=== PATIENT | female | born 1940 | race Caucasian/White ===

== ENCOUNTER 2016-07-30 10:49 | Outpatient (CLI) | payer MEDICARE, OTHER | END 2016-07-30 10:50 | disposition home or self-care (01) | DX: N28.89 Other specified disorders of kidney and ureter (principal); R93.2 Abnormal findings on diagnostic imaging of liver and biliary tract ==

== ENCOUNTER 2016-08-13 14:54 | Outpatient (CLI) | payer MEDICARE, OTHER | END 2016-08-13 14:55 | disposition home or self-care (01) | DX: E10.9 Type 1 diabetes mellitus without complications (principal); Z79.899 Other long term (current) drug therapy ==

== ENCOUNTER 2016-09-21 16:16 | Outpatient (CLI) | payer MEDICARE, OTHER | END 2016-09-21 16:17 | disposition home or self-care (01) | DX: N05.9 Unspecified nephritic syndrome with unspecified morphologic changes (principal); D70.9 Neutropenia, unspecified; D50.0 Iron deficiency anemia secondary to blood loss (chronic); R80.9 Proteinuria, unspecified ==

== ENCOUNTER 2016-10-01 18:58 | Outpatient (CLI) | payer MEDICARE, OTHER | END 2016-10-01 18:59 | disposition EMS.NT | DX: E16.2 Hypoglycemia, unspecified (principal) ==

== ENCOUNTER 2016-10-21 08:40 | Outpatient (CLI) | payer MEDICARE, OTHER ==
[2016-10-21 19:07] LABS: CALCIUM 8.8 mg/dL (8.5-10.3); CREATININE 2.1 mg/dL (0.4-1.0); POTASSIUM 4.5 mmol/L (3.5-5.0)
== END 2016-10-21 08:41 | disposition home or self-care (01) ==
LOC: LAB.R 08:40
PROVIDERS: ATTEND Internal Medicine
DX: N05.9 Unspecified nephritic syndrome with unspecified morphologic changes (principal)
CPT/HCPCS: 80048

== ENCOUNTER 2016-12-02 08:45 | Outpatient (CLI) | payer MEDICARE, OTHER ==
[2016-12-02 11:50] LABS: CALCIUM 9.1 mg/dL (8.5-10.3); CREATININE 2.4 mg/dL (0.4-1.0); POTASSIUM 4.9 mmol/L (3.5-5.0)
== END 2016-12-02 08:46 | disposition home or self-care (01) ==
LOC: LAB.R 08:45
PROVIDERS: ATTEND Internal Medicine Nephrology
DX: N05.9 Unspecified nephritic syndrome with unspecified morphologic changes (principal); R80.9 Proteinuria, unspecified
CPT/HCPCS: 80048; 82570; 83970; 84100; 84156

== ENCOUNTER 2016-12-26 07:40 | Emergency (ER) | payer MEDICARE, OTHER ==
--- NOTE | 2016-12-26 08:15 | ED Physician Documentation ---
History of Present Illness - Stated complaint Stated Complaint: VOMITING,RUIZ - Chief complaint Chief Complaint: General - History obtained from History obtained from: Patient - Additonal information Additional information: This patient is a 76-year-old female with a history of hydrocephalus status post shunt placement in 2009. She also has a left renal mass which is currently being followed by her physician. She has long-term hypertension and diabetes and has stage IV chronic kidney disease. She is here with a 2 day history of a global headache. The headache is worse lying down and alleviated by sitting or standing. She is also had mild nausea with a few episodes of vomiting and some diarrhea over the same period of time. Her headache symptoms similar to that that preceded the shunt placement 10 years ago. He has no complaints of abdominal pain. She denies having any fever, chest pain, shortness of breath, or lower urinary symptoms. She denies any visual changes or focal neurologic symptoms. Review of systems: For pertinent positive and negatives in the review of systems please see the history of present illness, otherwise all other systems have been reviewed and are negative. Dragon disclaimer: Parts of this medical record were created using voice recognition technology. Because of the inherent limitations of this system, occasional same sounding word substitutions do occur and persist despite proofreading. Please read the document for context. Review of Systems Ten Systems: 10 systems reviewed and negative Constitutional: denies: Fever, Chills Eyes: denies: Loss of vision, Decreased vision Ears: denies: Tinnitus/ringing Nose: reports: Reviewed and negative Throat: reports: Reviewed and negative Cardiac: denies: Chest pain / pressure, Palpitations Respiratory: denies: Dyspnea, Cough GI: reports: Nausea, Vomiting, Diarrhea. denies: Abdominal Pain, Constipation, Hematemesis : denies: Dysuria, Frequency, Hesitancy Skin: denies: Rash, Lesions, Abrasion (s), Laceration (s), Bite / sting, Reviewed and negative Musculoskeletal: denies: Neck pain, Back pain, Extremity pain, Joint pain, Extremity swelling, Joint swelling, Pain with weight bearing, Reviewed and negative Neurologic: denies: Generalized weakness, Focal weakness, Numbness, Difficulty speaking, Near syncope, Syncope, Seizure, Confused, Altered mental status, Unresponsive PD PAST MEDICAL HISTORY - Past Medical History Past Medical History: Yes Cardiovascular: Hypertension, Coronary artery disease Neuro: Head injury, Other Endocrine/Autoimmune: Type 2 diabetes : Renal insuffiency, Other Other Past Medical History: Has ventricular shunt, kidney failure - Past Surgical History General: Appendectomy - Present Medications Home Medications: Ambulatory Orders Medication Instructions Recorded Confirmed Insulin Glargine [Lantus] 8 unit SUBQ ONCE 05/13/16 12/26/16 Insulin Lispro [Humalog] 0.5 - 2 unit SUBQ ACHS 05/13/16 12/26/16 Levothyroxine [Synthroid] 25 mcg PO QDAC 05/13/16 12/26/16 Amlodipine Besylate [Norvasc] 1 tab PO DAILY 12/26/16 12/26/16 Ondansetron Odt [Zofran] 4 mg TL Q6H PRN #10 tablet 12/26/16 - Allergies Allergies/Adverse Reactions: Allergies Allergy/AdvReac Type Severity Reaction Status Date / Time codeine Allergy Dizziness Uncoded 12/26/16 07:57 - Social History Does the pt smoke?: No Smoking Status: Never smoker Does the pt drink ETOH?: No Does the pt have substance abuse?: No - Immunizations Immunizations are current?: Yes - POLST Patient has POLST: No Results - Vitals Vitals: Vital Signs - 24 hr 12/26/16 12/26/16 12/26/16 08:09 11:03 11:28 Temperature 36.6 C Heart Rate 78 89 69 Respiratory 16 15 Rate Blood Pressure 209/92 H 184/53 H 193/63 H O2 Saturation 99 96 12/26/16 12/26/16 13:31 14:54 Temperature Heart Rate 68 74 Respiratory 16 12 Rate Blood Pressure 171/64 H 171/73 H O2 Saturation 96 100 Oxygen O2 Source Room air - Labs Labs: Laboratory Tests 12/26/16 12/26/16 12/26/16 08:11 08:30 08:30 WBC 9.5 RBC 3.15 L Hgb 9.9 L Hct 30.0 L MCV 95.3 MCH 31.5 H MCHC 33.1 RDW 13.7 Plt Count 220 MPV 8.3 Neut # 8.1 H Lymph # 0.8 L [place] # 0.5 Eos # 0.1 Baso # 0.1 Absolute Nucleated RBC 0.00 Nucleated RBCs 0.0 PT 11.6 INR 1.0 Sodium Potassium Chloride Carbon Dioxide Anion Gap BUN Creatinine Estimated GFR (MDRD) Glucose POC Whole Bld Glucose 297 H Calcium Total Bilirubin AST ALT Alkaline Phosphatase Troponin I Total Protein Albumin Globulin Albumin/Globulin Ratio Lipase Urine Color Urine Clarity Urine pH Ur Specific [place] Urine Protein Urine Glucose (UA) Urine Ketones Urine Occult Blood Urine Nitrite Urine Bilirubin Urine Urobilinogen Ur Leukocyte Esterase Urine RBC Urine WBC Urine WBC Clumps Ur Squamous Epith Cells Urine Bacteria Ur Microscopic Review Urine Culture Comments 12/26/16 12/26/16 12/26/16 08:30 08:30 10:25 WBC RBC Hgb Hct MCV MCH MCHC RDW Plt Count MPV Neut # Lymph # [place] # Eos # Baso # Absolute Nucleated RBC Nucleated RBCs PT INR Sodium 129 L Potassium 4.9 Chloride 95 L Carbon Dioxide 24 Anion Gap 10.0 BUN 41 H Creatinine 2.2 H Estimated GFR (MDRD) 22 L Glucose 321 H POC Whole Bld Glucose Calcium 8.9 Total Bilirubin 0.8 AST 22 ALT 18 Alkaline Phosphatase 62 Troponin I < 0.04 Total Protein 7.9 Albumin 4.4 Globulin 3.5 Albumin/Globulin Ratio 1.3 Lipase 29 Urine Color YELLOW Urine Clarity CLEAR Urine pH 6.5 Ur Specific [place] 1.015 Urine Protein 100 H Urine Glucose (UA) >=1000 H Urine Ketones NEGATIVE Urine Occult Blood SMALL H Urine Nitrite NEGATIVE Urine Bilirubin NEGATIVE Urine Urobilinogen 0.2 (NORMAL) Ur Leukocyte Esterase TRACE H Urine RBC 0-5 Urine WBC >25 H Urine WBC Clumps PRESENT Ur Squamous Epith Cells MOD Squamous H Urine Bacteria Many H Ur Microscopic Review INDICATED Urine Culture Comments NOT INDICATED 12/26/16 12/26/16 10:32 14:16 WBC RBC Hgb Hct MCV MCH MCHC RDW Plt Count MPV Neut # Lymph # [place] # Eos # Baso # Absolute Nucleated RBC Nucleated RBCs PT INR Sodium Potassium Chloride Carbon Dioxide Anion Gap BUN Creatinine Estimated GFR (MDRD) Glucose POC Whole Bld Glucose 242 H 220 H Calcium Total Bilirubin AST ALT Alkaline Phosphatase Troponin I Total Protein Albumin Globulin Albumin/Globulin Ratio Lipase Urine Color Urine Clarity Urine pH Ur Specific [place] Urine Protein Urine Glucose (UA) Urine Ketones Urine Occult Blood Urine Nitrite Urine Bilirubin Urine Urobilinogen Ur Leukocyte Esterase Urine RBC Urine WBC Urine WBC Clumps Ur Squamous Epith Cells Urine Bacteria Ur Microscopic Review Urine Culture Comments PD MEDICAL DECISION MAKING - ED course Complexity details: reviewed old records, reviewed results, re-evaluated patient , considered differential, d/w patient, d/w compliance consultant ED course: 76-year-old lady status post BAIL AGENT shunt for normal pressure hydrocephalus in 2006. She presents with a headache that is similar to the headache she had before her shunt. She also has had mild nausea and vomiting but suggesting a non-neurologic causes the complaint of diarrhea. A CT scan of the head was done today which shows moderate ventriculomegaly however it is not significantly changed from studies done in 2008 in 2009. The last time she had a CT scan of the head done in [address] Lewis me to just meant to this shunt. Made an adjustment to the shunt. Clinically the shunt appears to be functioning normal on my physical exam. Shunt series was done and are unremarkable. Routine blood work was done and is unremarkable other than mild elevation of her blood sugar. She was given a couple doses of subcutaneous NovoLog here and now her blood pressure has sugar has improved and she is able to tolerate a diet. The case was discussed with her neurosurgeons coverage who felt that the patient's symptoms and CT scan are probably not in store marketing representative of recurrent shunt malfunction. I agree with his assessment and after hydration and nausea medication administration as well as blood sugar reduction the patient looks and feels better. Nonetheless we will have her follow-up with Dr. Lewis early next week as recommended by the neurosurgeon manager interventional. If her symptoms continue or should worsen I recommend that she return here to the emergency department for reevaluation. Disposition: To home Clinical impression: 1. Nausea vomiting and diarrhea 2. Headache with history of hydrocephalus status post BAIL AGENT shunt.-No conclusive evidence of shunt malfunction today, discussed with neurosurgery manager interventional 3. Diabetes type 1 0.5 [id number] Departure - Departure Disposition: 01 Home, Self Care Clinical Impression: Diabetes 1.5, managed as type 1, Nausea & vomiting, Headache Instructions: ED Diet Vomiting Wwo Diarrhea Ch Follow-Up: Blas Lewis MD [Physician No Access] - Oleksandr Alcaraz MD [Primary Care Provider] - Prescriptions: Ondansetron Odt [Zofran] 4 mg TL Q6H PRN #10 tablet PRN Reason: Nausea / Vomiting Comments: We do not think your headache is secondary to hydrocephalus today. However please follow-up with your neurosurgeon Dr. Lewis as soon as possible.
[2016-12-26] MEDS ORDERED: ONDANSETRON 4 MG/2 ML VIAL IVP STA ×2 (08:26→11:12)
[2016-12-26] MEDS ORDERED: SODIUM CHLORIDE 0.9% 1,000 ML IV ONE ×2 (08:26→12:20)
[2016-12-26 08:39] LABS: BASOPHILS # (AUTO) 0.1 10^3/uL (0.0-0.1); BASOPHILS % (AUTO) 0.9 %; EOSINOPHILS # (AUTO) 0.1 10^3/uL (0.0-0.7); HGB - HEMOGLOBIN 9.9 g/dL (12.0-16.0); LYMPHOCYTES # (AUTO) 0.8 10^3/uL (1.5-3.5); LYMPHOCYTES % (AUTO) 7.9 %; MEAN CORPUSCULAR HEMOGLOBIN 31.5 pg (27.0-31.0); MEAN CORPUSCULAR HGB CONC 33.1 g/dL (32.0-36.0); MEAN CORPUSCULAR VOLUME 95.3 fL (81.0-99.0); MEAN PLATELET VOLUME 8.3 fL (7.9-10.8); MONOCYTES # (AUTO) 0.5 10^3/uL (0.0-1.0); MONOCYTES % (AUTO) 4.8 %; NEUTROPHILS # (AUTO) 8.1 10^3/uL (1.5-6.6); NEUTROPHILS % (AUTO) 85.4 %; RED BLOOD COUNT 3.15 10^6/uL (4.20-5.40); RED CELL DISTRIBUTION WIDTH 13.7 % (12.0-15.0); UNCORRECTED WHITE BLOOD COUNT 9.5 x10^3/uL; WHITE BLOOD COUNT 9.5 x10^3/uL (4.8-10.8)
[2016-12-26] MEDS ORDERED: ONDANSETRON 4 MG/2 ML VIAL ONE ×2 (08:40→11:11)
[2016-12-26 08:43] LABS: PT - PROTHROMBIN TIME 11.6 secs (9.9-12.6)
[2016-12-26] MEDS ORDERED: INSULIN LISPRO 100 UNIT/1 ML 10 ML MDV SUBQ STA (08:48)
[2016-12-26 08:49] LABS: ALBUMIN/GLOBULIN RATIO 1.3 (1.0-2.2); BILIRUBIN,TOTAL 0.8 mg/dL (0.2-1.0); CALCIUM 8.9 mg/dL (8.5-10.3); CREATININE 2.2 mg/dL (0.4-1.0); POTASSIUM 4.9 mmol/L (3.5-5.0); TOTAL PROTEIN 7.9 g/dL (6.7-8.2)
[2016-12-26] MEDS ORDERED: INSULIN NPH HUMAN 100 UNIT/1 ML 10 ML MDV SUBQ ONE (09:10)
--- NOTE | 2016-12-26 09:47 | CT Preliminary Report ---
Exam: CT Head W/O IMPRESSION: Moderate ventriculomegaly, minimally increased since 05/15/2010 but similar to 06/11/2009 and 04/04/2009 studies. Right frontal approach ventriculostomy catheter in stable position. [facility] SITE ID: [id number]
--- NOTE | 2016-12-26 09:50 | CT Report ---
EXAM: CT HEAD EXAM DATE: 12/26/2016 08:59 AM. CLINICAL HISTORY: Headache-hx of hydrocephalus and shunt. COMPARISON: Head CT of 05/15/2010,, 06/11/2009 04/04/2009. TECHNIQUE: Multiaxial CT images were obtained from the foramen magnum to the vertex. IV contrast: Non e. Reformats: Coronal. In accordance with CT protocol optimization, one or more of the following dose reduction techniques w ere utilized for this exam: automated exposure control, adjustment of mA and/or KV based on patient s ize, or use of iterative reconstructive technique. FINDINGS: Parenchyma: No intraparenchymal hemorrhage. No evidence of mass, midline shift, or CT findings of inf arction. Brunson-white differentiation is distinct. Extraaxial Spaces: Normal for age. No subdural or epidural collections identified. Ventricles: Moderate enlargement of the ventricular system is minimally increased since 05/15/2010 bu t similar to 06/11/2009 and 04/04/2009. A right frontal approach ventriculostomy catheter tip abuts t he lateral wall of the left lateral ventricle, unchanged. Sinuses: Imaged paranasal sinuses, orbits, and mastoids show trace partial opacification of the masto id air cells.. Bones: No evidence of acute fracture or calvarial defect of visualized bones. Other: None. IMPRESSION: Moderate ventriculomegaly, minimally increased since 05/15/2010 but similar to 06/11/2009 and 04/04/2009 studies. Right frontal approach ventriculostomy catheter in stable position. [facility] Referring Provider Line: [phone] SITE ID: [id number]
[2016-12-26 10:49] LABS: BILIRUBIN,URINE NEGATIVE (NEGATIVE); PH,URINE 6.5 PH (5.0-7.5)
[2016-12-26 10:50] LABS: UA w/ MICROSCOPIC CHARGE YES
[2016-12-26 11:20] LABS: WBC,URINE >25 /HPF (0-5)
[2016-12-26 11:21] LABS: UR CULTURE IF IND NOT INDICATED
--- NOTE | 2016-12-26 11:23 | XRAY Preliminary Report ---
Exam: XR Chest 1 View IMPRESSION: 1. The MEDICAL INSTRUCTOR shunt catheter is only partially visualized throughout its course in the mid and lower ches t but appears contiguous in the visualized portion of the neck and upper chest. 2. No focal consolidation. [facility] SITE ID: [id number]
--- NOTE | 2016-12-26 11:26 | XRAY Report ---
EXAM: CHEST RADIOGRAPHY EXAM DATE: 12/26/2016 10:52 AM. CLINICAL HISTORY: Shunt survey. COMPARISON: None. TECHNIQUE: 1 view. FINDINGS: Lungs/Pleura: No focal opacities evident. No pleural effusion. No pneumothorax. Mediastinum: Within exam limitations, cardiomediastinal contour is normal. Other: There is a SUSTAINABLE SYSTEMS ANALYST shunt catheter which tracks down the right neck and projects over the right midl ine of the chest. The catheter is not well visualized in the mid and lower portion of the chest and u pper abdomen due to overlying shadows from the spine. The catheter is again noted to track inferior l aterally from the right midline of the upper abdomen off the [id number]. The tip is not visualized . IMPRESSION: 1. The SUSTAINABLE SYSTEMS ANALYST shunt catheter is only partially visualized throughout its course in the mid and lower ches t but appears contiguous in the visualized portion of the neck and upper chest. 2. No focal consolidation. [facility] Referring Provider Line: [phone] SITE ID: [id number]
--- NOTE | 2016-12-26 11:30 | XRAY Preliminary Report ---
Exam: XR Abdomen 1 View IMPRESSION: 1. Ventriculoperitoneal shunt catheter tubing extends from the head, neck, and chest, to the right mi d abdomen. There is an additional loop of discontinuous catheter tubing in the pelvis. [facility] SITE ID: [id number]
--- NOTE | 2016-12-26 11:33 | XRAY Report ---
EXAM: ABDOMEN RADIOGRAPHY EXAM DATE: 12/26/2016 10:52 AM. CLINICAL HISTORY: Shunt survey. COMPARISON: Correlation made with chest radiograph of today and head CT yesterday. TECHNIQUE: 1 view. FINDINGS: Bowel Gas Pattern: Within normal limits. No dilated loops. Other: Ventriculoperitoneal shunt catheter tubing tip in the right mid abdomen is discontinuous with a loop of catheter tubing in the pelvis. Mild rotary dextroscoliosis of the lumbar spine. IMPRESSION: 1. Ventriculoperitoneal shunt catheter tubing extends from the head, neck, and chest, to the right mi d abdomen. There is an additional loop of discontinuous catheter tubing in the pelvis. [facility] Referring Provider Line: [phone] SITE ID: [id number]
[2016-12-26] MEDS ORDERED: KETOROLAC 30 MG/ML VIAL IVP STA (12:20)
[2016-12-26] MEDS ORDERED: METOCLOPRAMIDE 10 MG/2 ML VIAL IVP STA (12:20)
[2016-12-26] MEDS ORDERED: METOCLOPRAMIDE 10 MG/2 ML VIAL ONE (12:30)
[2016-12-26] MEDS ORDERED: KETOROLAC 30 MG/ML VIAL ONE (12:30)
[2016-12-26] MEDS ORDERED: INSULIN ASPART 100 UNIT/1 ML 10 ML MDV SUBQ ONE (13:29)
[2016-12-26] MEDS ORDERED: INSULIN ASPART 300 UNIT/3 ML PEN SUBQ STA (13:32)
[2016-12-26 14:55] VITALS: BP 171/73
== END 2016-12-26 15:00 | disposition home or self-care (01) ==
LOC: ED 07:40
DX: E10.22 Type 1 diabetes mellitus with diabetic chronic kidney disease (principal); I12.9 Hypertensive chronic kidney disease with stage 1 through stage 4 chronic kidney disease, or unspecified chronic kidney disease; N18.4 Chronic kidney disease, stage 4 (severe); Z79.4 Long term (current) use of insulin; R51 Headache; R11.2 Nausea with vomiting, unspecified; G91.9 Hydrocephalus, unspecified; Z98.2 Presence of cerebrospinal fluid drainage device; N28.89 Other specified disorders of kidney and ureter; I25.10 Atherosclerotic heart disease of native coronary artery without angina pectoris
CPT/HCPCS: 36415; 70450; 71010; 74000; 80053; 81001; 83690; 84484; 85025; 85610; 93005; 99284; A9270; J1815; 81003; 87086

== ENCOUNTER 2016-12-28 09:31 | Inpatient (IN) | payer MEDICARE, OTHER ==
[2016-12-28] MEDS ORDERED: SODIUM CHLORIDE FLUSH 0.9% 10 ML SYRINGE IVP ONE (09:39)
[2016-12-28] MEDS ORDERED: ONDANSETRON 4 MG/2 ML VIAL IVP STA (09:54)
[2016-12-28] MEDS ORDERED: ONDANSETRON 4 MG/2 ML VIAL ONE (10:06)
[2016-12-28 10:31] LABS: BASOPHILS % (AUTO) 0.1 %; HGB - HEMOGLOBIN 9.7 g/dL (12.0-16.0); LYMPHOCYTES # (AUTO) 0.7 10^3/uL (1.5-3.5); LYMPHOCYTES % (AUTO) 5.3 %; MEAN CORPUSCULAR HEMOGLOBIN 31.5 pg (27.0-31.0); MEAN CORPUSCULAR HGB CONC 33.3 g/dL (32.0-36.0); MEAN CORPUSCULAR VOLUME 94.6 fL (81.0-99.0); MEAN PLATELET VOLUME 8.5 fL (7.9-10.8); MONOCYTES # (AUTO) 0.7 10^3/uL (0.0-1.0); MONOCYTES % (AUTO) 5.4 %; NEUTROPHILS # (AUTO) 12.2 10^3/uL (1.5-6.6); NEUTROPHILS % (AUTO) 89.2 %; RED BLOOD COUNT 3.07 10^6/uL (4.20-5.40); RED CELL DISTRIBUTION WIDTH 13.6 % (12.0-15.0); UNCORRECTED WHITE BLOOD COUNT 13.7 x10^3/uL; WHITE BLOOD COUNT 13.7 x10^3/uL (4.8-10.8)
--- NOTE | 2016-12-28 10:35 | CT Preliminary Report ---
Exam: CT Head W/O IMPRESSION: 1. Unchanged dilatation of the cerebral ventricles and unchanged position of the ventricular catheter . [facility] SITE ID: [id number]
--- NOTE | 2016-12-28 10:35 | XRAY Preliminary Report ---
Exam: XR Chest 1 View IMPRESSION: No focal consolidation. [facility] SITE ID: [id number]
--- NOTE | 2016-12-28 10:37 | XRAY Report ---
EXAM: CHEST RADIOGRAPHY EXAM DATE: 12/28/2016 10:24 AM. CLINICAL HISTORY: Nausea and vomitting. COMPARISON: None. TECHNIQUE: 1 view. FINDINGS: Lungs/Pleura: No focal opacities evident. No pleural effusion. No pneumothorax. Mediastinum: Within exam limitations, cardiomediastinal contour is normal. Other: None. IMPRESSION: No focal consolidation. [facility] Referring Provider Line: [phone] SITE ID: [id number]
--- NOTE | 2016-12-28 10:37 | CT Report ---
EXAM: CT HEAD EXAM DATE: 12/28/2016 10:21 AM. CLINICAL HISTORY: Recurrent RUIZ/N/V-check for hydro/vp corporate partnerships shunt. COMPARISON: Head CT 12/26/2016. TECHNIQUE: Multiaxial CT images were obtained from the foramen magnum to the vertex. IV contrast: Non e. Reformats: Coronal. In accordance with CT protocol optimization, one or more of the following dose reduction techniques w ere utilized for this exam: automated exposure control, adjustment of mA and/or KV based on patient s ize, or use of iterative reconstructive technique. FINDINGS: Parenchyma: No intraparenchymal hemorrhage. No evidence of mass, midline shift, or CT findings of inf arction. Brunson-white differentiation is distinct. Extraaxial Spaces: Normal for age. No subdural or epidural collections identified. Ventricles: Enlargement of the cerebral ventricles is similar to prior. No significant interval gregg e in size. Blunting of the right greater than left temporal horn unchanged. Positioning of the ventri culostomy catheter unchanged. Sinuses: The visualized portions of the paranasal sinuses and mastoid air cells appear normally aerat ed. Bones: Right frontal craniotomy at the ventriculostomy site. Other: None. IMPRESSION: 1. Unchanged dilatation of the cerebral ventricles and unchanged position of the ventricular catheter . [facility] Referring Provider Line: [phone] SITE ID: [id number]
[2016-12-28 10:41] LABS: INR 1.1 (0.8-1.2); PT - PROTHROMBIN TIME 12.1 secs (9.9-12.6)
[2016-12-28] MEDS ORDERED: HYDROmorphone 1 MG/ML SYRINGE IM STA (10:42)
[2016-12-28] MEDS ORDERED: PROCHLORPERAZINE INJ 10 MG in SODIUM CHLORIDE 0.9% 50 ML IV ONE (10:42)
[2016-12-28 10:48] LABS: ALBUMIN/GLOBULIN RATIO 1.1 (1.0-2.2); CALCIUM 9.2 mg/dL (8.5-10.3); CREATININE 1.9 mg/dL (0.4-1.0); POTASSIUM 3.6 mmol/L (3.5-5.0); TOTAL PROTEIN 8.1 g/dL (6.7-8.2)
[2016-12-28] MEDS ORDERED: PROCHLORPERAZINE 10 MG/2 ML VIAL ONE (10:53)
[2016-12-28] MEDS ORDERED: HYDROmorphone 1 MG/ML SYRINGE ONE (10:54)
[2016-12-28] MEDS ORDERED: HYDROmorphone 1 MG/ML SYRINGE IVP STA (11:02)
--- NOTE | 2016-12-28 11:07 | ED Physician Documentation ---
History of Present Illness - Stated complaint Stated Complaint: NAUSEA/VOMITING - Chief complaint Chief Complaint: Abd Pain - History obtained from History obtained from: Patient, Family - Additonal information Additional information: This patient is a 76-year-old female with history of hypertension, diabetes, and hydrocephalus status post COMMUNICATION SPEC shunt in 2006. Patient was seen by me on Wednesday for headache nausea and vomiting. At that time there is no significant change in her CT scan and the case was discussed with the neurosurgeon on duty for Dr. Lewis, her normal neurosurgeon. We felt at that time that her headache nausea and vomiting were not secondary to new or worsening hydrocephalus. Shunt survey was also done at that time that was normal. We found no other conclusive cause for the patient's recurrent nausea vomiting and diarrhea but she did improve and ultimately went home. Blood work and other laboratory workup at that time was normal. Patient has had recurrent nausea and vomiting and a mild headache since onset of symptoms on . She says she has not had anything to eat or drink for the last 4-5 days. Every time she eats or drinks she has episodes of nausea and vomits. She does not have any pain. There is no fever. Her diarrhea has completely resolved. She does not have any eye pain or visual complaints. There is no vertiginous symptoms or spinning. She was seen by Dr. Alcaraz this morning and sent in for recurrent nausea and vomiting. Review of systems: For pertinent positive and negatives in the review of systems please see the history of present illness, otherwise all other systems have been reviewed and are negative. Dragon disclaimer: Parts of this medical record were created using voice recognition technology. Because of the inherent limitations of this system, occasional same sounding word substitutions do occur and persist despite proofreading. Please read the document for context. Review of Systems Ten Systems: 10 systems reviewed and negative Constitutional: denies: Fever, Chills, Myalgias Eyes: denies: Loss of vision, Decreased vision, Photophobia Ears: denies: Loss of hearing, Ear pain, Drainage/discharge, Tinnitus/ringing, Foreign body Nose: denies: Rhinorrhea / runny nose, Foreign Body Throat: denies: Dental pain / toothache, Oral lesions / sores Cardiac: denies: Chest pain / pressure, Palpitations Respiratory: denies: Dyspnea, Cough GI: reports: Nausea, Vomiting. denies: Abdominal Pain, Abdominal Swelling, Constipation, Diarrhea, Hematemesis : denies: Dysuria, Frequency Skin: denies: Rash, Lesions, Abrasion (s) Musculoskeletal: denies: Neck pain, Back pain, Extremity pain, Joint pain, Extremity swelling Neurologic: denies: Generalized weakness, Focal weakness, Numbness, Difficulty speaking, Syncope, Confused, Altered mental status, Unresponsive Psychiatric: denies: Depressed PD PAST MEDICAL HISTORY - Past Medical History Cardiovascular: Hypertension, Coronary artery disease Neuro: Head injury, Other Endocrine/Autoimmune: Type 2 diabetes : Renal insuffiency, Other - Past Surgical History General: Appendectomy - Present Medications Home Medications: Ambulatory Orders Medication Instructions Recorded Confirmed Insulin Glargine [Lantus] 8 unit SUBQ ONCE 05/13/16 12/28/16 Insulin Lispro [Humalog] 0.5 - 2 unit SUBQ ACHS 05/13/16 12/28/16 Levothyroxine [Synthroid] 25 mcg PO QDAC 05/13/16 12/28/16 Amlodipine Besylate [Norvasc] 1 tab PO DAILY 12/26/16 12/28/16 Ondansetron Odt [Zofran] 4 mg TL Q6H PRN #10 tablet 12/26/16 12/28/16 - Allergies Allergies/Adverse Reactions: Allergies Allergy/AdvReac Type Severity Reaction Status Date / Time codeine Allergy Dizziness Uncoded 12/28/16 09:42 - Social History Does the pt smoke?: No Smoking Status: Never smoker Does the pt drink ETOH?: No Does the pt have substance abuse?: No - Immunizations Immunizations are current?: Yes - POLST Patient has POLST: No Results - Vitals Vitals: Vital Signs - 24 hr 12/28/16 12/28/16 12/28/16 09:38 10:44 11:11 Temperature 36.4 C L Heart Rate 76 64 72 Respiratory 14 20 12 Rate Blood Pressure 220/89 H 224/90 H 200/84 H O2 Saturation 100 95 95 12/28/16 12/28/16 12/28/16 12:55 13:20 13:40 Temperature Heart Rate 106 H 112 H 118 H Respiratory 16 16 16 Rate Blood Pressure 190/91 H 107/90 H 201/91 H O2 Saturation 95 95 93 Oxygen O2 Source Room air - Labs Labs: Laboratory Tests 12/28/16 12/28/16 12/28/16 09:55 09:55 09:55 WBC 13.7 H RBC 3.07 L Hgb 9.7 L Hct 29.0 L MCV 94.6 MCH 31.5 H MCHC 33.3 RDW 13.6 Plt Count 232 MPV 8.5 Neut # 12.2 H Lymph # 0.7 L [place] # 0.7 Eos # 0.0 Baso # 0.0 Absolute Nucleated RBC 0.00 Nucleated RBCs 0.0 PT INR Sodium 134 L Potassium 3.6 Chloride 98 L Carbon Dioxide 26 Anion Gap 10.0 BUN 40 H Creatinine 1.9 H Estimated GFR (MDRD) 26 L Glucose 169 H POC Whole Bld Glucose Calcium 9.2 Total Bilirubin 1.0 AST 33 ALT 29 Alkaline Phosphatase 56 Troponin I < 0.04 Total Protein 8.1 Albumin 4.3 Globulin 3.8 Albumin/Globulin Ratio 1.1 Lipase 27 CSF Color CSF Clarity Xanthrochromic CSF WBC CSF RBC CSF Cell Count Tube # CSF Glucose CSF Total Protein 12/28/16 12/28/16 12/28/16 09:55 11:35 13:15 WBC RBC Hgb Hct MCV MCH MCHC RDW Plt Count MPV Neut # Lymph # [place] # Eos # Baso # Absolute Nucleated RBC Nucleated RBCs PT 12.1 INR 1.1 Sodium Potassium Chloride Carbon Dioxide Anion Gap BUN Creatinine Estimated GFR (MDRD) Glucose POC Whole Bld Glucose 140 H Calcium Total Bilirubin AST ALT Alkaline Phosphatase Troponin I Total Protein Albumin Globulin Albumin/Globulin Ratio Lipase CSF Color COLORLESS CSF Clarity CLEAR Xanthrochromic ABSENT CSF WBC 0 CSF RBC 0 CSF Cell Count Tube # CSF TUBE# 3 CSF Glucose 113 H CSF Total Protein 39 PD MEDICAL DECISION MAKING - ED course Complexity details: reviewed old records, reviewed results, re-evaluated patient , considered differential, d/w patient, d/w family, d/w interventional sale consultant ED course: Pleasant 76-year-old female with hypertension, diabetes and a history of a left- sided kidney mass. She is here with a complaint of nausea vomiting primarily. She had the onset of symptoms earlier in the week. She also has a COMMUNICATION SPEC shunt placed her normal pressure hydrocephalus. She was seen by me on Wednesday and worked up for shunt dysfunction. We felt at that time her symptoms were not related to hydrocephalus. She went home and had ongoing nausea and vomiting now mostly without diarrhea and again a dull headache although it is much less than it was on Wednesday. Again we looked into the possibility of shunt malfunction a CT scan shows no significant change in her ventriculomegaly. The case was discussed with Dr. Mario Lewis her neurosurgeon and he feels that this is very unlikely to be related to recurrence of hydrocephalus or shunt problems. He did recommend that sending fluid studies would not be an appropriate and also recommended that we try taking off 30 cc of cerebrospinal fluid to see if this assists the patient in feeling better. The patient was placed in left lateral decubitus position after consent was obtained. The lumbar puncture was done using normal technique and at L4 interdisc space. Fluid was obtained the initial opening pressure was 23. 30 cc was removed with interval without any difficulty. The patient says she feels a little bit better at the fluid analysis is pending. Blood work today shows chronic kidney disease and mild elevation of her white blood cell count however she has no abdominal pain or abdominal tenderness I a do not think this is the abdominal cause of nausea and vomiting. I have asked the hospitalist to see the patient since this is day 5 with recurrent nausea vomiting that has been intractable to use of antiemetics at home. Disposition: Admission Clinical impression: 1. Intractable nausea and vomiting-etiology unclear 2. History of diabetes, stable 3. COMMUNICATION SPEC shunt for NPH in 2006 appears to be stable-discussed with neurosurgery 4. Left renal mass-known currently being watched Departure - Departure Disposition: ED Place in Observation Clinical Impression: Vomiting
[2016-12-28] MEDS ORDERED: MIDAZOLAM 2 MG/2 ML VIAL ONE (12:41)
[2016-12-28 13:47] LABS: CLARITY,CSF CLEAR (CLEAR); COLOR,CSF COLORLESS (COLORLESS); CSF XANTHOCHROMIA ABSENT (ABSENT); WHITE BLOOD CELL,CSF 0 /mm^3 (0-5)
[2016-12-28 13:54] LABS: CSF - GLUCOSE 113 mg/dL (45-70)
[2016-12-28] MEDS ORDERED: hydrALAZINE INJ 20 MG/ML VIAL IVP PRN (15:02)
[2016-12-28] MEDS ORDERED: ZOLPIDEM 5 MG TABLET PO PRN (15:04)
[2016-12-28] MEDS ORDERED: SODIUM CHLORIDE FLUSH 0.9% 10 ML SYRINGE IVP PRN (15:04)
[2016-12-28] MEDS ORDERED: PROCHLORPERAZINE 10 MG/2 ML VIAL IVP PRN (15:04)
[2016-12-28 15:06] LABS: BILIRUBIN,URINE NEGATIVE (NEGATIVE)
[2016-12-28 15:14] LABS: UA w/ MICROSCOPIC CHARGE YES
[2016-12-28] MEDS ORDERED: INSULIN GLARGINE SUBQ SCH (15:15)
[2016-12-28 15:23] LABS: UR CULTURE IF IND INDICATED; WBC,URINE >25 /HPF (0-5)
[2016-12-28] MEDS ORDERED: LACTATED RINGERS 1,000 ML IV STA (15:41)
[2016-12-28] MEDS ORDERED: LEVOTHYROXINE 25 MCG TABLET PO SCH (16:00)
[2016-12-28 16:07] LABS: HEMOGLOBIN A1C 0.53 g/dL
[2016-12-28] MEDS: SODIUM CHLORIDE FLUSH 0.9% 10 ML SYRINGE IVP SCH (17:38)
[2016-12-28] MEDS: INSULIN ASPART 300 UNIT/3 ML PEN SUBQ SCH ×2 (17:56→22:34)
[2016-12-28] MEDS: LOSARTAN 50 MG TABLET PO SCH ×2 (18:05→22:32)
[2016-12-28] MEDS: SODIUM CHLORIDE 0.9% 1,000 ML IV SCH (18:09)
[2016-12-28] MEDS: ONDANSETRON 4 MG/2 ML VIAL IVP PRN (18:16)
[2016-12-28 19:47] LABS: POTASSIUM 3.7 mmol/L (3.5-5.0)
[2016-12-28] MEDS: cloNIDine 0.1 MG TABLET PO PRN (19:48)
[2016-12-28] MEDS ORDERED: INSULIN GLARGINE 300 UNIT/3 ML PEN SUBQ SCH (21:00)
--- NOTE | 2016-12-28 21:56 | CT Preliminary Report ---
Exam: CT Chest W/O IMPRESSION: Incidental findings as described. MICROBIOLOGY INSTRUCTOR shunt intact. [facility] SITE ID: [id number]
--- NOTE | 2016-12-28 21:58 | CT Report ---
EXAM: CT CHEST EXAM DATE: 12/28/2016 09:18 PM. CLINICAL HISTORY: Eval BOX NAILER shunt. COMPARISONS: None. TECHNIQUE: Routine helical CT imaging was performed through the chest. IV contrast: None. Reconstruct ions: Coronal and sagittal. In accordance with CT protocol optimization, one or more of the following dose reduction techniques w ere utilized for this exam: automated exposure control, adjustment of mA and/or KV based on patient s ize, or use of iterative reconstructive technique. FINDINGS: Lungs/Pleura: Bibasilar atelectasis with scarring in the right base. Mild peribronchial thickening. N o acute infiltrate, consolidation, effusion, or pneumothorax. Mediastinum: Normal heart size. Trace pericardial effusion. At least two-vessel coronary artery calci fication. Bones: Unremarkable. Visualized Abdomen: See separate report. Other: BOX NAILER shunt descends from the neck slightly to the right of midline anteriorly. Tubing appears in tact. IMPRESSION: Incidental findings as described. BOX NAILER shunt intact. [facility] Referring Provider Line: [phone] SITE ID: [id number]
--- NOTE | 2016-12-28 22:05 | CT Preliminary Report ---
Exam: CT Abdomen W/O IMPRESSION: 1. SHEATHER shunt tubing is intact, but terminates superficial to the muscle layer of the right upper quadr ant. 2. Perinephric fat stranding and other incidental findings. [facility] SITE ID: [id number]
--- NOTE | 2016-12-28 22:07 | CT Report ---
EXAM: CT ABDOMEN EXAM DATE: 12/28/2016 09:18 PM. CLINICAL HISTORY: Eval shunt. COMPARISON: None. TECHNIQUE: Routine helical CT imaging was performed through the abdomen. IV contrast: None. Enteric contrast: No. Reconstruction: Coronal and sagittal. In accordance with CT protocol optimization, one or more of the following dose reduction techniques w ere utilized for this exam: automated exposure control, adjustment of mA and/or KV based on patient s ize, or use of iterative reconstructive technique. FINDINGS: Lung Bases: See separate report. Liver: Normal. No masses. Gallbladder/Bile Ducts: Unremarkable. Spleen: Normal. Pancreas: Normal. Adrenal Glands: Normal. Kidneys: Perinephric fat stranding. No hydronephrosis. No visualized stone. Peritoneal Cavity/Bowel: No free fluid, free air, or lymphadenopathy. No bowel dilation. Appendix not visualized. Vasculature: No aneurysms or other significant abnormality. Bones: Degenerative changes. Other: DEPUTY SHERIFF CHIEF shunt visualized in subcutaneous tissue of upper anterior abdomen extending to the right up per quadrant, but terminating outside of the muscle layer, with small amount of infiltration of fat a t that level. See axial image 31 and 32. IMPRESSION: 1. DEPUTY SHERIFF CHIEF shunt tubing is intact, but terminates superficial to the muscle layer of the right upper quadr ant. 2. Perinephric fat stranding and other incidental findings. [facility] Referring Provider Line: [phone] SITE ID: [id number]
[2016-12-28] MEDS: HEPARIN 5,000 UNIT/ML VIAL SUBQ SCH (22:29)
[2016-12-29] MEDS: ACETAMINOPHEN 325 MG TABLET PO PRN ×2 (01:44→11:21)
[2016-12-29] MEDS: ONDANSETRON 4 MG/2 ML VIAL IVP PRN (01:54)
[2016-12-29] MEDS ORDERED: METOPROLOL 5 MG/5 ML VIAL IVP SCH (02:00)
[2016-12-29] MEDS ORDERED: METOPROLOL 5 MG/5 ML VIAL IVP PRN (04:38)
[2016-12-29] MEDS: SODIUM CHLORIDE 0.9% 1,000 ML IV SCH ×2 (05:21→05:44)
[2016-12-29] MEDS: SODIUM CHLORIDE FLUSH 0.9% 10 ML SYRINGE IVP SCH (05:44)
[2016-12-29] MEDS ORDERED: LEVOTHYROXINE 112 MCG TABLET PO SCH (07:00)
[2016-12-29] MEDS: LOSARTAN 50 MG TABLET PO SCH (07:01)
[2016-12-29] MEDS ORDERED: hydrALAZINE INJ 20 MG/ML VIAL IVP PRN (08:33)
[2016-12-29] MEDS ORDERED: AMLODIPINE BESYLATE PO SCH (09:00)
[2016-12-29] MEDS ORDERED: amLODIPine 5 MG TABLET PO SCH (09:00)
[2016-12-29] MEDS ORDERED: ASPIRIN 325 MG TABLET PO SCH (09:00)
[2016-12-29] MEDS ORDERED: POLYETHYLENE GLYCOL 3350 17 GM PACKET PO SCH (09:00)
[2016-12-29] MEDS ORDERED: FAMOTIDINE 20 MG TABLET PO SCH (09:00)
[2016-12-29] MEDS: INSULIN ASPART 300 UNIT/3 ML PEN SUBQ SCH (10:25)
[2016-12-29] MEDS: HEPARIN 5,000 UNIT/ML VIAL SUBQ SCH (10:43)
[2016-12-29] MEDS ORDERED: CLOPIDOGREL 75 MG TABLET PO SCH (11:00)
[2016-12-29] MEDS ORDERED: NITROGLYCERIN 50 MG/250 ML 250 ML IV SCH (11:00)
[2016-12-29] MEDS: cloNIDine 0.1 MG TABLET PO PRN (11:01)
--- NOTE | 2016-12-29 11:21 | HISTORY & PHYSICAL EXAMINATION ---
Chief Complaint - Chief Complaint Chief Complaint: headache, nausea and vomiting History of Present Illness - Admitted From Admitted From:: emergence department - History Obtained From History obtained from: patient - History of Present Illness HPI Comment/Other: This is a 76-year-old female with a significantly past medical history of hypertension, diabetes, chronic renal insufficiency and hydrocephalus status post PASSENGER INTERLINE CLERK shunt in 2006, who present emergence depart for evaluation of headache, nausea and vomiting. Patient report she visited emergence department on last Wednesday for headache, nausea and vomiting. She was discharged to home after emergence department evaluation. Patient has had recurrent nausea and vomiting, bad headache on . Patient had CT scan of head in ER. The ER provider discussed the case with her neurosurgeon. Patient had taking off 30 CC of cerebrospinal fluid to see if this help to reduce pt's some symptoms. Patient report she feels a little bit better after the procedure. Pt also report she did not eat anything for the last 5 days because " I can not let anything go down." Patient denies any pain at the time I assess her. No chest pain, headache , abdominal pain. There is no fever, chill. She denies any vision changing. Denies hamtemesis, hemoptysis. Her troponin is less than 0.04. other significant abnormal study includes BUN 40 , creatinine 1.9, WBC 13.7, HGB 9.7, HCT 29. CT of head reveals no acute finding. CXR reveals no acute finding either. Patient is admitted for evaluation of intractable nausea, vomiting and headache. Review of Systems - Constitutional Constitutional: reports: Fatigue, Poor appetite. denies: Fever, Chills, Malaise , Weakness, Diaphoresis, Night sweats, Weight gain, Weight loss - Eyes Eyes: denies: Pain, Irritation, Amaurosis, Blurred vision, Spots in vision, Field loss, Vision loss, Dipolpia - Ears, Nose & Throat Ears, Nose & Throat: denies: Ear pain, Hearing loss, Hearing aids, Tinnitus, Vertigo, Nasal pain, Nasal discharge, Nosebleeds, Nasal congestion, Postnasal drainage, Dentures, Sore throat, Hoarseness, Mouth lesions - Cardiovascular Cariovascular: denies: Irregular heart rate, Palpitations, Chest pain, Edema, Lightheadedness, Syncope, Exertional dyspnea, Decr. exercise tolerance, Orthopnea - Respiratory Respiratory: denies: Cough, Sputum production, Wheezing, Snoring, Hemoptysis, Orthopnea, SOB at rest, SOB with exertion, Apnea, Stridor, Pleuritic pain - Gastrointestinal Gastrointestinal: reports: Nausea, Vomiting, Poor appetite. denies: Abdominal pain, Abdominal distention, Constipation, Diarrhea, Change in bowel habits, Rectal bleeding, Black stools, Bloody stools, Bile emesis, [place] blood emesis, Coffee grounds emesis, Reflux/heartburn - Genitourinary Genitourinary: denies: Dysuria, Frequency, Urgency, Hematuria, Incontinence, Flank pain, Nocturia - Musculoskeletal Musculoskeletal: denies: Muscle pain, Back pain, Muscle aches, Stiffness, Limited range of motion, Muscle weakness, Gout - Integumentary Integumentary: denies: Rash, Pruritis, Lesions, Dryness, Lumps, Acne, Pigment changes - Neurological Neurological: reports: General weakness, Headache. denies: Focal weakness, Dizziness, Numbness, Memory problems, Pre-existing deficit, Abnormal gait, Seizures, Incoordination, Slurred speech - Psychiatric Psychiatric: denies: Depression, Anxiety, Suicidal, Delusions, Hallucinations, Homicidal - Endocrine Endocrine: denies: Polyuria, Polydypsia, Polyphagia, Intolerance to cold, Intolerance to heat - Hematologic/Lymphatic Hematologic/Lymphatic: denies: Anemia, Bruising, Petechiae, Blood clots, Lymphadenopathy, Bleeding tendencies, Recurrent infections History - Past Medical History Cardiovascular: reports: Hypertension, Coronary artery disease Neuro: reports: Head injury, Other Endocrine/Autoimmune: reports: Type 2 diabetes : reports: Renal insuffiency, Other MRSA Hx?: No - Past Surgical History General: reports: Appendectomy - POLST Patient has POLST: No Meds/Allgy - Home Medications Home Medications: Ambulatory Orders Medication Instructions Recorded Confirmed Amlodipine Besylate [Norvasc] 10 mg PO DAILY 12/28/16 12/28/16 Insulin Glargine [Lantus Solostar] 8 - 10 units SUBQ QPM 12/28/16 12/28/16 Insulin Lispro [Humalog] 4 - 8 units SUBQ TIDWM 12/28/16 12/28/16 Levothyroxine Sodium [Levoxyl] 112 mcg PO QDAC 12/28/16 12/28/16 Losartan Potassium 12.5 - 25 mg PO TID 12/28/16 12/28/16 - Allergies Allergies/Adverse Reactions: Allergies Allergy/AdvReac Type Severity Reaction Status Date / Time codeine Allergy Dizziness Uncoded 12/28/16 09:42 Exam - Vital Signs Vital Signs: Vital Signs x48h Temp Pulse Resp BP BP Pulse Ox 12/29/16 10:56 64 192/62 H 99 12/29/16 10:52 64 189/62 H 100 12/29/16 08:45 36.8 C 99 16 177/65 H 99 12/29/16 06:45 67 162/65 H 12/29/16 06:30 66 166/65 H 12/29/16 06:25 62 166/62 H 12/29/16 06:20 62 163/63 H 12/29/16 06:05 61 162/58 H 12/29/16 06:00 115 H 166/91 H 12/29/16 05:55 115 H 176/98 H 12/29/16 05:51 118 H 12 161/94 H 12/29/16 05:44 180/100 H 12/29/16 05:42 124 H 12 186/71 H 12/29/16 05:02 118 H 176/94 H 12/29/16 04:35 120 H 12/29/16 04:34 69 180/73 H 12/29/16 04:00 120 H 174/97 H 12/29/16 03:45 120 H 179/96 H 12/29/16 03:30 118 H 170/93 H - Physical Exam General Appearance: positive: No acute distress, Alert. negative: Lethargic Eyes Bilateral: positive: Normal inspection, PERRL, EOMI. negative: No lid inflammation, Conjunctivae nml, No scleral icterus ENT: positive: ENT inspection nml, Pharynx nml. negative: Purulent nasal drainage, Pharyngeal erythema Neck: positive: Nml inspection, Thyroid nml, No JVD, Trachea midline. negative : Lymphadenopathy (R), Lymphadenopathy (L), Stiff neck, Swelling/bruising Respiratory: positive: Chest non-tender, No respiratory distress, Breath sounds nml. negative: Wheezes, Rales, Rhonchi Cardiovascular: positive: Regular rate & rhythm, No murmur, No gallop. negative : Tachycardia, Bradycardia, Systolic murmur, Diastolic murmur, Friction rub Peripheral Pulses: positive: 2+ Abdomen: positive: Non-tender, No organomegaly, Nml bowel sounds, No distention. negative: Tenderness, Guarding, Rebound Back: positive: Nml inspection. negative: CVA tenderness (R), CVA tenderness (L ) Skin: positive: Color nml, No rash, Warm, Dry. negative: Diaphoresis, Skin rash , Laceration (cm), Embolic lesions Extremities: positive: Non-tender, Full ROM, Nml appearance, No pedal edema. negative: Pedal edema, Calf tenderness, Joint swelling, Jose Manuel's sign/cords Neurologic/Psychiatric: positive: Oriented x3, Motor nml, Sensation nml, Mood/ affect nml, Weakness. negative: Disoriented to person, Disoriented to place, Disoriented to time, Sensory loss, Facial droop, Slurred/abnml speech, Depressed mood/affect Conclusion/Plan - Problem List (1) Nausea & vomiting Conclusion/Plan: CT of head without acute finding from history of PASSENGER INTERLINE CLERK shut, CT of abdominal another site of PASSENGER INTERLINE CLERK shut to check if any blockage PRN speedy murray mild to moderate IVF check CMP daily Qualifiers: Vomiting type: unspecified Vomiting Intractability: non-intractable Qualified Code(s): R11.2 - Nausea with vomiting, unspecified (2) History of hydrocephalus Conclusion/Plan: CT of head without acute finding, pt also had 30 ml CFS from PASSENGER INTERLINE CLERK shut without obvious symptom improved. neurological check closely, (3) Hypertension Conclusion/Plan: pt state she did not take her BP medication at the morning reconciliation of her BP home meds add hydralazine and Clonidine as PRN ask nurse immediate action to give pt BP medication to slow down pt's elevated BP on tele (4) History of coronary artery disease Conclusion/Plan: pt denies any chest pain. control of pt's blood pressure tele monitor closely (5) Diabetes 1.5, managed as type 1 Conclusion/Plan: reconciliation of home DM medication, slide scale, hypoglycemia protocol, A1C check. (6) Renal insufficiency Conclusion/Plan: chronic condition, mild to moderate IVF, check CMP daily - Lab Results Fish Bones: 12/28/16 09:55 12/28/16 19:30 Issues/Core Measures - Anticipated LOS Anticipated Stay Length: 2 or more midnights - Issues Hospital Issues and Management Plan: heparin for DVT prophylaxes - DVT/VTE - Prophylaxis VTE/DVT Device ordered at admit?: Yes
[2016-12-29 18:10] VITALS: BP 160/56
[2016-12-30] MEDS ORDERED: CLOPIDOGREL 75 MG TABLET PO SCH (09:00)
--- NOTE | 2017-01-06 17:57 | PROVIDER PROGRESS NOTE ---
Subjective - Prog Note Date Prog Note Date: 12/29/16 - Subjective Pt reports feeling: Improved Subjective: pt state she feel very tired, denies chest pain, shortness of breathing Objective - Lab Results Fish Bones: 12/28/16 09:55 12/28/16 19:30 Assessment/Plan - Problem List (1) Nausea & vomiting Qualifiers: Vomiting type: unspecified Vomiting Intractability: non-intractable Qualified Code(s): R11.2 - Nausea with vomiting, unspecified
--- NOTE | 2017-01-08 17:10 | PROVIDER PROGRESS NOTE ---
Subjective - Subjective Pt reports feeling: Worse Subjective: This is the progress report for pt on 12/29/16 pt report she feels very tired. Pt report she feel much better for nausea and vomiting. But pt denies chest pain, shortness of breathing, abdominal pain. Current Medications - Current Medications Current Medications: Amlodipine Besylate [Norvasc] 10 mg PO DAILY 12/28/16 Insulin Glargine [Lantus Solostar] 8 - 10 units SUBQ QPM 12/28/16 Insulin Lispro [Humalog] 4 - 8 units SUBQ TIDWM 12/28/16 Levothyroxine Sodium [Levoxyl] 112 mcg PO QDAC 12/28/16 Losartan Potassium 12.5 - 25 mg PO TID 12/28/16 Objective - Vital Signs/Intake & Output Reviewed Vital Signs: Yes - Objective General Appearance: positive: Alert, Mild distress. negative: Lethargic Eyes Bilateral: positive: Normal inspection, PERRL, EOMI ENT: positive: ENT inspection nml, Pharynx nml, No signs of dehydration. negative: Purulent nasal drainage, Pharyngeal erythema Neck: positive: Nml inspection, Thyroid nml, No JVD, Trachea midline. negative : Thyromegaly, Lymphadenopathy (R), Lymphadenopathy (L) Respiratory: positive: Chest non-tender, No respiratory distress, Breath sounds nml. negative: Wheezes, Rales, Rhonchi Cardiovascular: positive: Regular rate & rhythm, No murmur, Tachycardia. negative: Bradycardia, JVD present Peripheral Pulses: 2+ Radial (R), 2+ Radial (L), 2+ Dorsalis pedis (R), 2+ Dorsalis pedis (L) Abdomen: positive: Non-tender, Nml bowel sounds, No distention. negative: Tenderness, Guarding, Rebound Back: positive: Nml inspection. negative: CVA tenderness (R), CVA tenderness (L ) Skin: positive: Color nml, No rash, Warm, Dry. negative: Diaphoresis, Skin rash Extremities: positive: Non-tender, Full ROM, Nml appearance. negative: Pedal edema, Jose Manuel's sign/cords Neurologic/Psychiatric: positive: Oriented x3, Motor nml, Sensation nml, Mood/ affect nml. negative: Sensory loss, Facial droop, Slurred/abnml speech, Depressed mood/affect - Lab Results Fish Bones: 12/28/16 09:55 12/28/16 19:30 Assessment/Plan - Problem List (1) V tach Impression: EKG reveals pt has on and off V tach EKG wave, each has about 10 b, with elevated troponin to 0.94, and pt feels very tired. pt need immediate medical attention. I immediately called [facility] sql programmer, he accept the patient. I also called hospitalist, Dr. Silverman, at [facility], he accepted the patient. Pt will be transfered to [facility] I also order Plavix and Nitro drop for pt, per hospitalist's recommendation. (2) Elevated troponin Impression: pt has V-tach in EKG, and feel very tired but pt denies chest pain. immediate medical attention are done, pt will transfer to [facility]. add plavix and nitro drop (3) Nausea & vomiting Impression: pt feel much better, PRN for zofran Qualifiers: Vomiting type: unspecified Vomiting Intractability: non-intractable Qualified Code(s): R11.2 - Nausea with vomiting, unspecified (4) History of hydrocephalus Impression: Although CT of brain did not reveal acute finding, pt has intractable N/V, and with BOX SHOOK PATCHER shunt. Order CT of abdomen to check abdominal end of BOX SHOOK PATCHER shunt. (5) Hypertension Impression: elevated BP, reconciliation of home BP medications, add PRN of hydralazine and Clonidine. (6) History of coronary artery disease Impression: pt will be transfered to [facility] for further cardiac intervention.
== END 2016-12-29 11:40 | disposition short-term general hospital (02) | DRG 309 ==
LOC: ED 09:31 → MS2 15:04
PROVIDERS: ADMIT Nurse Practitioner Gerontology; ATTEND Nurse Practitioner Gerontology
DX: R00.0 Tachycardia, unspecified (principal); G91.2 (Idiopathic) normal pressure hydrocephalus; R79.89 Other specified abnormal findings of blood chemistry; R11.2 Nausea with vomiting, unspecified; R51 Headache; Z98.2 Presence of cerebrospinal fluid drainage device; E11.22 Type 2 diabetes mellitus with diabetic chronic kidney disease; I12.9 Hypertensive chronic kidney disease with stage 1 through stage 4 chronic kidney disease, or unspecified chronic kidney disease; N18.9 Chronic kidney disease, unspecified; I25.10 Atherosclerotic heart disease of native coronary artery without angina pectoris; Z79.4 Long term (current) use of insulin; Z79.899 Other long term (current) drug therapy
CPT/HCPCS: 36415; 62270; 70450; 71010; 71250; 74150; 80053; 81001; 81003; 82945; 83036; 83690; 83735; 84132; 84157; 84443; 84484; 85025; 85610; 87070; 87077; 87086; 87205; 87529; 89051; 93005; 96361; 96372; 96374; 96375; 99285

== ENCOUNTER 2016-12-29 11:42 | Outpatient (CLI) | payer MEDICARE, OTHER | END 2016-12-29 11:43 | disposition short-term general hospital (02) | LOC: EMS 11:42 | PROVIDERS: ATTEND Surgery | DX: I49.9 Cardiac arrhythmia, unspecified (principal) | CPT/HCPCS: A0425; A0426 ==

== ENCOUNTER 2017-01-09 13:58 | Outpatient (CLI) | payer MEDICARE, OTHER | END 2017-01-09 13:59 | disposition critical access hospital (66) | LOC: EMS 13:58 | PROVIDERS: ATTEND Surgery | DX: R55 Syncope and collapse (principal) | CPT/HCPCS: A0425; A0427 ==

== ENCOUNTER 2017-01-09 14:08 | Emergency (ER) | payer MEDICARE, OTHER ==
--- NOTE | 2017-01-09 14:24 | ED Physician Documentation ---
PD HPI SYNCOPE - Stated complaint Stated Complaint: SYNCOPE - Chief complaint Chief Complaint: Neuro - History obtained from History obtained from: Patient, EMS - History of Present Illness Witnessed: Witnessed Timing - onset: Today Duration: Seconds (90) Preceding symptoms: Light headed, Generalized weakness Associated symptoms: No: Seizure, Incontinant of urine, Incontinant of stool, Headache, Vision changes, Chest pain, Palpitations, Diaphoresis, Dyspnea, Nausea / vomiting, Abdominal pain Contributing factors: None. No: Recent med change, Decreased PO intake, Noxious stimulae, Emotional upset, Just stood up, Exertion Injury occurred: No: Fell, Head injury, Neck injury, Bit tongue Pain level max: 0 Pain level now: 0 Similar symptoms before: Diagnosis (Vtach) Recently seen: Admitted - Additional information Additional information: Patient is a 76-year-old female who presents to the emergency department after 90 second episode of witnessed syncope today. She was recently admitted for hypertensive emergency, intractable nausea vomiting. She was found to have an acute DE and was transferred to [facility] in [place]. Was also found to have ventricular tachycardia, 10-12 beats at a time. She states that she was told she had a mild heart attack at [facility] in [place], but no interventions were undertaken. Does not know if her medications were changed. States she feels normal currently. States she was discharged home 4 days ago. Does not have an ICD. No pacemaker. Currently denies chest pain, dyspnea, wheezing, nausea, vomiting, headache. Review of Systems Ten Systems: 10 systems reviewed and negative Constitutional: denies: Fever, Chills Ears: denies: Ear pain Nose: denies: Rhinorrhea / runny nose, Congestion Throat: denies: Sore throat Cardiac: denies: Chest pain / pressure, Palpitations, Calf pain Respiratory: denies: Dyspnea, Cough, Wheezing GI: denies: Abdominal Pain, Nausea, Vomiting, Diarrhea Skin: denies: Rash Musculoskeletal: denies: Neck pain, Back pain Neurologic: denies: Headache PD PAST MEDICAL HISTORY - Past Medical History Past Medical History: Yes Cardiovascular: Hypertension, Coronary artery disease, DE Neuro: Head injury, Other Endocrine/Autoimmune: Type 2 diabetes : Renal insuffiency, Other - Past Surgical History Past Surgical History: Yes General: Appendectomy - Present Medications Home Medications: Ambulatory Orders Medication Instructions Recorded Confirmed Insulin Glargine [Lantus Solostar] 8 - 10 units SUBQ QPM 12/28/16 01/09/17 Insulin Lispro [Humalog] 4 - 8 units SUBQ TIDWM 12/28/16 01/09/17 Levothyroxine Sodium [Levoxyl] 112 mcg PO QDAC 12/28/16 01/09/17 Lisinopril 20 mg PO 01/09/17 - Allergies Allergies/Adverse Reactions: Allergies Allergy/AdvReac Type Severity Reaction Status Date / Time codeine Allergy Dizziness Uncoded 12/28/16 09:42 - Social History Does the pt smoke?: No Smoking Status: Former smoker Does the pt drink ETOH?: No Does the pt have substance abuse?: No - Immunizations Immunizations are current?: Yes - POLST Patient has POLST: No PD ED PE NORMAL - Vitals Vital signs reviewed: Yes - General General: Alert and oriented X 3, No acute distress, Well developed/nourished - HEENT HEENT: PERRL, Moist mucous membranes - Neck Neck: Supple, no meningeal sign, No bruit - Cardiac Cardiac: RRR, No murmur, Strong equal pulses - Respiratory Respiratory: No respiratory distress, Clear bilaterally - Abdomen Abdomen: Soft, Non tender, Non distended - Derm Derm: Warm and dry - Extremities Extremities: No edema, No calf tenderness / cord - Neuro Neuro: Alert and oriented X 3, snow blower 2-12 intact, No motor deficit, No sensory deficit, Normal speech - Psych Psych: Normal mood, Normal affect Results - Vitals Vitals: Vital Signs - 24 hr 01/09/17 01/09/17 01/09/17 14:10 14:25 15:11 Temperature 36.6 C Heart Rate 64 59 L 60 Respiratory 17 15 16 Rate Blood Pressure 126/89 H 142/73 H 170/77 H O2 Saturation 100 99 100 Oxygen O2 Source Room air - EKG (time done) 1413 Rate: Rate (enter#) (65) Rhythm: NSR, Other (PAC) [place]: Normal Intervals: Normal NE QRS: Normal Ischemia: Normal ST segments Computer interpretation: Agree with computer - Labs Labs: Laboratory Tests 01/09/17 01/09/17 01/09/17 14:29 14:29 14:29 WBC 7.6 RBC 3.28 L Hgb 10.5 L Hct 31.0 L MCV 94.6 MCH 32.2 H MCHC 34.0 RDW 13.8 Plt Count 258 MPV 8.0 Neut # 5.4 Lymph # 1.2 L [place] # 0.8 Eos # 0.2 Baso # 0.1 Absolute Nucleated RBC 0.00 Nucleated RBCs 0.0 Sodium 133 L Potassium 4.6 Chloride 94 L Carbon Dioxide 29 Anion Gap 10.0 BUN 58 H Creatinine 3.1 H Estimated GFR (MDRD) 15 L Glucose 120 H Calcium 9.0 Phosphorus 4.3 Magnesium 2.2 Total Bilirubin 0.6 AST 18 ALT 22 Alkaline Phosphatase 53 Troponin I < 0.04 Total Protein 7.4 Albumin 4.1 Globulin 3.3 Albumin/Globulin Ratio 1.2 Lipase 32 PD MEDICAL DECISION MAKING - ED course Complexity details: reviewed old records, reviewed results, re-evaluated patient , considered differential, d/w patient, d/w business process consultant ED course: 1500 - Dr. Irby, cardiology at [facility], states normal cardiac stress test and normal echocardiogram last week. Patient is a 76-year-old female who presents to the emergency department after syncope today. She was recently placed on Lasix and may have become dehydrated from the Lasix. I discussed the case with Dr. Irby, cardiology who reviewed her records from [place] and does not feel that ventricular tachycardia would be likely to cause her syncope today. He states that there are no valvular abnormalities, normal structural examination of the echocardiogram. He does recommend placing her on telemetry overnight and following up with her doctor for a Holter monitor. If she has a syncopal event while having an arrhythmia, would consider treating. Patient states that she is unable to stay in the hospital today. She will be signed AGAINST MEDICAL ADVICE. She is alert and oriented 3. Appears to have the capacity to make this decision. Is not intoxicated. She will return if she worsens or changes her mind. Patient states clear understanding of risks of signing AMA and is willing to accept these risks. This document was made in part using voice recognition software. While efforts are made to proofread this document, sound alike and grammatical errors may occur. Departure - Departure Disposition: 07 Against Medical Advice Clinical Impression: Syncope Qualifiers: Syncope type: unspecified Qualified Code(s): R55 - Syncope and collapse Acute renal failure Qualifiers: Acute renal failure type: unspecified Qualified Code(s): N17.9 - Acute kidney failure, unspecified Condition: Stable Instructions: ED Fainting Unkn Cause Follow-Up: Oleksandr Alcaraz MD [Primary Care Provider] - 01/11/17 Comments: You need to follow-up with Dr. Alcaraz on Wednesday to have your laboratory test results rechecked including your creatinine is you have worsening renal failure. You also have had an episode today of syncope or passing out, which might be related to the recent cardiac arrhythmias you have had on telemetry monitoring. You do need to have further monitoring performed and likely a Holter monitor. I did discuss your case with cardiology and they did recommend that you be admitted to the hospital today, you are choosing to leave AGAINST MEDICAL ADVICE and you are welcome to return at any time should you change your mind or worsen in any way Discharge Date/Time: 01/09/17 15:55
[2017-01-09 14:35] LABS: BASOPHILS # (AUTO) 0.1 10^3/uL (0.0-0.1); BASOPHILS % (AUTO) 0.9 %; EOSINOPHILS # (AUTO) 0.2 10^3/uL (0.0-0.7); EOSINOPHILS % (AUTO) 2.7 %; HGB - HEMOGLOBIN 10.5 g/dL (12.0-16.0); LYMPHOCYTES # (AUTO) 1.2 10^3/uL (1.5-3.5); LYMPHOCYTES % (AUTO) 15.3 %; MEAN CORPUSCULAR HEMOGLOBIN 32.2 pg (27.0-31.0); MEAN CORPUSCULAR VOLUME 94.6 fL (81.0-99.0); MONOCYTES # (AUTO) 0.8 10^3/uL (0.0-1.0); MONOCYTES % (AUTO) 10.1 %; NEUTROPHILS # (AUTO) 5.4 10^3/uL (1.5-6.6); RED BLOOD COUNT 3.28 10^6/uL (4.20-5.40); RED CELL DISTRIBUTION WIDTH 13.8 % (12.0-15.0); UNCORRECTED WHITE BLOOD COUNT 7.6 x10^3/uL; WHITE BLOOD COUNT 7.6 x10^3/uL (4.8-10.8)
--- NOTE | 2017-01-09 14:50 | XRAY Preliminary Report ---
Exam: XR Chest 1 View IMPRESSION: No acute cardiopulmonary abnormality. [facility] SITE ID: [id number]
--- NOTE | 2017-01-09 14:53 | XRAY Report ---
EXAM: CHEST RADIOGRAPHY EXAM DATE: 01/09/2017 02:39 PM. CLINICAL HISTORY: Syncope. COMPARISON: 12/28/2016. TECHNIQUE: 1 view. FINDINGS: Lungs/Pleura: Lung volumes are normal. No consolidative process or edema. Negative for pneumothorax. Mediastinum: Catheter tubing overlies right chest. Heart size is normal. Other: None. IMPRESSION: No acute cardiopulmonary abnormality. [facility] Referring Provider Line: [phone] SITE ID: [id number]
[2017-01-09 14:59] LABS: ALBUMIN/GLOBULIN RATIO 1.2 (1.0-2.2); BILIRUBIN,TOTAL 0.6 mg/dL (0.2-1.0); CREATININE 3.1 mg/dL (0.4-1.0); MAGNESIUM 2.2 mg/dL (1.7-2.8); PHOSPHORUS 4.3 mg/dL (2.5-4.6); POTASSIUM 4.6 mmol/L (3.5-5.0); TOTAL PROTEIN 7.4 g/dL (6.7-8.2)
[2017-01-09 15:12] VITALS: BP 170/77
[2017-01-09] MEDS ORDERED: SODIUM CHLORIDE 0.9% 1,000 ML IV ONE (15:13)
== END 2017-01-09 15:55 | disposition left against medical advice (07) ==
LOC: EDUNIT# → ED 14:08
DX: R55 Syncope and collapse (principal); N17.9 Acute kidney failure, unspecified; E11.9 Type 2 diabetes mellitus without complications; Z79.4 Long term (current) use of insulin; I10 Essential (primary) hypertension; I25.2 Old myocardial infarction; I25.10 Atherosclerotic heart disease of native coronary artery without angina pectoris; Z87.891 Personal history of nicotine dependence
CPT/HCPCS: 36415; 71010; 80053; 83690; 83735; 84100; 84484; 85025; 93005; 99284; 99285

== ENCOUNTER 2017-01-14 09:21 | Outpatient (CLI) | payer MEDICARE, OTHER ==
[2017-01-14 09:45] LABS: BASOPHILS # (AUTO) 0.1 10^3/uL (0.0-0.1); BASOPHILS % (AUTO) 1.4 %; EOSINOPHILS # (AUTO) 0.3 10^3/uL (0.0-0.7); EOSINOPHILS % (AUTO) 4.3 %; HCT - HEMATOCRIT 31.9 % (37.0-47.0); HGB - HEMOGLOBIN 10.6 g/dL (12.0-16.0); LYMPHOCYTES % (AUTO) 14.9 %; MEAN CORPUSCULAR HEMOGLOBIN 31.7 pg (27.0-31.0); MEAN CORPUSCULAR HGB CONC 33.1 g/dL (32.0-36.0); MEAN CORPUSCULAR VOLUME 95.7 fL (81.0-99.0); MEAN PLATELET VOLUME 8.5 fL (7.9-10.8); MONOCYTES # (AUTO) 0.6 10^3/uL (0.0-1.0); MONOCYTES % (AUTO) 9.3 %; NEUTROPHILS # (AUTO) 4.5 10^3/uL (1.5-6.6); NEUTROPHILS % (AUTO) 70.1 %; RED BLOOD COUNT 3.33 10^6/uL (4.20-5.40); RED CELL DISTRIBUTION WIDTH 13.8 % (12.0-15.0); UNCORRECTED WHITE BLOOD COUNT 6.4 x10^3/uL; WHITE BLOOD COUNT 6.4 x10^3/uL (4.8-10.8)
[2017-01-14 10:00] LABS: ALBUMIN/GLOBULIN RATIO 1.3 (1.0-2.2); BILIRUBIN,TOTAL 0.5 mg/dL (0.2-1.0); CALCIUM 9.2 mg/dL (8.5-10.3); CREATININE 2.6 mg/dL (0.4-1.0); POTASSIUM 4.2 mmol/L (3.5-5.0); TOTAL PROTEIN 7.1 g/dL (6.7-8.2)
== END 2017-01-14 09:22 | disposition home or self-care (01) ==
LOC: LAB.R 09:21
PROVIDERS: ATTEND Physician Assistant Medical
DX: I25.10 Atherosclerotic heart disease of native coronary artery without angina pectoris (principal); N30.00 Acute cystitis without hematuria; I10 Essential (primary) hypertension; Z79.899 Other long term (current) drug therapy
CPT/HCPCS: 80053; 85025; 87077; 87086

== ENCOUNTER 2017-04-16 12:17 | Outpatient (CLI) | payer MEDICARE, OTHER | END 2017-04-16 12:18 | disposition EMS.NT | LOC: EMS 12:17 | PROVIDERS: ATTEND Surgery | DX: R40.20 Unspecified coma (principal) ==

== ENCOUNTER 2017-07-07 16:31 | Outpatient (CLI) | payer MEDICARE, OTHER ==
--- NOTE | 2017-07-07 17:19 | CT Report ---
EXAM: CT HEAD EXAM DATE: 07/07/2017 04:53 PM. CLINICAL HISTORY: LOSS BALANCE. COMPARISON: Head CT 12/28/2016. TECHNIQUE: Multiaxial CT images were obtained from the foramen magnum to the vertex. Reformats: Coron al. IV contrast: None. In accordance with CT protocol optimization, one or more of the following dose reduction techniques w ere utilized for this exam: automated exposure control, adjustment of mA and/or KV based on patient s ize, or use of iterative reconstructive technique. FINDINGS: Parenchyma: No intraparenchymal hemorrhage. No evidence of mass, midline shift, or CT findings of acu te infarction. Brunson-white differentiation is distinct. Extraaxial Spaces: No subdural or epidural collections identified. Ventricles: Diffusely enlarged ventricles appear unchanged compared to the prior exam. Right frontal ventriculostomy tube crosses into the left lateral ventricle, unchanged. Sinuses: Minimal right frontal sinus mucosal thickening. Bones: No acute bone findings. IMPRESSION: Ventriculomegaly and ventriculostomy tube appear unchanged compared to prior. Stable exam . No acute intracranial abnormality seen. [facility] The call report notification system was initiated by Dr. Sirena Jain at 17:11 hrs on 07/07/17. The above findings were discussed with SHEKHAR Perrin by Dr. Sirena Jain at 17:15 hrs on . Referring Provider Line: [phone] SITE ID: [id number]
== END 2017-07-07 16:32 | disposition home or self-care (01) ==
LOC: DI 16:31
PROVIDERS: ATTEND Nurse Practitioner Primary Care
DX: R26.89 Other abnormalities of gait and mobility (principal); G93.89 Other specified disorders of brain; Z98.2 Presence of cerebrospinal fluid drainage device
CPT/HCPCS: 70450

== ENCOUNTER 2017-07-12 13:59 | Outpatient (CLI) | payer MEDICARE, OTHER ==
[2017-07-12 17:33] LABS: BASOPHILS % (AUTO) 0.9 %; EOSINOPHILS # (AUTO) 0.3 10^3/uL (0.0-0.7); EOSINOPHILS % (AUTO) 5.3 %; HGB - HEMOGLOBIN 10.3 g/dL (12.0-16.0); LYMPHOCYTES # (AUTO) 1.5 10^3/uL (1.5-3.5); MEAN CORPUSCULAR HGB CONC 32.4 g/dL (32.0-36.0); MEAN CORPUSCULAR VOLUME 95.8 fL (81.0-99.0); MEAN PLATELET VOLUME 9.9 fL (7.9-10.8); MONOCYTES # (AUTO) 0.5 10^3/uL (0.0-1.0); NEUTROPHILS # (AUTO) 3.1 10^3/uL (1.5-6.6); NEUTROPHILS % (AUTO) 56.8 %; PLT - PLATELET COUNT 188 10^3/uL (130-450); RED BLOOD COUNT 3.33 10^6/uL (4.20-5.40); RED CELL DISTRIBUTION WIDTH 13.6 % (12.0-15.0); WHITE BLOOD COUNT 5.4 x10^3/uL (4.8-10.8)
[2017-07-12 17:59] LABS: THYROID STIMULATING HORMONE 3.52 uIU/mL (0.34-5.60)
[2017-07-12 18:02] LABS: ALBUMIN/GLOBULIN RATIO 1.6 (1.0-2.2); BILIRUBIN,TOTAL 0.6 mg/dL (0.2-1.0); CALCIUM 8.8 mg/dL (8.5-10.3); CREATININE 2.3 mg/dL (0.4-1.0); TOTAL PROTEIN 6.5 g/dL (6.7-8.2)
[2017-07-14 15:49] LABS: ALBUMIN/GLOBULIN RATIO 1.5 (1.0-2.2); BILIRUBIN,TOTAL 0.5 mg/dL (0.2-1.0); CALCIUM 8.9 mg/dL (8.5-10.3); CREATININE 2.4 mg/dL (0.4-1.0); TOTAL PROTEIN 6.6 g/dL (6.7-8.2)
[2017-07-14 16:07] LABS: HB2 TOTAL 11.4 g/dL; HEMOGLOBIN A1C 0.79 g/dL; HEMOGLOBIN A1C % 8.5 % (4.6-6.2)
== END 2017-07-12 14:00 | disposition home or self-care (01) ==
LOC: LAB.R 13:59
PROVIDERS: ATTEND Nurse Practitioner Primary Care
DX: G60.9 Hereditary and idiopathic neuropathy, unspecified (principal); R26.89 Other abnormalities of gait and mobility; D64.9 Anemia, unspecified; I10 Essential (primary) hypertension; E03.9 Hypothyroidism, unspecified; E10.9 Type 1 diabetes mellitus without complications; Z79.899 Other long term (current) drug therapy; I25.2 Old myocardial infarction
CPT/HCPCS: 80053; 82607; 82746; 83036; 84443; 85025

== ENCOUNTER 2017-07-17 15:22 | Emergency (ER) | payer MEDICARE, OTHER ==
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
[2017-07-17] MEDS: TETANUS/DIPHTHERIA/PERTUSSIS 0.5 ML SYRINGE IM ONE (16:04)
[2017-07-17] MEDS: ONDANSETRON 4 MG/2 ML VIAL IVP STA (16:52)
[2017-07-17] MEDS: MORPHINE 10 MG/ML VIAL IVP STA (16:58)
[2017-07-17] MEDS: LACTATED RINGERS 1,000 ML IV STA (16:58)
[2017-07-17 17:01] VITALS: BP 155/57
[2017-07-17] MEDS: oxyCOD/ACETAMIN 5 MG/325 MG TABLET PO STA (17:17)
== END 2017-07-17 17:59 | disposition short-term general hospital (02) ==
LOC: ED 15:22
DX: T22.262A Burn of second degree of left scapular region, initial encounter (principal); T31.0 Burns involving less than 10% of body surface; X19.XXXA Contact with other heat and hot substances, initial encounter; I10 Essential (primary) hypertension; E11.9 Type 2 diabetes mellitus without complications; I25.10 Atherosclerotic heart disease of native coronary artery without angina pectoris; I25.2 Old myocardial infarction; Z23 Encounter for immunization; Z79.4 Long term (current) use of insulin; Z87.891 Personal history of nicotine dependence
CPT/HCPCS: 16025; 90471; 96361; 96374; 96375; 99283; 99284

== ENCOUNTER 2017-07-17 17:58 | Outpatient (CLI) | payer MEDICARE, OTHER | END 2017-07-17 23:59 | disposition short-term general hospital (02) | LOC: EMS 17:58 | PROVIDERS: ATTEND Surgery | DX: T21.33XA Burn of third degree of upper back, initial encounter (principal); X16.XXXA Contact with hot heating appliances, radiators and pipes, initial encounter; Y92.009 Unspecified place in unspecified non-institutional (private) residence as the place of occurrence of the external cause | CPT/HCPCS: A0170; A0425; A0426 ==

== ENCOUNTER 2017-08-03 07:00 | Outpatient (CLI) | payer OTHER, MEDICARE ==
[2017-08-03 19:49] LABS: CALCIUM 8.7 mg/dL (8.5-10.3); CREATININE 2.1 mg/dL (0.4-1.0)
== END 2017-08-03 07:01 | disposition home or self-care (01) ==
LOC: LAB.R 07:00
DX: R79.89 Other specified abnormal findings of blood chemistry (principal)
CPT/HCPCS: 80048

== ENCOUNTER 2017-09-03 17:55 | Outpatient (CLI) | payer MEDICARE, OTHER | END 2017-09-03 17:56 | disposition EMS.NT | LOC: EMS 17:55 | PROVIDERS: ATTEND Surgery | DX: R41.82 Altered mental status, unspecified (principal); R73.09 Other abnormal glucose ==

== ENCOUNTER 2017-09-11 04:22 | Outpatient (CLI) | payer MEDICARE, OTHER | END 2017-09-11 04:23 | disposition critical access hospital (66) | LOC: EMS 04:22 | PROVIDERS: ATTEND Surgery | DX: K92.0 Hematemesis (principal); R53.1 Weakness; R73.09 Other abnormal glucose | CPT/HCPCS: A0425; A0427 ==

== ENCOUNTER 2017-09-11 04:37 | Inpatient (IN) | payer MEDICARE, OTHER ==
[2017-09-11] MEDS ORDERED: ONDANSETRON 4 MG/2 ML VIAL IVP STA (04:54)
[2017-09-11] MEDS ORDERED: SODIUM CHLORIDE 0.9% 1,000 ML IV ONE ×5 (04:54→10:04)
[2017-09-11] MEDS ORDERED: FAMOTIDINE 20 MG/50 ML 50 ML IV ONE (04:56)
[2017-09-11] MEDS ORDERED: INSULIN REGULAR HUMAN 100 UNIT/1 ML 10 ML MDV IV STA (04:57)
--- NOTE | 2017-09-11 04:59 | ED Physician Documentation ---
PD HPI NVD - Stated complaint Stated Complaint: GI BLEED - History obtained from History obtained from: Patient, EMS - History of Present Illness Timing - onset: How many days ago (few days of nausea and vomiting with some diarrhea. Noted some coffee ground material with vomiting. No black stools. No fevers, no obvious acute illness. Has diabetes and noted her sugars to be elevated in 500-600 range and then read "high" the past couple days. Has not had problems with high sugars in the past. No history of DKA. Does not have obvious source of infection, change in meds, change in diet, change in activity level.) Timing - details: Gradual onset, Still present Associated symptoms: Loss of appetite. No: Fever, Abdominal pain, Chest pain Contributing factors: Diabetes. No: Sick contact, Bad food, Travel, Recent antibiotics, Alcohol use Improved by: No: Vomiting Worsened by: Eating Similar symptoms before: Has not had sx before Recently seen: Not recently seen Review of Systems Constitutional: reports: Myalgias. denies: Fever, Chills Nose: denies: Rhinorrhea / runny nose, Congestion Throat: denies: Sore throat Cardiac: denies: Chest pain / pressure, Palpitations, Pedal edema, Calf pain Respiratory: denies: Dyspnea, Cough GI: reports: Nausea, Vomiting, Diarrhea. denies: Abdominal Pain : denies: Dysuria, Frequency Skin: denies: Rash Musculoskeletal: reports: Back pain. denies: Neck pain Neurologic: reports: Generalized weakness, Near syncope. denies: Focal weakness , Numbness, Altered mental status, Headache Psychiatric: denies: Insomnia Endocrine: denies: Weight loss Immunocompromised: denies: Immunocompromised PD PAST MEDICAL HISTORY - Past Medical History Cardiovascular: Hypertension, Coronary artery disease, [place] Neuro: Head injury, Other Endocrine/Autoimmune: Type 2 diabetes : Renal insuffiency, Other - Past Surgical History Past Surgical History: Yes General: Appendectomy - Present Medications Home Medications: Ambulatory Orders Medication Instructions Recorded Confirmed Insulin Glargine [Lantus Solostar] 8 - 10 units SUBQ QPM 12/28/16 01/09/17 Insulin Lispro [Humalog] 4 - 8 units SUBQ TIDWM 12/28/16 01/09/17 Levothyroxine Sodium [Levoxyl] 112 mcg PO QDAC 12/28/16 01/09/17 Lisinopril 20 mg PO 01/09/17 - Allergies Allergies/Adverse Reactions: Allergies Allergy/AdvReac Type Severity Reaction Status Date / Time lindsay Allergy Unknown Verified 09/11/17 04:43 oxycodone Allergy Unknown Verified 09/11/17 04:43 codeine AdvReac Intermediate Dizziness Verified 09/11/17 07:43 - Living Situation Living Situation: reports: With spouse/s.o. (her with significant dementia and patient is his main caregiver. She is concerned about caring for him if she is in hospital. ) Living Arrangement: reports: At home - Social History Does the pt smoke?: No Smoking Status: Former smoker Does the pt drink ETOH?: No Does the pt have substance abuse?: No - Family History Family history: reports: Non contributory - Immunizations Immunizations are current?: Yes - POLST Patient has POLST: No PD ED PE NORMAL - Vitals Vital signs reviewed: Yes - General General: Alert and oriented X 3, Well developed/nourished, Other (appears uncomfortable with dry heaving at times and holding emesis bag. ) - HEENT HEENT: Ears normal, Pharynx benign. No: Moist mucous membranes - Neck Neck: Supple, no meningeal sign, No adenopathy - Cardiac Cardiac: RRR, No murmur - Respiratory Respiratory: Clear bilaterally - Abdomen Abdomen: Normal bowel sounds, Soft, Non distended, No organomegaly, Other ( tender LLQ area with slight guarding (she had not felt abd pain prior to this). ) - Female Female : Deferred - Rectal Rectal: Deferred - Back Back: No CVA TTP - Derm Derm: Warm and dry. No: Normal color (pale) - Extremities Extremities: No tenderness to palpate, Normal ROM s pain, No edema, No calf tenderness / cord - Neuro Neuro: Alert and oriented X 3, No motor deficit, Normal speech Results - Vitals Vitals: Vital Signs - 24 hr 09/11/17 09/11/17 09/11/17 04:37 05:15 05:35 Temperature 36.6 C Heart Rate 70 65 66 Respiratory 22 21 20 Rate Blood Pressure 161/73 H 142/49 H 124/44 L O2 Saturation 100 99 99 09/11/17 09/11/17 09/11/17 05:49 06:31 06:34 Temperature 36.3 C L Heart Rate 68 72 73 Respiratory 19 18 9 L Rate Blood Pressure 134/51 H 152/65 H O2 Saturation 99 99 Oxygen O2 Source Room air - EKG (time done) 04:57 Rhythm: NSR [place]: Normal Intervals: Normal OR. No: Wide QRS QRS: Normal Ischemia: Normal ST segments, Hyperacute T waves. No: ST elevation c/w ischemia , ST depression - Labs Labs: Laboratory Tests 09/11/17 09/11/17 09/11/17 05:20 05:20 05:20 WBC 9.8 RBC 2.74 L Hgb 8.7 L Hct 30.1 L MCV 110.1 H MCH 31.8 H MCHC 28.9 L RDW 14.8 Plt Count 215 MPV 9.9 Neut # 9.5 H Lymph # 0.3 L [place] # 0.1 Eos # 0.0 Baso # 0.0 Absolute Nucleated RBC 0.00 Nucleated RBC % 0.0 Manual Slide Review Indicated Platelet Estimate NORMAL (130-450,000) Platelet Morphology NORMAL APPEARANCE RBC Morph Micro Appear 2+ MACROCYTOSIS VBG pH VBG pCO2 VBG pO2 VBG HCO3 VBG Total CO2 VBG O2 Saturation VBG Base Excess Sodium 120 L* Potassium 6.6 H* Chloride 85 L Carbon Dioxide 11 L* Anion Gap 24.0 H BUN 85 H* Creatinine 2.9 H Estimated GFR (MDRD) 16 L Glucose 1100 H* Calcium 8.6 Magnesium 2.4 Total Bilirubin 1.3 H AST 107 H ALT 82 H Alkaline Phosphatase 112 Troponin I Total Protein 6.7 Albumin 4.0 Globulin 2.7 Albumin/Globulin Ratio 1.5 Lipase 34 Urine Color Urine Clarity Urine pH Ur Specific [place] Urine Protein Urine Glucose (UA) Urine Ketones Urine Occult Blood Urine Nitrite Urine Bilirubin Urine Urobilinogen Ur Leukocyte Esterase Urine RBC Urine WBC Ur Squamous Epith Cells Amorphous Sediment Urine Bacteria Urine Casts Ur Microscopic Review Urine Culture Comments Ethyl Alcohol < 5.0 Serum Ketones NEGATIVE Blood Type B POSITIVE Antibody Screen NEGATIVE 09/11/17 09/11/17 09/11/17 05:20 05:20 06:45 WBC RBC Hgb Hct MCV MCH MCHC RDW Plt Count MPV Neut # Lymph # [place] # Eos # Baso # Absolute Nucleated RBC Nucleated RBC % Manual Slide Review Platelet Estimate Platelet Morphology RBC Morph Micro Appear VBG pH 7.119 L VBG pCO2 32.6 L VBG pO2 68.9 H VBG HCO3 10.3 L VBG Total CO2 11.3 L VBG O2 Saturation 89.5 H VBG Base Excess -17.7 L Sodium 127 L Potassium 4.7 Chloride 94 L Carbon Dioxide 12 L* Anion Gap 21.0 H BUN 83 H* Creatinine 2.8 H Estimated GFR (MDRD) 16 L Glucose 932 H* Calcium 8.0 L Magnesium Total Bilirubin AST ALT Alkaline Phosphatase Troponin I 0.05 Total Protein Albumin Globulin Albumin/Globulin Ratio Lipase Urine Color Urine Clarity Urine pH Ur Specific [place] Urine Protein Urine Glucose (UA) Urine Ketones Urine Occult Blood Urine Nitrite Urine Bilirubin Urine Urobilinogen Ur Leukocyte Esterase Urine RBC Urine WBC Ur Squamous Epith Cells Amorphous Sediment Urine Bacteria Urine Casts Ur Microscopic Review Urine Culture Comments Ethyl Alcohol Serum Ketones Blood Type Antibody Screen 09/11/17 07:00 WBC RBC Hgb Hct MCV MCH MCHC RDW Plt Count MPV Neut # Lymph # [place] # Eos # Baso # Absolute Nucleated RBC Nucleated RBC % Manual Slide Review Platelet Estimate Platelet Morphology RBC Morph Micro Appear VBG pH VBG pCO2 VBG pO2 VBG HCO3 VBG Total CO2 VBG O2 Saturation VBG Base Excess Sodium Potassium Chloride Carbon Dioxide Anion Gap BUN Creatinine Estimated GFR (MDRD) Glucose Calcium Magnesium Total Bilirubin AST ALT Alkaline Phosphatase Troponin I Total Protein Albumin Globulin Albumin/Globulin Ratio Lipase Urine Color YELLOW Urine Clarity CLEAR Urine pH 5.0 Ur Specific [place] 1.010 Urine Protein 30 H Urine Glucose (UA) >=1000 H Urine Ketones 15 H Urine Occult Blood TRACE-LYSE Urine Nitrite NEGATIVE Urine Bilirubin NEGATIVE Urine Urobilinogen 0.2 (NORMAL) Ur Leukocyte Esterase NEGATIVE Urine RBC 0-5 Urine WBC 0-3 Ur Squamous Epith Cells RARE Squamous Amorphous Sediment Rare Urine Bacteria None Seen Urine Casts 0-2 Hyaline Casts Ur Microscopic Review INDICATED Urine Culture Comments NOT INDICATED Ethyl Alcohol Serum Ketones Blood Type Antibody Screen - Rads (name of study) abd CT Radiology: Prelim report reviewed, EMP read contemporaneously (no obvious acute process) PD MEDICAL DECISION MAKING - ED course Complexity details: reviewed results, re-evaluated patient (looking better, good color, no emesis/nausea now. Monitor still showing NSR. Repeat lytes show improved potassium. ), considered differential (sounds likely DKA but will check labs. Will eval for source of elevated sugars, such as infection. ), d/w patient - Critical Care Time Includes: Direct patient care, Reassess patient, Coordinate care, Medical consult, See progress note Data interpretation: Labs, CXR Procedures excluded from critical care time: EKG Departure - Departure Disposition: 66 [facility] DC/Xfer Clinical Impression: Nonketotic hyperglycinemia, Hyperkalemia, Coffee ground emesis Nausea and vomiting Qualifiers: Vomiting type: unspecified Vomiting Intractability: intractable Qualified Code( s): R11.2 - Nausea with vomiting, unspecified Chronic renal insufficiency Qualifiers: Chronic kidney disease stage: unspecified stage Qualified Code(s): N18.9 - Chronic kidney disease, unspecified Anemia Qualifiers: Anemia type: unspecified type Qualified Code(s): D64.9 - Anemia, unspecified Condition: Serious Record reviewed to determine appropriate education?: Yes
[2017-09-11] MEDS ORDERED: ACETAMINOPHEN 1,000 MG/100 ML 100 ML IV STA (05:14)
[2017-09-11 05:46] LABS: VBG BASE EXCESS -17.7 mmol/L (-2 - +2); VBG PCO2 32.6 mmHg (41-51); VBG PH 7.119 (7.31-7.41); VBG PO2 68.9 mmHg (25-47); VBG TOTAL CO2 11.3 mmol/L (24-29)
[2017-09-11] MEDS ORDERED: INSULIN REGULAR HUMAN 100 UNIT in SODIUM CHLORIDE 0.9% 100ML 99 ML IV STA (05:47)
[2017-09-11 05:53] LABS: BASOPHILS % (AUTO) 0.4 %; HGB - HEMOGLOBIN 8.7 g/dL (12.0-16.0); LYMPHOCYTES # (AUTO) 0.3 10^3/uL (1.5-3.5); LYMPHOCYTES % (AUTO) 2.7 %; MEAN CORPUSCULAR HEMOGLOBIN 31.8 pg (27.0-31.0); MEAN CORPUSCULAR HGB CONC 28.9 g/dL (32.0-36.0); MEAN CORPUSCULAR VOLUME 110.1 fL (81.0-99.0); MEAN PLATELET VOLUME 9.9 fL (7.9-10.8); MONOCYTES # (AUTO) 0.1 10^3/uL (0.0-1.0); MONOCYTES % (AUTO) 0.7 %; NEUTROPHILS # (AUTO) 9.5 10^3/uL (1.5-6.6); NEUTROPHILS % (AUTO) 96.2 %; PLT - PLATELET COUNT 215 10^3/uL (130-450); RED BLOOD COUNT 2.74 10^6/uL (4.20-5.40); RED CELL DISTRIBUTION WIDTH 14.8 % (12.0-15.0); WHITE BLOOD COUNT 9.8 x10^3/uL (4.8-10.8)
[2017-09-11 06:01] LABS: ALBUMIN/GLOBULIN RATIO 1.5 (1.0-2.2); ALKALINE PHOSPHATASE 112 IU/L (42-121); ALT ALANINE AMINOTRANSFERASE 82 IU/L (10-60); AST ASPARTATE AMINOTRANSFERASE 107 IU/L (10-42); BILIRUBIN,TOTAL 1.3 mg/dL (0.2-1.0); CALCIUM 8.6 mg/dL (8.5-10.3); CHLORIDE 85 mmol/L (101-111); CREATININE 2.9 mg/dL (0.4-1.0); GFR - MDRD 16 (>89); LIPASE 34 U/L (22-51); MAGNESIUM 2.4 mg/dL (1.7-2.8); TOTAL PROTEIN 6.7 g/dL (6.7-8.2)
[2017-09-11 06:03] LABS: BUN - BLOOD UREA NITROGEN 85 mg/dL (6-20); CARBON DIOXIDE - CO2 11 mmol/L (21-32); GLUCOSE 1100 mg/dL (70-100); SODIUM 120 mmol/L (135-145)
[2017-09-11] MEDS ORDERED: INSULIN REGULAR HUMAN 100 UNIT/1 ML 10 ML MDV IVP STA (06:03)
[2017-09-11] MEDS ORDERED: ALBUTEROL NEB 2.5 MG/3 ML INH STA (06:04)
[2017-09-11 06:11] LABS: PLATELET ESTIMATE, MANUAL NORMAL (130-450,000) (NORMAL); PLATELET MORPHOLOGY NORMAL APPEARANCE (NORMAL)
[2017-09-11 06:20] LABS: KETONES, SERUM (ACETEST) NEGATIVE (NEGATIVE)
[2017-09-11 07:01] LABS: CREATININE 2.8 mg/dL (0.4-1.0)
[2017-09-11] MEDS ORDERED: ONDANSETRON ODT 4 MG TABLET TL PRN (07:14)
[2017-09-11] MEDS ORDERED: ONDANSETRON 4 MG/2 ML VIAL IVP PRN (07:14)
[2017-09-11] MEDS ORDERED: INSULIN REGULAR HUMAN 100 UNIT in SODIUM CHLORIDE 0.9% 100ML 99 ML IV SCH (07:21)
[2017-09-11 07:23] LABS: BILIRUBIN,URINE NEGATIVE (NEGATIVE); GLUCOSE, URINE (UA) >=1000 mg/dL (NEGATIVE); KETONES,URINE (UA) 15 mg/dL (NEGATIVE); LEUKOCYTE ESTERASE, URINE NEGATIVE (NEGATIVE); NITRITE,URINE NEGATIVE (NEGATIVE); OCCULT BLOOD,URINE TRACE-LYSE (NEGATIVE); PROTEIN,URINE 30 mg/dL (NEGATIVE); UROBILINOGEN,URINE 0.2 (NORMAL) E.U./dL (NORMAL)
[2017-09-11 07:26] LABS: CLARITY,URINE CLEAR (CLEAR)
--- NOTE | 2017-09-11 07:26 | CT Report ---
EXAM: CT ABDOMEN AND PELVIS EXAM DATE: 09/11/2017 06:32 AM. CLINICAL HISTORY: LLQ tender and vomiting. COMPARISONS: 12/28/2016. TECHNIQUE: Routine helical CT imaging was performed through the abdomen and pelvis. IV contrast: Amt/ type. Enteric contrast: No. Reconstructions: Coronal and sagittal. In accordance with CT protocol optimization, one or more of the following dose reduction techniques w ere utilized for this exam: automated exposure control, adjustment of mA and/or KV based on patient s ize, or use of iterative reconstructive technique. FINDINGS: Lung Bases: Bibasilar atelectasis. Liver: Normal. No masses. Gallbladder/Bile Ducts: Unremarkable. Spleen: Normal. Pancreas: Normal. Adrenal Glands: Normal. Kidneys: Bilateral right greater than left perinephric stranding without evidence of hydronephrosis o r calculi, similar in appearance to 2017 CT. Peritoneal Cavity/Bowel: Peritoneal shunt terminates in the right abdominal musculature (axial series 3, image 33), with the remainder of the tubing identified within the pelvis. No focal fluid collecti ons to suggest abscess. No evidence for small bowel obstruction. Sigmoid diverticulosis without evide nce for acute diverticulitis. Suggestion of circumferential mild wall thickening in the ascending col on. Pelvic Organs: Course calcifications within the uterus consistent with fibroids. Vasculature: Mild atherosclerotic calcification of the abdominal aorta. Bones: Degenerative changes of the lumbosacral spine. Other: None. IMPRESSION: 1. Fractured peritoneal shunt, with proximal end terminating in the right abdominal musculature and t he remainder within the pelvis, with no focal fluid collections. 2. Suggestion of mild wall thickening ascending colon, which may be due to underdistention, consider colonoscopy. [facility] Referring Provider Line: [phone] SITE ID: [id number]
[2017-09-11 07:37] LABS: AMORPHOUS SEDIMENT,UR Rare /LPF; BACTERIA,URINE None Seen /HPF (None Seen); CASTS, URINE 0-2 Hyaline Casts /LPF; RBC,URINE 0-5 /HPF (0-5); SQUAMOUS EPITHELIAL CELL,UR RARE Squamous (<= Few)
--- NOTE | 2017-09-11 07:38 | XRAY Report ---
EXAM: CHEST RADIOGRAPHY EXAM DATE: 09/11/2017 07:11 AM. CLINICAL HISTORY: Cough/elevated sugars. COMPARISON: 01/09/2017. TECHNIQUE: 1 view. FINDINGS: Lungs/Pleura: No focal consolidation. No pneumothorax or pleural effusion. Mediastinum: Within exam limitations, the cardiomediastinal contour is normal. Other: Right neck catheter tip projects over the expected location of the superior cavoatrial junctio n. IMPRESSION: No radiographically apparent acute abnormality in the chest. [facility] Referring Provider Line: [phone] SITE ID: [id number]
[2017-09-11 08:22] LABS: HB2 TOTAL 8.8 g/dL; HEMOGLOBIN A1C 0.69 g/dL; HEMOGLOBIN A1C % 9.3 % (4.6-6.2)
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
[2017-09-11 08:50] LABS: PHOSPHORUS 5.1 mg/dL (2.5-4.6)
[2017-09-11 09:16] LABS: CALCIUM 7.8 mg/dL (8.5-10.3); CREATININE 2.7 mg/dL (0.4-1.0)
[2017-09-11] MEDS: SODIUM CHLORIDE FLUSH 0.9% 10 ML SYRINGE IVP SCH ×2 (09:29→17:56)
[2017-09-11 09:30] LABS: FERRITIN 454.8 ng/mL (11.0-306.8)
[2017-09-11] MEDS ORDERED: CALCIUM GLUCONATE 1,000 MG in SODIUM CHLORIDE 0.9% 50 ML IV ONE (09:30)
[2017-09-11] MEDS ORDERED: SODIUM CHLORIDE 0.9% 1,000 ML IV SCH (09:30)
[2017-09-11 09:32] LABS: % IRON SATURATION 17 % (20-50); IRON 41 ug/dL (28-170); TOTAL IRON BINDING CAPACITY 242 ug/dL (250-450); TRANSFERRIN 173 mg/dL (192-382)
[2017-09-11 09:44] LABS: KETONES, SERUM (ACETEST) SMALL (NEGATIVE)
[2017-09-11 09:50] LABS: BUN - BLOOD UREA NITROGEN 76 mg/dL (6-20); CALCIUM 7.7 mg/dL (8.5-10.3); CARBON DIOXIDE - CO2 15 mmol/L (21-32); CHLORIDE 97 mmol/L (101-111); CREATININE 2.7 mg/dL (0.4-1.0); GFR - MDRD 17 (>89); MAGNESIUM 2.3 mg/dL (1.7-2.8); SODIUM 128 mmol/L (135-145)
[2017-09-11 09:51] LABS: GLUCOSE 686 mg/dL (70-100)
[2017-09-11 10:16] LABS: FOLATE > 49.60 ng/mL (5.90 - >24.8)
[2017-09-11 10:31] LABS: MUDS CUTOFF CONCENTRATIONS CUTOFF CONC BELOW:
[2017-09-11 10:43] LABS: AMPHETAMINE SCREEN,URINE NEGATIVE (NEGATIVE); BENZODIAZEPINES SCREEN, URINE NEGATIVE (NEGATIVE); COCAINE SCREEN URINE NEGATIVE (NEGATIVE); METHADONE SCREEN, URINE NEGATIVE (NEGATIVE); METHAMPHETAMINES SCREEN, URINE NEGATIVE (NEGATIVE); OPIATE SCREEN, URINE NEGATIVE (NEGATIVE); OXYCODONE SCREEN, URINE NEGATIVE (NEGATIVE); PROPOXYPHENE SCREEN, URINE NEGATIVE (NEGATIVE); TRICYCLIC ANTIDEPRESSANT,URINE NEGATIVE (NEGATIVE)
--- NOTE | 2017-09-11 11:16 | ANESTHESIA PROCEDURE NOTE ---
Anesth Central Line Template - Central Line Central Line Preparation: Consent Obtained, Time out completed, Sterile prep and drape Central line location: Left IJ Central line type: Double lumen Central line aftercare: Secured, Placement confirmed, No complications, Bundle checklist complete, Pt tolerated well (Patient ID, consent, sterile prep, drape , gown/gloves, mask. Placed in trendelenberg position. Left IJ used due to shunt placment on right side. Left IJ accessed using modified seldinger and wired advanced with ease. Double lumen central line advanced and positive blood return from both ports, flushed. Sutured in place and covered with opsite. Patient tolerated well. Chest xray obtained.), Other
--- NOTE | 2017-09-11 11:38 | XRAY Report ---
EXAM: CHEST RADIOGRAPHY EXAM DATE: 09/11/2017 11:14 AM. CLINICAL HISTORY: Central line placement. COMPARISON: Same day, 0701 hrs.. TECHNIQUE: 1 view. FINDINGS: Lungs/Pleura: Minimal basilar atelectasis. No pneumothorax or large pleural effusion. Mediastinum: Within exam limitations, the cardiomediastinal contour is normal. Other: Left IJ central venous catheter with distal tip at the confluence of the brachiocephalic veins . Right shunt catheter noted. Left chest wall rolly. IMPRESSION: 1. Left IJ central venous catheter with distal tip at the confluence of the brachiocephalic veins. 2. Otherwise stable. [facility] Referring Provider Line: [phone] SITE ID: [id number]
[2017-09-11] MEDS: SODIUM CHLORIDE FLUSH 0.9% 10 ML SYRINGE IVP PRN ×6 (11:49→18:25)
[2017-09-11 12:09] LABS: VBG PCO2 39.8 mmHg (41-51); VBG PH 7.22 (7.31-7.41)
[2017-09-11 12:10] LABS: VBG PO2 76.2 mmHg (25-47); VBG TOTAL CO2 17.1 mmol/L (24-29)
[2017-09-11 12:11] LABS: BASOPHILS % (AUTO) 0.2 %; HGB - HEMOGLOBIN 7.8 g/dL (12.0-16.0); LYMPHOCYTES % (AUTO) 7.6 %; MEAN CORPUSCULAR HEMOGLOBIN 31.6 pg (27.0-31.0); MEAN CORPUSCULAR HGB CONC 32.3 g/dL (32.0-36.0); MEAN PLATELET VOLUME 9.6 fL (7.9-10.8); MONOCYTES # (AUTO) 1.1 10^3/uL (0.0-1.0); MONOCYTES % (AUTO) 7.9 %; NEUTROPHILS # (AUTO) 11.3 10^3/uL (1.5-6.6); NEUTROPHILS % (AUTO) 84.3 %; PLT - PLATELET COUNT 185 10^3/uL (130-450); RED BLOOD COUNT 2.48 10^6/uL (4.20-5.40); WHITE BLOOD COUNT 13.4 x10^3/uL (4.8-10.8)
[2017-09-11] MEDS ORDERED: MIN OIL/DIMETHICON/COCONUT OIL 92 GM TUBE TOP PRN (12:56)
[2017-09-11 13:50] LABS: ALBUMIN 3.6 g/dL (3.2-5.5); ALBUMIN/GLOBULIN RATIO 1.4 (1.0-2.2); ALKALINE PHOSPHATASE 81 IU/L (42-121); ALT ALANINE AMINOTRANSFERASE 79 IU/L (10-60); AST ASPARTATE AMINOTRANSFERASE 103 IU/L (10-42); BILIRUBIN,TOTAL 0.5 mg/dL (0.2-1.0); BUN - BLOOD UREA NITROGEN 68 mg/dL (6-20); CALCIUM 7.8 mg/dL (8.5-10.3); CARBON DIOXIDE - CO2 18 mmol/L (21-32); CHLORIDE 102 mmol/L (101-111); CREATININE 2.3 mg/dL (0.4-1.0); GFR - MDRD 21 (>89); GLUCOSE 383 mg/dL (70-100); PHOSPHORUS 3.2 mg/dL (2.5-4.6); SODIUM 131 mmol/L (135-145); TOTAL PROTEIN 6.1 g/dL (6.7-8.2)
[2017-09-11 13:52] LABS: SALICYLATE < 6.0 mg/dL; VBG PH 7.24 (7.31-7.41)
[2017-09-11 13:58] LABS: ACETAMINOPHEN < 10 ug/mL (10-30)
[2017-09-11] MEDS ORDERED: INSULIN GLARGINE 300 UNIT/3 ML PEN SUBQ SCH (14:00)
[2017-09-11] MEDS: SODIUM CHLORIDE 0.9% 1,000 ML IV SCH ×2 (15:04→17:22)
[2017-09-11] MEDS: amLODIPine 5 MG TABLET PO SCH (15:04)
[2017-09-11] MEDS ORDERED: INSULIN ASPART 300 UNIT/3 ML PEN SUBQ SCH (17:00)
[2017-09-11] MEDS: MINERAL OIL/HYDROPHIL PETROLAT 454 GM JAR TOP SCH (17:20)
[2017-09-11] MEDS: BACITRACIN OINT TOP PRN (17:21)
[2017-09-11] MEDS: INSULIN ASPART 300 UNIT/3 ML PEN SUBQ SCH ×2 (17:52→20:58)
[2017-09-11 17:58] LABS: BASOPHILS % (AUTO) 0.2 %; HGB - HEMOGLOBIN 7.8 g/dL (12.0-16.0); LYMPHOCYTES % (AUTO) 7.3 %; MEAN CORPUSCULAR HEMOGLOBIN 30.7 pg (27.0-31.0); MEAN CORPUSCULAR HGB CONC 31.7 g/dL (32.0-36.0); MEAN CORPUSCULAR VOLUME 96.8 fL (81.0-99.0); MEAN PLATELET VOLUME 8.9 fL (7.9-10.8); MONOCYTES # (AUTO) 0.9 10^3/uL (0.0-1.0); MONOCYTES % (AUTO) 7.1 %; NEUTROPHILS # (AUTO) 11.2 10^3/uL (1.5-6.6); NEUTROPHILS % (AUTO) 85.4 %; PLT - PLATELET COUNT 214 10^3/uL (130-450); RED BLOOD COUNT 2.53 10^6/uL (4.20-5.40); RED CELL DISTRIBUTION WIDTH 14.1 % (12.0-15.0); WHITE BLOOD COUNT 13.1 x10^3/uL (4.8-10.8)
[2017-09-11] MEDS ORDERED: cloNIDine 0.1 MG TABLET PO STA (18:05)
--- NOTE | 2017-09-11 20:12 | PROVIDER PROGRESS NOTE ---
Dictating Machine Transcriber Note - Dictating Machine Transcriber Note Dictating Machine Transcriber Note: 09/11/17 19:50 She is a 77-year-old female who was admitted for hyperosmolar nonketotic acidosis today. However she continues to have lactic acidosis in the face of acute renal failure with hyperkalemia and an elevated BUN and creatinine. Her initial troponin this morning was 0.05. She is climbed to 0.7, 0.24, and at 17: 50 she is now 0.5. I was asked by the daytime hospitalist to contact [facility] . This is the hospital the patient has identified as to where she would like to go if she has cardiac problems. She denies chest pain, shortness of breath. She is incredibly tired fatigued and mildly nauseated from everything has been going on today with her treatment of her hyperglycemia in the ICU. Her glucose was initially 1100, and she is now 383. Lactic acid started at 4.6 this morning and at 2:00 in the afternoon she's 3.5. Potassium was 6.6 this morning and is now 4.0. Sodium was 120 this morning and she is now 131. Anion gap was 24 at 5:20 in the morning and she is now 11 at 1:25 in the afternoon. Her EKG this morning showed normal sinus rhythm, a flipped T wave in V1, and tall peaked T waves. Repeat EKG this afternoon, interpreted by me, shows normal sinus rhythm, continued flipped T wave in V1, flattening of the T waves generally, but no acute ST segment or ST wave changes. On examination temperature 37.2, pulse is 73 and sinus, blood pressure 136/63, 98% on room air, respirations are 14 and unlabored. She is a fatigued, elderly, white female, in no acute distress. Again her main complaint is just severe fatigue. While oral mucosa is pink, still a little dry. Lips are little dry. Neck is supple, no JVD Lungs are clear to auscultation and percussion, no labored respiration Regular rate and rhythm, PMI normally placed, systolic ejection murmur at the left lower sternal border Abdomen is soft, nontender, hypoactive bowel sounds, no distention, comfortable Feet are slightly cool to touch but no clubbing cyanosis or edema Assessment/plan: NSTEMI I have open to Dr. Irby, telecommunications specialist for cardiology at [facility]. I discussed the above information with him. She does not have a past medical history of cardiac disease but is elderly, hypertensive, diabetic. She would be at risk for coronary artery disease. Because of her severe hyperglycemia and electrolyte derangements, he feels that she has some cardiac stress due to that. At this time he does not feel that she needs to be transferred. I did ask him what the troponin cut off would be for him to recommend transfer. He states that if she goes above 1, developed chest pain, developed EKG changes, he would recommend transfer. He has given me his phone number to call him back @ [phone]. He does recommend starting aspirin, Lovenox, beta john. He also wants her to have a stress test before she leaves the hospital. Lovenox will be for 48 hours. I will recheck troponins at 21:00 tonight to combine with lactic acid recheck and again at 02:00 in the morning. I discussed the plan with the patient and answered her questions, she is agreeable to this and doesn't request immediate transfer. She understands our limitations with regards to lack of [facility]. Greater than 30 minutes was spent in direct patient care.
[2017-09-11] MEDS: ENOXAPARIN 60 MG/0.6 ML SYRINGE SUBQ SCH (20:45)
[2017-09-11] MEDS: ASPIRIN 325 MG TABLET PO SCH (20:45)
[2017-09-12] MEDS: SODIUM CHLORIDE FLUSH 0.9% 10 ML SYRINGE IVP SCH ×3 (02:00→17:55)
[2017-09-12 02:25] LABS: BASOPHILS % (AUTO) 0.2 %; EOSINOPHILS % (AUTO) 0.2 %; HGB - HEMOGLOBIN 7.3 g/dL (12.0-16.0); LYMPHOCYTES # (AUTO) 1.5 10^3/uL (1.5-3.5); LYMPHOCYTES % (AUTO) 10.6 %; MEAN CORPUSCULAR HEMOGLOBIN 31.6 pg (27.0-31.0); MEAN CORPUSCULAR HGB CONC 33.2 g/dL (32.0-36.0); MEAN CORPUSCULAR VOLUME 95.3 fL (81.0-99.0); MEAN PLATELET VOLUME 9.3 fL (7.9-10.8); MONOCYTES # (AUTO) 1.2 10^3/uL (0.0-1.0); MONOCYTES % (AUTO) 8.8 %; NEUTROPHILS # (AUTO) 11.4 10^3/uL (1.5-6.6); NEUTROPHILS % (AUTO) 80.2 %; PLT - PLATELET COUNT 170 10^3/uL (130-450); RED CELL DISTRIBUTION WIDTH 14.4 % (12.0-15.0); WHITE BLOOD COUNT 14.1 x10^3/uL (4.8-10.8)
[2017-09-12 02:35] LABS: VBG PH 7.339 (7.31-7.41); VBG PO2 52.2 mmHg (25-47); VBG TOTAL CO2 23.9 mmol/L (24-29)
[2017-09-12 02:37] LABS: ALBUMIN 2.9 g/dL (3.2-5.5); ALBUMIN/GLOBULIN RATIO 1.2 (1.0-2.2); ALKALINE PHOSPHATASE 49 IU/L (42-121); ALT ALANINE AMINOTRANSFERASE 57 IU/L (10-60); AST ASPARTATE AMINOTRANSFERASE 56 IU/L (10-42); BILIRUBIN,TOTAL 0.3 mg/dL (0.2-1.0); BUN - BLOOD UREA NITROGEN 61 mg/dL (6-20); CALCIUM 7.5 mg/dL (8.5-10.3); CARBON DIOXIDE - CO2 23 mmol/L (21-32); CHLORIDE 109 mmol/L (101-111); CREATININE 2.1 mg/dL (0.4-1.0); GFR - MDRD 23 (>89); GLUCOSE 75 mg/dL (70-100); MAGNESIUM 1.9 mg/dL (1.7-2.8); PHOSPHORUS 3.4 mg/dL (2.5-4.6); SODIUM 135 mmol/L (135-145); TOTAL PROTEIN 5.4 g/dL (6.7-8.2)
[2017-09-12 02:39] LABS: VBG PH 7.339 (7.31-7.41)
[2017-09-12] MEDS: LEVOTHYROXINE 112 MCG TABLET PO SCH (06:25)
[2017-09-12] MEDS ORDERED: DEXTROSE 50% ABBOJECT 25 GM/50 ML SYRINGE ONE (06:51)
[2017-09-12] MEDS ORDERED: DEXTROSE 5% 1,000 ML IV SCH (07:00)
[2017-09-12] MEDS: ASPIRIN 325 MG TABLET PO SCH (08:14)
[2017-09-12] MEDS: INSULIN ASPART 300 UNIT/3 ML PEN SUBQ SCH ×4 (08:55→20:54)
[2017-09-12] MEDS: amLODIPine 5 MG TABLET PO SCH (09:20)
[2017-09-12] MEDS ORDERED: LISINOPRIL 20 MG TABLET PO SCH (12:00)
[2017-09-12] MEDS ORDERED: METOPROLOL TARTRATE 25 MG TABLET PO SCH ×2 (12:00→19:44)
[2017-09-12] MEDS: MINERAL OIL/HYDROPHIL PETROLAT 454 GM JAR TOP SCH (12:07)
[2017-09-12] MEDS: BACITRACIN OINT TOP PRN (12:12)
[2017-09-12] MEDS: CALCIUM CARBONATE CHEW 500 MG TABLET PO SCH ×2 (12:49→20:26)
[2017-09-12] MEDS: INSULIN GLARGINE 300 UNIT/3 ML PEN SUBQ SCH (12:50)
[2017-09-12] MEDS ORDERED: cloNIDine 0.1 MG TABLET PO STA (16:57)
--- NOTE | 2017-09-12 18:37 | PROVIDER PROGRESS NOTE ---
Assessment/Plan - Problem List (1) Diabetic hyperosmolar non-ketotic state Assessment/Plan: Resolved with IV insulin This am patient was hypoglycemic down to BG of 11 Given D50 and placed on D5 drip BG improved Patient is very sensitive to insulin as patient was given 5 units of aspart at night and BG dropped to 11 She was also placed on 20 units of lantus up from 15 units at home Today we will decrease her lantus to [address] only on SS insulin Monitor BG (2) NSTEMI Conclusion/Plan: LIkely type 2 NSTEMI secondary to renal failure, hyperkalemia and diabetic hyperosmolar non ketotic state which lead to stress on her cardiac muscle and troponin leak Dr Bailey spoke with Dr. Irby, forensic economist for cardiology at [facility] last night They discussed that She does not have a past medical history of cardiac disease but is elderly, hypertensive, diabetic. She would be at risk for coronary artery disease. Because of her severe hyperglycemia and electrolyte derangements , he feels that she has some cardiac stress due to that. At this time he does not feel that she needs to be transferred. I did ask him what the troponin cut off would be for him to recommend transfer. He states that if she goes above 1, developed chest pain, developed EKG changes, he would recommend transfer. He has given me his phone number to call him back @ [phone]. He does recommend starting aspirin, Lovenox, beta john. He also wants her to have a stress test before she leaves the hospital. Lovenox will be for 48 hours. 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 Hb continues to drop as it is down to 7.3 now she does not have any overt bleeding but did have question of coffee ground emesis on presentation She has normal Iron, b12 and folate likely has anemia of chronic disease secondary to CKD Qualifiers: Anemia type: due to chronic kidney disease Qualified Code(s): D64.9 - Anemia, unspecified (8) Hypertension Conclusion/Plan: Started on metoprolol last night also started amlodopine as she continues to be very hypertensive Will give clonidine and continue to monitor Qualifiers: Hypertension type: essential hypertension Qualified Code(s): I10 - Essential (primary) hypertension Patient is very weak and will be evaluated by PT - Current Meds Current Meds: Current Medications Generic Name Dose Route Start Last Admin Trade Name Freq PRN Reason Stop Dose Admin Amlodipine Besylate 5 mg 09/11/17 14:02 09/12/17 09:20 Norvasc PO 5 mg DAILY MOOKIE Administration Aspirin 325 mg 09/11/17 20:00 09/12/17 08:14 Michael PO 325 mg DAILYWM MOOKIE Administration Bacitracin 1 packet 09/11/17 12:56 09/12/17 12:12 Bacitracin TOP 1 packet PRN PRN Administration Skin Care Calcium Carbonate/Glycine 500 mg 09/12/17 13:00 09/12/17 12:49 Tums PO 500 mg BID MOOKIE Administration Emollient Ointment 1 applic 09/11/17 16:00 09/12/17 12:07 Hydrophor TOP 2 applic DAILY MOOKIE Administration Enoxaparin Sodium 60 mg 09/11/17 21:00 09/11/17 20:45 Lovenox SUBQ 60 mg Q24H MOOKIE Administration Heparin Sodium (Beef Lung) 30 - 50 unit 09/12/17 09:14 09/12/17 17:55 IVP 10/12/17 09:14 50 unit ONCE PRN Administration Central Line Protocol (<24 hr) Insulin Aspart 1 - 9 unit 09/11/17 17:00 09/12/17 17:12 Novolog SUBQ Not Given 0800,1200,1700,2100 MOOKIE Protocol Insulin Glargine 10 unit 09/12/17 13:00 09/12/17 12:50 Lantus Solostar SUBQ 10 unit DAILY MOOKIE Administration Levothyroxine Sodium 112 mcg 09/12/17 07:00 09/12/17 06:25 Synthroid PO 112 mcg QDAC MOOKIE Administration Metoprolol Tartrate 25 mg 09/12/17 12:00 09/12/17 12:18 Lopressor PO 25 mg BID MOOKIE Administration Ondansetron HCl 4 mg 09/11/17 07:14 09/11/17 14:18 Zofran Inj IVP 4 mg Q6HR PRN Administration Nausea / Vomiting Sodium Chloride 10 ml 09/11/17 09:00 09/12/17 17:55 Normal Saline Flush 0.9% IVP 10 ml 0100,0900,1700 MOOKIE Administration Sodium Chloride 10 ml 09/11/17 07:14 09/11/17 18:25 Normal Saline Flush 0.9% IVP 10 ml PRN PRN Administration NEEDED PER PROVIDER ORDERS - Lab Result Lab results reviewed: Yes Fish Bone Diagrams: 09/12/17 02:08 09/12/17 07:05 - EKG Results EKG Interpreted Independently: Yes - Diagnostic Imaging Results Diagnostic Imaging Results: Final report reviewed - Additional Planning Condition/Complexity: Guarded My Orders: My Active Orders 09/12/17 Myocardial Perfusion STR/RST [NM] Routine Evaluate and Treat PT [PT] Routine 09/12/17 09:14 Heparin Flush 30 - 50 unit IVP ONCE PRN Sodium Chloride Flush 0.9% [Normal Saline Flush 0.9%] 20 ml IVP PRN PRN 09/12/17 12:00 Metoprolol Tartrate [Lopressor] 25 mg PO BID 09/12/17 13:00 Calcium Carbonate [Tums] 500 mg PO BID Insulin Glargine [Lantus Solostar] 10 unit SUBQ DAILY 09/12/17 Breakfast Carb-controlled Diet [DIET] 09/13/17 05:00 CMP, RFLX TO IONIZED CA IF [CHEM] DAILYLAB MAGNESIUM [CHEM] DAILYLAB PHOSPHORUS [CHEM] DAILYLAB Consult/Specialty: PT Plan Discussed with:: Patient Time Spent: 31-60 minutes Subjective - Subjective Patient Reports: Feeling Better, Fatigue, Other (Patient is very weak and barely able to get up or walk with nursing) Nursing Reports: No Complaints Objective Vital Signs: Vital Signs - 24 hr 09/11/17 09/11/17 09/11/17 19:00 20:00 21:00 Temperature 37.2 C Heart Rate [ 73 71 79 Monitoring electrodes] Heart Rate [ Supine] Respiratory 13 14 15 Rate Respiratory Rate [Without Activity] Blood Pressure Blood Pressure [Left Brachial artery] Blood Pressure 157/67 H 136/63 H 157/71 H [Right Brachial artery] Blood Pressure [Sitting] Blood Pressure [Supine] O2 Saturation 100 98 99 O2 Saturation [ Without Activity] 09/11/17 09/11/17 09/12/17 22:00 23:00 00:00 Temperature 36.7 C Heart Rate [ 75 62 62 Monitoring electrodes] Heart Rate [ Supine] Respiratory 16 10 L 13 Rate Respiratory Rate [Without Activity] Blood Pressure Blood Pressure [Left Brachial artery] Blood Pressure 122/60 105/53 L 118/58 L [Right Brachial artery] Blood Pressure [Sitting] Blood Pressure [Supine] O2 Saturation 100 100 100 O2 Saturation [ Without Activity] 09/12/17 09/12/17 09/12/17 01:00 02:00 03:00 Temperature Heart Rate [ 73 71 73 Monitoring electrodes] Heart Rate [ Supine] Respiratory 12 13 15 Rate Respiratory Rate [Without Activity] Blood Pressure Blood Pressure [Left Brachial artery] Blood Pressure 140/63 H 126/55 L 131/61 H [Right Brachial artery] Blood Pressure [Sitting] Blood Pressure [Supine] O2 Saturation 97 97 97 O2 Saturation [ Without Activity] 09/12/17 09/12/17 09/12/17 04:00 05:00 06:00 Temperature 35.9 C L Heart Rate [ 73 76 76 Monitoring electrodes] Heart Rate [ Supine] Respiratory 14 15 18 Rate Respiratory Rate [Without Activity] Blood Pressure Blood Pressure [Left Brachial artery] Blood Pressure 138/64 H 148/60 H 135/55 H [Right Brachial artery] Blood Pressure [Sitting] Blood Pressure [Supine] O2 Saturation 98 98 96 O2 Saturation [ Without Activity] 09/12/17 09/12/17 09/12/17 07:00 07:27 08:00 Temperature 36.8 C 36.7 C Heart Rate [ 67 65 78 Monitoring electrodes] Heart Rate [ Supine] Respiratory 18 21 Rate Respiratory Rate [Without Activity] Blood Pressure Blood Pressure [Left Brachial artery] Blood Pressure 178/83 H 178/83 H 188/90 H [Right Brachial artery] Blood Pressure [Sitting] Blood Pressure [Supine] O2 Saturation 99 100 O2 Saturation [ Without Activity] 09/12/17 09/12/17 09/12/17 09:00 10:41 11:00 Temperature Heart Rate [ 79 77 77 Monitoring electrodes] Heart Rate [ Supine] Respiratory 23 15 14 Rate Respiratory Rate [Without Activity] Blood Pressure Blood Pressure [Left Brachial artery] Blood Pressure 161/72 H 197/88 H 185/79 H [Right Brachial artery] Blood Pressure [Sitting] Blood Pressure [Supine] O2 Saturation 100 O2 Saturation [ Without Activity] 09/12/17 09/12/17 09/12/17 11:22 12:00 12:15 Temperature Heart Rate [ 79 79 Monitoring electrodes] Heart Rate [ 79 Supine] Respiratory 18 18 Rate Respiratory 18 Rate [Without Activity] Blood Pressure Blood Pressure [Left Brachial artery] Blood Pressure 187/74 H 197/83 H [Right Brachial artery] Blood Pressure 173/79 H [Sitting] Blood Pressure 197/83 H [Supine] O2 Saturation 99 O2 Saturation [ 98 Without Activity] 09/12/17 09/12/17 09/12/17 12:18 12:44 13:00 Temperature Heart Rate [ 61 Monitoring electrodes] Heart Rate [ Supine] Respiratory Rate Respiratory Rate [Without Activity] Blood Pressure 197/83 H Blood Pressure [Left Brachial artery] Blood Pressure 173/79 H 169/76 H [Right Brachial artery] Blood Pressure [Sitting] Blood Pressure [Supine] O2 Saturation O2 Saturation [ Without Activity] 09/12/17 09/12/17 09/12/17 13:27 14:00 15:00 Temperature Heart Rate [ 61 64 66 Monitoring electrodes] Heart Rate [ Supine] Respiratory 15 13 Rate Respiratory Rate [Without Activity] Blood Pressure Blood Pressure [Left Brachial artery] Blood Pressure 156/69 H 182/75 H 190/69 H [Right Brachial artery] Blood Pressure [Sitting] Blood Pressure [Supine] O2 Saturation O2 Saturation [ Without Activity] 09/12/17 09/12/17 09/12/17 16:00 16:36 17:00 Temperature 37.0 C Heart Rate [ 67 65 69 Monitoring electrodes] Heart Rate [ Supine] Respiratory 15 14 Rate Respiratory Rate [Without Activity] Blood Pressure Blood Pressure [Left Brachial artery] Blood Pressure 185/67 H 199/73 H 202/77 H [Right Brachial artery] Blood Pressure [Sitting] Blood Pressure [Supine] O2 Saturation 100 O2 Saturation [ Without Activity] 09/12/17 09/12/17 09/12/17 17:29 17:46 18:00 Temperature Heart Rate [ 71 66 Monitoring electrodes] Heart Rate [ Supine] Respiratory 15 Rate Respiratory Rate [Without Activity] Blood Pressure Blood Pressure 185/70 H 152/62 H 164/71 H [Left Brachial artery] Blood Pressure [Right Brachial artery] Blood Pressure [Sitting] Blood Pressure [Supine] O2 Saturation O2 Saturation [ Without Activity] Oxygen O2 Source [Without Activity] Room air O2 Source Room air I&O (Last 24 Hrs): Intake and Output Totals x24h 09/10/17 09/11/17 09/12/17 23:59 23:59 23:59 Intake Total 5818.000 1830 Output Total 1202 940 Balance 4616.000 890 General: Alert, Oriented x3, Cooperative, No acute distress HEENT: Atraumatic, PERRLA, EOMI, Other (Dry mucus membranes) Neck: Supple, No JVD, No thyromegaly, +2 carotid pulse wo bruit, No LAD Lymphatic: no adenopathy Neuro: Alert, Non Focal, CN 2-12 Grossly Intact, Oriented Times 3 Cardiovascular: Regular rate, Normal S1, Normal S2 Respiratory: Chest non-tender, No respiratory distress, Breath sounds nml Abdomen: Normal bowel sounds, Soft, No tenderness, No hepatospenomegaly Extremities: No clubbing, No cyanosis, No edema, Normal pulses Skin: No rashes, No breakdown - Results Results: Laboratory Results WBC 14.1 x10^3/uL (4.8-10.8) H 09/12/17 02:08 RBC 2.30 10^6/uL (4.20-5.40) L 09/12/17 02:08 Hgb 7.3 g/dL (12.0-16.0) L 09/12/17 02:08 Hct 21.9 % (37.0-47.0) L 09/12/17 02:08 MCV 95.3 fL (81.0-99.0) 09/12/17 02:08 MCH 31.6 pg (27.0-31.0) H 09/12/17 02:08 MCHC 33.2 g/dL (32.0-36.0) 09/12/17 02:08 RDW 14.4 % (12.0-15.0) 09/12/17 02:08 Plt Count 170 10^3/uL (130-450) 09/12/17 02:08 MPV 9.3 fL (7.9-10.8) 09/12/17 02:08 Neut # 11.4 10^3/uL (1.5-6.6) H 09/12/17 02:08 Lymph # 1.5 10^3/uL (1.5-3.5) 09/12/17 02:08 Boundary # 1.2 10^3/uL (0.0-1.0) H 09/12/17 02:08 Eos # 0.0 10^3/uL (0.0-0.7) 09/12/17 02:08 Baso # 0.0 10^3/uL (0.0-0.1) 09/12/17 02:08 Absolute Nucleated RBC 0.00 x10^3/uL 09/12/17 02:08 Nucleated RBC % 0.0 /100WBC 09/12/17 02:08 Manual Slide Review Indicated 09/11/17 05:20 Platelet Estimate NORMAL (130-450,000) (NORMAL) 09/11/17 05:20 Platelet Morphology NORMAL APPEARANCE (NORMAL) 09/11/17 05:20 RBC Morph Micro Appear 1+ ANISOCYTOSIS (NORMAL) 2+ MACROCYTOSIS (NORMAL) 05:20 RBC Morph Micro Appear 1+ ANISOCYTOSIS (NORMAL) 2+ MACROCYTOSIS (NORMAL) 05:20 VBG pH 7.339 (7.31-7.41) 09/12/17 02:08 VBG pCO2 43.0 mmHg (41-51) 09/12/17 02:08 VBG pO2 52.2 mmHg (25-47) H 09/12/17 02:08 VBG HCO3 22.6 mmol/L (23-28) L 09/12/17 02:08 VBG Total CO2 23.9 mmol/L (24-29) L 09/12/17 02:08 VBG O2 Saturation 88.9 % (60-80) H 09/12/17 02:08 VBG Base Excess -3.0 mmol/L (-2 - +2) L 09/12/17 02:08 Ionized Calcium 1.07 mmol/L (1.15-1.33) L 09/12/17 02:08 Sodium 135 mmol/L (135-145) 09/12/17 02:08 Potassium 3.9 mmol/L (3.5-5.0) 09/12/17 02:08 Chloride 109 mmol/L (101-111) 09/12/17 02:08 Carbon Dioxide 23 mmol/L (21-32) 09/12/17 02:08 Anion Gap 3.0 (6-13) L 09/12/17 02:08 BUN 61 mg/dL (6-20) H 09/12/17 02:08 Creatinine 2.1 mg/dL (0.4-1.0) H 09/12/17 02:08 Estimated GFR (MDRD) 23 (>89) L 09/12/17 02:08 Glucose 169 mg/dL (70-100) H 09/12/17 07:05 Glycated Hemoglobin 9.3 % (4.6-6.2) H 09/11/17 06:45 Estim Average Glucose 220 (70-100) H 09/11/17 06:45 Lactic Acid 1.4 mmol/L (0.5-2.2) 09/11/17 20:50 Calcium 7.5 mg/dL (8.5-10.3) L 09/12/17 02:08 Ionized Calcium YES 09/12/17 02:08 Phosphorus 3.4 mg/dL (2.5-4.6) 09/12/17 02:08 Magnesium 1.9 mg/dL (1.7-2.8) 09/12/17 02:08 Iron 41 ug/dL (28-170) 09/11/17 08:17 TIBC 242 ug/dL (250-450) L 09/11/17 08:17 % Saturation 17 % (20-50) L 09/11/17 08:17 Transferrin 173 mg/dL (192-382) L 09/11/17 08:17 Ferritin 454.8 ng/mL (11.0-306.8) H 09/11/17 08:17 Total Bilirubin 0.3 mg/dL (0.2-1.0) 09/12/17 02:08 AST 56 IU/L (10-42) H 09/12/17 02:08 ALT 57 IU/L (10-60) 09/12/17 02:08 Alkaline Phosphatase 49 IU/L (42-121) 09/12/17 02:08 Troponin I 0.46 ng/mL (<0.49) 09/12/17 07:05 Total Protein 5.4 g/dL (6.7-8.2) L 09/12/17 02:08 Albumin 2.9 g/dL (3.2-5.5) L 09/12/17 02:08 Globulin 2.5 g/dL (2.1-4.2) 09/12/17 02:08 Albumin/Globulin Ratio 1.2 (1.0-2.2) 09/12/17 02:08 Triglycerides 98 mg/dL (-149) 09/11/17 08:17 Amylase 75 U/L (28-100) 09/11/17 08:17 Lipase 34 U/L (22-51) 09/11/17 05:20 Vitamin B12 1147 pg/mL (180-914) H 09/11/17 08:17 Folate > 49.60 ng/mL (5.90 - >24.8) 09/11/17 08:17 Urine Color YELLOW 09/11/17 07:00 Urine Clarity CLEAR (CLEAR) 09/11/17 07:00 Urine pH 5.0 PH (5.0-7.5) 09/11/17 07:00 Ur Specific [place] 1.010 (1.002-1.030) 09/11/17 07:00 Urine Protein 30 mg/dL (NEGATIVE) H 09/11/17 07:00 Urine Glucose (UA) >=1000 mg/dL (NEGATIVE) H 09/11/17 07:00 Urine Ketones 15 mg/dL (NEGATIVE) H 09/11/17 07:00 Urine Occult Blood TRACE-LYSE (NEGATIVE) 09/11/17 07:00 Urine Nitrite NEGATIVE (NEGATIVE) 09/11/17 07:00 Urine Bilirubin NEGATIVE (NEGATIVE) 09/11/17 07:00 Urine Urobilinogen 0.2 (NORMAL) E.U./dL (NORMAL) 09/11/17 07:00 Ur Leukocyte Esterase NEGATIVE (NEGATIVE) 09/11/17 07:00 Urine RBC 0-5 /HPF (0-5) 09/11/17 07:00 Urine WBC 0-3 /HPF (0-5) 09/11/17 07:00 Ur Squamous Epith Cells RARE Squamous (<= Few) 09/11/17 07:00 Amorphous Sediment Rare /LPF 09/11/17 07:00 Urine Bacteria None Seen /HPF (None Seen) 09/11/17 07:00 Urine Casts 0-2 Hyaline Casts /LPF 09/11/17 07:00 Ur Microscopic Review INDICATED 09/11/17 07:00 Urine Culture Comments NOT INDICATED 09/11/17 07:00 Salicylates < 6.0 mg/dL 09/11/17 13:25 Urine Opiates Screen NEGATIVE (NEGATIVE) 09/11/17 07:00 Ur Oxycodone Screen NEGATIVE (NEGATIVE) 09/11/17 07:00 Urine Methadone Screen NEGATIVE (NEGATIVE) 09/11/17 07:00 Ur Propoxyphene Screen NEGATIVE (NEGATIVE) 09/11/17 07:00 Acetaminophen < 10 ug/mL (10-30) L 09/11/17 13:25 Ur Barbiturates Screen NEGATIVE (NEGATIVE) 09/11/17 07:00 Ur Tricyclics Screen NEGATIVE (NEGATIVE) 09/11/17 07:00 Ur Phencyclidine Scrn NEGATIVE (NEGATIVE) 09/11/17 07:00 Ur Amphetamine Screen NEGATIVE (NEGATIVE) 09/11/17 07:00 U Methamphetamines Scrn NEGATIVE (NEGATIVE) 09/11/17 07:00 U Benzodiazepines Scrn NEGATIVE (NEGATIVE) 09/11/17 07:00 Urine Cocaine Screen NEGATIVE (NEGATIVE) 09/11/17 07:00 U Cannabinoids Screen NEGATIVE (NEGATIVE) 09/11/17 07:00 Ethyl Alcohol < 5.0 mg/dL 09/11/17 05:20 Serum Ketones SMALL (NEGATIVE) H 09/11/17 17:50 Blood Type B POSITIVE 09/11/17 05:20 Antibody Screen NEGATIVE 09/11/17 05:20
[2017-09-12] MEDS: ENOXAPARIN 60 MG/0.6 ML SYRINGE SUBQ SCH (20:26)
[2017-09-13] MEDS: SODIUM CHLORIDE FLUSH 0.9% 10 ML SYRINGE IVP SCH ×3 (02:45→17:03)
[2017-09-13 04:58] LABS: ALBUMIN 3.1 g/dL (3.2-5.5); ALBUMIN/GLOBULIN RATIO 1.3 (1.0-2.2); ALKALINE PHOSPHATASE 47 IU/L (42-121); ALT ALANINE AMINOTRANSFERASE 59 IU/L (10-60); AST ASPARTATE AMINOTRANSFERASE 59 IU/L (10-42); BILIRUBIN,TOTAL 0.4 mg/dL (0.2-1.0); BUN - BLOOD UREA NITROGEN 39 mg/dL (6-20); CARBON DIOXIDE - CO2 23 mmol/L (21-32); CHLORIDE 101 mmol/L (101-111); CREATININE 1.9 mg/dL (0.4-1.0); GFR - MDRD 26 (>89); GLUCOSE 123 mg/dL (70-100); MAGNESIUM 1.8 mg/dL (1.7-2.8); PHOSPHORUS 2.5 mg/dL (2.5-4.6); SODIUM 132 mmol/L (135-145); TOTAL PROTEIN 5.4 g/dL (6.7-8.2)
[2017-09-13 05:09] LABS: VBG PH 7.377 (7.31-7.41)
[2017-09-13] MEDS: LEVOTHYROXINE 112 MCG TABLET PO SCH (06:24)
[2017-09-13] MEDS: cloNIDine 0.1 MG TABLET PO PRN ×2 (06:25→14:30)
[2017-09-13] MEDS: ASPIRIN 325 MG TABLET PO SCH (08:42)
[2017-09-13] MEDS: METOPROLOL TARTRATE 25 MG TABLET PO SCH ×2 (08:42→21:03)
[2017-09-13] MEDS: CALCIUM CARBONATE CHEW 500 MG TABLET PO SCH ×2 (08:42→21:03)
[2017-09-13] MEDS: LISINOPRIL 20 MG TABLET PO SCH (08:43)
[2017-09-13] MEDS: INSULIN GLARGINE 300 UNIT/3 ML PEN SUBQ SCH (08:46)
[2017-09-13] MEDS: INSULIN ASPART 300 UNIT/3 ML PEN SUBQ SCH ×2 (08:47→11:55)
[2017-09-13] MEDS ORDERED: METOPROLOL TARTRATE 25 MG TABLET PO SCH (09:00)
[2017-09-13 09:40] LABS: BASOPHILS % (AUTO) 0.3 %; EOSINOPHILS # (AUTO) 0.1 10^3/uL (0.0-0.7); EOSINOPHILS % (AUTO) 1.3 %; HGB - HEMOGLOBIN 8.3 g/dL (12.0-16.0); LYMPHOCYTES # (AUTO) 0.8 10^3/uL (1.5-3.5); LYMPHOCYTES % (AUTO) 11.9 %; MEAN CORPUSCULAR HGB CONC 33.5 g/dL (32.0-36.0); MEAN CORPUSCULAR VOLUME 95.5 fL (81.0-99.0); MEAN PLATELET VOLUME 9.1 fL (7.9-10.8); MONOCYTES # (AUTO) 0.5 10^3/uL (0.0-1.0); MONOCYTES % (AUTO) 6.8 %; NEUTROPHILS # (AUTO) 5.6 10^3/uL (1.5-6.6); NEUTROPHILS % (AUTO) 79.7 %; PLT - PLATELET COUNT 168 10^3/uL (130-450); RED BLOOD COUNT 2.58 10^6/uL (4.20-5.40); RED CELL DISTRIBUTION WIDTH 14.3 % (12.0-15.0)
[2017-09-13 09:57] LABS: TROPONIN I 0.25 ng/mL (<0.49)
[2017-09-13 09:59] LABS: CREATINE KINASE MB 3.5 ng/mL (0.6-6.3)
[2017-09-13] MEDS: amLODIPine 5 MG TABLET PO SCH (10:01)
[2017-09-13] MEDS: SODIUM CHLORIDE FLUSH 0.9% 10 ML SYRINGE IVP PRN (10:17)
[2017-09-13] MEDS: MINERAL OIL/HYDROPHIL PETROLAT 454 GM JAR TOP SCH (14:57)
[2017-09-13] MEDS: BACITRACIN OINT TOP PRN (14:57)
[2017-09-13] MEDS: METOCLOPRAMIDE 10 MG TABLET PO SCH ×2 (15:02→21:06)
[2017-09-13] MEDS: SUCRALFATE 1 GM/10 ML UDC PO SCH ×2 (15:34→22:50)
--- NOTE | 2017-09-13 17:19 | PROVIDER PROGRESS NOTE ---
Assessment/Plan - Problem List (1) NSTEMI (non-ST elevated myocardial infarction) Assessment/Plan: LIkely type 2 NSTEMI secondary to renal failure, hyperkalemia and diabetic hyperosmolar non ketotic state which lead to stress on her cardiac muscle and troponin leak Dr Bailey spoke with Dr. Irby, operational intelligence analyst for cardiology at [facility] last night They discussed that She does not have a past medical history of cardiac disease but is elderly, hypertensive, diabetic. She would be at risk for coronary artery disease. Because of her severe hyperglycemia and electrolyte derangements , he feels that she has some cardiac stress due to that. At this time he does not feel that she needs to be transferred. I did ask him what the troponin cut off would be for him to recommend transfer. He states that if she goes above 1, developed chest pain, developed EKG changes, he would recommend transfer. He has given me his phone number to call him back @ [phone]. He does recommend starting aspirin, Lovenox, beta john. He also wants her to have a stress test before she leaves the hospital. Lovenox will be for 48 hours. Patient on ASA, lovenox and beta john Stress test will be Wednesday after 48 hours of lovenox is complete Patient has no chest pain but continues to have nausea and complaining of epigastric pain when she eats therefore EKG and trop repeated today and negative also ordered abd ultrasound Echo was negative for wall motion abnormalities or decreased EF (2) Diabetic hyperosmolar nonketotic state Conclusion/Plan: Resolved with IV insulin Yesterday patient was hypoglycemic down to BG of 11 Given D50 and placed on D5 drip BG improved Patient is very sensitive to insulin as patient was given 5 units of aspart at night and BG dropped to 11 She was also placed on 20 units of lantus up from 15 units at home Patient now on lantus to [address] only on SS insulin BG is in 100-200 range Stable (3) High anion gap metabolic acidosis Conclusion/Plan: Resolved with treatment of #1 (3) Acute renal failure superimposed on stage 3 chronic kidney disease Conclusion/Plan: Blueprint Duplicator improved to 1.9 from 2.9 with IVFs this is close to patients baseline motor rebuilder Blueprint Duplicator now near patients baseline (4) Hyperkalemia Conclusion/Plan: Resolved with treatment of renal failure Initially had peaked T waves on EKG and was given IV calcium gluconate, NaBicarb and R insulin (5) Hyponatremia Conclusion/Plan: Na was 120 on presentation IMproved to 132 Resolving (6) Transaminitis Conclusion/Plan: Resolved (7) Anemia Conclusion/Plan: The patient has 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 Hb improved today to 8.3 she does not have any overt bleeding but did have question of coffee ground emesis on presentation She has normal Iron, b12 and folate likely has anemia of chronic disease secondary to CKD Qualifiers: Anemia type: due to chronic kidney disease Qualified Code(s): D64.9 - Anemia, unspecified (8) Hypertension Conclusion/Plan: Started on metoprolol last night also started amlodopine as she continues to be very hypertensive Will give clonidine and continue to monitor Qualifiers: Hypertension type: essential hypertension Qualified Code(s): I10 - Essential (primary) hypertension Patient is very weak and was evaluated by PT who recommend SNF for the patient. 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 Social work is on board. - Current Meds Current Meds: Current Medications Generic Name Dose Route Start Last Admin Trade Name Freq PRN Reason Stop Dose Admin Amlodipine Besylate 10 mg 09/13/17 08:18 09/13/17 10:01 Norvasc PO 10 mg DAILY MOOKIE Administration Aspirin 325 mg 09/11/17 20:00 09/13/17 08:42 Michael PO 325 mg DAILYWM MOOKIE Administration Bacitracin 1 packet 09/11/17 12:56 09/13/17 14:57 Bacitracin TOP 1 packet PRN PRN Administration Skin Care Calcium Carbonate/Glycine 500 mg 09/12/17 13:00 09/13/17 08:42 Tums PO 500 mg BID MOOKIE Administration Clonidine HCl 0.1 mg 09/13/17 06:06 09/13/17 14:30 Catapres PO 0.1 mg BID PRN Administration Blood Pressure Emollient Ointment 1 applic 09/11/17 16:00 09/13/17 14:57 Hydrophor TOP 2 applic DAILY MOOKIE Administration Enoxaparin Sodium 60 mg 09/11/17 21:00 09/12/17 20:26 Lovenox SUBQ 09/14/17 09:00 60 mg Q24H MOOKIE Administration Insulin Glargine 10 unit 09/12/17 13:00 09/13/17 08:46 Lanadryan Cheryar SUBQ 10 unit DAILY MOOKIE Administration Lisinopril 20 mg 09/13/17 09:00 09/13/17 08:43 Zestril PO 20 mg DAILY MOOKIE Administration Metoclopramide HCl 10 mg 09/13/17 15:00 09/13/17 15:02 Reglan PO 10 mg ACHS MOOKIE Administration Metoprolol Tartrate 50 mg 09/13/17 09:00 09/13/17 08:42 Lopressor PO 50 mg BID MOOKIE Administration Ondansetron HCl 4 mg 09/11/17 07:14 09/11/17 14:18 Zofran Inj IVP 4 mg Q6HR PRN Administration Nausea / Vomiting Sodium Chloride 10 ml 09/11/17 09:00 09/13/17 17:03 Normal Saline Flush 0.9% IVP Not Given 0100,0900,1700 MOOKIE Sodium Chloride 10 ml 09/11/17 07:14 09/11/17 18:25 Normal Saline Flush 0.9% IVP 10 ml PRN PRN Administration NEEDED PER PROVIDER ORDERS Sodium Chloride 20 ml 09/12/17 09:14 09/13/17 10:17 Normal Saline Flush 0.9% IVP 40 ml PRN PRN Administration After Blood Draw Sucralfate 1 gm 09/13/17 15:00 09/13/17 15:34 Carafate PO Not Given 0700,1100,1600,2200 MOOKIE - Lab Result Lab results reviewed: Yes Fish Bone Diagrams: 09/13/17 09:32 09/13/17 04:20 - EKG Results EKG Interpreted Independently: Yes - Diagnostic Imaging Results Diagnostic Imaging Results: Final report reviewed - Additional Planning Condition/Complexity: Guarded My Orders: My Active Orders 09/13/17 Abdomen Complete [US] Routine 09/13/17 08:18 amLODIPine [Norvasc] 10 mg PO DAILY 09/13/17 09:00 Lisinopril [Zestril] 20 mg PO DAILY Metoprolol Tartrate [Lopressor] 50 mg PO BID 09/13/17 12:08 Heparin Flush 30 - 50 unit IVP PRN PRN 09/13/17 15:00 Metoclopramide [Reglan] 10 mg PO ACHS Sucralfate [Carafate] 1 gm PO 0700,1100,1600,2200 09/13/17 15:11 Blood Glucose POC [RC] 0800,1200,1700,2100 09/13/17 15:13 Initiate Hypoglycemia Protocol [RC] .protocol 09/13/17 15:14 DIET [NPO] [DIET] 09/13/17 18:00 Insulin Regular Human [NovoLIN R] 1 - 5 unit SUBQ Q6HR 09/14/17 08:00 Myocardial Perfusion STR/RST [NM] Routine Consult/Specialty: PT Plan Discussed with:: Patient Time Spent: 31-60 minutes Subjective - Subjective Patient Reports: Fatigue, Other (Patient is very weak requiring 2 people to assist her to get up. No fevers, no chills. No chest pain but does have reflux after eating. She also has epigastric pain.) Nursing Reports: No Complaints Objective Vital Signs: Vital Signs - 24 hr 09/12/17 09/12/17 09/12/17 17:29 17:46 18:00 Temperature Heart Rate [ 71 66 Monitoring electrodes] Respiratory 15 Rate Blood Pressure Blood Pressure 185/70 H 152/62 H 164/71 H [Left Brachial artery] Blood Pressure [Right Brachial artery] O2 Saturation 09/12/17 09/12/17 09/12/17 18:22 18:46 19:00 Temperature Heart Rate [ 62 63 Monitoring electrodes] Respiratory 15 Rate Blood Pressure Blood Pressure 156/65 H 154/70 H 166/73 H [Left Brachial artery] Blood Pressure [Right Brachial artery] O2 Saturation 09/12/17 09/12/17 09/13/17 20:00 20:26 00:00 Temperature 36.5 C 36.5 C Heart Rate [ 58 L 69 Monitoring electrodes] Respiratory 19 14 Rate Blood Pressure 157/69 H Blood Pressure 157/69 H 195/79 H [Left Brachial artery] Blood Pressure [Right Brachial artery] O2 Saturation 99 99 09/13/17 09/13/17 09/13/17 01:16 04:54 08:25 Temperature 36.5 C 37.0 C Heart Rate [ 70 63 60 Monitoring electrodes] Respiratory 14 13 13 Rate Blood Pressure Blood Pressure [Left Brachial artery] Blood Pressure 108/87 H 198/70 H 148/68 H [Right Brachial artery] O2 Saturation 99 100 09/13/17 09/13/17 09/13/17 08:42 09:59 12:12 Temperature Heart Rate [ 61 60 Monitoring electrodes] Respiratory 15 Rate Blood Pressure 148/68 H Blood Pressure [Left Brachial artery] Blood Pressure 151/62 H 209/81 H [Right Brachial artery] O2 Saturation 09/13/17 09/13/17 09/13/17 12:38 13:07 14:00 Temperature 36.8 C Heart Rate [ 59 L 60 71 Monitoring electrodes] Respiratory 12 13 13 Rate Blood Pressure Blood Pressure 191/70 H 191/68 H 188/69 H [Left Brachial artery] Blood Pressure [Right Brachial artery] O2 Saturation 09/13/17 09/13/17 14:31 14:53 Temperature Heart Rate [ 71 72 Monitoring electrodes] Respiratory 20 Rate Blood Pressure Blood Pressure 194/79 H 168/83 H [Left Brachial artery] Blood Pressure [Right Brachial artery] O2 Saturation Oxygen O2 Source [Without Activity] Room air O2 Source Room air I&O (Last 24 Hrs): Intake and Output Totals x24h 09/11/17 09/12/17 09/13/17 23:59 23:59 23:59 Intake Total 5818.000 2030 1425 Output Total 1202 1140 1100 Balance 4616.000 890 325 General: Alert, Oriented x3, Cooperative, No acute distress, Other (Weak) HEENT: Atraumatic, PERRLA, EOMI, Mucous membr. moist/pink Neck: Supple, No JVD, No thyromegaly, +2 carotid pulse wo bruit, No LAD Lymphatic: no adenopathy Neuro: Alert, Non Focal, CN 2-12 Grossly Intact, Oriented Times 3 Cardiovascular: Regular rate, Normal S1, Normal S2, No murmurs Respiratory: Chest non-tender, No respiratory distress, Breath sounds nml Abdomen: Normal bowel sounds, Soft, No tenderness, No hepatospenomegaly Extremities: No clubbing, No cyanosis, No edema, Normal pulses Skin: No rashes, No breakdown - Results Results: Laboratory Results WBC 7.0 x10^3/uL (4.8-10.8) 09/13/17 09:32 RBC 2.58 10^6/uL (4.20-5.40) L 09/13/17 09:32 Hgb 8.3 g/dL (12.0-16.0) L 09/13/17 09:32 Hct 24.6 % (37.0-47.0) L 09/13/17 09:32 MCV 95.5 fL (81.0-99.0) 09/13/17 09:32 MCH 32.0 pg (27.0-31.0) H 09/13/17 09:32 MCHC 33.5 g/dL (32.0-36.0) 09/13/17 09:32 RDW 14.3 % (12.0-15.0) 09/13/17 09:32 Plt Count 168 10^3/uL (130-450) 09/13/17 09:32 MPV 9.1 fL (7.9-10.8) 09/13/17 09:32 Neut # 5.6 10^3/uL (1.5-6.6) 09/13/17 09:32 Lymph # 0.8 10^3/uL (1.5-3.5) L 09/13/17 09:32 Meagher # 0.5 10^3/uL (0.0-1.0) 09/13/17 09:32 Eos # 0.1 10^3/uL (0.0-0.7) 09/13/17 09:32 Baso # 0.0 10^3/uL (0.0-0.1) 09/13/17 09:32 Absolute Nucleated RBC 0.00 x10^3/uL 09/13/17 09:32 Nucleated RBC % 0.0 /100WBC 09/13/17 09:32 Manual Slide Review Indicated 09/11/17 05:20 Platelet Estimate NORMAL (130-450,000) (NORMAL) 09/11/17 05:20 Platelet Morphology NORMAL APPEARANCE (NORMAL) 09/11/17 05:20 RBC Morph Micro Appear 1+ ANISOCYTOSIS (NORMAL) 2+ MACROCYTOSIS (NORMAL) 05:20 RBC Morph Micro Appear 1+ ANISOCYTOSIS (NORMAL) 2+ MACROCYTOSIS (NORMAL) 05:20 VBG pH 7.377 (7.31-7.41) 09/13/17 04:20 VBG pCO2 43.0 mmHg (41-51) 09/12/17 02:08 VBG pO2 52.2 mmHg (25-47) H 09/12/17 02:08 VBG HCO3 22.6 mmol/L (23-28) L 09/12/17 02:08 VBG Total CO2 23.9 mmol/L (24-29) L 09/12/17 02:08 VBG O2 Saturation 88.9 % (60-80) H 09/12/17 02:08 VBG Base Excess -3.0 mmol/L (-2 - +2) L 09/12/17 02:08 Ionized Calcium 1.11 mmol/L (1.15-1.33) L 09/13/17 04:20 Sodium 132 mmol/L (135-145) L 09/13/17 04:20 Potassium 3.4 mmol/L (3.5-5.0) L 09/13/17 04:20 Chloride 101 mmol/L (101-111) 09/13/17 04:20 Carbon Dioxide 23 mmol/L (21-32) 09/13/17 04:20 Anion Gap 8.0 (6-13) 09/13/17 04:20 BUN 39 mg/dL (6-20) H 09/13/17 04:20 Creatinine 1.9 mg/dL (0.4-1.0) H 09/13/17 04:20 Estimated GFR (MDRD) 26 (>89) L 09/13/17 04:20 Glucose 123 mg/dL (70-100) H 09/13/17 04:20 POC Whole Bld Glucose 203 mg/dL (70 - 100) H 09/13/17 11:29 Glycated Hemoglobin 9.3 % (4.6-6.2) H 09/11/17 06:45 Estim Average Glucose 220 (70-100) H 09/11/17 06:45 Lactic Acid 1.4 mmol/L (0.5-2.2) 09/11/17 20:50 Calcium 8.0 mg/dL (8.5-10.3) L 09/13/17 04:20 Ionized Calcium YES 09/13/17 04:20 Phosphorus 2.5 mg/dL (2.5-4.6) 09/13/17 04:20 Magnesium 1.8 mg/dL (1.7-2.8) 09/13/17 04:20 Iron 41 ug/dL (28-170) 09/11/17 08:17 TIBC 242 ug/dL (250-450) L 09/11/17 08:17 % Saturation 17 % (20-50) L 09/11/17 08:17 Transferrin 173 mg/dL (192-382) L 09/11/17 08:17 Ferritin 454.8 ng/mL (11.0-306.8) H 09/11/17 08:17 Total Bilirubin 0.4 mg/dL (0.2-1.0) 09/13/17 04:20 AST 59 IU/L (10-42) H 09/13/17 04:20 ALT 59 IU/L (10-60) 09/13/17 04:20 Alkaline Phosphatase 47 IU/L (42-121) 09/13/17 04:20 CK-MB (CK-2) 3.5 ng/mL (0.6-6.3) 09/13/17 09:32 Troponin I 0.25 ng/mL (<0.49) 09/13/17 09:32 Total Protein 5.4 g/dL (6.7-8.2) L 09/13/17 04:20 Albumin 3.1 g/dL (3.2-5.5) L 09/13/17 04:20 Globulin 2.3 g/dL (2.1-4.2) 09/13/17 04:20 Albumin/Globulin Ratio 1.3 (1.0-2.2) 09/13/17 04:20 Triglycerides 98 mg/dL (-149) 09/11/17 08:17 Amylase 75 U/L (28-100) 09/11/17 08:17 Lipase 34 U/L (22-51) 09/11/17 05:20 Vitamin B12 1147 pg/mL (180-914) H 09/11/17 08:17 Folate > 49.60 ng/mL (5.90 - >24.8) 09/11/17 08:17 Urine Color YELLOW 09/11/17 07:00 Urine Clarity CLEAR (CLEAR) 09/11/17 07:00 Urine pH 5.0 PH (5.0-7.5) 09/11/17 07:00 Ur Specific Guffey 1.010 (1.002-1.030) 09/11/17 07:00 Urine Protein 30 mg/dL (NEGATIVE) H 09/11/17 07:00 Urine Glucose (UA) >=1000 mg/dL (NEGATIVE) H 09/11/17 07:00 Urine Ketones 15 mg/dL (NEGATIVE) H 09/11/17 07:00 Urine Occult Blood TRACE-LYSE (NEGATIVE) 09/11/17 07:00 Urine Nitrite NEGATIVE (NEGATIVE) 09/11/17 07:00 Urine Bilirubin NEGATIVE (NEGATIVE) 09/11/17 07:00 Urine Urobilinogen 0.2 (NORMAL) E.U./dL (NORMAL) 09/11/17 07:00 Ur Leukocyte Esterase NEGATIVE (NEGATIVE) 09/11/17 07:00 Urine RBC 0-5 /HPF (0-5) 09/11/17 07:00 Urine WBC 0-3 /HPF (0-5) 09/11/17 07:00 Ur Squamous Epith Cells RARE Squamous (<= Few) 09/11/17 07:00 Amorphous Sediment Rare /LPF 09/11/17 07:00 Urine Bacteria None Seen /HPF (None Seen) 09/11/17 07:00 Urine Casts 0-2 Hyaline Casts /LPF 09/11/17 07:00 Ur Microscopic Review INDICATED 09/11/17 07:00 Urine Culture Comments NOT INDICATED 09/11/17 07:00 Salicylates < 6.0 mg/dL 09/11/17 13:25 Urine Opiates Screen NEGATIVE (NEGATIVE) 09/11/17 07:00 Ur Oxycodone Screen NEGATIVE (NEGATIVE) 09/11/17 07:00 Urine Methadone Screen NEGATIVE (NEGATIVE) 09/11/17 07:00 Ur Propoxyphene Screen NEGATIVE (NEGATIVE) 09/11/17 07:00 Acetaminophen < 10 ug/mL (10-30) L 09/11/17 13:25 Ur Barbiturates Screen NEGATIVE (NEGATIVE) 09/11/17 07:00 Ur Tricyclics Screen NEGATIVE (NEGATIVE) 09/11/17 07:00 Ur Phencyclidine Scrn NEGATIVE (NEGATIVE) 09/11/17 07:00 Ur Amphetamine Screen NEGATIVE (NEGATIVE) 09/11/17 07:00 U Methamphetamines Scrn NEGATIVE (NEGATIVE) 09/11/17 07:00 U Benzodiazepines Scrn NEGATIVE (NEGATIVE) 09/11/17 07:00 Urine Cocaine Screen NEGATIVE (NEGATIVE) 09/11/17 07:00 U Cannabinoids Screen NEGATIVE (NEGATIVE) 09/11/17 07:00 Ethyl Alcohol < 5.0 mg/dL 09/11/17 05:20 Serum Ketones SMALL (NEGATIVE) H 09/11/17 17:50 Blood Type B POSITIVE 09/11/17 05:20 Blood Type Recheck B POSITIVE 09/11/17 06:45 Antibody Screen NEGATIVE 09/11/17 05:20
[2017-09-13] MEDS: INSULIN REGULAR HUMAN 100 UNIT/1 ML 10 ML MDV SUBQ SCH (17:30)
[2017-09-13] MEDS ORDERED: DEXTROSE 50% ABBOJECT 25 GM/50 ML SYRINGE ONE (17:33)
[2017-09-13] MEDS ORDERED: DEXTROSE 5% 1,000 ML IV ONE (17:34)
[2017-09-13] MEDS ORDERED: DEXTROSE 50% ABBOJECT 25 GM/50 ML SYRINGE IVP ONE (18:04)
[2017-09-13] MEDS: DEXTROSE 5% 1,000 ML IV SCH (18:28)
[2017-09-13] MEDS: ENOXAPARIN 60 MG/0.6 ML SYRINGE SUBQ SCH (21:06)
--- NOTE | 2017-09-13 23:59 | Ultrasound Preliminary Report ---
Exam: US ABDOMEN COMPLETE IMPRESSION: 1. Trace ascites. 2. Limited for pancreas which is obscured by bowel gas. 3. Otherwise unremarkable abdominal ultrasound. [facility] SITE ID: [id number]
--- NOTE | 2017-09-13 23:59 | Ultrasound Report ---
EXAM: ABDOMEN ULTRASOUND EXAM DATE: 09/13/2017 10:20 PM. CLINICAL HISTORY: Abdominal discomfort with eating r/o cholecystitis. COMPARISON: 09/11/2017 CT, 04/01/2016 ultrasound. TECHNIQUE: Real-time scanning was performed with static images obtained. FINDINGS: Liver: Normal in size and echotexture. 13.3 cm. Main portal vein flow: Hepatopetal. Gallbladder: Partially contracted. No obvious gallstones, gallbladder wall thickening or pericholecys tic fluid collections. Biliary System: Common bile duct measures 7 mm. No intrahepatic bile duct dilatation. Pancreas: Obscured by bowel gas. Kidneys: Right: 9.8 cm longitudinally. Normal. No contour-deforming mass, stones, or hydronephrosis. Left: 8.2 cm longitudinally. Normal. No contour-deforming mass, stones, or hydronephrosis. Spleen: 7.5 x 2.4 x 4.5 cm. Normal in size and echotexture. Aorta and Inferior Vena Cava: Unremarkable. Other: Trace ascites. IMPRESSION: 1. Trace ascites. 2. Limited for pancreas which is obscured by bowel gas. 3. Otherwise unremarkable abdominal ultrasound. [facility] Referring Provider Line: [phone] SITE ID: [id number]
[2017-09-14] MEDS: INSULIN REGULAR HUMAN 100 UNIT/1 ML 10 ML MDV SUBQ SCH ×2 (00:36→06:21)
[2017-09-14] MEDS: SODIUM CHLORIDE FLUSH 0.9% 10 ML SYRINGE IVP SCH ×3 (04:14→16:00)
[2017-09-14] MEDS: LEVOTHYROXINE 112 MCG TABLET PO SCH (06:24)
[2017-09-14] MEDS: DEXTROSE 5% 1,000 ML IV SCH (06:33)
[2017-09-14] MEDS: SODIUM CHLORIDE FLUSH 0.9% 10 ML SYRINGE IVP PRN ×2 (06:43→15:53)
[2017-09-14] MEDS: METOCLOPRAMIDE 10 MG TABLET PO SCH ×4 (08:18→21:04)
[2017-09-14] MEDS: SUCRALFATE 1 GM/10 ML UDC PO SCH ×4 (08:18→21:13)
[2017-09-14] MEDS: BACITRACIN OINT TOP PRN (09:24)
[2017-09-14] MEDS: MINERAL OIL/HYDROPHIL PETROLAT 454 GM JAR TOP SCH (09:25)
[2017-09-14] MEDS: amLODIPine 5 MG TABLET PO SCH (09:59)
[2017-09-14] MEDS: ASPIRIN 325 MG TABLET PO SCH (10:00)
[2017-09-14] MEDS: INSULIN GLARGINE 300 UNIT/3 ML PEN SUBQ SCH (10:00)
[2017-09-14] MEDS: LISINOPRIL 20 MG TABLET PO SCH (10:01)
[2017-09-14] MEDS: METOPROLOL TARTRATE 25 MG TABLET PO SCH ×2 (10:01→21:05)
[2017-09-14] MEDS: CALCIUM CARBONATE CHEW 500 MG TABLET PO SCH ×2 (10:11→21:04)
[2017-09-14] MEDS: cloNIDine 0.1 MG TABLET PO PRN (10:16)
[2017-09-14] MEDS ORDERED: REGADENOSON 0.4 MG/5 ML SYRINGE IVP ONE ×2 (10:53→14:22)
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
[2017-09-14] MEDS: INSULIN ASPART 300 UNIT/3 ML PEN SUBQ SCH ×3 (13:14→20:57)
--- NOTE | 2017-09-14 15:40 | Nuclear Medicine Prelim Report ---
Exam: NM MYOCARDIAL PERFUSION STR/RST IMPRESSION: 1. No convincing reversible perfusion deficits to indicate stress-induced ischemia. 2. No definite fixed perfusion deficits. Probable anterior/anteroseptal wall breast attenuation artif act. 3. Left ventricular ejection fraction of 61% (normal > 50%). 4. No focal wall motion abnormalities. [facility] SITE ID: [id number]
--- NOTE | 2017-09-14 15:41 | Nuclear Medicine Report ---
EXAM: SINGLE-ISOTOPE PHARMACOLOGICAL STRESS TEST WITH REGADENOSON. SINGLE-ISOTOPE AND ONE-DAY REST/STRESS M YOCARDIAL PERFUSION SCANS WITH TOMOGRAPHIC IMAGING, QUANTITATIVE ANALYSIS, WALL MOTION ANALYSIS AND C ALCULATION OF EJECTION FRACTION. EXAM DATE: 09/14/2017 02:22 PM. CLINICAL HISTORY: NSTEMI. COMPARISON: None. TECHNIQUE: After the intravenous administration of 11.1 mCi of Tc-99m sestamibi, a rest myocardial perfusion sca n was done with tomography. Motion correction was applied when appropriate. After an appropriate delay, pharmacological stress was performed with the infusion of 0.4 mg regadeno son per protocol. According to protocol, 43.2 mCi of Tc-99m sestamibi was injected for stress myocard ial perfusion scan. Motion correction was applied when appropriate. Gated tomographic images were obtained for wall motion analysis and computation of left ventricular e jection fraction. FINDINGS: Perfusion images: Left ventricular chamber size is normal at rest and unchanged at stress. No definite fixed perfusion deficits. Probable breast attenuation artifact at the apical half of the anterior/anteroseptal wall. No convincing reversible perfusion deficits. Gated images: No focal wall motion abnormality. The left ventricular ejection fraction is estimated at 61% (normal > 50%). IMPRESSION: 1. No convincing reversible perfusion deficits to indicate stress-induced ischemia. 2. No definite fixed perfusion deficits. Probable anterior/anteroseptal wall breast attenuation artif act. 3. Left ventricular ejection fraction of 61% (normal > 50%). 4. No focal wall motion abnormalities. [facility] Referring Provider Line: [phone] SITE ID: [id number]
[2017-09-14] MEDS: POLYETHYLENE GLYCOL 3350 17 GM PACKET PO SCH (17:12)
[2017-09-14] MEDS ORDERED: INSULIN GLARGINE 300 UNIT/3 ML PEN SUBQ SCH (21:00)
[2017-09-15 04:55] LABS: BUN - BLOOD UREA NITROGEN 32 mg/dL (6-20); CALCIUM 8.2 mg/dL (8.5-10.3); CARBON DIOXIDE - CO2 26 mmol/L (21-32); CHLORIDE 95 mmol/L (101-111); CHOL/HDL RATIO 3.2 (<4.4); CHOLESTEROL 170 mg/dL; GFR - MDRD 24 (>89); GLUCOSE 275 mg/dL (70-100); HDL CHOLESTEROL 53 mg/dL; LDL CHOLESTEROL,CALCULATED 88 mg/dL; LDL/HDL RATIO 1.7 (<4.4); SODIUM 129 mmol/L (135-145); VLDL CHOLESTEROL 29 mg/dL
[2017-09-15] MEDS: LEVOTHYROXINE 112 MCG TABLET PO SCH (06:27)
[2017-09-15] MEDS: METOCLOPRAMIDE 10 MG TABLET PO SCH ×3 (06:32→15:48)
[2017-09-15] MEDS: SUCRALFATE 1 GM/10 ML UDC PO SCH ×3 (06:32→15:48)
[2017-09-15] MEDS: SODIUM CHLORIDE FLUSH 0.9% 10 ML SYRINGE IVP SCH ×2 (06:33→13:36)
[2017-09-15] MEDS: INSULIN GLARGINE 300 UNIT/3 ML PEN SUBQ SCH (08:32)
[2017-09-15] MEDS: INSULIN ASPART 300 UNIT/3 ML PEN SUBQ SCH ×4 (08:33→12:31)
[2017-09-15] MEDS: METOPROLOL TARTRATE 25 MG TABLET PO SCH (08:58)
[2017-09-15] MEDS: CALCIUM CARBONATE CHEW 500 MG TABLET PO SCH (08:58)
[2017-09-15] MEDS: LISINOPRIL 20 MG TABLET PO SCH (08:59)
[2017-09-15] MEDS: amLODIPine 5 MG TABLET PO SCH (08:59)
[2017-09-15] MEDS: ASPIRIN 325 MG TABLET PO SCH (08:59)
[2017-09-15] MEDS ORDERED: SENNA 8.6 MG TABLET PO SCH (09:00)
[2017-09-15] MEDS ORDERED: DOCUSATE SODIUM 250 MG CAPSULE PO SCH (09:00)
[2017-09-15] MEDS: POLYETHYLENE GLYCOL 3350 17 GM PACKET PO SCH (09:00)
[2017-09-15] MEDS: MINERAL OIL/HYDROPHIL PETROLAT 454 GM JAR TOP SCH (11:00)
--- NOTE | 2017-09-15 15:38 | Discharge Plan ---
Discharge Plan Disposition: Home Health Service Condition: Stable Diet: Diabetic Activity Restrictions: Activity as Tolerated Shower Restrictions: No Driving Restrictions: Yes (No driving til cleared by PCP) Assistance Devices: Walker Additional Instructions or Follow Up instructions: Resume all your pre-hospital medications and Diabetic diet. A Home Health Skilled Nurse and Bath Aide and Physical Therapist and Occupational Therapist have been ordered for your home. Follow-Up Care: Home Health - RN, Home Health - PT, Home Health - OT No Smoking: If you smoke, Please STOP! Call for help. Follow-up with: Oleksandr Alcaraz MD [Provider Admit Priv/Credential] -
[2017-09-15 16:09] VITALS: BP 180/80
--- NOTE | 2017-09-16 11:23 | CARDIAC PROCEDURE NOTE ---
DATE OF SERVICE: 09/14/2017 Physician: Ashley Koenig MD After signing informed consent, the patient underwent a Lexiscan stress test with nuclear imaging. Preop EKG: Normal sinus rhythm and within normal limits. Lexiscan was infused per protocol. The patient had no symptoms. Resting blood pressure 160/68, peak blood pressure 130/60. Recovery blood pressure 160/60. Resting heart rate 65, peak heart rate 71 in sinus rhythm. Peak EKG: No ischemic changes. IMPRESSION: No ischemic changes on pharmaceutical stress test by EKG. Nuclear images reported separately. TD: 09/14/2017 12:36
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
== END 2017-09-15 16:15 | disposition home health service (06) | DRG 637 ==
LOC: EDUNIT# → ED 04:37 → ICU 07:14
PROVIDERS: ADMIT Internal Medicine; ATTEND Internal Medicine
PROC: 05H433Z Insertion of Infusion Device into Left Innominate Vein, Percutaneous Approach (ICD-10-PCS; principal; 2017-09-11)
DX: E11.00 Type 2 diabetes mellitus with hyperosmolarity without nonketotic hyperglycemic-hyperosmolar coma (NKHHC) (principal); I21.A1 Myocardial infarction type 2; R11.2 Nausea with vomiting, unspecified; I12.9 Hypertensive chronic kidney disease with stage 1 through stage 4 chronic kidney disease, or unspecified chronic kidney disease; G91.9 Hydrocephalus, unspecified; N18.9 Chronic kidney disease, unspecified; D64.9 Anemia, unspecified; R10.814 Left lower quadrant abdominal tenderness; I25.10 Atherosclerotic heart disease of native coronary artery without angina pectoris; I25.2 Old myocardial infarction; E87.1 Hypo-osmolality and hyponatremia; Z87.891 Personal history of nicotine dependence; E87.2 Acidosis; N17.9 Acute kidney failure, unspecified; N18.4 Chronic kidney disease, stage 4 (severe); B34.9 Viral infection, unspecified; E87.5 Hyperkalemia; E86.1 Hypovolemia; E11.65 Type 2 diabetes mellitus with hyperglycemia; E11.22 Type 2 diabetes mellitus with diabetic chronic kidney disease; I15.1 Hypertension secondary to other renal disorders; D63.1 Anemia in chronic kidney disease; F03.90 Unspecified dementia, unspecified severity, without behavioral disturbance, psychotic disturbance, mood disturbance, and anxiety; T21.33XD Burn of third degree of upper back, subsequent encounter; T21.34XD Burn of third degree of lower back, subsequent encounter; G89.21 Chronic pain due to trauma; E11.649 Type 2 diabetes mellitus with hypoglycemia without coma; T38.3X5A Adverse effect of insulin and oral hypoglycemic [antidiabetic] drugs, initial encounter; Y92.230 Patient room in hospital as the place of occurrence of the external cause; K21.9 Gastro-esophageal reflux disease without esophagitis; Z98.2 Presence of cerebrospinal fluid drainage device; Z79.4 Long term (current) use of insulin; Z63.6 Dependent relative needing care at home; Z79.899 Other long term (current) drug therapy
CPT/HCPCS: 36415; 36556; 51701; 71045; 74176; 76700; 78452; 80048; 80053; 80061; 80306; 80307; 80320; 80329; 81001; 81003; 82009; 82150; 82270; 82330; 82553; 82607; 82728; 82746; 82803; 82947; 83036; 83540; 83605; 83690; 83721; 83735; 83930; 84100; 84132; 84466; 84478; 84484; 85025; 86850; 86900; 86901; 87086; 87150; 93005; 93017; 93306; 94640; 96361; 96365; 96368; 96375; 99284; 99291

== ENCOUNTER 2017-10-17 11:57 | Outpatient (CLI) | payer MEDICARE, OTHER | END 2017-10-17 11:58 | disposition EMS.NT | LOC: EMS 11:57 | PROVIDERS: ATTEND Surgery | DX: R46.4 Slowness and poor responsiveness (principal); R73.09 Other abnormal glucose ==

== ENCOUNTER 2017-11-01 08:00 | Outpatient (CLI) | payer MEDICARE, OTHER ==
[2017-11-01 17:59] LABS: HB2 TOTAL 10.3 g/dL; HEMOGLOBIN A1C 0.76 g/dL; HEMOGLOBIN A1C % 8.9 % (4.6-6.2)
== END 2017-11-01 08:01 | disposition home or self-care (01) ==
LOC: LAB.R 08:00
PROVIDERS: ATTEND Nurse Practitioner Primary Care
DX: E10.9 Type 1 diabetes mellitus without complications (principal)
CPT/HCPCS: 83036

== ENCOUNTER 2017-11-03 03:05 | Outpatient (CLI) | payer MEDICARE, OTHER | END 2017-11-03 03:06 | disposition EMS.NT | LOC: EMS 03:05 | PROVIDERS: ATTEND Surgery | DX: R53.1 Weakness (principal); R73.09 Other abnormal glucose ==

== ENCOUNTER 2017-12-01 13:37 | Outpatient (CLI) | payer MEDICARE, OTHER | END 2017-12-01 13:38 | disposition EMS.NT | LOC: EMS 13:37 | PROVIDERS: ATTEND Surgery | DX: R73.09 Other abnormal glucose (principal) ==

== ENCOUNTER 2017-12-03 13:08 | Outpatient (CLI) | payer MEDICARE, OTHER | END 2017-12-03 13:09 | disposition EMS.NT | LOC: EMS 13:08 | PROVIDERS: ATTEND Surgery | DX: R73.09 Other abnormal glucose (principal) ==

== ENCOUNTER 2018-01-04 00:54 | Outpatient (CLI) | payer MEDICARE, OTHER | END 2018-01-04 00:55 | disposition critical access hospital (66) | LOC: EMS 00:54 | PROVIDERS: ATTEND Surgery | DX: S51.811A Laceration without foreign body of right forearm, initial encounter (principal); W01.198A Fall on same level from slipping, tripping and stumbling with subsequent striking against other object, initial encounter; Y92.002 Bathroom of unspecified non-institutional (private) residence as the place of occurrence of the external cause | CPT/HCPCS: A0425; A0429 ==

== ENCOUNTER 2018-01-04 01:06 | Inpatient (IN) | payer MEDICARE, OTHER ==
[2018-01-04] MEDS ORDERED: BUFFERED LIDOCAINE 10 ML SYRINGE ONE (01:28)
--- NOTE | 2018-01-04 02:12 | ED Physician Documentation ---
History of Present Illness - Stated complaint Stated Complaint: GLF, ARM LAC - Chief complaint Chief Complaint: Laceration - History obtained from History obtained from: Patient - Additonal information Additional information: 77-year-old female presents the emergency department for evaluation of a laceration to her right forearm which occurred just prior to arrival. The patient slipped in the shower and cut herself on a piece of metal. The patient denies injury to her head, neck, torso or lower extremities. The patient reports that her tetanus is up-to-date. The patient denies numbness and tingling into her hand. The patient denies motor function loss in her hand or weakness or clumsiness in the hand. Symptoms are described as moderate. Bleeding currently is under control. No other associated injuries or symptoms Review of Systems Constitutional: denies: Fever Ears: denies: Ear pain Cardiac: denies: Chest pain / pressure Respiratory: denies: Dyspnea GI: denies: Abdominal Pain Skin: reports: Laceration (s) Musculoskeletal: reports: Extremity pain. 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 Derm: Skin grafts - Present Medications Home Medications: Ambulatory Orders Medication Instructions Recorded Confirmed Insulin Glargine [Lantus Solostar] 8 - 10 units SUBQ QPM 12/28/16 09/12/17 Insulin Lispro [Humalog] 1 - 4 units SUBQ TIDWM 12/28/16 09/12/17 Levothyroxine Sodium [Levoxyl] 112 mcg PO QDAC 12/28/16 09/12/17 Metoprolol Tartrate [Metoprolol 25 mg PO BID 09/12/17 09/12/17 Tartrate] Calcium Carbonate/Vitamin D3 1 each PO BID 09/13/17 09/13/17 [Calcium 600 + Vit D 400 Tablet] Cholecalciferol (Vitamin D3) 2,000 unit PO DAILY 09/13/17 09/13/17 [Vitamin D] Multivitamin [Theragran] 1 each PO DAILY 09/13/17 09/13/17 - Allergies Allergies/Adverse Reactions: Allergies Allergy/AdvReac Type Severity Reaction Status Date / Time lindsay Allergy Unknown Verified 01/04/18 01:31 oxycodone Allergy Unknown Verified 01/04/18 01:31 codeine AdvReac Intermediate Dizziness Verified 01/04/18 01:31 - Social History Does the pt smoke?: No Smoking Status: Never smoker Does the pt drink ETOH?: Yes ETOH Use: Wine, Beer, Liquor Does the pt have substance abuse?: No - Immunizations Immunizations are current?: Yes - POLST Patient has POLST: No POLST Status: Full Code PD ED PE NORMAL - General General: Alert and oriented X 3, No acute distress - HEENT HEENT: Atraumatic, PERRL, EOMI, Ears normal - Neck Neck: Supple, no meningeal sign, No bony TTP - Respiratory Respiratory: No respiratory distress - Derm Derm: Other - Extremities Extremities: Normal ROM s pain, Other (The patient has no bony tenderness of the major joints, no obvious deformity. The patient does have a complex laceration on her right forearm) - Neuro Neuro: Alert and oriented X 3, Normal speech Eye Opening: Spontaneous Motor: Obeys Commands Verbal: Oriented GCS Score: 15 - Psych Psych: Normal affect PD ED PE EXPANDED - Derm SKin visual: 1 - laceration (There is a 19 cm area of skin tear with laceration. The proximal portion is mostly extensive skin tear at the lower portion is a deep laceration down to the fascia. On exploration of the wound there is no evidence of muscle or tendon injury or foreign body. The patient has full active range of motion of the forearm, wrist and hand with normal sensation and normal radial pulse and normal cap refill) Results - Vitals Vitals: Vital Signs - 24 hr 01/04/18 01:10 Temperature 36.7 C Heart Rate 78 Respiratory 18 Rate Blood Pressure 157/102 H O2 Saturation 96 Oxygen O2 Source [Without Activity] Room air O2 Source Room air Procedures - Laceration (location) Upper extremity right Length in cm: 19 Wound type: Irregular Neurovascular status: Sensory intact, Motor intact, Vascular intact Tendon involvement: Tendon intact, Tendon Injury Anesthesia: Lidocaine 1% Wound Preparation: Betadine, Irrigated copiously NS, Wound explored Skin layer closure: Nylon, Interrupted, Size #-0 - enter number, Other (The wound at the deepest portions was closed using horizontal mattress sutures to loosely approximate the deep wound. The areas of significant skin tear or unable to be repaired using sutures and instead were Steri-Stripped.) Other: Patient tolerated well, Tetanus UTD Complexity: Intermediate PD MEDICAL DECISION MAKING - ED course ED course: The patient's wound was irrigated, there is no evidence of foreign body or laceration to a tendon. The patient had normal motor and sensory function. The wound was loosely approximated. I discussed wound care with the patient. I discussed warning signs for infection and worsening. I advised having the sutures removed in 10 days. I advised returning to the emergency department immediately for worsening or any concerns - Sepsis Event Vital Signs: Vital Signs - 24 hr 01/04/18 01:10 Temperature 36.7 C Heart Rate 78 Respiratory 18 Rate Blood Pressure 157/102 H O2 Saturation 96 Oxygen O2 Source [Without Activity] Room air O2 Source Room air Departure - Departure Disposition: Home, Self Care Clinical Impression: Laceration Condition: Good Instructions: ED Laceration All Follow-Up: Oleksandr Alcaraz MD [Primary Care Provider] - Within 1 week (Have your sutures removed in 10 days) Comments: Please return to the emergency department for worsening symptoms or new concerns
[2018-01-04] MEDS ORDERED: BACITRACIN OINT TOP STA (02:21)
[2018-01-04] MEDS ORDERED: ONDANSETRON ODT 4 MG TABLET TL STA (07:16)
[2018-01-04] MEDS ORDERED: INSULIN REGULAR HUMAN 100 UNIT/1 ML 10 ML MDV SUBQ STA (07:59)
[2018-01-04] MEDS ORDERED: SODIUM CHLORIDE 0.9% 1,000 ML IV ONE (09:24)
--- NOTE | 2018-01-04 09:27 | ED Physician Documentation ---
History of Present Illness - Stated complaint Stated Complaint: GLF, ARM LAC - Chief complaint Chief Complaint: Laceration - History obtained from History obtained from: Patient, Family - History of Present Illness Timing: How many weeks ago (8) - Additonal information Additional information: 77-year-old diabetic female has had a fall in the middle of the night and she is weak. She was treated in the night for wounds on her right forearm and when she was getting ready to be discharged the RN noted that it took 2 people to help her up from the bed. I was called into the room for evaluation. It appears the patient has been having an issue with her diabetes and blood sugars running high. She states that she has been having an issue with controlling her diabetes for the past 2 months and that she feels weak. She is having to use a walker. She has not been into see her primary care doctor about this. Review of Systems Constitutional: reports: Fatigue. denies: Fever Eyes: denies: Decreased vision Ears: denies: Ear pain Nose: denies: Rhinorrhea / runny nose, Congestion Throat: denies: Sore throat Cardiac: denies: Chest pain / pressure, Palpitations Respiratory: denies: Dyspnea, Cough GI: denies: Abdominal Pain, Nausea, Vomiting : reports: Frequency. denies: Dysuria Skin: denies: Rash Musculoskeletal: reports: Back pain. denies: Neck pain Neurologic: reports: Generalized weakness. 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 Derm: Skin grafts - Present Medications Home Medications: Ambulatory Orders Medication Instructions Recorded Confirmed Insulin Glargine [Lantus Solostar] 8 - 10 units SUBQ QPM 12/28/16 09/12/17 Insulin Lispro [Humalog] 1 - 4 units SUBQ TIDWM 12/28/16 09/12/17 Levothyroxine Sodium [Levoxyl] 112 mcg PO QDAC 12/28/16 09/12/17 Metoprolol Tartrate [Metoprolol 25 mg PO BID 09/12/17 09/12/17 Tartrate] Calcium Carbonate/Vitamin D3 1 each PO BID 09/13/17 09/13/17 [Calcium 600 + Vit D 400 Tablet] Cholecalciferol (Vitamin D3) 2,000 unit PO DAILY 09/13/17 09/13/17 [Vitamin D] Multivitamin [Theragran] 1 each PO DAILY 09/13/17 09/13/17 - Allergies Allergies/Adverse Reactions: Allergies Allergy/AdvReac Type Severity Reaction Status Date / Time lindsay Allergy Unknown Verified 01/04/18 01:31 oxycodone Allergy Unknown Verified 01/04/18 01:31 codeine AdvReac Intermediate Dizziness Verified 01/04/18 01:31 - Social History Does the pt smoke?: No Smoking Status: Never smoker Does the pt drink ETOH?: Yes ETOH Use: Wine, Beer, Liquor Does the pt have substance abuse?: No - Immunizations Immunizations are current?: Yes - POLST Patient has POLST: No POLST Status: Full Code PD ED PE NORMAL - Vitals Vital signs reviewed: Yes (hypertensive ) - General General: Alert and oriented X 3, No acute distress, Well developed/nourished - HEENT HEENT: Atraumatic, PERRL, EOMI - Neck Neck: Supple, no meningeal sign - Cardiac Cardiac: RRR, No murmur - Respiratory Respiratory: No respiratory distress, Clear bilaterally - Abdomen Abdomen: Soft, Non tender - Back Back: No CVA TTP, No spinal TTP - Derm Derm: Normal color, Warm and dry, No rash - Extremities Extremities: Other (The right forearm is bandaged and the dressins is not taken down for exam ) - Neuro Neuro: Alert and oriented X 3, administration manager 2-12 intact, No motor deficit, No sensory deficit, Normal speech Eye Opening: Spontaneous Motor: Obeys Commands Verbal: Oriented GCS Score: 15 - Psych Psych: Normal mood, Normal affect Results - Vitals Vitals: Vital Signs - 24 hr 01/04/18 01/04/18 01/04/18 01:10 02:33 03:00 Temperature 36.7 C 36.2 C L Heart Rate 78 79 78 Respiratory 18 18 18 Rate Blood Pressure 157/102 H 186/90 H 178/83 H O2 Saturation 96 99 97 01/04/18 01/04/18 01/04/18 04:00 04:58 05:04 Temperature Heart Rate 78 79 76 Respiratory 16 18 16 Rate Blood Pressure 180/76 H 184/63 H 168/63 H O2 Saturation 100 97 100 01/04/18 01/04/18 06:07 06:58 Temperature Heart Rate 89 Respiratory 18 16 Rate Blood Pressure 167/68 H O2 Saturation 100 Oxygen O2 Source [] Room air O2 Source Room air - Labs Labs: Laboratory Tests 01/04/18 01/04/18 01/04/18 09:40 09:40 09:40 WBC 8.9 RBC 2.80 L Hgb 9.0 L Hct 28.6 L MCV 102.1 H MCH 32.0 H MCHC 31.3 L RDW 14.0 Plt Count 198 MPV 9.5 Neut # (Auto) 7.4 H Lymph # (Auto) 0.6 L [place] # (Auto) 0.7 Eos # (Auto) 0.2 Baso # (Auto) 0.1 Absolute Nucleated RBC 0.00 Nucleated RBC % 0.0 Sodium 119 L* Potassium 5.4 H Chloride 83 L Carbon Dioxide 17 L Anion Gap 19.0 H BUN 68 H Creatinine 2.7 H Estimated GFR (MDRD) 17 L Glucose 941 H* Calcium 8.0 L Total Bilirubin 1.5 H AST 35 ALT 31 Alkaline Phosphatase 128 H Troponin I < 0.04 Total Protein 6.7 Albumin 3.5 Globulin 3.2 Albumin/Globulin Ratio 1.1 Lipase 44 Serum Ketones 01/04/18 09:40 WBC RBC Hgb Hct MCV MCH MCHC RDW Plt Count MPV Neut # (Auto) Lymph # (Auto) [place] # (Auto) Eos # (Auto) Baso # (Auto) Absolute Nucleated RBC Nucleated RBC % Sodium Potassium Chloride Carbon Dioxide Anion Gap BUN Creatinine Estimated GFR (MDRD) Glucose Calcium Total Bilirubin AST ALT Alkaline Phosphatase Troponin I Total Protein Albumin Globulin Albumin/Globulin Ratio Lipase Serum Ketones SMALL H Procedures - IVC sono (time) 0920 Bedside IVC sono: IVC measures (cm) (1.3), IVC collapsed c insp (cm) (complete) , Dehydration (est 1liter deficit) PD MEDICAL DECISION MAKING - ED course Complexity details: reviewed old records, reviewed results, re-evaluated patient , considered differential, d/w patient, d/w family ED course: 77-year-old diabetic female on insulin has been running high sugars for an extended period of time. She has been found to be significantly dehydrated on interrogation of the inferior vena cava and IV saline is begun. Her sugars formally come back at 940. Her serum sodium is 119. She will need admission to the hospital for control of diabetes and further workup. She does have anemia that appears to have been present for some time and this does not appear more significant than previously. - Sepsis Event Vital Signs: Vital Signs - 24 hr 01/04/18 01/04/18 01/04/18 01:10 02:33 03:00 Temperature 36.7 C 36.2 C L Heart Rate 78 79 78 Respiratory 18 18 18 Rate Blood Pressure 157/102 H 186/90 H 178/83 H O2 Saturation 96 99 97 01/04/18 01/04/18 01/04/18 04:00 04:58 05:04 Temperature Heart Rate 78 79 76 Respiratory 16 18 16 Rate Blood Pressure 180/76 H 184/63 H 168/63 H O2 Saturation 100 97 100 01/04/18 01/04/18 06:07 06:58 Temperature Heart Rate 89 Respiratory 18 16 Rate Blood Pressure 167/68 H O2 Saturation 100 Oxygen O2 Source [] Room air O2 Source Room air Departure - Departure Disposition: 66 [facility] DC/Xfer Clinical Impression: Laceration, Diabetes 1.5, managed as type 1, High anion gap metabolic acidosis Acute renal failure superimposed on stage 3 chronic kidney disease Qualifiers: Acute renal failure type: unspecified Qualified Code(s): N17.9 - Acute kidney failure, unspecified Condition: Good Instructions: ED Laceration All Follow-Up: Oleksandr Alcaraz MD [Primary Care Provider] - Within 1 week (Have your sutures removed in 10 days) Comments: Please return to the emergency department for worsening symptoms or new concerns
[2018-01-04 09:50] LABS: BASOPHILS # (AUTO) 0.1 10^3/uL (0.0-0.1); BASOPHILS % (AUTO) 0.9 %; EOSINOPHILS # (AUTO) 0.2 10^3/uL (0.0-0.7); EOSINOPHILS % (AUTO) 2.2 %; LYMPHOCYTES # (AUTO) 0.6 10^3/uL (1.5-3.5); LYMPHOCYTES % (AUTO) 6.5 %; MEAN CORPUSCULAR HGB CONC 31.3 g/dL (32.0-36.0); MEAN CORPUSCULAR VOLUME 102.1 fL (81.0-99.0); MEAN PLATELET VOLUME 9.5 fL (7.9-10.8); MONOCYTES # (AUTO) 0.7 10^3/uL (0.0-1.0); MONOCYTES % (AUTO) 8.2 %; NEUTROPHILS # (AUTO) 7.4 10^3/uL (1.5-6.6); NEUTROPHILS % (AUTO) 82.2 %; PLT - PLATELET COUNT 198 10^3/uL (130-450); WHITE BLOOD COUNT 8.9 x10^3/uL (4.8-10.8)
[2018-01-04 10:10] LABS: ALBUMIN 3.5 g/dL (3.2-5.5); ALBUMIN/GLOBULIN RATIO 1.1 (1.0-2.2); BILIRUBIN,TOTAL 1.5 mg/dL (0.2-1.0); CREATININE 2.7 mg/dL (0.4-1.0); TOTAL PROTEIN 6.7 g/dL (6.7-8.2)
[2018-01-04 10:52] LABS: VBG PCO2 22.7 mmHg (41-51); VBG PH 7.38 (7.31-7.41)
[2018-01-04 11:05] LABS: BILIRUBIN,URINE NEGATIVE (NEGATIVE); GLUCOSE, URINE (UA) >=1000 mg/dL (NEGATIVE); KETONES,URINE (UA) 15 mg/dL (NEGATIVE); LEUKOCYTE ESTERASE, URINE NEGATIVE (NEGATIVE); NITRITE,URINE NEGATIVE (NEGATIVE); OCCULT BLOOD,URINE SMALL (NEGATIVE); PH,URINE 5.5 PH (5.0-7.5); PROTEIN,URINE TRACE mg/dL (NEGATIVE); UROBILINOGEN,URINE 0.2 (NORMAL) E.U./dL (NORMAL)
[2018-01-04 11:08] LABS: CLARITY,URINE CLEAR (CLEAR)
[2018-01-04 11:21] LABS: BACTERIA,URINE Moderate /HPF (None Seen); RBC,URINE 0-5 /HPF (0-5); SQUAMOUS EPITHELIAL CELL,UR RARE Squamous (<= Few); WBC CLUMPS,URINE PRESENT
[2018-01-04 11:21] LABS: HB2 TOTAL 9.1 g/dL; HEMOGLOBIN A1C 1.14 g/dL; HEMOGLOBIN A1C % 13.6 % (4.6-6.2)
[2018-01-04] MEDS ORDERED: INSULIN REGULAR HUMAN 100 UNIT/1 ML 10 ML MDV IVP STA (11:53)
[2018-01-04] MEDS ORDERED: INSULIN REGULAR HUMAN 100 UNIT/1 ML 10 ML MDV ONE (11:55)
[2018-01-04] MEDS ORDERED: SODIUM CHLORIDE FLUSH 0.9% 10 ML SYRINGE IVP PRN (12:31)
[2018-01-04] MEDS ORDERED: TEMAZEPAM 15 MG CAPSULE PO PRN (12:31)
[2018-01-04] MEDS ORDERED: ONDANSETRON 4 MG/2 ML VIAL IVP PRN (12:31)
[2018-01-04] MEDS ORDERED: SODIUM CHLORIDE FLUSH 0.9% 10 ML SYRINGE ONE (13:09)
[2018-01-04] MEDS: INSULIN REGULAR HUMAN 100 UNIT in SODIUM CHLORIDE 0.9% 100ML 99 ML IV SCH (13:30)
[2018-01-04] MEDS ORDERED: NS W/20 MEQ KCL 1,000 ML IV SCH (13:30)
[2018-01-04 13:38] LABS: VBG BASE EXCESS -7.5 mmol/L (-2 - +2); VBG PCO2 35.7 mmHg (41-51); VBG PH 7.317 (7.31-7.41); VBG PO2 38.3 mmHg (25-47)
[2018-01-04 14:06] LABS: CALCIUM 8.5 mg/dL (8.5-10.3); CREATININE 2.5 mg/dL (0.4-1.0); KETONES, SERUM (ACETEST) NEGATIVE (NEGATIVE); MAGNESIUM 2.1 mg/dL (1.7-2.8)
[2018-01-04 14:19] LABS: GLUCOSE 479 mg/dL (70-100); MAGNESIUM 2.1 mg/dL (1.7-2.8)
[2018-01-04 14:57] LABS: MUDS CUTOFF CONCENTRATIONS CUTOFF CONC BELOW:
[2018-01-04] MEDS: SODIUM CHLORIDE FLUSH 0.9% 10 ML SYRINGE IVP SCH (15:13)
[2018-01-04 15:15] LABS: AMPHETAMINE SCREEN,URINE NEGATIVE (NEGATIVE); BENZODIAZEPINES SCREEN, URINE NEGATIVE (NEGATIVE); COCAINE SCREEN URINE NEGATIVE (NEGATIVE); METHADONE SCREEN, URINE NEGATIVE (NEGATIVE); METHAMPHETAMINES SCREEN, URINE NEGATIVE (NEGATIVE); OPIATE SCREEN, URINE NEGATIVE (NEGATIVE); OXYCODONE SCREEN, URINE NEGATIVE (NEGATIVE); PROPOXYPHENE SCREEN, URINE NEGATIVE (NEGATIVE); TRICYCLIC ANTIDEPRESSANT,URINE NEGATIVE (NEGATIVE)
[2018-01-04 16:11] LABS: BUN - BLOOD UREA NITROGEN 58 mg/dL (6-20); CALCIUM 8.3 mg/dL (8.5-10.3); CARBON DIOXIDE - CO2 22 mmol/L (21-32); CHLORIDE 91 mmol/L (101-111); CREATININE 2.4 mg/dL (0.4-1.0); GFR - MDRD 20 (>89); GLUCOSE 306 mg/dL (70-100); MAGNESIUM 2.2 mg/dL (1.7-2.8); SODIUM 126 mmol/L (135-145)
[2018-01-04 16:15] LABS: KETONES, SERUM (ACETEST) NEGATIVE (NEGATIVE)
[2018-01-04 18:27] LABS: KETONES, SERUM (ACETEST) NEGATIVE (NEGATIVE)
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
[2018-01-04 18:43] LABS: BUN - BLOOD UREA NITROGEN 60 mg/dL (6-20); CALCIUM 8.8 mg/dL (8.5-10.3); CARBON DIOXIDE - CO2 24 mmol/L (21-32); CHLORIDE 95 mmol/L (101-111); CREATININE 2.4 mg/dL (0.4-1.0); GFR - MDRD 20 (>89); GLUCOSE 188 mg/dL (70-100); MAGNESIUM 2.2 mg/dL (1.7-2.8); SODIUM 130 mmol/L (135-145)
[2018-01-04] MEDS ORDERED: DEXTROSE 5%-0.9% NACL 1,000 ML IV SCH (19:00)
[2018-01-04] MEDS ORDERED: NITROFURANTOIN MACRO 100 MG CAPSULE PO SCH (20:00)
[2018-01-04] MEDS ORDERED: INSULIN ASPART 300 UNIT/3 ML PEN SUBQ SCH (21:00)
[2018-01-04] MEDS ORDERED: INSULIN GLARGINE 300 UNIT/3 ML PEN SUBQ SCH (21:00)
[2018-01-04] MEDS: CALCIUM CARB (OYSTER SHELL) 500 MG TABLET PO SCH (21:09)
[2018-01-04] MEDS: METOPROLOL TARTRATE 25 MG TABLET PO SCH (21:09)
[2018-01-04] MEDS: SODIUM CHLORIDE 0.9% 1,000 ML IV SCH (22:59)
[2018-01-05] MEDS: SODIUM CHLORIDE FLUSH 0.9% 10 ML SYRINGE IVP SCH ×3 (00:32→15:44)
[2018-01-05] MEDS ORDERED: INSULIN GLARGINE 300 UNIT/3 ML PEN SUBQ SCH ×3 (01:00→19:00)
[2018-01-05 04:49] LABS: BASOPHILS # (AUTO) 0.1 10^3/uL (0.0-0.1); EOSINOPHILS # (AUTO) 0.7 10^3/uL (0.0-0.7); EOSINOPHILS % (AUTO) 7.3 %; HGB - HEMOGLOBIN 8.7 g/dL (12.0-16.0); LYMPHOCYTES # (AUTO) 1.1 10^3/uL (1.5-3.5); LYMPHOCYTES % (AUTO) 11.5 %; MEAN CORPUSCULAR HEMOGLOBIN 31.8 pg (27.0-31.0); MEAN CORPUSCULAR HGB CONC 32.9 g/dL (32.0-36.0); MEAN CORPUSCULAR VOLUME 96.8 fL (81.0-99.0); MEAN PLATELET VOLUME 9.5 fL (7.9-10.8); MONOCYTES # (AUTO) 0.8 10^3/uL (0.0-1.0); MONOCYTES % (AUTO) 8.8 %; NEUTROPHILS # (AUTO) 6.8 10^3/uL (1.5-6.6); NEUTROPHILS % (AUTO) 71.4 %; PLT - PLATELET COUNT 212 10^3/uL (130-450); RED BLOOD COUNT 2.74 10^6/uL (4.20-5.40); RED CELL DISTRIBUTION WIDTH 13.4 % (12.0-15.0); WHITE BLOOD COUNT 9.6 x10^3/uL (4.8-10.8)
[2018-01-05 05:10] LABS: ALBUMIN 3.5 g/dL (3.2-5.5); BILIRUBIN,DIRECT 0.1 mg/dL (0.1-0.5); BILIRUBIN,TOTAL 0.8 mg/dL (0.2-1.0); CALCIUM 8.7 mg/dL (8.5-10.3); CREATININE 2.4 mg/dL (0.4-1.0); MAGNESIUM 2.2 mg/dL (1.7-2.8); PHOSPHORUS 3.5 mg/dL (2.5-4.6); TOTAL PROTEIN 6.2 g/dL (6.7-8.2)
[2018-01-05] MEDS: METOPROLOL TARTRATE 25 MG TABLET PO SCH ×2 (05:16→21:34)
[2018-01-05 05:34] LABS: FOLATE 22.35 ng/mL (5.90 - >24.8)
[2018-01-05] MEDS: INSULIN REGULAR HUMAN 100 UNIT in SODIUM CHLORIDE 0.9% 100ML 99 ML IV SCH (05:42)
[2018-01-05] MEDS ORDERED: amLODIPine 5 MG TABLET ONE (05:44)
[2018-01-05] MEDS: amLODIPine 5 MG TABLET PO SCH (05:46)
[2018-01-05] MEDS ORDERED: FUROSEMIDE 40 MG/4 ML VIAL IVP SCH (06:00)
[2018-01-05] MEDS ORDERED: cloNIDine 0.1 MG TABLET PO SCH (06:00)
[2018-01-05] MEDS: LEVOTHYROXINE 112 MCG TABLET PO SCH (06:25)
[2018-01-05] MEDS: SODIUM CHLORIDE 0.9% 1,000 ML IV SCH ×2 (07:04→16:30)
[2018-01-05] MEDS: CALCIUM CARB (OYSTER SHELL) 500 MG TABLET PO SCH ×2 (08:34→21:35)
[2018-01-05] MEDS: CHOLECALCIFEROL 1,000 UNIT TABLET PO SCH (08:34)
[2018-01-05] MEDS: MULTIVITAMIN TABLET PO SCH (08:34)
[2018-01-05] MEDS: FAMOTIDINE 20 MG TABLET PO SCH (08:39)
[2018-01-05] MEDS: SULFAMETH/TRIMETH DS 800/160 MG TABLET PO SCH ×2 (08:39→21:34)
--- NOTE | 2018-01-05 09:04 | PROVIDER PROGRESS NOTE ---
Assessment/Plan - Problem List (1) DKA (diabetic ketoacidoses) Assessment/Plan: Serum ketones became neg last evening and Insukin drip was stopped. Pt may not have received any Lanus last night for unclear reason. This am her glu is >500. Will recheck serum ketones and VBG and if DKA, will restart Insukin drip, otherwise cover with sliding scale eg Insulin at a higher dose. Also, I discussed her management with Donna RN, Certified Diabetic Instructor ( from our [facility] [place] clinic) to assist with Insulin dosing adjustments. (2) Hyperkalemia Assessment/Plan: A dose of Lasix was ordered overnight when K returned even higher. Will monitor BMP in several hours and she may need Kayexelate, or the Insulin will help decrease the K. No D50 needed since glu already very high this am. Monitor BMP closely. (3) Acute on chronic renal failure Qualifiers: Chronic kidney disease stage: stage 4 (severe) Assessment/Plan: Creat is staying at 2.4 - 2.5, elevated over her previous baseline. Avoid nephrotoxins and diuretics. Oral hydration as of today. Monitor daily BMP. (4) Hypertension Assessment/Plan: Pt on Amlodipine and need extra Clonidine prn for BP control. BP may improve with creat decline. Will order US to evaluate for renal artery stenosis, as cause of resistant HTN. (5) Weakness Assessment/Plan: The patient requires 2 person lift assistance, is too weak to stand alone. She has had the fall at home, despite using a quad walker. She has a bruise on R lateral hip from yesterday's fall. Will assess orthostatic BP. Will offer pain meds for pain after fall. Will request PT eval as she may be unsafe to [facility] home. This topic was also discussed with Dr Alcaraz in person today, who suspects that she has cognitive decline and is unable to make appropriate decisions (such as thinking she is ready to go home today). (6) Fall Qualifiers: Encounter type: subsequent encounter Qualified Code(s): W19.XXXD - Unspecified fall, subsequent encounter Assessment/Plan: Pt had a fall at home and suffered R arm trauma requiring suturing yesterday in ER. Unclear if she described pain in the R lateral hip where she fell, but her RN notes a bruise there today. Will order R hip and pelvic Xray series today. (7) UTI (urinary tract infection) Assessment/Plan: Pt has no dysuria, urgency or frequency, but urinalysis was suspicious for a bacterial infection. This is quite likely, given her poor glu control for 2 weeks. Pt put on Macrobid, but changed to Bactrim, due to CKD. Await urine culture. - Current Meds Current Meds: Current Medications Generic Name Dose Route Start Last Admin Trade Name Freq PRN Reason Stop Dose Admin Amlodipine Besylate 10 mg 01/05/18 09:00 01/05/18 05:46 Norvasc PO 10 mg DAILY MOOKIE Administration Calcium Carbonate/Glycine 500 mg 01/04/18 21:00 01/05/18 08:34 Oysco-500 PO 500 mg BID MOOKIE Administration Cholecalciferol 2,000 unit 01/05/18 09:00 01/05/18 08:34 Vitamin D3 PO 2,000 unit DAILY MOOKIE Administration Famotidine 20 mg 01/05/18 09:00 01/05/18 08:39 Pepcid PO 20 mg DAILY MOOKIE Administration Sodium Chloride 1,000 mls @ 100 mls/hr 01/04/18 23:00 01/05/18 08:00 Normal Saline 0.9% IV 100 mls/hr .Q10H MOOKIE Infusion Insulin Aspart 1 - 9 unit 01/04/18 21:00 01/04/18 21:09 Novolog SUBQ 5 unit 0800,1200,1700,2100 MOOKIE Administration Protocol Insulin Glargine 5 unit 01/05/18 01:00 01/05/18 01:24 Lantus Solostar SUBQ 5 unit QPM MOOKIE Administration Levothyroxine Sodium 112 mcg 01/05/18 07:00 01/05/18 06:25 Synthroid PO 112 mcg QDAC MOOKIE Administration Metoprolol Tartrate 25 mg 01/04/18 21:00 01/05/18 05:16 Lopressor PO 25 mg BID MOOKIE Administration Multivitamins 1 tab 01/05/18 09:00 01/05/18 08:34 Theragran PO 1 tab DAILY MOOKIE Administration Ondansetron HCl 4 mg 01/04/18 12:31 01/05/18 06:26 Zofran Inj IVP 4 mg Q6HR PRN Administration Nausea / Vomiting Sodium Chloride 10 ml 01/04/18 17:00 01/05/18 08:39 Normal Saline Flush 0.9% IVP Not Given 0100,0900,1700 MOOKIE Trimethoprim/Sulfamethoxazole 1 tab 01/05/18 09:00 01/05/18 08:39 Bactrim Ds 800/160 PO 1 tab BID MOOKIE Administration - Lab Result Fish Bone Diagrams: 01/05/18 04:15 01/05/18 12:13 - Additional Planning My Orders: My Active Orders 01/04/18 12:31 Activity Orders [RC] Routine Daily Weight [RC] 0600 IO [RC] Q1HR Initiate Bowel Care Protocol [RC] QSHIFT Initiate ICU Electrolyte Prot. [RC] .protocol Initiate Line Care Protocol [RC] .protocol Initiate Personal Care Protoco [RC] .protocol Vital Signs [RC] Q1HR Acetaminophen [Tylenol] 650 mg PO Q4HR PRN Ondansetron Inj [Zofran Inj] 4 mg IVP Q6HR PRN Sodium Chloride Flush 0.9% [Normal Saline Flush 0.9%] 10 ml IVP PRN PRN Temazepam [Restoril] 15 mg PO QPM PRN Code Status [OTHERS] Routine Condition of Patient [OTHERS] Routine DVT Prophylaxis [OTHERS] Routine 01/04/18 12:35 Oral Care - Nursing [RC] Routine Oxygen Therapy [RC] .PRN SCDs [RC] QSHIFT Telemetry- [RC] Routine 01/04/18 12:41 Initiate Hypoglycemia Protocol [RC] .protocol 01/04/18 12:42 Straight Catheter Insertion [RC] PRN 01/04/18 17:00 Sodium Chloride Flush 0.9% [Normal Saline Flush 0.9%] 10 ml IVP 0100,0900, 1700 01/04/18 18:43 Echo Limited [ECHO] Routine 01/04/18 21:00 Calcium Carb (Oyster Shell) [Oysco-500] 500 mg PO BID Insulin Glargine [Lantus Solostar] 10 unit SUBQ QPM Metoprolol Tartrate [Lopressor] 25 mg PO BID 01/04/18 Dinner DIET [Carb-controlled Diet] [DIET] 01/05/18 07:00 Levothyroxine [Synthroid] 112 mcg PO QDAC 01/05/18 09:00 Cholecalciferol [Vitamin D3] 2,000 unit PO DAILY Famotidine [Pepcid] 20 mg PO DAILY Multivitamin [Theragran] 1 tab PO DAILY 01/05/18 12:00 BMP - BASIC METABOLIC PANEL [CHEM] Timed 01/06/18 05:00 BMP - BASIC METABOLIC PANEL [CHEM] DAILYLAB CBC - COMP BLD CT W/AUTO DIFF [HEME] DAILYLAB LIVER PANEL [CHEM] DAILYLAB MAGNESIUM [CHEM] DAILYLAB 01/07/18 05:00 CBC - COMP BLD CT W/AUTO DIFF [HEME] DAILYLAB 01/08/18 05:00 CBC - COMP BLD CT W/AUTO DIFF [HEME] DAILYLAB Subjective - Subjective Patient Reports: Feeling Better, Resting Comfortably Nursing Reports: Other (Fingerstick glu are still high 400's. She needs 2 people to assist in positioning her to get OOB.) Objective Vital Signs: Vital Signs - 24 hr 01/04/18 01/04/18 01/04/18 13:00 14:00 15:00 Temperature 36.5 C Heart Rate [ 71 71 72 Monitoring electrodes] Respiratory 18 18 17 Rate Blood Pressure Blood Pressure 165/66 H 150/76 H 164/87 H [Left Brachial artery] O2 Saturation 98 98 98 01/04/18 01/04/18 01/04/18 16:00 17:00 18:00 Temperature 36.5 C Heart Rate [ 72 82 88 Monitoring electrodes] Respiratory 24 22 24 Rate Blood Pressure Blood Pressure 165/66 H 173/77 H 174/72 H [Left Brachial artery] O2 Saturation 100 100 98 01/04/18 01/04/18 01/04/18 19:00 19:27 20:06 Temperature 37.0 C Heart Rate [ 85 86 87 Monitoring electrodes] Respiratory 16 17 18 Rate Blood Pressure Blood Pressure 172/72 H 179/83 H [Left Brachial artery] O2 Saturation 97 97 97 01/04/18 01/04/18 01/04/18 21:00 21:09 22:00 Temperature Heart Rate [ 89 67 Monitoring electrodes] Respiratory 17 15 Rate Blood Pressure 175/74 H Blood Pressure 175/74 H 168/69 H [Left Brachial artery] O2 Saturation 97 95 01/04/18 01/05/18 01/05/18 23:00 00:00 01:00 Temperature 36.7 C Heart Rate [ 67 68 68 Monitoring electrodes] Respiratory 16 19 19 Rate Blood Pressure Blood Pressure 151/65 H 163/79 H 178/84 H [Left Brachial artery] O2 Saturation 95 96 95 01/05/18 01/05/18 01/05/18 02:00 03:00 04:00 Temperature 36.7 C Heart Rate [ 69 70 74 Monitoring electrodes] Respiratory 15 16 15 Rate Blood Pressure Blood Pressure 180/78 H 174/71 H 172/75 H [Left Brachial artery] O2 Saturation 93 97 01/05/18 01/05/18 01/05/18 05:07 05:16 05:18 Temperature Heart Rate [ 73 74 Monitoring electrodes] Respiratory 16 21 Rate Blood Pressure 216/85 H Blood Pressure 201/91 H 216/85 H [Left Brachial artery] O2 Saturation 01/05/18 01/05/18 01/05/18 05:37 06:16 07:00 Temperature Heart Rate [ 74 65 64 Monitoring electrodes] Respiratory 16 14 Rate Blood Pressure Blood Pressure 216/80 H 212/78 H 189/68 H [Left Brachial artery] O2 Saturation 01/05/18 01/05/18 07:18 08:00 Temperature 36.7 C Heart Rate [ 63 67 Monitoring electrodes] Respiratory 15 16 Rate Blood Pressure Blood Pressure 189/68 H 158/60 H [Left Brachial artery] O2 Saturation 94 96 Oxygen O2 Source Room air I&O (Last 24 Hrs): Intake and Output Totals x24h 01/03/18 01/04/18 01/05/18 23:59 23:59 23:59 Intake Total 2128.800 1491.666 Output Total 150 2000 Balance 1978.800 -508.334 General: Alert, Oriented x3 HEENT: Mucous membr. moist/pink Neck: Supple, No JVD Neuro: Non Focal Cardiovascular: No murmurs Respiratory: No respiratory distress, Breath sounds nml Abdomen: Soft, No tenderness Extremities: No edema - Results Results: Laboratory Results WBC 9.6 x10^3/uL (4.8-10.8) 01/05/18 04:15 RBC 2.74 10^6/uL (4.20-5.40) L 01/05/18 04:15 Hgb 8.7 g/dL (12.0-16.0) L 01/05/18 04:15 Hct 26.5 % (37.0-47.0) L 01/05/18 04:15 MCV 96.8 fL (81.0-99.0) 01/05/18 04:15 MCH 31.8 pg (27.0-31.0) H 01/05/18 04:15 MCHC 32.9 g/dL (32.0-36.0) 01/05/18 04:15 RDW 13.4 % (12.0-15.0) 01/05/18 04:15 Plt Count 212 10^3/uL (130-450) 01/05/18 04:15 MPV 9.5 fL (7.9-10.8) 01/05/18 04:15 Neut # (Auto) 6.8 10^3/uL (1.5-6.6) H 01/05/18 04:15 Lymph # (Auto) 1.1 10^3/uL (1.5-3.5) L 01/05/18 04:15 [place] # (Auto) 0.8 10^3/uL (0.0-1.0) 01/05/18 04:15 Eos # (Auto) 0.7 10^3/uL (0.0-0.7) 01/05/18 04:15 Baso # (Auto) 0.1 10^3/uL (0.0-0.1) 01/05/18 04:15 Absolute Nucleated RBC 0.00 x10^3/uL 01/05/18 04:15 Nucleated RBC % 0.0 /100WBC 01/05/18 04:15 VBG pH 7.317 (7.31-7.41) 01/04/18 13:25 VBG pCO2 35.7 mmHg (41-51) L 01/04/18 13:25 VBG pO2 38.3 mmHg (25-47) 01/04/18 13:25 VBG HCO3 17.9 mmol/L (23-28) L 01/04/18 13:25 VBG Total CO2 19.0 mmol/L (24-29) L 01/04/18 13:25 VBG O2 Saturation 74.1 % (60-80) 01/04/18 13:25 VBG Base Excess -7.5 mmol/L (-2 - +2) L 01/04/18 13:25 Sodium 129 mmol/L (135-145) L 01/05/18 04:15 Potassium 5.4 mmol/L (3.5-5.0) H 01/05/18 04:15 Chloride 98 mmol/L (101-111) L 01/05/18 04:15 Carbon Dioxide 20 mmol/L (21-32) L 01/05/18 04:15 Anion Gap 11.0 (6-13) 01/05/18 04:15 BUN 55 mg/dL (6-20) H 01/05/18 04:15 Creatinine 2.4 mg/dL (0.4-1.0) H 01/05/18 04:15 Estimated GFR (MDRD) 20 (>89) L 01/05/18 04:15 Glucose 462 mg/dL (70-100) H 01/05/18 04:15 Glycated Hemoglobin 13.6 % (4.6-6.2) H 01/04/18 09:40 Estim Average Glucose 344 (70-100) H 01/04/18 09:40 Calcium 8.7 mg/dL (8.5-10.3) 01/05/18 04:15 Phosphorus 3.5 mg/dL (2.5-4.6) 01/05/18 04:15 Magnesium 2.2 mg/dL (1.7-2.8) 01/05/18 04:15 Total Bilirubin 0.8 mg/dL (0.2-1.0) 01/05/18 04:15 Direct Bilirubin 0.1 mg/dL (0.1-0.5) 01/05/18 04:15 AST 26 IU/L (10-42) 01/05/18 04:15 ALT 26 IU/L (10-60) 01/05/18 04:15 Alkaline Phosphatase 78 IU/L (42-121) 01/05/18 04:15 Troponin I < 0.04 ng/mL (<0.49) 01/04/18 14:58 Total Protein 6.2 g/dL (6.7-8.2) L 01/05/18 04:15 Albumin 3.5 g/dL (3.2-5.5) 01/05/18 04:15 Globulin 2.7 g/dL (2.1-4.2) 01/05/18 04:15 Albumin/Globulin Ratio 1.1 (1.0-2.2) 01/04/18 09:40 Triglycerides 123 mg/dL (-149) 01/05/18 04:15 Lipase 44 U/L (22-51) 01/04/18 09:40 Vitamin B12 716 pg/mL (180-914) 01/05/18 04:15 Folate 22.35 ng/mL (5.90 - >24.8) 01/05/18 04:15 Urine Color LT. YELLOW 01/04/18 10:30 Urine Clarity CLEAR (CLEAR) 01/04/18 10:30 Urine pH 5.5 PH (5.0-7.5) 01/04/18 10:30 Ur Specific [place] <=1.005 (1.002-1.030) 01/04/18 10:30 Urine Protein TRACE mg/dL (NEGATIVE) 01/04/18 10:30 Urine Glucose (UA) >=1000 mg/dL (NEGATIVE) H 01/04/18 10:30 Urine Ketones 15 mg/dL (NEGATIVE) H 01/04/18 10:30 Urine Occult Blood SMALL (NEGATIVE) H 01/04/18 10:30 Urine Nitrite NEGATIVE (NEGATIVE) 01/04/18 10:30 Urine Bilirubin NEGATIVE (NEGATIVE) 01/04/18 10:30 Urine Urobilinogen 0.2 (NORMAL) E.U./dL (NORMAL) 01/04/18 10:30 Ur Leukocyte Esterase NEGATIVE (NEGATIVE) 01/04/18 10:30 Urine RBC 0-5 /HPF (0-5) 01/04/18 10:30 Urine WBC 11-25 /HPF (0-5) H 01/04/18 10:30 Urine WBC Clumps PRESENT 01/04/18 10:30 Ur Squamous Epith Cells RARE Squamous (<= Few) 01/04/18 10:30 Urine Bacteria Moderate /HPF (None Seen) H 01/04/18 10:30 Ur Microscopic Review INDICATED 01/04/18 10:30 Urine Culture Comments INDICATED 01/04/18 10:30 Urine Opiates Screen NEGATIVE (NEGATIVE) 01/04/18 10:30 Ur Oxycodone Screen NEGATIVE (NEGATIVE) 01/04/18 10:30 Urine Methadone Screen NEGATIVE (NEGATIVE) 01/04/18 10:30 Ur Propoxyphene Screen NEGATIVE (NEGATIVE) 01/04/18 10:30 Ur Barbiturates Screen NEGATIVE (NEGATIVE) 01/04/18 10:30 Ur Tricyclics Screen NEGATIVE (NEGATIVE) 01/04/18 10:30 Ur Phencyclidine Scrn NEGATIVE (NEGATIVE) 01/04/18 10:30 Ur Amphetamine Screen NEGATIVE (NEGATIVE) 01/04/18 10:30 U Methamphetamines Scrn NEGATIVE (NEGATIVE) 01/04/18 10:30 U Benzodiazepines Scrn NEGATIVE (NEGATIVE) 01/04/18 10:30 Urine Cocaine Screen NEGATIVE (NEGATIVE) 01/04/18 10:30 U Cannabinoids Screen NEGATIVE (NEGATIVE) 01/04/18 10:30 Serum Ketones NEGATIVE (NEGATIVE) 01/04/18 18:00 Blood Type B POSITIVE 01/04/18 18:00 Antibody Screen NEGATIVE 01/04/18 18:00 - Procedures Procedures: Procedures INSERTION OF INFUSION DEV INTO L INNOM VEIN, PERC APPROACH (09/11/17)
[2018-01-05] MEDS ORDERED: INSULIN ASPART 300 UNIT/3 ML PEN SUBQ SCH ×2 (09:07→12:00)
[2018-01-05] MEDS: INSULIN GLARGINE 300 UNIT/3 ML PEN SUBQ SCH (09:11)
[2018-01-05] MEDS: INSULIN ASPART 300 UNIT/3 ML PEN SUBQ SCH ×5 (09:22→21:49)
[2018-01-05 10:14] LABS: VBG BASE EXCESS -6.1 mmol/L (-2 - +2); VBG PCO2 36.9 mmHg (41-51); VBG PH 7.334 (7.31-7.41); VBG PO2 53.1 mmHg (25-47); VBG TOTAL CO2 20.3 mmol/L (24-29)
[2018-01-05 12:28] LABS: CALCIUM 8.2 mg/dL (8.5-10.3); CREATININE 2.5 mg/dL (0.4-1.0)
--- NOTE | 2018-01-05 16:43 | XRAY Report ---
Procedure Date: 01/05/2018 Accession Number: [id number] / [id number] Procedure: XR - Hip w/Pelvis 1V RT CPT Code: FULL RESULT: EXAM: RIGHT HIP AND PELVIS RADIOGRAPHY EXAM DATE: 01/05/2018 04:00 PM. HISTORY: Right hip pain and bruising after fall at home yesterday. COMPARISONS: None. TECHNIQUE: 1 view of the pelvis and 1 view of the hip. FINDINGS: Bones: No fracture identified. Joints: The bilateral hip, pubis symphysis, and sacroiliac joints are preserved. Soft Tissues: Right lower quadrant catheter noted. Vascular calcification noted. IMPRESSION: No fracture identified. RADIA
[2018-01-06] MEDS: SODIUM CHLORIDE FLUSH 0.9% 10 ML SYRINGE IVP SCH ×3 (00:24→18:22)
[2018-01-06] MEDS: SODIUM CHLORIDE 0.9% 1,000 ML IV SCH ×2 (04:14→14:10)
[2018-01-06 05:03] LABS: BASOPHILS % (AUTO) 0.6 %; EOSINOPHILS # (AUTO) 0.9 10^3/uL (0.0-0.7); HGB - HEMOGLOBIN 8.5 g/dL (12.0-16.0); LYMPHOCYTES # (AUTO) 1.5 10^3/uL (1.5-3.5); LYMPHOCYTES % (AUTO) 18.7 %; MEAN CORPUSCULAR HEMOGLOBIN 31.8 pg (27.0-31.0); MEAN CORPUSCULAR HGB CONC 33.6 g/dL (32.0-36.0); MEAN CORPUSCULAR VOLUME 94.8 fL (81.0-99.0); MEAN PLATELET VOLUME 9.3 fL (7.9-10.8); MONOCYTES % (AUTO) 12.4 %; NEUTROPHILS # (AUTO) 4.7 10^3/uL (1.5-6.6); NEUTROPHILS % (AUTO) 57.3 %; PLT - PLATELET COUNT 200 10^3/uL (130-450); RED BLOOD COUNT 2.66 10^6/uL (4.20-5.40); RED CELL DISTRIBUTION WIDTH 13.6 % (12.0-15.0); WHITE BLOOD COUNT 8.2 x10^3/uL (4.8-10.8)
[2018-01-06 05:26] LABS: ALBUMIN 3.2 g/dL (3.2-5.5); BILIRUBIN,DIRECT 0.1 mg/dL (0.1-0.5); BILIRUBIN,TOTAL 0.7 mg/dL (0.2-1.0); CALCIUM 8.2 mg/dL (8.5-10.3); CREATININE 2.4 mg/dL (0.4-1.0); TOTAL PROTEIN 5.9 g/dL (6.7-8.2)
[2018-01-06] MEDS ORDERED: DEXTROSE GEL 37.5 GM TUBE PO ONE (05:26)
[2018-01-06] MEDS ORDERED: INSULIN GLARGINE 300 UNIT/3 ML PEN SUBQ SCH (06:11)
[2018-01-06] MEDS: LEVOTHYROXINE 112 MCG TABLET PO SCH (06:21)
[2018-01-06] MEDS: INSULIN ASPART 300 UNIT/3 ML PEN SUBQ SCH ×4 (08:00→21:39)
[2018-01-06] MEDS: METOPROLOL TARTRATE 25 MG TABLET PO SCH ×2 (08:44→21:36)
[2018-01-06] MEDS: amLODIPine 5 MG TABLET PO SCH (08:44)
[2018-01-06] MEDS: CALCIUM CARB (OYSTER SHELL) 500 MG TABLET PO SCH ×2 (08:44→21:35)
[2018-01-06] MEDS: FAMOTIDINE 20 MG TABLET PO SCH (08:45)
[2018-01-06] MEDS: CHOLECALCIFEROL 1,000 UNIT TABLET PO SCH (08:45)
[2018-01-06] MEDS: SULFAMETH/TRIMETH DS 800/160 MG TABLET PO SCH (08:45)
[2018-01-06] MEDS: MULTIVITAMIN TABLET PO SCH (08:45)
--- NOTE | 2018-01-06 08:45 | PROVIDER PROGRESS NOTE ---
Assessment/Plan - Problem List (1) Diabetes 1.5, managed as type 1 Assessment/Plan: The patient no longer has an elevated anion gap but does still have small ketones present. She also has very brittle diabetes with glu of 422 dropping to 48 in 1 hour. Donna from [facility] in [facility] is assisting with Insulin adjustments and Flora from Nutrition is helping with her diet details. The patient told me and Donna, and RN Dora Gasca, that she wants to have better glu control, but went on to refuse to change the way she adjusts her correction Insulin dose. The patient may no longer have insight into her medical condition. Dr Alcaraz had told me that she is losing cognitive function, in his opinion. Continue monitoring labs and Insulin management. (2) Acute on chronic renal failure Qualifiers: Chronic kidney disease stage: stage 4 (severe) Assessment/Plan: No significant change in daily serum creat. Will obtain a renal US to check for IGNACIO. Pt had worsened creat after Lasix and was -280 cc fluid balance that day. Will restart iv hydration gently with normal saline. (3) Hypertension Assessment/Plan: Continue meds and monitoring VS. Will check for renovascular disease with US for IGNACIO (renal artery stenosis). (4) Weakness Assessment/Plan: PT started working with patient yesterday. (5) Fall Qualifiers: Encounter type: subsequent encounter Qualified Code(s): W19.XXXD - Unspecified fall, subsequent encounter Assessment/Plan: PT needed to hold Pt from behind and hold down her quad walker, because Pt was pushing backward while trying to walk just 4-5 steps. PT informed patient that it is unsafe to send her home. Patient responded "Shut up, I don't want to hear that". She has made minimal progress, is able to hold herself upright in chair while eating and to rest for >30 min, therefore she has rehab potential. Will check orthostatic VS. Location of DCh will be worked on by Social Work, after discussing her options , but patient may no longer have insight into her physical condition (as with the diabetic management above). Will ask for Palliative Care consult for Allyssa's assessment regarding patient's understanding of her condition and if her desire to go home and take care of a with dementia and incontinence, is realistic. (6) UTI (urinary tract infection) Qualifiers: Urinary tract infection type: acute pyelonephritis Qualified Code(s): N10 - Acute pyelonephritis Assessment/Plan: E coli grew in urine culture and is resistant to Bactrim. She essentially has had an untreated UTI, therefore will change to iv antibiotic with appropriate sensitivity and one that is not renaly metabolized. Will change to iv Ceftriaxone 1 gm iv q 24 h. 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 B12 and Folate levels are adequate. Will check Iron studies and guaic stool. Consider a blood transfusion if the anemia may be adding to her weakness. Monitor daily CBC. (8) DKA (diabetic ketoacidoses) Assessment/Plan: Resolved (9) Hyperkalemia Assessment/Plan: Resolved - Current Meds Current Meds: Current Medications Generic Name Dose Route Start Last Admin Trade Name Freq PRN Reason Stop Dose Admin Amlodipine Besylate 10 mg 01/05/18 09:00 01/05/18 05:46 Norvasc PO 10 mg DAILY MOOKIE Administration Calcium Carbonate/Glycine 500 mg 01/04/18 21:00 01/05/18 21:35 Oysco-500 PO 500 mg BID MOOKIE Administration Cholecalciferol 2,000 unit 01/05/18 09:00 01/05/18 08:34 Vitamin D3 PO 2,000 unit DAILY MOOKIE Administration Famotidine 20 mg 01/05/18 09:00 01/05/18 08:39 Pepcid PO 20 mg DAILY MOOKIE Administration Sodium Chloride 1,000 mls @ 100 mls/hr 01/04/18 23:00 01/06/18 04:14 Normal Saline 0.9% IV 100 mls/hr .Q10H MOOKIE Administration Insulin Aspart 3 - 11 unit 01/05/18 18:00 01/05/18 21:49 Novolog SUBQ 5 unit 0800,1200,1700,2100 MOOKIE Administration Protocol Insulin Glargine 5 unit 01/05/18 09:04 01/05/18 09:11 Lantus Solostar SUBQ 5 unit DAILY MOOKIE Administration Levothyroxine Sodium 112 mcg 01/05/18 07:00 01/06/18 06:21 Synthroid PO 112 mcg QDAC MOOKIE Administration Metoprolol Tartrate 25 mg 01/04/18 21:00 01/05/18 21:34 Lopressor PO 25 mg BID MOOKIE Administration Multivitamins 1 tab 01/05/18 09:00 01/05/18 08:34 Theragran PO 1 tab DAILY MOOKIE Administration Ondansetron HCl 4 mg 01/04/18 12:31 01/05/18 06:26 Zofran Inj IVP 4 mg Q6HR PRN Administration Nausea / Vomiting Sodium Chloride 10 ml 01/04/18 17:00 01/06/18 00:24 Normal Saline Flush 0.9% IVP Not Given 0100,0900,1700 MOOKIE Trimethoprim/Sulfamethoxazole 1 tab 01/05/18 09:00 01/05/18 21:34 Bactrim Ds 800/160 PO 1 tab BID MOOKIE Administration - Lab Result Fish Bone Diagrams: 01/06/18 04:15 01/06/18 04:15 - Additional Planning My Orders: My Active Orders 01/05/18 09:00 Cholecalciferol [Vitamin D3] 2,000 unit PO DAILY Famotidine [Pepcid] 20 mg PO DAILY Multivitamin [Theragran] 1 tab PO DAILY 01/05/18 09:04 Insulin Glargine [Lantus Solostar] 5 unit SUBQ DAILY 01/05/18 18:00 Insulin Aspart [NovoLOG] 3 - 11 unit SUBQ 0800,1200,1700,2100 01/07/18 05:00 CBC - COMP BLD CT W/AUTO DIFF [HEME] DAILYLAB 01/08/18 05:00 CBC - COMP BLD CT W/AUTO DIFF [HEME] DAILYLAB Objective Vital Signs: Vital Signs - 24 hr 01/05/18 01/05/18 01/05/18 09:00 10:00 11:00 Temperature Heart Rate [ 68 74 73 Monitoring electrodes] Heart Rate [ Supine] Respiratory 15 16 15 Rate Blood Pressure Blood Pressure 134/52 H 127/51 L 129/47 L [Left Brachial artery] Blood Pressure [Supine] O2 Saturation 95 98 98 01/05/18 01/05/18 01/05/18 12:00 13:00 14:00 Temperature 36.8 C Heart Rate [ 66 65 75 Monitoring electrodes] Heart Rate [ 78 Supine] Respiratory 19 14 16 Rate Blood Pressure Blood Pressure 134/69 H 145/66 H 154/89 H [Left Brachial artery] Blood Pressure 145/66 H [Supine] O2 Saturation 99 97 98 01/05/18 01/05/18 01/05/18 15:00 16:00 17:00 Temperature 36.8 C Heart Rate [ 86 74 88 Monitoring electrodes] Heart Rate [ Supine] Respiratory 15 13 16 Rate Blood Pressure Blood Pressure 140/66 H 156/69 H 140/67 H [Left Brachial artery] Blood Pressure [Supine] O2 Saturation 98 99 100 01/05/18 01/05/18 01/05/18 18:00 19:00 20:00 Temperature 36.4 C L Heart Rate [ 69 67 95 Monitoring electrodes] Heart Rate [ Supine] Respiratory 19 14 14 Rate Blood Pressure Blood Pressure 157/69 H 167/67 H 143/59 H [Left Brachial artery] Blood Pressure [Supine] O2 Saturation 100 100 98 01/05/18 01/05/18 01/05/18 21:00 21:34 22:00 Temperature Heart Rate [ 70 75 Monitoring electrodes] Heart Rate [ Supine] Respiratory 10 L 21 Rate Blood Pressure 142/57 H Blood Pressure 142/57 H 137/56 H [Left Brachial artery] Blood Pressure [Supine] O2 Saturation 99 97 01/05/18 01/06/18 01/06/18 23:00 00:00 01:00 Temperature 35.9 C L Heart Rate [ 64 62 71 Monitoring electrodes] Heart Rate [ Supine] Respiratory 15 13 13 Rate Blood Pressure Blood Pressure 140/66 H 142/55 H 158/64 H [Left Brachial artery] Blood Pressure [Supine] O2 Saturation 99 97 95 01/06/18 01/06/18 01/06/18 02:00 03:00 04:00 Temperature 36.4 C L Heart Rate [ 73 61 62 Monitoring electrodes] Heart Rate [ Supine] Respiratory 17 15 19 Rate Blood Pressure Blood Pressure 117/53 L 113/44 L 130/45 L [Left Brachial artery] Blood Pressure [Supine] O2 Saturation 96 94 97 01/06/18 01/06/18 01/06/18 05:00 06:00 06:59 Temperature Heart Rate [ 64 66 68 Monitoring electrodes] Heart Rate [ Supine] Respiratory 18 22 14 Rate Blood Pressure Blood Pressure 130/45 L 168/68 H 163/66 H [Left Brachial artery] Blood Pressure [Supine] O2 Saturation 98 100 97 01/06/18 07:57 Temperature Heart Rate [ 67 Monitoring electrodes] Heart Rate [ Supine] Respiratory 15 Rate Blood Pressure Blood Pressure 163/66 H [Left Brachial artery] Blood Pressure [Supine] O2 Saturation 98 Oxygen O2 Source Room air I&O (Last 24 Hrs): Intake and Output Totals x24h 01/04/18 01/05/18 01/06/18 23:59 23:59 23:59 Intake Total 2128.800 3391.666 1530 Output Total 150 3600 700 Balance 1978.800 -208.334 830 - Results Results: Laboratory Results WBC 8.2 x10^3/uL (4.8-10.8) 01/06/18 04:15 RBC 2.66 10^6/uL (4.20-5.40) L 01/06/18 04:15 Hgb 8.5 g/dL (12.0-16.0) L 01/06/18 04:15 Hct 25.2 % (37.0-47.0) L 01/06/18 04:15 MCV 94.8 fL (81.0-99.0) 01/06/18 04:15 MCH 31.8 pg (27.0-31.0) H 01/06/18 04:15 MCHC 33.6 g/dL (32.0-36.0) 01/06/18 04:15 RDW 13.6 % (12.0-15.0) 01/06/18 04:15 Plt Count 200 10^3/uL (130-450) 01/06/18 04:15 MPV 9.3 fL (7.9-10.8) 01/06/18 04:15 Neut # (Auto) 4.7 10^3/uL (1.5-6.6) 01/06/18 04:15 Lymph # (Auto) 1.5 10^3/uL (1.5-3.5) 01/06/18 04:15 [place] # (Auto) 1.0 10^3/uL (0.0-1.0) 01/06/18 04:15 Eos # (Auto) 0.9 10^3/uL (0.0-0.7) H 01/06/18 04:15 Baso # (Auto) 0.0 10^3/uL (0.0-0.1) 01/06/18 04:15 Absolute Nucleated RBC 0.00 x10^3/uL 01/06/18 04:15 Nucleated RBC % 0.0 /100WBC 01/06/18 04:15 VBG pH 7.334 (7.31-7.41) 01/05/18 10:06 VBG pCO2 36.9 mmHg (41-51) L 01/05/18 10:06 VBG pO2 53.1 mmHg (25-47) H 01/05/18 10:06 VBG HCO3 19.2 mmol/L (23-28) L 01/05/18 10:06 VBG Total CO2 20.3 mmol/L (24-29) L 01/05/18 10:06 VBG O2 Saturation 87.8 % (60-80) H 01/05/18 10:06 VBG Base Excess -6.1 mmol/L (-2 - +2) L 01/05/18 10:06 Sodium 135 mmol/L (135-145) 01/06/18 04:15 Potassium 3.6 mmol/L (3.5-5.0) 01/06/18 04:15 Chloride 101 mmol/L (101-111) 01/06/18 04:15 Carbon Dioxide 24 mmol/L (21-32) 01/06/18 04:15 Anion Gap 10.0 (6-13) 01/06/18 04:15 BUN 46 mg/dL (6-20) H 01/06/18 04:15 Creatinine 2.4 mg/dL (0.4-1.0) H 01/06/18 04:15 Estimated GFR (MDRD) 20 (>89) L 01/06/18 04:15 Glucose 43 mg/dL (70-100) L* 01/06/18 04:15 Glycated Hemoglobin 13.6 % (4.6-6.2) H 01/04/18 09:40 Estim Average Glucose 344 (70-100) H 01/04/18 09:40 Calcium 8.2 mg/dL (8.5-10.3) L 01/06/18 04:15 Phosphorus 3.5 mg/dL (2.5-4.6) 01/05/18 04:15 Magnesium 2.0 mg/dL (1.7-2.8) 01/06/18 04:15 Total Bilirubin 0.7 mg/dL (0.2-1.0) 01/06/18 04:15 Direct Bilirubin 0.1 mg/dL (0.1-0.5) 01/06/18 04:15 AST 24 IU/L (10-42) 01/06/18 04:15 ALT 22 IU/L (10-60) 01/06/18 04:15 Alkaline Phosphatase 63 IU/L (42-121) 01/06/18 04:15 Troponin I < 0.04 ng/mL (<0.49) 01/04/18 14:58 Total Protein 5.9 g/dL (6.7-8.2) L 01/06/18 04:15 Albumin 3.2 g/dL (3.2-5.5) 01/06/18 04:15 Globulin 2.7 g/dL (2.1-4.2) 01/06/18 04:15 Albumin/Globulin Ratio 1.1 (1.0-2.2) 01/04/18 09:40 Triglycerides 123 mg/dL (-149) 01/05/18 04:15 Lipase 44 U/L (22-51) 01/04/18 09:40 Vitamin B12 716 pg/mL (180-914) 01/05/18 04:15 Folate 22.35 ng/mL (5.90 - >24.8) 01/05/18 04:15 Urine Color LT. YELLOW 01/04/18 10:30 Urine Clarity CLEAR (CLEAR) 01/04/18 10:30 Urine pH 5.5 PH (5.0-7.5) 01/04/18 10:30 Ur Specific [place] <=1.005 (1.002-1.030) 01/04/18 10:30 Urine Protein TRACE mg/dL (NEGATIVE) 01/04/18 10:30 Urine Glucose (UA) >=1000 mg/dL (NEGATIVE) H 01/04/18 10:30 Urine Ketones 15 mg/dL (NEGATIVE) H 01/04/18 10:30 Urine Occult Blood SMALL (NEGATIVE) H 01/04/18 10:30 Urine Nitrite NEGATIVE (NEGATIVE) 01/04/18 10:30 Urine Bilirubin NEGATIVE (NEGATIVE) 01/04/18 10:30 Urine Urobilinogen 0.2 (NORMAL) E.U./dL (NORMAL) 01/04/18 10:30 Ur Leukocyte Esterase NEGATIVE (NEGATIVE) 01/04/18 10:30 Urine RBC 0-5 /HPF (0-5) 01/04/18 10:30 Urine WBC 11-25 /HPF (0-5) H 01/04/18 10:30 Urine WBC Clumps PRESENT 01/04/18 10:30 Ur Squamous Epith Cells RARE Squamous (<= Few) 01/04/18 10:30 Urine Bacteria Moderate /HPF (None Seen) H 01/04/18 10:30 Ur Microscopic Review INDICATED 01/04/18 10:30 Urine Culture Comments INDICATED 01/04/18 10:30 Urine Opiates Screen NEGATIVE (NEGATIVE) 01/04/18 10:30 Ur Oxycodone Screen NEGATIVE (NEGATIVE) 01/04/18 10:30 Urine Methadone Screen NEGATIVE (NEGATIVE) 01/04/18 10:30 Ur Propoxyphene Screen NEGATIVE (NEGATIVE) 01/04/18 10:30 Ur Barbiturates Screen NEGATIVE (NEGATIVE) 01/04/18 10:30 Ur Tricyclics Screen NEGATIVE (NEGATIVE) 01/04/18 10:30 Ur Phencyclidine Scrn NEGATIVE (NEGATIVE) 01/04/18 10:30 Ur Amphetamine Screen NEGATIVE (NEGATIVE) 01/04/18 10:30 U Methamphetamines Scrn NEGATIVE (NEGATIVE) 01/04/18 10:30 U Benzodiazepines Scrn NEGATIVE (NEGATIVE) 01/04/18 10:30 Urine Cocaine Screen NEGATIVE (NEGATIVE) 01/04/18 10:30 U Cannabinoids Screen NEGATIVE (NEGATIVE) 01/04/18 10:30 Serum Ketones SMALL (NEGATIVE) H 01/05/18 10:06 Blood Type B POSITIVE 01/04/18 18:00 Antibody Screen NEGATIVE 01/04/18 18:00 - Procedures Procedures: Procedures INSERTION OF INFUSION DEV INTO L INNOM VEIN, PERC APPROACH (09/11/17)
[2018-01-06] MEDS: INSULIN GLARGINE 300 UNIT/3 ML PEN SUBQ SCH (09:00)
[2018-01-06] MEDS: cefTRIAXone 1 GM in SODIUM CHLORIDE 0.9% MINIBAG 100 ML IV SCH (11:40)
[2018-01-06] MEDS: ACETAMINOPHEN 325 MG TABLET PO PRN ×3 (12:46→22:11)
--- NOTE | 2018-01-06 19:27 | CONSULTATION NOTE ---
Palliative Care Consultation - Referral Referring Provider: Dr. Jessica Koenig Time of Visit: [id number] Referral setting: Hospitalized patient Referral Reason: DKA/UTI/ Goals of care - Information Sources Records reviewed: RN notes reviewed, Previous records reviewed History/Review of Systems obtained from: Patient, Caregiver (spoke with Kait Granado patient's and husbands caregiver; assists with meals/transportation/ finances and plan of care) Exam limitations: Clinical condition (patient with STM issues; but able to participate in conversation without confusion) - History of Present Illness Brief History of Present Illness: This is a 77-year-old woman he was admitted after a ground-level fall, she is gotten tangled up with her walker and shower curtain and came for stitches on her right arm laceration. This is still quite painful and tender to her, as well as has extensive bruising. She also reports significant pain in her right hip, her chest hip x-ray was negative. She was found to have blood sugar of 900 , and also now a UTI positive for E. coli, with antibiotics change this morning. Patient tends to be quite impulsive, very independent, but does admit to increasing difficulty over the last several months, she reports her activity tolerance, her functional status, and her ability to manage have been diminishing. She has done well in the context that her caregiver Kait Granado has provided some stability and support to both her and her . Per patient she is they are from 10-2 daily, assist with meals, they have another person who does laundry and cleaning up, because both patient and are incontinent. Patient Had a hospitalization 6 months ago secondary to "fourth degree diez", for which she needed home health support with dressing changes, physical therapy, and at this point in time is when Kait came into her life. She has had another hospitalization since for DKA as well. She does have multiple calls to EMS with her low blood sugars documented in ED, when asked about call 911 she was perplexed, then yes she uses her lifeline often for assistance. Her biggest worry, is returning home, as her Don has Alzheimer's. She reports this is been progressing as well, that he wonders through the night, in the neighborhood. She reports he can bathe himself, but is incontinent of urine and bowel, and sleeps until noon. They are mostly homebound, and rarely get out. When asked how patient's gets home, she reports the neighbor she should bring him home but are getting quite annoyed with her. Medical/Surgical History - Past Medical History Cardiovascular: reports: Hypertension Respiratory: reports: Asthma Neuro: Dementia (does admit to intermittent confusion; usually attributed to "getting things mixed up") Neuro: reports: Other (reports increasing peripheral neuropathy from her diabetes; denies pain but it is "numbness") Endocrine/Autoimmune: reports: Type 1 diabetes GI: reports: None : reports: Incontinence, Renal insuffiency HEENT: reports: Chronic vision loss Psych: reports: Anxiety, Other (impulsive) Musculoskeletal: reports: Fatigue, Other (requires walker to get around; new in last few months) MRSA Hx?: No - Past Surgical History General: reports: Appendectomy 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 Support System: Patient reports his lives on [facility] for 15 years, came from [facility]. 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 Her was a bus or truck garage mechanic, they have traveled together. They do not have any children. They moved up here with her mother at that time to be near her grandchildren, which is her niece Prachi who is her DPO a. She reports she has a brother and twists, who "hates me", and thus has poor relationship with both him and his daughter. They have managed to live independently, with the help of this caregiver, patient not really able to oversee her care, but does feel confident in the support she is currently receiving. Family History - Family History Family History: Mother: , Father: , Brother: Alive and Well Medications/Allergies - Medications Active Medication List: Active Medications Acetaminophen (Tylenol) 650 mg PO Q4HR PRN PRN Reason: Pain or Fever > 38C (100.4F) Last Admin: 01/06/18 18:21 Dose: 650 mg Amlodipine Besylate (Norvasc) 10 mg PO DAILY [facility] Last Admin: 08/16/18 08:44 Dose: 10 mg Calcium Carbonate/Glycine (Oysco-500) 500 mg PO BID [facility] Last Admin: 01/06/18 08:44 Dose: 500 mg Cholecalciferol (Vitamin D3) 2,000 unit PO DAILY [facility] Last Admin: 01/06/18 08:45 Dose: 2,000 unit Famotidine (Pepcid) 20 mg PO DAILY [facility] Last Admin: 01/06/18 08:45 Dose: 20 mg Sodium Chloride (Normal Saline 0.9%) 1,000 mls @ 100 mls/hr IV .Q10H [facility] Last Admin: 01/06/18 14:10 Dose: 100 mls/hr Ceftriaxone Sodium 1 gm/ (Sodium Chloride) 100 mls @ 200 mls/hr IV Q24H [facility] Last Infusion: 01/06/18 12:15 Dose: Infused Insulin Aspart (Novolog) 3 - 11 unit SUBQ 0800,1200,1700,2100 [facility] PRN Reason: Protocol Last Admin: 01/06/18 17:12 Dose: 11 unit Insulin Glargine (Lantus Solostar) 5 unit SUBQ DAILY [facility] Last Admin: 01/06/18 09:00 Dose: Not Given Insulin Glargine (Lantus Solostar) 12 unit SUBQ QPM [facility] Levothyroxine Sodium (Synthroid) 112 mcg PO QDAC [facility] Last Admin: 01/06/18 06:21 Dose: 112 mcg Metoprolol Tartrate (Lopressor) 25 mg PO BID [facility] Last Admin: 01/06/18 08:44 Dose: 25 mg Multivitamins (Theragran) 1 tab PO DAILY [facility] Last Admin: 01/06/18 08:45 Dose: 1 tab Ondansetron HCl (Zofran Inj) 4 mg IVP Q6HR PRN PRN Reason: Nausea / Vomiting Last Admin: 01/05/18 06:26 Dose: 4 mg Sodium Chloride (Normal Saline Flush 0.9%) 10 ml IVP 0100,0900,1700 [facility] Last Admin: 01/06/18 18:22 Dose: Not Given Sodium Chloride (Normal Saline Flush 0.9%) 10 ml IVP PRN PRN PRN Reason: NEEDED PER PROVIDER ORDERS Temazepam (Restoril) 15 mg PO QPM PRN PRN Reason: Insomnia Insulin Glargine [Lantus Solostar] 10 units SUBQ QPM 12/28/16 Insulin Lispro [Humalog] 2 - 6 units SUBQ TIDWM 12/28/16 Levothyroxine Sodium [Levoxyl] 112 mcg PO QDAC 12/28/16 Metoprolol Tartrate [Metoprolol Tartrate] 25 mg PO BID 09/12/17 Calcium Carbonate/Vitamin D3 [Calcium 600 + Vit D 400 Tablet] 1 each PO BID Cholecalciferol (Vitamin D3) [Vitamin D] 2,000 unit PO DAILY 09/13/17 Multivitamin [Theragran] 1 tab PO DAILY 09/13/17 Amlodipine Besylate [Amlodipine Besylate] 10 mg PO DAILY 01/04/18 - Allergies Allergies/Adverse Reactions: Allergies Allergy/AdvReac Type Severity Reaction Status Date / Time lindsay Allergy Unknown Verified 01/04/18 01:31 oxycodone Allergy Unknown Verified 01/04/18 01:31 codeine AdvReac Intermediate Dizziness Verified 01/04/18 01:31 Review of Systems - Constitutional Constitutional: reports: Fatigue. denies: Fever - Eyes Eyes: reports: Vision loss, Corrective lenses (has glasses does not wear often) - Ears, Nose & Throat Ears, Nose & Throat: reports: Hearing loss (mild), Dry mouth (currently at visit NPO; c/o of thirst) - Cardiovascular Cardiovascular: reports: Edema, Exertional dyspnea, Decr. exercise tolerance - Respiratory Respiratory: reports: Wheezing (reports happens through day) - Gastrointestinal Gastrointestinal: reports: Good appetite. denies: Constipation - Genitourinary Genitourinary: reports: Incontinence - Musculoskeletal Musculoskeletal: reports: Limited range of motion (right hip and arm secondary to GLF), Muscle weakness, Assistive devices (uses walker at home) - Integumentary Integumentary: reports: Other (dressing on skin tear right arm) - Neurological Neurological: reports: General weakness, Memory problems - Psychiatric Psychiatric: reports: Anxiety - Endocrine Endocrine: reports: Other (diabetes TYPE I had over 65 years) - Hematologic/Lymphatic Hematologic/Lymphatic: reports: Anemia, Bruising - All Other Systems All Other Systems: reports: Reviewed and negative Physical Exam - Vital Signs Vital Signs: Vital Signs x48h Pulse Pulse Resp BP BP 01/06/18 18:00 84 16 159/87 H 01/06/18 17:00 84 23 163/73 H 01/06/18 16:00 71 21 158/67 H 01/06/18 15:00 73 22 160/66 H 01/06/18 14:53 80 141/72 H 01/06/18 14:00 79 19 160/76 H 01/06/18 13:00 74 13 174/81 H 01/06/18 12:00 78 19 170/76 H - Physical Exam General Appearance: positive: No acute distress, Anxious Eyes Bilateral: positive: Normal inspection ENT: positive: Dry mucous membranes. negative: Pharyngeal erythema Neck: positive: No JVD, Trachea midline Cardiovascular: positive: Regular rate & rhythm Respiratory: positive: Diminished in bases, Wheezes Abdomen: positive: Non-tender, Soft, Nml bowel sounds Skin: positive: Dryness, Bruising, Other (sits on porch in sun; quite sun tanned ) Extremities: positive: No pedal edema (scds on) Neurologic/Psychiatric: positive: Oriented x3, Mood/affect nml, Weakness Palliative Care - POLST Patient has POLST: No Pain: Location (patient with acute pain right arm/hip APAP available) Tiredness/Fatigue: Severe (7-10) Drowsiness/Sedation: Mild (1-3) Nausea: None Depression: Mild (1-3) Anxiety: Moderate (4-6) Dyspnea: Mild (1-3) Constipation: No Feelings of wellbeing/Perceived Quality of Life: Fair, Acceptable, Worsening Performance Status: Patient previously as far as functional status, was able to ambulate short distances around her home. She reports she is able to bathe independently, but is not able to attend to household tasks nor tolerate any activity for greater than 10-15 minutes. She does have a caregiver who assists, she reports she no longer leaves her home. Currently with her acute pain in her ground-level fall , she is less able to ambulate secondary discomfort, needs maximum assist for transfers and bed mobility. - Palliative Care Discussion: Prachi Scherer [phone] her niece is her DPOA on her form, she is her niece. She confirms this is true. When asked what kind of relationship she has or if she would know what she would want, she reports it is strained and does not think so, but feels she would "do okay". She does have a friend that she is thinking of asking. Patient when asked if she understands her current illness and what is going on, is able to paraphrase she had a fall, hurt her arm, and her diabetes went wild. She does understand she has an infection, and that they are currently trying to correct her blood sugars. Patient does perceive her health is declining, that things are getting more difficult, and when asked if she had plans specifically if something did happen to her this hospitalization, for her she reports she does not. When asked what is most important to her, it is to return home, and to resume care and support for her . They have been per her report for 47 years. Reports that he has had dementia the last 10, so it has been more difficult. She defers her long-term plan, as having support with from her current caregiver Kait, and difficult to her for support. She does trust her that she would help her come up with the plan in their best interest. She is aware that Kait is not able to be a long-term plan, but is currently assisting with care of her and she is anxious to get home. She does recognize though currently she is unable to take care of herself, and aware that they are looking at further help. Patient does have a living will directive to physicians, that is fairly generic in the context that it directs that she wants to make known her desire her dying should not be artificially prolonged under the conditions of a terminal condition and a permanent unconsciuous condition. She does not want artificial food and nutrition. She remembers and recognizes this is a document, but is vague as to its meaning. She was willing to explore further things that were most important to her regarding her end-of-life wishes. These included she did not want to be on a ventilator or have artificial breathing machine, would be okay to go to a correction for rehabilitation if she were going to get better , but would not want her life prolonged if she were going to need to permanently live in a correction, she would not want a feeding tube are to be artificially supported. She will no longer to be able to make decisions for herself this could be considered poor quality of life. When asked about resuscitation regarding CPR versus allowing natural , patient would not want to be resuscitated if her heart stopped and it was her time to go. She currently still wants to focus on improving her current condition as best she can, she is hoping to be independent as possible on return home. When reviewed currently she is an attempt resuscitation on record here in the hospital, she confirmed her understanding of DNAR, that if her heart were to stop she would allow natural and not attempt CPR, reviewed this in not comfort measures or do not treat. Introduced the POLST, and left 5 Wishes for further conversation. Though she reports it is hard to talk about, she understands it is important. Spoke with Kait Granado regrading patient's current situation with patient's permission. She reports actually they have been doing fairly well with the support that she has had her coming tended to daily, and having someone clean the house on a regular daily basis. They are both incontinent, so need lots of bed she is washed and cleaning done in the home. They also have a dog of which she is fond of. She reports she is aware of a long-term care policy, she is trying to locate it, she feels if she could hire some assistance they may be able to manage even with patient functional status decline. She reports she did have home health before, which was helpful, reviewed home health benefit is just short-term as far as making recommendations, providing home exercise program, but patient does need to follow through. She is working with the case management social worker to find a workable plan, she reports her family has not been involved in helping with care and/or support. Patient was not able to manage finances, bills were not getting paid, so she assists patient many functions. I expressed my concerns that if she was not willing or able to provide this support it would not be likely a safe plan to go home. She reports she is committed to helping them figure this out. Results - Lab Results Lab results reviewed: Yes Fish Bones: 01/06/18 04:15 01/06/18 04:15 Lab and Imaging Results: Lab Results x24hrs 01/06/18 01/06/18 Range/Units 04:15 04:15 WBC 8.2 (4.8-10.8) x10^3/uL RBC 2.66 L (4.20-5.40) 10^6/uL Hgb 8.5 L (12.0-16.0) g/dL Hct 25.2 L (37.0-47.0) % MCV 94.8 (81.0-99.0) fL MCH 31.8 H (27.0-31.0) pg MCHC 33.6 (32.0-36.0) g/dL RDW 13.6 (12.0-15.0) % Plt Count 200 (130-450) 10^3/uL MPV 9.3 (7.9-10.8) fL Neut # (Auto) 4.7 (1.5-6.6) 10^3/uL Lymph # (Auto) 1.5 (1.5-3.5) 10^3/uL Motley # (Auto) 1.0 (0.0-1.0) 10^3/uL Eos # (Auto) 0.9 H (0.0-0.7) 10^3/uL Baso # (Auto) 0.0 (0.0-0.1) 10^3/uL Absolute Nucleated RBC 0.00 x10^3/uL Nucleated RBC % 0.0 /100WBC Sodium 135 (135-145) mmol/L Potassium 3.6 (3.5-5.0) mmol/L Chloride 101 (101-111) mmol/L Carbon Dioxide 24 (21-32) mmol/L Anion Gap 10.0 (6-13) BUN 46 H (6-20) mg/dL Creatinine 2.4 H (0.4-1.0) mg/dL Estimated GFR (MDRD) 20 L (>89) Glucose 43 L* (70-100) mg/dL Calcium 8.2 L (8.5-10.3) mg/dL Magnesium 2.0 (1.7-2.8) mg/dL Total Bilirubin 0.7 (0.2-1.0) mg/dL Direct Bilirubin 0.1 (0.1-0.5) mg/dL AST 24 (10-42) IU/L ALT 22 (10-60) IU/L Alkaline Phosphatase 63 (42-121) IU/L Total Protein 5.9 L (6.7-8.2) g/dL Albumin 3.2 (3.2-5.5) g/dL Globulin 2.7 (2.1-4.2) g/dL Impression and Recommendations - Palliative Care Impression: This is a 77-year-old woman who was admitted acutely for a ground level fall with a right arm laceration and right hip contusion. She continues to be quite uncomfortable, has increased her limitations as far as mobility. Her more acute problem was her DKA, her blood sugar control continues to be labile, she currently has a UTI being treated now with new antibiotics for E. coli. Patient does have mild cognitive deficits, but does have understanding of her current hospitalization, her illness, and presents with decision-making capacity. Palliative care meeting with patient and attempt to define goals of care, and assist in transition planning. Recommendations/Counseling Done: 1. Muscle weakness. Patient already has underlying deconditioning related to her sedentary lifestyle. Now with a ground-level fall, and bedbound status, is most likely continue to deteriorate. Would recommend on discharge ordering home health PT, she does have a caregiver who is actively involved in her care and will be able to follow through on exercise program. 2. Acute pain secondary to fall. Pain is limiting her mobility, her arm is acutely tender. Would recommend continuing to offer [id number] acetaminophen, patient high risk for confusion and delirium with opioids. Renal function precludes using any kind of NSAID unfortunately. 3. Advanced care planning. 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 She does have a caregiver who has been helping with supporting patient and her at home, she is willing to continue to work on a longer term plan, social work is involved. Unclear if it is going to be realistic to keep her in her home which is her goal long-term. Patient does have insight into her declining status, at this point in time is chosen do not attempt resuscitation for this hospitalization, will follow up tomorrow with further conversation with a POLST, this may take further support and counseling to translate patient goals of care. Time Spent: Time spent 75 minutes with greater than 50% of this done in counseling with patient around advanced care planning goals of care, anticipatory guidance and establishing patient's ability to participate in decision-making. Coordination of care with caregiver, CHANNEL MARKETING SPECIALIST, and hospitalist.
--- NOTE | 2018-01-06 22:41 | Ultrasound Report ---
Procedure Date: 01/06/2018 Accession Number: [id number] / [id number] Procedure: US - Arterial Visceral Complete CPT Code: FULL RESULT: EXAM: RENAL ARTERY DOPPLER ULTRASOUND. EXAM DATE: 01/06/2018 08:36 PM. CLINICAL HISTORY: Hypertension. Concern for renal artery stenosis. COMPARISON: None. TECHNIQUE: Real-time sonographic vascular imaging was performed by the hydrology teacher through the renal arterial system with a linear transducer utilizing color-flow, Doppler flow, and spectral analysis. Multiple petroleum products sales representative static images were saved for review. FINDINGS: Right Kidney: 8.8 X 4.7 X 4.3 cm. Echotexture: Within normal limits. Right Segmental Artery: Upper pole: PSV 72 cm/sec, RI 1.0. Mid pole: PSV 81 cm/sec, RI 1.0. Lower pole: PSV 56 cm/sec, RI 1.0. Right Renal Artery: Origin: PSV 49.6 cm/sec, RA/AO 0.9. Proximal: PSV 59.6 cm/sec, RA/AO 1.1. Mid: PSV 87 cm/sec, RA/AO 1.6. Distal: PSV 89 cm/sec, RA/AO 1.6. Aorta PSV: 56 cm/sec. RRV Patent: Yes. Left Kidney: Partially visualized, 7.8 X 4.1 cm. Echotexture: Poorly evaluated. Left Segmental Artery: Upper pole: PSV not seen LTD Mid pole: PSV not seen LTD Lower pole: PSV not seen LTD Left Renal Artery: Origin: PSV not seen LTD Proximal: PSV not seen LTD Mid: PSV not seen LTD Distal: PSV not seen LTD IMPRESSION: 1. No evidence of right renal artery stenosis. 2. Left kidney largely obscured, with insufficient visualization of renal artery. CRITERIA FOR CLASSIFICATION OF RENAL ARTERY (RA) DISEASE BY DUPLEX SCANNING: RA Diameter Reduction/ RA PSV/ RAR: Normal, < 180 cm/sec, < 3.5 < 60%, >= 180 cm/sec, < 3.5 >= 60%, >= 180 cm/sec, >= 3.5 Total Occlusion: Undetectable; Not applicable RADIA
[2018-01-07] MEDS: SODIUM CHLORIDE FLUSH 0.9% 10 ML SYRINGE IVP SCH ×4 (00:15→19:43)
[2018-01-07] MEDS: SODIUM CHLORIDE 0.9% 1,000 ML IV SCH (00:15)
[2018-01-07 05:22] LABS: BASOPHILS # (AUTO) 0.1 10^3/uL (0.0-0.1); BASOPHILS % (AUTO) 1.4 %; EOSINOPHILS % (AUTO) 14.2 %; HGB - HEMOGLOBIN 7.8 g/dL (12.0-16.0); LYMPHOCYTES # (AUTO) 1.4 10^3/uL (1.5-3.5); LYMPHOCYTES % (AUTO) 19.8 %; MEAN CORPUSCULAR HEMOGLOBIN 31.8 pg (27.0-31.0); MEAN CORPUSCULAR HGB CONC 33.2 g/dL (32.0-36.0); MEAN CORPUSCULAR VOLUME 95.7 fL (81.0-99.0); MONOCYTES # (AUTO) 0.9 10^3/uL (0.0-1.0); MONOCYTES % (AUTO) 12.7 %; NEUTROPHILS # (AUTO) 3.6 10^3/uL (1.5-6.6); NEUTROPHILS % (AUTO) 51.9 %; PLT - PLATELET COUNT 191 10^3/uL (130-450); RED BLOOD COUNT 2.46 10^6/uL (4.20-5.40); RED CELL DISTRIBUTION WIDTH 13.6 % (12.0-15.0)
[2018-01-07 05:37] LABS: % IRON SATURATION 27 % (20-50); IRON 58 ug/dL (28-170); TOTAL IRON BINDING CAPACITY 213 ug/dL (250-450); TRANSFERRIN 152 mg/dL (192-382)
[2018-01-07] MEDS: LEVOTHYROXINE 112 MCG TABLET PO SCH (06:34)
[2018-01-07] MEDS: ACETAMINOPHEN 325 MG TABLET PO PRN ×3 (06:34→16:34)
[2018-01-07] MEDS ORDERED: INSULIN GLARGINE 300 UNIT/3 ML PEN SUBQ SCH (06:58)
[2018-01-07] MEDS: INSULIN ASPART 300 UNIT/3 ML PEN SUBQ SCH ×5 (08:00→20:09)
[2018-01-07] MEDS: amLODIPine 5 MG TABLET PO SCH (08:25)
[2018-01-07] MEDS: CHOLECALCIFEROL 1,000 UNIT TABLET PO SCH (08:25)
[2018-01-07] MEDS: MULTIVITAMIN TABLET PO SCH (08:25)
[2018-01-07] MEDS: FAMOTIDINE 20 MG TABLET PO SCH (08:26)
[2018-01-07] MEDS: CALCIUM CARB (OYSTER SHELL) 500 MG TABLET PO SCH ×2 (08:26→20:10)
[2018-01-07] MEDS: METOPROLOL TARTRATE 25 MG TABLET PO SCH ×2 (08:26→20:10)
[2018-01-07] MEDS: INSULIN GLARGINE 300 UNIT/3 ML PEN SUBQ SCH (09:09)
[2018-01-07] MEDS: cefTRIAXone 1 GM in SODIUM CHLORIDE 0.9% MINIBAG 100 ML IV SCH (11:22)
--- NOTE | 2018-01-07 16:27 | PROVIDER PROGRESS NOTE ---
Assessment/Plan - Problem List (1) Dementia Assessment/Plan: This was the impression of the Palliative documentum consultant yesterday. The patient vacillates in her decisions. She also does not have ability to "work through a problem" such as how to lock 4 doors so her won't wander, since she can't even walk across the room, which was posed to her by social Work. The caregiver Kait has called and is hiring guard lieutenant caregivers and will be able to bring patient home at time of [facility]. Poss [facility] tomorrow. (2) Diabetes 1.5, managed as type 1 Assessment/Plan: Still had a very low glu of 35 this am. Continue to adjust Insulin doses per monitoring. (3) Acute on chronic renal failure Qualifiers: Chronic kidney disease stage: stage 4 (severe) Assessment/Plan: No change in creat after 100 cc/hr fluids for 24 hours. No evidence of renal artery stenosis. Will stop iv fluids. Monitor creat and BMP daily. (4) Weakness Assessment/Plan: Slight motor improvement per [place]. She will need either [facility] to a SNF or Home Health PT. (5) Fall Qualifiers: Encounter type: subsequent encounter Qualified Code(s): W19.XXXD - Unspecified fall, subsequent encounter Assessment/Plan: The R arm, which was was sutured, is bandaged, which does not need dressing changes, until stitches to be reoved after 1 week. (6) UTI (urinary tract infection) Qualifiers: Urinary tract infection type: acute pyelonephritis Qualified Code(s): N10 - Acute pyelonephritis Assessment/Plan: Continue iv antibiotics til transfer to orals at [facility]. (7) Anemia Qualifiers: Anemia type: due to chronic kidney disease Assessment/Plan: Pt now on Iron replacement. (8) DKA (diabetic ketoacidoses) Assessment/Plan: Resolved (9) Hyperkalemia Assessment/Plan: Resolved. (10) Hypertension Assessment/Plan: Stable on present meds. - Current Meds Current Meds: Current Medications Generic Name Dose Route Start Last Admin Trade Name Freq PRN Reason Stop Dose Admin Acetaminophen 650 mg 01/04/18 12:31 01/07/18 10:17 Tylenol PO 650 mg Q4HR PRN Administration Pain or Fever > 38C (100.4F) Amlodipine Besylate 10 mg 01/05/18 09:00 01/07/18 08:25 Norvasc PO 10 mg DAILY MOOKIE Administration Calcium Carbonate/Glycine 500 mg 01/04/18 21:00 01/07/18 08:26 Oysco-500 PO 500 mg BID MOOKIE Administration Cholecalciferol 2,000 unit 01/05/18 09:00 01/07/18 08:25 Vitamin D3 PO 2,000 unit DAILY MOOKIE Administration Famotidine 20 mg 01/05/18 09:00 01/07/18 08:26 Pepcid PO 20 mg DAILY MOOKIE Administration Ceftriaxone Sodium 1 gm/ 100 mls @ 200 mls/hr 01/06/18 12:00 01/07/18 12:05 Sodium Chloride IV Infused Q24H [facility] Infusion Insulin Aspart 1 - 9 unit 01/07/18 08:00 01/07/18 11:42 Novolog SUBQ 1 unit 0800,1200,1700,2100 [facility] Administration Protocol Levothyroxine Sodium 112 mcg 01/05/18 07:00 01/07/18 06:34 Synthroid PO 112 mcg QDAC MOOKIE Administration Metoprolol Tartrate 25 mg 01/04/18 21:00 01/07/18 08:26 Lopressor PO 25 mg BID MOOKIE Administration Multivitamins 1 tab 01/05/18 09:00 01/07/18 08:25 Theragran PO 1 tab DAILY MOOKIE Administration Ondansetron HCl 4 mg 01/04/18 12:31 01/05/18 06:26 Zofran Inj IVP 4 mg Q6HR PRN Administration Nausea / Vomiting Sodium Chloride 10 ml 01/04/18 17:00 01/07/18 10:20 Normal Saline Flush 0.9% IVP 10 ml 0100,0900,1700 MOOKIE Administration - Lab Result Fish Bone Diagrams: 01/07/18 04:40 01/06/18 04:15 - Additional Planning My Orders: My Active Orders 01/06/18 18:05 Code Status [OTHERS] Routine 01/08/18 05:00 CBC - COMP BLD CT W/AUTO DIFF [HEME] DAILYLAB Subjective - Subjective Patient Reports: Feeling Better, Resting Comfortably Objective Vital Signs: Vital Signs - 24 hr 01/06/18 01/06/18 01/06/18 17:00 18:00 19:00 Temperature Heart Rate [ 84 84 79 Monitoring electrodes] Heart Rate [ Supine] Respiratory 23 16 17 Rate Blood Pressure Blood Pressure 163/73 H 159/87 H 162/99 H [Left Brachial artery] Blood Pressure [Supine] O2 Saturation 98 01/06/18 01/06/18 01/06/18 19:58 21:00 21:36 Temperature 36.3 C L Heart Rate [ 71 74 Monitoring electrodes] Heart Rate [ Supine] Respiratory 18 19 Rate Blood Pressure 170/57 H Blood Pressure 150/85 H 170/57 H [Left Brachial artery] Blood Pressure [Supine] O2 Saturation 98 98 01/06/18 01/06/18 01/07/18 22:00 23:00 00:00 Temperature 36.2 C L Heart Rate [ 72 73 85 Monitoring electrodes] Heart Rate [ Supine] Respiratory 19 13 16 Rate Blood Pressure Blood Pressure 153/70 H 145/58 H 145/70 H [Left Brachial artery] Blood Pressure [Supine] O2 Saturation 97 98 95 01/07/18 01/07/18 01/07/18 01:00 02:00 03:00 Temperature 36.3 C L Heart Rate [ 81 81 74 Monitoring electrodes] Heart Rate [ Supine] Respiratory 21 17 12 Rate Blood Pressure Blood Pressure 158/66 H 146/75 H 157/77 H [Left Brachial artery] Blood Pressure [Supine] O2 Saturation 98 97 01/07/18 01/07/18 01/07/18 04:00 05:00 06:00 Temperature 36.3 C L Heart Rate [ 65 66 76 Monitoring electrodes] Heart Rate [ Supine] Respiratory 13 13 14 Rate Blood Pressure Blood Pressure 141/65 H 160/66 H 151/62 H [Left Brachial artery] Blood Pressure [Supine] O2 Saturation 98 98 97 01/07/18 01/07/18 01/07/18 07:00 08:00 08:26 Temperature 36.4 C L Heart Rate [ 68 79 Monitoring electrodes] Heart Rate [ Supine] Respiratory 14 18 Rate Blood Pressure 156/77 H Blood Pressure 147/90 H 156/77 H [Left Brachial artery] Blood Pressure [Supine] O2 Saturation 01/07/18 01/07/18 01/07/18 09:00 10:00 11:04 Temperature Heart Rate [ 65 64 Monitoring electrodes] Heart Rate [ 78 Supine] Respiratory 18 16 Rate Blood Pressure Blood Pressure 146/85 H 165/75 H [Left Brachial artery] Blood Pressure 145/66 H [Supine] O2 Saturation 01/07/18 01/07/18 01/07/18 11:48 13:00 16:00 Temperature 36.4 C L Heart Rate [ 75 88 71 Monitoring electrodes] Heart Rate [ Supine] Respiratory 16 14 19 Rate Blood Pressure Blood Pressure 132/89 H 170/99 H 174/69 H [Left Brachial artery] Blood Pressure [Supine] O2 Saturation Oxygen O2 Source [Without Activity] Room air O2 Source Room air I&O (Last 24 Hrs): Intake and Output Totals x24h 01/05/18 01/06/18 01/07/18 23:59 23:59 23:59 Intake Total 3391.666 4773.333 3540 Output Total 3600 3450 850 Balance -102.636 0323.333 2690 General: Alert HEENT: Mucous membr. moist/pink Neck: Supple Cardiovascular: Regular rate, No murmurs Respiratory: No respiratory distress, Breath sounds nml Abdomen: Soft Extremities: No edema - Results Results: Laboratory Results WBC 7.0 x10^3/uL (4.8-10.8) 01/07/18 04:40 RBC 2.46 10^6/uL (4.20-5.40) L 01/07/18 04:40 Hgb 7.8 g/dL (12.0-16.0) L 01/07/18 04:40 Hct 23.5 % (37.0-47.0) L 01/07/18 04:40 MCV 95.7 fL (81.0-99.0) 01/07/18 04:40 MCH 31.8 pg (27.0-31.0) H 01/07/18 04:40 MCHC 33.2 g/dL (32.0-36.0) 01/07/18 04:40 RDW 13.6 % (12.0-15.0) 01/07/18 04:40 Plt Count 191 10^3/uL (130-450) 01/07/18 04:40 MPV 9.0 fL (7.9-10.8) 01/07/18 04:40 Neut # (Auto) 3.6 10^3/uL (1.5-6.6) 01/07/18 04:40 Lymph # (Auto) 1.4 10^3/uL (1.5-3.5) L 01/07/18 04:40 [place] # (Auto) 0.9 10^3/uL (0.0-1.0) 01/07/18 04:40 Eos # (Auto) 1.0 10^3/uL (0.0-0.7) H 01/07/18 04:40 Baso # (Auto) 0.1 10^3/uL (0.0-0.1) 01/07/18 04:40 Absolute Nucleated RBC 0.00 x10^3/uL 01/07/18 04:40 Nucleated RBC % 0.1 /100WBC 01/07/18 04:40 VBG pH 7.334 (7.31-7.41) 01/05/18 10:06 VBG pCO2 36.9 mmHg (41-51) L 01/05/18 10:06 VBG pO2 53.1 mmHg (25-47) H 01/05/18 10:06 VBG HCO3 19.2 mmol/L (23-28) L 01/05/18 10:06 VBG Total CO2 20.3 mmol/L (24-29) L 01/05/18 10:06 VBG O2 Saturation 87.8 % (60-80) H 01/05/18 10:06 VBG Base Excess -6.1 mmol/L (-2 - +2) L 01/05/18 10:06 Sodium 135 mmol/L (135-145) 01/06/18 04:15 Potassium 3.6 mmol/L (3.5-5.0) 01/06/18 04:15 Chloride 101 mmol/L (101-111) 01/06/18 04:15 Carbon Dioxide 24 mmol/L (21-32) 01/06/18 04:15 Anion Gap 10.0 (6-13) 01/06/18 04:15 BUN 46 mg/dL (6-20) H 01/06/18 04:15 Creatinine 2.4 mg/dL (0.4-1.0) H 01/06/18 04:15 Estimated GFR (MDRD) 20 (>89) L 01/06/18 04:15 Glucose 43 mg/dL (70-100) L* 01/06/18 04:15 Glycated Hemoglobin 13.6 % (4.6-6.2) H 01/04/18 09:40 Estim Average Glucose 344 (70-100) H 01/04/18 09:40 Calcium 8.2 mg/dL (8.5-10.3) L 01/06/18 04:15 Phosphorus 3.5 mg/dL (2.5-4.6) 01/05/18 04:15 Magnesium 2.0 mg/dL (1.7-2.8) 01/06/18 04:15 Iron 58 ug/dL (28-170) 01/07/18 04:40 TIBC 213 ug/dL (250-450) L 01/07/18 04:40 % Saturation 27 % (20-50) 01/07/18 04:40 Transferrin 152 mg/dL (192-382) L 01/07/18 04:40 Total Bilirubin 0.7 mg/dL (0.2-1.0) 01/06/18 04:15 Direct Bilirubin 0.1 mg/dL (0.1-0.5) 01/06/18 04:15 AST 24 IU/L (10-42) 01/06/18 04:15 ALT 22 IU/L (10-60) 01/06/18 04:15 Alkaline Phosphatase 63 IU/L (42-121) 01/06/18 04:15 Troponin I < 0.04 ng/mL (<0.49) 01/04/18 14:58 Total Protein 5.9 g/dL (6.7-8.2) L 01/06/18 04:15 Albumin 3.2 g/dL (3.2-5.5) 01/06/18 04:15 Globulin 2.7 g/dL (2.1-4.2) 01/06/18 04:15 Albumin/Globulin Ratio 1.1 (1.0-2.2) 01/04/18 09:40 Triglycerides 123 mg/dL (-149) 01/05/18 04:15 Lipase 44 U/L (22-51) 01/04/18 09:40 Vitamin B12 716 pg/mL (180-914) 01/05/18 04:15 Folate 22.35 ng/mL (5.90 - >24.8) 01/05/18 04:15 Urine Color LT. YELLOW 01/04/18 10:30 Urine Clarity CLEAR (CLEAR) 01/04/18 10:30 Urine pH 5.5 PH (5.0-7.5) 01/04/18 10:30 Ur Specific Hope <=1.005 (1.002-1.030) 01/04/18 10:30 Urine Protein TRACE mg/dL (NEGATIVE) 01/04/18 10:30 Urine Glucose (UA) >=1000 mg/dL (NEGATIVE) H 01/04/18 10:30 Urine Ketones 15 mg/dL (NEGATIVE) H 01/04/18 10:30 Urine Occult Blood SMALL (NEGATIVE) H 01/04/18 10:30 Urine Nitrite NEGATIVE (NEGATIVE) 01/04/18 10:30 Urine Bilirubin NEGATIVE (NEGATIVE) 01/04/18 10:30 Urine Urobilinogen 0.2 (NORMAL) E.U./dL (NORMAL) 01/04/18 10:30 Ur Leukocyte Esterase NEGATIVE (NEGATIVE) 01/04/18 10:30 Urine RBC 0-5 /HPF (0-5) 01/04/18 10:30 Urine WBC 11-25 /HPF (0-5) H 01/04/18 10:30 Urine WBC Clumps PRESENT 01/04/18 10:30 Ur Squamous Epith Cells RARE Squamous (<= Few) 01/04/18 10:30 Urine Bacteria Moderate /HPF (None Seen) H 01/04/18 10:30 Ur Microscopic Review INDICATED 01/04/18 10:30 Urine Culture Comments INDICATED 01/04/18 10:30 Urine Opiates Screen NEGATIVE (NEGATIVE) 01/04/18 10:30 Ur Oxycodone Screen NEGATIVE (NEGATIVE) 01/04/18 10:30 Urine Methadone Screen NEGATIVE (NEGATIVE) 01/04/18 10:30 Ur Propoxyphene Screen NEGATIVE (NEGATIVE) 01/04/18 10:30 Ur Barbiturates Screen NEGATIVE (NEGATIVE) 01/04/18 10:30 Ur Tricyclics Screen NEGATIVE (NEGATIVE) 01/04/18 10:30 Ur Phencyclidine Scrn NEGATIVE (NEGATIVE) 01/04/18 10:30 Ur Amphetamine Screen NEGATIVE (NEGATIVE) 01/04/18 10:30 U Methamphetamines Scrn NEGATIVE (NEGATIVE) 01/04/18 10:30 U Benzodiazepines Scrn NEGATIVE (NEGATIVE) 01/04/18 10:30 Urine Cocaine Screen NEGATIVE (NEGATIVE) 01/04/18 10:30 U Cannabinoids Screen NEGATIVE (NEGATIVE) 01/04/18 10:30 Serum Ketones SMALL (NEGATIVE) H 01/05/18 10:06 Blood Type B POSITIVE 01/04/18 18:00 Antibody Screen NEGATIVE 01/04/18 18:00 - Procedures Procedures: Procedures INSERTION OF INFUSION DEV INTO L INNOM VEIN, PERC APPROACH (09/11/17) ABX Reporting Has patient been on IV antibiotics over the past 48 hours?: Yes
[2018-01-07] MEDS: FERROUS GLUCONATE 324 MG TABLET PO SCH (19:43)
[2018-01-08 05:52] LABS: BASOPHILS # (AUTO) 0.1 10^3/uL (0.0-0.1); BASOPHILS % (AUTO) 1.4 %; HGB - HEMOGLOBIN 8.2 g/dL (12.0-16.0); LYMPHOCYTES # (AUTO) 1.5 10^3/uL (1.5-3.5); LYMPHOCYTES % (AUTO) 22.8 %; MEAN CORPUSCULAR HEMOGLOBIN 32.1 pg (27.0-31.0); MEAN CORPUSCULAR HGB CONC 33.9 g/dL (32.0-36.0); MEAN CORPUSCULAR VOLUME 94.9 fL (81.0-99.0); MEAN PLATELET VOLUME 8.7 fL (7.9-10.8); MONOCYTES # (AUTO) 0.8 10^3/uL (0.0-1.0); MONOCYTES % (AUTO) 11.8 %; NEUTROPHILS # (AUTO) 3.1 10^3/uL (1.5-6.6); PLT - PLATELET COUNT 208 10^3/uL (130-450); RED BLOOD COUNT 2.57 10^6/uL (4.20-5.40); RED CELL DISTRIBUTION WIDTH 13.4 % (12.0-15.0); WHITE BLOOD COUNT 6.4 x10^3/uL (4.8-10.8)
[2018-01-08] MEDS: LEVOTHYROXINE 112 MCG TABLET PO SCH (06:27)
[2018-01-08] MEDS: ACETAMINOPHEN 325 MG TABLET PO PRN ×2 (06:56→10:23)
[2018-01-08] MEDS: INSULIN ASPART 300 UNIT/3 ML PEN SUBQ SCH ×2 (07:44→11:54)
[2018-01-08] MEDS: FAMOTIDINE 20 MG TABLET PO SCH (08:05)
[2018-01-08] MEDS: SODIUM CHLORIDE FLUSH 0.9% 10 ML SYRINGE IVP SCH (08:05)
[2018-01-08] MEDS: FERROUS GLUCONATE 324 MG TABLET PO SCH (08:05)
[2018-01-08] MEDS: MULTIVITAMIN TABLET PO SCH (08:05)
[2018-01-08] MEDS: CHOLECALCIFEROL 1,000 UNIT TABLET PO SCH (08:05)
[2018-01-08] MEDS: CALCIUM CARB (OYSTER SHELL) 500 MG TABLET PO SCH (08:05)
[2018-01-08] MEDS: amLODIPine 5 MG TABLET PO SCH (08:05)
[2018-01-08] MEDS: METOPROLOL TARTRATE 25 MG TABLET PO SCH (08:06)
--- NOTE | 2018-01-08 10:31 | Discharge Plan ---
Discharge Plan Disposition: Home, Self Care Condition: Stable Prescriptions: Ciprofloxacin/Ciprofloxa HCl [Ciprofloxacin ER 500 mg Tablet] 500 mg PO DAILY # 5 tbmp.24hr Compress.stocking,Knee,Reg,Lrg [Relief Knee Close Toe] 1 each MC DAILY #1 each Diet: Diabetic Activity Restrictions: Activity as Tolerated Shower Restrictions: No Driving Restrictions: Yes Assistance Devices: Walker Weight Bearing: Full Weight Instruction Topics: ED Laceration All Additional Instructions or Follow Up instructions: Home-Health visits have been ordered for you with Physical Therapy, Occupational Therapy and a applied behavior specialist. Resume all your pre-hospital medications. Continue to be careful with diabetic management. You can be seen here at the [facility] for Diabetic follow-up, especially since you were seen by the Certified Retail Support Specialist, Donna Philip RN while you were an inpatient. Take the antibiotics for the urinary tract infection, until the pills are done. Start wearing the compression stockings daily. Put them on in the morning and off at bedtime. Keep the bandaged arm dry, cover it with a plastic bag if you take a shower. Come back to the ER or see Dr Alcaraz, in 5-6 days, for removal of your sutures. See Dr Alcaraz in 5-10 days in follow-up, PLEASE. Please return to the emergency department for worsening symptoms or new concerns Follow-Up Care: Home Health - RN, Home Health - PT, Home Health - OT, [facility] - Diabetes Ed No Smoking: If you smoke, Please STOP! Call for help. Follow-up with: Oleksandr Alcaraz MD [Primary Care Provider] - Within 1 week (Have your sutures removed in 5-6 days)
[2018-01-08 11:31] VITALS: BP 183/66
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
== END 2018-01-08 12:26 | disposition home or self-care (01) | DRG 638 ==
LOC: EDUNIT# → ED 01:06 → SUPCPDRO 01:06 → ED 02:48 → ICU 11:41 → MS2 01-07 21:05
PROVIDERS: ADMIT Internal Medicine; ATTEND Internal Medicine
DX: E10.10 Type 1 diabetes mellitus with ketoacidosis without coma (principal); N17.9 Acute kidney failure, unspecified; N18.4 Chronic kidney disease, stage 4 (severe); N18.3 Chronic kidney disease, stage 3 (moderate); N10 Acute pyelonephritis; E10.9 Type 1 diabetes mellitus without complications; E86.0 Dehydration; D64.9 Anemia, unspecified; E87.2 Acidosis; R60.0 Localized edema; I12.9 Hypertensive chronic kidney disease with stage 1 through stage 4 chronic kidney disease, or unspecified chronic kidney disease; F03.90 Unspecified dementia, unspecified severity, without behavioral disturbance, psychotic disturbance, mood disturbance, and anxiety; E87.5 Hyperkalemia; R53.1 Weakness; D63.1 Anemia in chronic kidney disease; R52 Pain, unspecified; S51.811A Laceration without foreign body of right forearm, initial encounter; W18.30XA Fall on same level, unspecified, initial encounter
CPT/HCPCS: 36415; 80048; 80053; 80076; 80306; 81001; 81003; 82009; 82270; 82607; 82746; 82803; 82947; 83036; 83540; 83690; 83735; 84100; 84466; 84478; 84484; 85025; 86850; 86900; 86901; 87077; 87086; 87150; 87181; 93005; 93308; 93975; 96360; 99223; 99284; 99285

== ENCOUNTER 2018-03-07 03:56 | Outpatient (CLI) | payer MEDICARE, OTHER | END 2018-03-07 03:57 | disposition EMS.NT | LOC: EMS 03:56 | PROVIDERS: ATTEND Surgery | DX: R53.1 Weakness (principal); R73.09 Other abnormal glucose ==

== ENCOUNTER 2018-04-01 00:43 | Outpatient (CLI) | payer MEDICARE, OTHER | END 2018-04-01 00:44 | disposition EMS.NT | LOC: EMS 00:43 | PROVIDERS: ATTEND Surgery | DX: R53.1 Weakness (principal); R73.09 Other abnormal glucose ==

== ENCOUNTER 2018-04-08 16:34 | Outpatient (CLI) | payer MEDICARE, OTHER | END 2018-04-08 16:35 | disposition EMS.NT | LOC: EMS 16:34 | PROVIDERS: ATTEND Surgery | DX: R73.09 Other abnormal glucose (principal) ==

== ENCOUNTER 2018-04-09 16:25 | Outpatient (CLI) | payer MEDICARE, OTHER | END 2018-04-09 16:26 | disposition critical access hospital (66) | LOC: EMS 16:25 | PROVIDERS: ATTEND Surgery | DX: M25.552 Pain in left hip (principal); R09.89 Other specified symptoms and signs involving the circulatory and respiratory systems | CPT/HCPCS: A0425; A0427 ==

== ENCOUNTER 2018-04-09 16:35 | Inpatient (IN) | payer MEDICARE, OTHER ==
[2018-04-09] MEDS ORDERED: MORPHINE 2 MG/ML CARPUJECT IVP STA (16:45)
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
--- NOTE | 2018-04-09 17:20 | CT Report ---
Reason: head inj, altered Procedure Date: 04/09/2018 Accession Number: [id number] / [id number] Procedure: CT - Head W/O Stroke Protocol CPT Code: FULL RESULT: EXAM: CT HEAD EXAM DATE: 04/09/2018 05:03 PM. CLINICAL HISTORY: Head inj, altered. COMPARISON: 07/07/2017. TECHNIQUE: Multiaxial CT images were obtained from the foramen magnum to the vertex. Reformats: Sagittal and coronal. IV contrast: None. In accordance with CT protocol optimization, one or more of the following dose reduction techniques were utilized for this exam: automated exposure control, adjustment of mA and/or KV based on patient size, or use of iterative reconstructive technique. FINDINGS: Brain and ventricles: No parenchymal hemorrhage. No extra-axial collection. Brunson-white matter differentiation is preserved without evidence of acute territorial infarct. No mass. Moderate to marked lateral and third is unchanged. Right frontal approach THRILL PERFORMER shunt catheter terminates near the left foramen of Briggs, as before. Mild hypoattenuation along the course of the shunt in the right frontal lobe is unchanged. Sinuses and Orbits: Imaged paranasal sinuses, orbits, and mastoids show no significant abnormality. Bones: No evidence of fracture or calvarial defect. Other: None. IMPRESSION: 1. No acute intracranial abnormality or significant change. 2. Unchanged ventriculomegaly and THRILL PERFORMER shunt catheter position. [facility] The call report notification system was initiated by Dr. Raymundo Fajardo at 17:15 hrs on 04/09/18. The above findings were discussed with Korey Barnett by Dr. Raymundo Fajardo at 17:18 hrs on 04/09/18.
[2018-04-09 17:47] LABS: BASOPHILS # (AUTO) 0.1 10^3/uL (0.0-0.1); BASOPHILS % (AUTO) 0.6 %; EOSINOPHILS # (AUTO) 0.2 10^3/uL (0.0-0.7); EOSINOPHILS % (AUTO) 2.1 %; HGB - HEMOGLOBIN 10.1 g/dL (12.0-16.0); LYMPHOCYTES % (AUTO) 10.5 %; MEAN CORPUSCULAR HEMOGLOBIN 32.4 pg (27.0-31.0); MEAN CORPUSCULAR HGB CONC 33.5 g/dL (32.0-36.0); MEAN CORPUSCULAR VOLUME 96.8 fL (81.0-99.0); MONOCYTES # (AUTO) 0.8 10^3/uL (0.0-1.0); MONOCYTES % (AUTO) 8.8 %; NEUTROPHILS # (AUTO) 7.6 10^3/uL (1.5-6.6); PLT - PLATELET COUNT 262 10^3/uL (130-450); RED CELL DISTRIBUTION WIDTH 13.1 % (12.0-15.0); WHITE BLOOD COUNT 9.7 x10^3/uL (4.8-10.8)
[2018-04-09 17:53] LABS: INR 1.1 (0.8-1.2); PT - PROTHROMBIN TIME 12.4 secs (9.9-12.6)
[2018-04-09 17:55] LABS: KETONES, SERUM (ACETEST) NEGATIVE (NEGATIVE)
--- NOTE | 2018-04-09 17:56 | XRAY Report ---
Reason: Bilateral Hip Pain Procedure Date: 04/09/2018 Accession Number: [id number] / [id number] Procedure: XR - Hips 2V BILAT CPT Code: FULL RESULT: EXAM: BILATERAL HIP RADIOGRAPHY EXAM DATE: 04/09/2018 05:33 PM. CLINICAL HISTORY: Bilateral Hip Pain. COMPARISON: HIP 1 VIEW RT 01/05/2018 3:42 PM. TECHNIQUE: 3 views. FINDINGS: Bones: No fracture or focal bony lesion. Joints: No evidence of dislocation. Soft Tissues: There is a catheter looped within the pelvis. IMPRESSION: 1. No radiographic evidence of fracture or dislocation. Plain film can be insensitive for detection of hip fracture in elderly patients. If there is concern for occult proximal femur fracture, MRI could be used for further evaluation. 2. There is a catheter projecting over the pelvis. RAD[facility]
--- NOTE | 2018-04-09 17:56 | XRAY Report ---
Reason: chest pain Procedure Date: 04/09/2018 Accession Number: [id number] / [id number] Procedure: XR - Chest 1 View X-Ray CPT Code: 78607 FULL RESULT: EXAM: CHEST RADIOGRAPHY EXAM DATE: 04/09/2018 05:33 PM. CLINICAL HISTORY: Chest pain. COMPARISON: CHEST 1 VIEW 09/11/2017 11:03 AM. TECHNIQUE: 1 view. FINDINGS: Lungs/Pleura: No focal opacities evident. No pleural effusion. No pneumothorax. Mediastinum: There is mild cardiomegaly. Other: There are rolly projecting over the left chest. IMPRESSION: No acute intrathoracic plain film abnormality. RADIA
[2018-04-09 17:57] LABS: ACETAMINOPHEN < 10 ug/mL (10-30); ALBUMIN 4.4 g/dL (3.2-5.5); ALBUMIN/GLOBULIN RATIO 1.4 (1.0-2.2); ALKALINE PHOSPHATASE 71 IU/L (42-121); ALT ALANINE AMINOTRANSFERASE 82 IU/L (10-60); AST ASPARTATE AMINOTRANSFERASE 114 IU/L (10-42); BILIRUBIN,TOTAL 0.8 mg/dL (0.2-1.0); BUN - BLOOD UREA NITROGEN 47 mg/dL (6-20); CALCIUM 9.2 mg/dL (8.5-10.3); CARBON DIOXIDE - CO2 24 mmol/L (21-32); CHLORIDE 101 mmol/L (101-111); CREATININE 2.5 mg/dL (0.4-1.0); GFR - MDRD 19 (>89); GLUCOSE 62 mg/dL (70-100); LIPASE 38 U/L (22-51); SALICYLATE < 6.0 mg/dL; SODIUM 137 mmol/L (135-145); TOTAL PROTEIN 7.6 g/dL (6.7-8.2)
--- NOTE | 2018-04-09 17:59 | CT Report ---
Reason: head inj, altered Procedure Date: 04/09/2018 Accession Number: [id number] / [id number] Procedure: CT - Cervical Spine W/O CPT Code: FULL RESULT: EXAM: CT CERVICAL SPINE WITHOUT CONTRAST DATE: 04/09/2018 05:10 PM. HISTORY: Head injury, altered. COMPARISONS: None. TECHNIQUE: Thin-section axial images were acquired of the cervical spine without contrast. Post-processing: Coronal and sagittal reformats. Other: None. In accordance with CT protocol optimization, one or more of the following dose reduction techniques were utilized for this exam: automated exposure control, adjustment of mA and/or KV based on patient size, or use of iterative reconstructive technique. FINDINGS: Alignment: No scoliosis or spondylolisthesis. Bones: Incomplete fusion of the posterior arch of C1, an anatomic variant. Interspace Levels/Facets: C1-C2: Unremarkable. C2-C3: Unremarkable. C3-C4: Facet hypertrophy with posterior osteophytes without significant stenosis. C4-C5: Facet hypertrophy with small broad-based annular bulge without significant stenosis. C5-C6: Disk space narrowing with anterior and posterior osteophytes without significant stenosis. C6-C7: Facet hypertrophy with minimal posterior osteophytes with some calcification along the posterior margin of the thecal sac. C7-T1: Facet hypertrophy without significant stenosis. Other: Atherosclerotic calcification. Catheter tubing along the right subcutaneous tissues. IMPRESSION: Multilevel degenerative disk disease without evidence of cervical spine fracture. RADIA
[2018-04-09 18:15] LABS: VBG PCO2 48.4 mmHg (41-51); VBG PH 7.316 (7.31-7.41); VBG PO2 33.6 mmHg (25-47); VBG TOTAL CO2 25.6 mmol/L (24-29)
[2018-04-09 18:16] LABS: VBG BASE EXCESS -2.2 mmol/L (-2 - +2)
[2018-04-09 18:18] LABS: BILIRUBIN,URINE NEGATIVE (NEGATIVE); GLUCOSE, URINE (UA) NEGATIVE (NEGATIVE); KETONES,URINE (UA) NEGATIVE (NEGATIVE); LEUKOCYTE ESTERASE, URINE LARGE (NEGATIVE); NITRITE,URINE NEGATIVE (NEGATIVE); OCCULT BLOOD,URINE LARGE (NEGATIVE); PROTEIN,URINE 100 mg/dL (NEGATIVE); UROBILINOGEN,URINE 0.2 (NORMAL) E.U./dL (NORMAL)
[2018-04-09 18:19] LABS: CLARITY,URINE CLOUDY (CLEAR)
[2018-04-09 18:20] LABS: BACTERIA,URINE Many /HPF (None Seen); SQUAMOUS EPITHELIAL CELL,UR FEW Squamous (<= Few)
[2018-04-09] MEDS ORDERED: cefTRIAXone 1 GM in SODIUM CHLORIDE 0.9% MINIBAG 100 ML IV STA (18:22)
[2018-04-09] MEDS ORDERED: SODIUM CHLORIDE 0.9% 1,000 ML IV SCH (19:00)
[2018-04-09 19:15] LABS: HB2 TOTAL 10.7 g/dL; HEMOGLOBIN A1C 0.66 g/dL; HEMOGLOBIN A1C % 7.8 % (4.6-6.2)
[2018-04-09] MEDS ORDERED: DEXTROSE 50% ABBOJECT 25 GM/50 ML SYRINGE ONE (19:48)
[2018-04-09] MEDS: DEXTROSE 50% ABBOJECT 25 GM/50 ML SYRINGE IVP ONE ×2 (19:52)
[2018-04-09] MEDS: HEPARIN 5,000 UNIT/ML VIAL SUBQ SCH (20:36)
[2018-04-09] MEDS: ACETAMINOPHEN 325 MG TABLET PO PRN (20:36)
[2018-04-09] MEDS: FAMOTIDINE 20 MG TABLET PO SCH (20:36)
[2018-04-09] MEDS: SODIUM CHLORIDE FLUSH 0.9% 10 ML SYRINGE IVP PRN (20:37)
[2018-04-09] MEDS: INSULIN ASPART 300 UNIT/3 ML PEN SUBQ SCH (20:37)
--- NOTE | 2018-04-09 21:25 | HISTORY & PHYSICAL EXAMINATION ---
Chief Complaint - Chief Complaint Chief Complaint: Confusion in a patient who was found down at home History of Present Illness - Admitted From Admitted From:: Home/ER - History Obtained From Records Reviewed: [facility] History obtained from: Dr. Castellon and patient who does not remember anything Exam Limitations: Patient's memory - History of Present Illness HPI Comment/Other: She is an elderly lady with a tenuous home situation. She lives with a wandering elderly demented . They have a care provider who comes between 10 and 2 almost every day. She is the primary caregiver, her name is Kait. After that, another caregiver it sometimes comes around 4 in the afternoon. She has brittle diabetes and has had several episodes of hypoglycemia with EMS called to the home. Or falls with EMS called to pick she or her up. She is also followed by home health. She is not compliant with her diabetic ma nagement. She has cognitive issues, and between that and her having dementia it is a tenuous situation at home with quite a bit of support trying to keep them there. The group consensus within home health nursing and physical therapy is that the 2 of them need 24/7 caregiving. There is concerns that the caregiver may not be able to provide the hourly care that these people need. And the caregiver also has the patient's credit card. She does have a niece, Umang, who is power of deputy commonwealth's attorney. I did attempt to call her tonight but there is no answer and I have left a message for her to call. There has been a APS referral. Tonight, she was found bent over on the floor and unresponsive. CPR was started but no pulse was checked. She regained consciousness. The patient's only comp laint is of terrible hip pain. She does not know why it hurts so badly. She had does have a history of falls, and reports that she always hurts. With her last December 2017 admission she had had a fall requiring sutures. Diabetes was up and down with his control. The patient's impulsiveness and dementia were noted and brought to the forefront as 1 of her main problems. The patient feels that her hip hurts from that admission. In the emergency room she is confused, but cooperative. Hip fracture was not seen on plain film. Head CT was negative other than for ventriculomegaly and a DIRECTOR OF [employer]OM[employer] shunt in position. Chest x-ray did not show pneumonia. And cervical spine CT had multilevel degenerative disc disease without evidence of cervical spine fracture. Her glucose was 62 in the emergency room. Upon transfer from the ED to [facility], the ER nurse noted that her glucose was 20 and I ordered half an amp of D50. Her creatinine is usually about 2 she is 2.5 today. At discharge from her previous hospitalization December she was 2.4. The last time her creatinine was less than 2 consistently was 2015. She also has a urinary tract infection with large amount of occult blood, large leukocyte Estrace, 6-10 red cells, greater than 25 white cells, few squamous cells. Culture is pending. History - Past Medical History Cardiovascular: reports: Hypertension Respiratory: reports: Asthma Neuro: reports: Dementia, Other (DIRECTOR OF [employer]OM[employer] shunt in place. Unknown why. Does she have normal pressure hydrocephalus) Endocrine/Autoimmune: reports: Type 1 diabetes GI: reports: None LINE SUPPLY: reports: Other () : reports: Incontinence, Renal insuffiency HEENT: reports: Chronic vision loss Psych: reports: Anxiety Musculoskeletal: reports: Fatigue Derm: reports: Other MRSA Hx?: No - Past Surgical History General: reports: Appendectomy Neuro: reports: DIRECTOR [employer] shunt Derm: reports: Skin grafts - Family & Social History Family History: Mother: , Father: , Brother: Alive and Well, CAD, Other family: Diabetes, Type 1 (Great-grandfather) Social History Notes: The patient lives in [place] with her . She states that she takes care of her who has severe Alzheimer's. They do have a caregiver who comes in a few hours a day. They have been for 49 years they do not have any children. They have been living on [facility] for the last 16 years. Prior to that they are from [place]. 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 She does not smoke cigarettes. She occasionally drinks wine and denies any illicit drug use.When I first asked her where she was from she said "I am from my mother's womb". - Substance History Use: Uses substance without health or social issues: Alcohol (hx not current per CG/hides it) - POLST Patient has POLST: No POLST Status: She does have an advanced directive where if if she is in a coma, or has no reasonable expectation of survivability to be DO NOT RESUSCITATE Meds/Allgy - Home Medications Home Medications: Ambulatory Orders Medication Instructions Recorded Confirmed Insulin Glargine [Lantus Solostar] 10 units SUBQ QPM 12/28/16 01/04/18 Insulin Lispro [Humalog] 2 - 6 units SUBQ TIDWM 12/28/16 01/04/18 Levothyroxine Sodium [Levoxyl] 112 mcg PO QDAC 12/28/16 01/04/18 Metoprolol Tartrate 25 mg PO BID 09/12/17 01/04/18 Calcium Carbonate/Vitamin D3 1 each PO BID 09/13/17 01/04/18 [Calcium 600-Vit D3 400 Tablet] Cholecalciferol (Vitamin D3) 2,000 unit PO DAILY 09/13/17 01/04/18 [Vitamin D3] Multivitamin [Theragran] 1 tab PO DAILY 09/13/17 01/04/18 Amlodipine Besylate 10 mg PO DAILY 01/04/18 01/04/18 Ciprofloxacin/Ciprofloxa HCl 500 mg PO DAILY #5 tbmp.24hr 01/08/18 [Ciprofloxacin ER 500 mg Tablet] Compress.stocking,Knee,Reg,Lrg 1 each MC DAILY #1 each 01/08/18 [Relief Knee Close Toe] - Allergies Allergies/Adverse Reactions: Allergies Allergy/AdvReac Type Severity Reaction Status Date / Time lindsay Allergy Unknown Verified 01/04/18 01:31 oxycodone Allergy Unknown Verified 01/04/18 01:31 codeine AdvReac Intermediate Dizziness Verified 01/04/18 01:31 Review of Systems - Constitutional Constitutional: denies: Fatigue, Fever, Chills, Malaise, Weakness - Eyes Eyes: denies: Amaurosis, Blurred vision, Field loss - Ears, Nose & Throat Ears, Nose & Throat: reports: Hearing loss, Postnasal drainage. denies: Tinnitus, Nasal obstruction, Nasal congestion, Sore throat, Hoarseness - Cardiovascular Cariovascular: denies: Irregular heart rate, Palpitations, Chest pain, Edema, Orthopnea - Respiratory Respiratory: reports: Cough (Sometimes and not different than usual). denies: Hemoptysis, Orthopnea - Gastrointestinal Gastrointestinal: denies: Abdominal pain, Abdominal distention - Genitourinary Genitourinary: reports: Frequency, Urgency, Incontinence - Musculoskeletal Musculoskeletal: reports: Muscle pain, Back pain, Joint pain (Especially the right hip and right shoulder), Other (Musculoskeletal pain and joint pain is her main complaint is I try to speak to her) - Integumentary Integumentary: denies: Rash, Pruritis, Pigment changes - Neurological Neurological: reports: General weakness, Headache, Memory problems. denies: Focal weakness - Psychiatric Psychiatric: reports: Anxiety. denies: Depression, Suicidal - Endocrine Endocrine: denies: Polyuria, Polydypsia - Hematologic/Lymphatic Hematologic/Lymphatic: denies: Anemia, Bruising - Other Findings Other Findings: Review of systems difficult to obtain. This patient is a very tangential speaker. I do not know if I can trust her answers. Care provider has already left for the evening.In reading the home health notes, she was discharged in December to finish antibiotic therapy. When home health came to visit the patient, the written prescription was still sitting on the table. Patient had not taken her pills. Caregiver had not gotten the prescription filled. She is supposed to be wearing JANINA hose because of edema and venous stasis, but the patient cannot get them on because of her stiffness and hip pain. The care provider gave her also was not able to get the stockings on. There was swelling smelling linens, garbage with small diapers, a full commode of urine and stool, use syringes with needles doing about the house on the floor and on counters. Patient refused that the RN organize her medications. When she was discharged from home health, poor progress was made with regards to compliance, or physical therapy Prior Level of Functionality: Lives in a two-story home with a paid caregiver 6 days a week for 4 hours a day. She has peripheral neuropathy and lower extremity weakness and that is very taxing for her to ambulate more than 10 feet. Noncompliant with use of durable medical equipment. Noncompliant with checking her sugars. She will gas and gi ve herself insulin. Physical therapy made little progress as the patient is noncompliant. The patient will have poor hygiene. Dirty linens and 30 closed will be found throughout the house. It is not clear if she is getting her bath on a daily basis. She requires quite a bit of help with dressing, getting food ready. This patient is still paying bills, writing out checks in spite of her memory problems Exam - Vital Signs Reviewed Vital Signs: Yes Vital Signs: Vital Signs x48h Temp Pulse Pulse Resp BP BP Pulse Ox 04/09/18 20:31 36.0 C L 78 18 164/75 H 98 04/09/18 19:37 89 15 140/61 H 98 04/09/18 17:40 70 15 151/69 H 99 04/09/18 16:36 36.8 C 107 H 18 153/133 H 100 - Physical Exam General Appearance: positive: Alert, Moderate distress, Other (Her distress came from hip pain. She kept on grimacing that it hurt. She could not get comfortable and said that her pain was 49 out of 10) Eyes Bilateral: positive: PERRL ENT: positive: Pharynx nml Neck: positive: No JVD. negative: Stiff neck, Carotid bruit, Swelling/bruising Respiratory: positive: Chest non-tender. negative: Wheezes, Rales, Rhonchi Cardiovascular: positive: Regular rate & rhythm, Systolic murmur. negative: Gallop/S4, Friction rub Peripheral Pulses: positive: 1+ Abdomen: positive: Non-tender, No organomegaly, Nml bowel sounds, No distention Skin: positive: Warm, Dry, Other (Resolving burn lesions. Apparently she had third-degree diez requiring wound care and skin grafts earlier this year because of a fall.) Extremities: positive: Full ROM (She is spontaneously flexing and extending her hips, knees an effort to get comfortable.), Pedal edema (With chronic venous stasis changes) Conclusion/Plan - Problem List (1) Metabolic encephalopathy Conclusion/Plan: From multiple causes. This woman has brittle diabetes and was hypoglycemic, has a UTI, has dementia with a DIRECTOR OF [employer]OM[employer] shunt in place. Plan: Place in observation status Treat identifiable causes for UTI and hypoglycemia (2) UTI (urinary tract infection) Conclusion/Plan: Previous urinary cultures in December 2016 (twice) and December 2017 grew out E. coli. Resistant to ampicillin, PIP her son, tetracycline, and Bactrim. She was given ceftriaxone. She was sensitive to that. Plan: Transition to oral medications as soon as identification of urine bacteria occurs Qualifiers: Urinary tract infection type: acute cystitis Hematuria presence: without hematuria Qualified Code(s): N30.00 - Acute cystitis without hematuria (3) Diabetes, type 1.5, uncontrolled, managed as type 1 Conclusion/Plan: Unfortunately this patient is noncompliant due to memory loss, senescence. At risk for accidentally harming herself. Hypoglycemic in the outpatient setting several times requiring intervention. Today found altered and unconscious. Hypoglycemic again in the ER and on transfer to [facility]. Plan: Monitor glucose carefully. Strict diabetic diet AC insulin, short acting, at this time (4) Joint pain Conclusion/Plan: While we are focused on her encephalopathy, hypoglycemia, she is most concerned about her pain. As far she is concerned she does not remember anything that led to the events that brought her here. Her main concern is hip pain, shoulder pain. She is allergic to oxycodone and codeine. Tylenol is not cutting the pain. I cannot give her nonsteroidals because of her chronic kidney disease. Plan: Will give low-dose tramadol. (5) CKD (chronic kidney disease), stage IV Conclusion/Plan: Her creatinine has been gradually rising on a steady basis since October 2015. Sometimes it is acute and in relation to fluid status. But I think this patient is suffering the consequences of uncontrolled diabetes. Plan: Low rate of IV fluids for hydration. Recheck BMP in the morning. (6) Anemia in chronic kidney disease Conclusion/Plan: Stable hemoglobin. Intermittently iron deficient but currently not. Laboratory Tests 12/02/16 07/12/17 09/11/17 08:45 13:59 08:17 Ferritin 454.8 H Iron Transferrin Vitamin B12 TSH 3.52 PTH Intact 52 01/05/18 01/07/18 04:15 04:40 Ferritin Iron 58 Transferrin 152 L Vitamin B12 716 TSH PTH Intact Qualifiers: Chronic kidney disease stage: stage 4 (severe) Qualified Code(s): N18.4 - C hronic kidney disease, stage 4 (severe); D63.1 - Anemia in chronic kidney disease (7) At risk for accident in home Conclusion/Plan: In reading her previous admissions, there has been multiples full social work interventions. Home health has been there and has now made an APS referral. There is mention of 2 care providers. I have attempted to contact her niece, left message for her to call us. While this woman is clearly impaired and has cognitive decline, there is been no declaration of incompetence for power of deputy commonwealth's attorney to be invoked. I will have social work continue the process of investigation. - Lab Results Fish Bones: 04/09/18 17:35 04/09/18 17:35 Core Measures - Anticipated LOS I expect patient to be DC'd or transferred within 96 hours.: Yes - DVT/VTE - Prophylaxis VTE/DVT Device ordered at admit?: Yes
[2018-04-09] MEDS: METOPROLOL TARTRATE 25 MG TABLET PO SCH (21:34)
[2018-04-09] MEDS: traMADol 50 MG TABLET PO PRN (22:08)
[2018-04-09] MEDS ORDERED: D5NS W/20 MEQ KCL 1,000 ML IV SCH (23:00)
[2018-04-10] MEDS: SODIUM CHLORIDE FLUSH 0.9% 10 ML SYRINGE IVP SCH ×3 (01:05→16:52)
[2018-04-10] MEDS: LEVOTHYROXINE 112 MCG TABLET PO SCH (06:35)
[2018-04-10 06:45] LABS: BASOPHILS % (AUTO) 0.8 %; EOSINOPHILS # (AUTO) 0.2 10^3/uL (0.0-0.7); EOSINOPHILS % (AUTO) 2.9 %; HGB - HEMOGLOBIN 8.2 g/dL (12.0-16.0); LYMPHOCYTES # (AUTO) 1.3 10^3/uL (1.5-3.5); LYMPHOCYTES % (AUTO) 19.5 %; MEAN CORPUSCULAR VOLUME 97.1 fL (81.0-99.0); MEAN PLATELET VOLUME 8.4 fL (7.9-10.8); MONOCYTES # (AUTO) 0.6 10^3/uL (0.0-1.0); MONOCYTES % (AUTO) 10.1 %; NEUTROPHILS # (AUTO) 4.3 10^3/uL (1.5-6.6); NEUTROPHILS % (AUTO) 66.7 %; PLT - PLATELET COUNT 223 10^3/uL (130-450); RED BLOOD COUNT 2.56 10^6/uL (4.20-5.40); RED CELL DISTRIBUTION WIDTH 13.4 % (12.0-15.0); WHITE BLOOD COUNT 6.4 x10^3/uL (4.8-10.8)
[2018-04-10 06:54] LABS: ALBUMIN 3.6 g/dL (3.2-5.5); ALBUMIN/GLOBULIN RATIO 1.4 (1.0-2.2); BILIRUBIN,TOTAL 0.5 mg/dL (0.2-1.0); CREATININE 2.4 mg/dL (0.4-1.0); MAGNESIUM 2.2 mg/dL (1.7-2.8); TOTAL PROTEIN 6.2 g/dL (6.7-8.2)
[2018-04-10] MEDS ORDERED: cloNIDine 0.1 MG TABLET PO PRN (08:07)
[2018-04-10] MEDS: INSULIN GLARGINE 300 UNIT/3 ML PEN SUBQ SCH ×2 (08:09→21:46)
[2018-04-10] MEDS: INSULIN ASPART 300 UNIT/3 ML PEN SUBQ SCH ×4 (08:10→21:45)
[2018-04-10 08:22] LABS: MEAN RETIC VALUE 115.9; RED BLOOD COUNT 2.56 10^6/uL (4.20-5.40)
[2018-04-10] MEDS: METOPROLOL TARTRATE 25 MG TABLET PO SCH ×2 (08:33→21:42)
[2018-04-10] MEDS: amLODIPine 5 MG TABLET PO SCH (08:33)
[2018-04-10] MEDS: cefTRIAXone 1 GM in SODIUM CHLORIDE 0.9% MINIBAG 100 ML IV SCH (08:34)
[2018-04-10] MEDS: POLYETHYLENE GLYCOL 3350 17 GM PACKET PO SCH (08:35)
[2018-04-10] MEDS: SODIUM CHLORIDE 0.9% 1,000 ML IV SCH ×2 (08:39→21:42)
[2018-04-10] MEDS: HEPARIN 5,000 UNIT/ML VIAL SUBQ SCH ×2 (08:58→21:48)
[2018-04-10] MEDS ORDERED: cefTRIAXone 1 GM VIAL IVP SCH (09:00)
[2018-04-10 09:18] LABS: % IRON SATURATION 19 % (20-50); IRON 37 ug/dL (28-170); TOTAL IRON BINDING CAPACITY 193 ug/dL (250-450); TRANSFERRIN 138 mg/dL (192-382)
[2018-04-10 09:45] LABS: FERRITIN 201.2 ng/mL (11.0-306.8)
--- NOTE | 2018-04-10 16:32 | PROVIDER PROGRESS NOTE ---
Subjective - Prog Note Date Prog Note Date: 04/10/18 - Subjective Pt reports feeling: Improved Subjective: pt is alert and oriented now. nursing home social worker was consulted. nursing home social worker report she talked with pt and pt's caregiver. Pt and her caregiver agree to increase to 24 hours care for pt. I discussed with pt and pt's DPOA, pt is all agree increase pt's care is needed to prevent pt's hypoglycemia, fall or other care issues. Current Medications - Current Medications Current Medications: Active Medications Acetaminophen (Tylenol) 650 mg PO Q4HR PRN PRN Reason: Pain 1 to 4 Last Admin: 04/09/18 20:36 Dose: 650 mg Amlodipine Besylate (Norvasc) 10 mg PO DAILY [facility] Last Admin: 04/10/18 08:33 Dose: 10 mg Clonidine HCl (Catapres) 0.1 mg PO BID PRN PRN Reason: Hypertensive Emergency Famotidine (Pepcid) 20 mg PO HS [facility] Last Admin: 04/09/18 20:36 Dose: 20 mg Heparin Sodium (Porcine) () 2,500 unit SUBQ BID [facility] Last Admin: 04/10/18 08:58 Dose: 2,500 unit Ceftriaxone Sodium 1 gm/ (Sodium Chloride) 100 mls @ 200 mls/hr IV DAILY [facility] Last Infusion: 04/10/18 09:28 Dose: Infused Sodium Chloride (Normal Saline 0.9%) 1,000 mls @ 83.333 mls/hr IV .Q12H [facility] Stop: 04/11/18 08:59 Last Admin: 04/10/18 08:39 Dose: 83.333 mls/hr Insulin Aspart (Novolog) 1 - 5 unit SUBQ 0800,1200,1700,2100 [facility]; Protocol Last Admin: 04/10/18 11:47 Dose: 2 unit Insulin Glargine (Lantus Solostar) 10 unit SUBQ QPM [facility] Last Admin: 04/10/18 08:09 Dose: Not Given Levothyroxine Sodium (Synthroid) 112 mcg PO QDAC [facility] Last Admin: 04/10/18 06:35 Dose: 112 mcg Metoprolol Tartrate (Lopressor) 25 mg PO BID [facility] Last Admin: 04/10/18 08:33 Dose: 25 mg Ondansetron HCl (Zofran Inj) 4 mg IVP Q6HR PRN PRN Reason: Nausea / Vomiting Polyethylene Glycol (Miralax) 17 gm PO DAILY [facility] Last Admin: 04/10/18 08:35 Dose: 17 gm Sodium Chloride (Normal Saline Flush 0.9%) 10 ml IVP PRN PRN PRN Reason: NEEDED PER PROVIDER ORDERS Last Admin: 04/09/18 20:37 Dose: 10 ml Sodium Chloride (Normal Saline Flush 0.9%) 10 ml IVP 0100,0900,1700 [facility] Last Admin: 04/10/18 08:35 Dose: 10 ml Tramadol HCl (Ultram) 25 mg PO Q4HR PRN PRN Reason: PAIN Last Admin: 04/09/18 22:08 Dose: 25 mg Insulin Glargine [Lantus Solostar] 15 units SUBQ DAILY 12/28/16 Insulin Lispro [Humalog] 1 - 4 units SUBQ TIDWM 12/28/16 Levothyroxine Sodium [Levoxyl] 112 mcg PO QDAC 12/28/16 Metoprolol Tartrate 25 mg PO BID 09/12/17 Cholecalciferol (Vitamin D3) [Vitamin D3] 2,000 unit PO DAILY 09/13/17 Amlodipine Besylate 10 mg PO DAILY 01/04/18 Objective - Vital Signs/Intake & Output Reviewed Vital Signs: Yes Vital Signs: Vital Signs x48h Temp Pulse Pulse Resp BP Pulse Ox 04/10/18 16:00 36.6 C 65 18 146/62 H 93 04/10/18 11:40 36.6 C 62 14 171/63 H 95 04/10/18 09:55 36.6 C 69 20 96 Intake & Output: Intake & Output 04/07/18 04/08/18 04/09/18 04/10/18 23:59 23:59 23:59 23:59 Intake Total 766.081 7532.719 Balance 309.519 6217.719 - Objective General Appearance: positive: No acute distress, Alert. negative: Lethargic Eyes Bilateral: positive: Normal inspection, PERRL, No lid inflammation, Conjunctivae nml ENT: positive: ENT inspection nml, Pharynx nml, No signs of dehydration. negative: Purulent nasal drainage, Pharyngeal erythema, Oral lesions, Dry mucous membranes Neck: positive: Nml inspection, Thyroid nml, No JVD, Trachea midline. negative: Thyromegaly, Lymphadenopathy (R), Lymphadenopathy (L), Stiff neck, Swelling/bruising, Tracheal deviation Respiratory: positive: Chest non-tender, No respiratory distress, Breath sounds nml. negative: Wheezes, Rales, Rhonchi Cardiovascular: positive: Regular rate & rhythm, No murmur, No gallop. negative: Irregularly irregular, Extrasystoles, Tachycardia, Bradycardia, JVD present, Systolic murmur, Diastolic murmur Peripheral Pulses: 2+ Radial (R), 2+ Radial (L), 2+ Dorsalis pedis (R), 2+ Dorsalis pedis (L) Abdomen: positive: Non-tender, No organomegaly, Nml bowel sounds, No distention. negative: Tenderness, Guarding, Rebound Back: positive: Nml inspection. negative: CVA tenderness (R), CVA tenderness (L) Skin: positive: Color nml, No rash, Warm, Dry. negative: Cyanosis, Diaphoresis, Pallor Extremities: positive: Non-tender, Full ROM, Nml appearance. negative: Calf tenderness, Joint swelling, Jose Manuel's sign/cords Neurologic/Psychiatric: positive: Oriented x3, Sensation nml, Mood/affect nml. negative: Weakness, Sensory loss, Facial droop, Slurred/abnml speech, Depressed mood/affect - Lab Results Fish Bones: 04/10/18 06:10 04/10/18 06:10 Other Labs: Lab Results x24hrs 04/10/18 04/10/18 04/10/18 Range/Units 06:10 06:10 06:10 WBC (4.8-10.8) x10^3/uL RBC (4.20-5.40) 10^6/uL Hgb (12.0-16.0) g/dL Hct (37.0-47.0) % MCV (81.0-99.0) fL MCH (27.0-31.0) pg MCHC (32.0-36.0) g/dL RDW (12.0-15.0) % Plt Count (130-450) 10^3/uL MPV (7.9-10.8) fL Reticulocyte % (Auto) (0.5-2.3) % Neut # (Auto) (1.5-6.6) 10^3/uL Lymph # (Auto) (1.5-3.5) 10^3/uL [place] # (Auto) (0.0-1.0) 10^3/uL Eos # (Auto) (0.0-0.7) 10^3/uL Baso # (Auto) (0.0-0.1) 10^3/uL Absolute Nucleated RBC x10^3/uL Nucleated RBC % /100WBC Absolute Retic (0.020-0.110) 10^6/uL PT (9.9-12.6) secs INR (0.8-1.2) APTT (24.9-33.3) secs VBG pH (7.31-7.41) VBG pCO2 (41-51) mmHg VBG pO2 (25-47) mmHg VBG HCO3 (23-28) mmol/L VBG Total CO2 (24-29) mmol/L VBG O2 Saturation (60-80) % VBG Base Excess (-2 - +2) mmol/L Sodium (135-145) mmol/L Potassium (3.5-5.0) mmol/L Chloride (101-111) mmol/L Carbon Dioxide (21-32) mmol/L Anion Gap (6-13) BUN (6-20) mg/dL Creatinine (0.4-1.0) mg/dL Estimated GFR (MDRD) (>89) Glucose (70-100) mg/dL Glycated Hemoglobin (4.6-6.2) % Estim Average Glucose (70-100) Lactic Acid (0.5-2.2) mmol/L Calcium (8.5-10.3) mg/dL Magnesium (1.7-2.8) mg/dL Iron 37 (28-170) ug/dL TIBC 193 L (250-450) ug/dL % Saturation 19 L (20-50) % Transferrin 138 L (192-382) mg/dL Ferritin 201.2 (11.0-306.8) ng/mL Total Bilirubin (0.2-1.0) mg/dL AST (10-42) IU/L ALT (10-60) IU/L Alkaline Phosphatase (42-121) IU/L Lactate Dehydrogenase 197 (91-225) IU/L Total Protein (6.7-8.2) g/dL Albumin (3.2-5.5) g/dL Globulin (2.1-4.2) g/dL Albumin/Globulin Ratio (1.0-2.2) Lipase (22-51) U/L Vitamin B12 467 (180-914) pg/mL TSH (0.34-5.60) uIU/mL Urine Color Urine Clarity (CLEAR) Urine pH (5.0-7.5) PH Ur Specific [place] (1.002-1.030) Urine Protein (NEGATIVE) mg/dL Urine Glucose (UA) (NEGATIVE) mg/dL Urine Ketones (NEGATIVE) mg/dL Urine Occult Blood (NEGATIVE) Urine Nitrite (NEGATIVE) Urine Bilirubin (NEGATIVE) Urine Urobilinogen (NORMAL) E.U./dL Ur Leukocyte Esterase (NEGATIVE) Urine RBC (0-5) /HPF Urine WBC (0-5) /HPF Ur Squamous Epith Cells (<= Few) Urine Bacteria (None Seen) /HPF Ur Microscopic Review Urine Culture Comments Salicylates mg/dL Acetaminophen (10-30) ug/mL Ethyl Alcohol mg/dL Serum Ketones (NEGATIVE) 04/10/18 04/10/18 04/10/18 Range/Units 06:10 06:10 06:10 WBC 6.4 (4.8-10.8) x10^3/uL RBC 2.56 L 2.56 L (4.20-5.40) 10^6/uL Hgb 8.2 L (12.0-16.0) g/dL Hct 24.9 L (37.0-47.0) % MCV 97.1 (81.0-99.0) fL MCH 32.0 H (27.0-31.0) pg MCHC 33.0 (32.0-36.0) g/dL RDW 13.4 (12.0-15.0) % Plt Count 223 (130-450) 10^3/uL MPV 8.4 (7.9-10.8) fL Reticulocyte % (Auto) 0.84 (0.5-2.3) % Neut # (Auto) 4.3 (1.5-6.6) 10^3/uL Lymph # (Auto) 1.3 L (1.5-3.5) 10^3/uL [place] # (Auto) 0.6 (0.0-1.0) 10^3/uL Eos # (Auto) 0.2 (0.0-0.7) 10^3/uL Baso # (Auto) 0.0 (0.0-0.1) 10^3/uL Absolute Nucleated RBC 0.00 x10^3/uL Nucleated RBC % 0.0 /100WBC Absolute Retic 0.022 (0.020-0.110) 10^6/uL PT (9.9-12.6) secs INR (0.8-1.2) APTT (24.9-33.3) secs VBG pH (7.31-7.41) VBG pCO2 (41-51) mmHg VBG pO2 (25-47) mmHg VBG HCO3 (23-28) mmol/L VBG Total CO2 (24-29) mmol/L VBG O2 Saturation (60-80) % VBG Base Excess (-2 - +2) mmol/L Sodium 134 L (135-145) mmol/L Potassium 4.6 (3.5-5.0) mmol/L Chloride 105 (101-111) mmol/L Carbon Dioxide 25 (21-32) mmol/L Anion Gap 4.0 L (6-13) BUN 43 H (6-20) mg/dL Creatinine 2.4 H (0.4-1.0) mg/dL Estimated GFR (MDRD) 20 L (>89) Glucose 130 H (70-100) mg/dL Glycated Hemoglobin (4.6-6.2) % Estim Average Glucose (70-100) Lactic Acid (0.5-2.2) mmol/L Calcium 8.0 L (8.5-10.3) mg/dL Magnesium 2.2 (1.7-2.8) mg/dL Iron (28-170) ug/dL TIBC (250-450) ug/dL % Saturation (20-50) % Transferrin (192-382) mg/dL Ferritin (11.0-306.8) ng/mL Total Bilirubin 0.5 (0.2-1.0) mg/dL AST 65 H (10-42) IU/L ALT 56 (10-60) IU/L Alkaline Phosphatase 44 (42-121) IU/L Lactate Dehydrogenase (91-225) IU/L Total Protein 6.2 L (6.7-8.2) g/dL Albumin 3.6 (3.2-5.5) g/dL Globulin 2.6 (2.1-4.2) g/dL Albumin/Globulin Ratio 1.4 (1.0-2.2) Lipase (22-51) U/L Vitamin B12 (180-914) pg/mL TSH (0.34-5.60) uIU/mL Urine Color Urine Clarity (CLEAR) Urine pH (5.0-7.5) PH Ur Specific [place] (1.002-1.030) Urine Protein (NEGATIVE) mg/dL Urine Glucose (UA) (NEGATIVE) mg/dL Urine Ketones (NEGATIVE) mg/dL Urine Occult Blood (NEGATIVE) Urine Nitrite (NEGATIVE) Urine Bilirubin (NEGATIVE) Urine Urobilinogen (NORMAL) E.U./dL Ur Leukocyte Esterase (NEGATIVE) Urine RBC (0-5) /HPF Urine WBC (0-5) /HPF Ur Squamous Epith Cells (<= Few) Urine Bacteria (None Seen) /HPF Ur Microscopic Review Urine Culture Comments Salicylates mg/dL Acetaminophen (10-30) ug/mL Ethyl Alcohol mg/dL Serum Ketones (NEGATIVE) 04/10/18 04/09/18 04/09/18 Range/Units 06:10 18:01 17:35 WBC (4.8-10.8) x10^3/uL RBC (4.20-5.40) 10^6/uL Hgb (12.0-16.0) g/dL Hct (37.0-47.0) % MCV (81.0-99.0) fL MCH (27.0-31.0) pg MCHC (32.0-36.0) g/dL RDW (12.0-15.0) % Plt Count (130-450) 10^3/uL MPV (7.9-10.8) fL Reticulocyte % (Auto) (0.5-2.3) % Neut # (Auto) (1.5-6.6) 10^3/uL Lymph # (Auto) (1.5-3.5) 10^3/uL [place] # (Auto) (0.0-1.0) 10^3/uL Eos # (Auto) (0.0-0.7) 10^3/uL Baso # (Auto) (0.0-0.1) 10^3/uL Absolute Nucleated RBC x10^3/uL Nucleated RBC % /100WBC Absolute Retic (0.020-0.110) 10^6/uL PT (9.9-12.6) secs INR (0.8-1.2) APTT (24.9-33.3) secs VBG pH (7.31-7.41) VBG pCO2 (41-51) mmHg VBG pO2 (25-47) mmHg VBG HCO3 (23-28) mmol/L VBG Total CO2 (24-29) mmol/L VBG O2 Saturation (60-80) % VBG Base Excess (-2 - +2) mmol/L Sodium (135-145) mmol/L Potassium (3.5-5.0) mmol/L Chloride (101-111) mmol/L Carbon Dioxide (21-32) mmol/L Anion Gap (6-13) BUN (6-20) mg/dL Creatinine (0.4-1.0) mg/dL Estimated GFR (MDRD) (>89) Glucose (70-100) mg/dL Glycated Hemoglobin 7.8 H (4.6-6.2) % Estim Average Glucose 177 H (70-100) Lactic Acid (0.5-2.2) mmol/L Calcium (8.5-10.3) mg/dL Magnesium (1.7-2.8) mg/dL Iron (28-170) ug/dL TIBC (250-450) ug/dL % Saturation (20-50) % Transferrin (192-382) mg/dL Ferritin (11.0-306.8) ng/mL Total Bilirubin (0.2-1.0) mg/dL AST (10-42) IU/L ALT (10-60) IU/L Alkaline Phosphatase (42-121) IU/L Lactate Dehydrogenase (91-225) IU/L Total Protein (6.7-8.2) g/dL Albumin (3.2-5.5) g/dL Globulin (2.1-4.2) g/dL Albumin/Globulin Ratio (1.0-2.2) Lipase (22-51) U/L Vitamin B12 (180-914) pg/mL TSH 4.13 (0.34-5.60) uIU/mL Urine Color LT. YELLOW Urine Clarity CLOUDY (CLEAR) Urine pH 7.0 (5.0-7.5) PH Ur Specific [place] 1.020 (1.002-1.030) Urine Protein 100 H (NEGATIVE) mg/dL Urine Glucose (UA) NEGATIVE (NEGATIVE) mg/dL Urine Ketones NEGATIVE (NEGATIVE) mg/dL Urine Occult Blood LARGE H (NEGATIVE) Urine Nitrite NEGATIVE (NEGATIVE) Urine Bilirubin NEGATIVE (NEGATIVE) Urine Urobilinogen 0.2 (NORMAL) (NORMAL) E.U./dL Ur Leukocyte Esterase LARGE H (NEGATIVE) Urine RBC 6-10 H (0-5) /HPF Urine WBC >25 H (0-5) /HPF Ur Squamous Epith Cells FEW Squamous (<= Few) Urine Bacteria Many H (None Seen) /HPF Ur Microscopic Review INDICATED Urine Culture Comments INDICATED Salicylates mg/dL Acetaminophen (10-30) ug/mL Ethyl Alcohol mg/dL Serum Ketones (NEGATIVE) 04/09/18 04/09/18 04/09/18 Range/Units 17:35 17:35 17:35 WBC (4.8-10.8) x10^3/uL RBC (4.20-5.40) 10^6/uL Hgb (12.0-16.0) g/dL Hct (37.0-47.0) % MCV (81.0-99.0) fL MCH (27.0-31.0) pg MCHC (32.0-36.0) g/dL RDW (12.0-15.0) % Plt Count (130-450) 10^3/uL MPV (7.9-10.8) fL Reticulocyte % (Auto) (0.5-2.3) % Neut # (Auto) (1.5-6.6) 10^3/uL Lymph # (Auto) (1.5-3.5) 10^3/uL [place] # (Auto) (0.0-1.0) 10^3/uL Eos # (Auto) (0.0-0.7) 10^3/uL Baso # (Auto) (0.0-0.1) 10^3/uL Absolute Nucleated RBC x10^3/uL Nucleated RBC % /100WBC Absolute Retic (0.020-0.110) 10^6/uL PT (9.9-12.6) secs INR (0.8-1.2) APTT (24.9-33.3) secs VBG pH 7.316 (7.31-7.41) VBG pCO2 48.4 (41-51) mmHg VBG pO2 33.6 (25-47) mmHg VBG HCO3 24.2 (23-28) mmol/L VBG Total CO2 25.6 (24-29) mmol/L VBG O2 Saturation 65.3 (60-80) % VBG Base Excess -2.2 L (-2 - +2) mmol/L Sodium 137 (135-145) mmol/L Potassium 4.6 (3.5-5.0) mmol/L Chloride 101 (101-111) mmol/L Carbon Dioxide 24 (21-32) mmol/L Anion Gap 12.0 (6-13) BUN 47 H (6-20) mg/dL Creatinine 2.5 H (0.4-1.0) mg/dL Estimated GFR (MDRD) 19 L (>89) Glucose 62 L (70-100) mg/dL Glycated Hemoglobin (4.6-6.2) % Estim Average Glucose (70-100) Lactic Acid 1.9 (0.5-2.2) mmol/L Calcium 9.2 (8.5-10.3) mg/dL Magnesium (1.7-2.8) mg/dL Iron (28-170) ug/dL TIBC (250-450) ug/dL % Saturation (20-50) % Transferrin (192-382) mg/dL Ferritin (11.0-306.8) ng/mL Total Bilirubin 0.8 (0.2-1.0) mg/dL AST 114 H (10-42) IU/L ALT 82 H (10-60) IU/L Alkaline Phosphatase 71 (42-121) IU/L Lactate Dehydrogenase (91-225) IU/L Total Protein 7.6 (6.7-8.2) g/dL Albumin 4.4 (3.2-5.5) g/dL Globulin 3.2 (2.1-4.2) g/dL Albumin/Globulin Ratio 1.4 (1.0-2.2) Lipase 38 (22-51) U/L Vitamin B12 (180-914) pg/mL TSH (0.34-5.60) uIU/mL Urine Color Urine Clarity (CLEAR) Urine pH (5.0-7.5) PH Ur Specific [place] (1.002-1.030) Urine Protein (NEGATIVE) mg/dL Urine Glucose (UA) (NEGATIVE) mg/dL Urine Ketones (NEGATIVE) mg/dL Urine Occult Blood (NEGATIVE) Urine Nitrite (NEGATIVE) Urine Bilirubin (NEGATIVE) Urine Urobilinogen (NORMAL) E.U./dL Ur Leukocyte Esterase (NEGATIVE) Urine RBC (0-5) /HPF Urine WBC (0-5) /HPF Ur Squamous Epith Cells (<= Few) Urine Bacteria (None Seen) /HPF Ur Microscopic Review Urine Culture Comments Salicylates < 6.0 mg/dL Acetaminophen < 10 L (10-30) ug/mL Ethyl Alcohol < 5.0 mg/dL Serum Ketones NEGATIVE (NEGATIVE) 04/09/18 04/09/18 Range/Units 17:35 17:35 WBC 9.7 (4.8-10.8) x10^3/uL RBC 3.10 L (4.20-5.40) 10^6/uL Hgb 10.1 L (12.0-16.0) g/dL Hct 30.0 L (37.0-47.0) % MCV 96.8 (81.0-99.0) fL MCH 32.4 H (27.0-31.0) pg MCHC 33.5 (32.0-36.0) g/dL RDW 13.1 (12.0-15.0) % Plt Count 262 (130-450) 10^3/uL MPV 8.0 (7.9-10.8) fL Reticulocyte % (Auto) (0.5-2.3) % Neut # (Auto) 7.6 H (1.5-6.6) 10^3/uL Lymph # (Auto) 1.0 L (1.5-3.5) 10^3/uL [place] # (Auto) 0.8 (0.0-1.0) 10^3/uL Eos # (Auto) 0.2 (0.0-0.7) 10^3/uL Baso # (Auto) 0.1 (0.0-0.1) 10^3/uL Absolute Nucleated RBC 0.00 x10^3/uL Nucleated RBC % 0.0 /100WBC Absolute Retic (0.020-0.110) 10^6/uL PT 12.4 (9.9-12.6) secs INR 1.1 (0.8-1.2) APTT 28.4 (24.9-33.3) secs VBG pH (7.31-7.41) VBG pCO2 (41-51) mmHg VBG pO2 (25-47) mmHg VBG HCO3 (23-28) mmol/L VBG Total CO2 (24-29) mmol/L VBG O2 Saturation (60-80) % VBG Base Excess (-2 - +2) mmol/L Sodium (135-145) mmol/L Potassium (3.5-5.0) mmol/L Chloride (101-111) mmol/L Carbon Dioxide (21-32) mmol/L Anion Gap (6-13) BUN (6-20) mg/dL Creatinine (0.4-1.0) mg/dL Estimated GFR (MDRD) (>89) Glucose (70-100) mg/dL Glycated Hemoglobin (4.6-6.2) % Estim Average Glucose (70-100) Lactic Acid (0.5-2.2) mmol/L Calcium (8.5-10.3) mg/dL Magnesium (1.7-2.8) mg/dL Iron (28-170) ug/dL TIBC (250-450) ug/dL % Saturation (20-50) % Transferrin (192-382) mg/dL Ferritin (11.0-306.8) ng/mL Total Bilirubin (0.2-1.0) mg/dL AST (10-42) IU/L ALT (10-60) IU/L Alkaline Phosphatase (42-121) IU/L Lactate Dehydrogenase (91-225) IU/L Total Protein (6.7-8.2) g/dL Albumin (3.2-5.5) g/dL Globulin (2.1-4.2) g/dL Albumin/Globulin Ratio (1.0-2.2) Lipase (22-51) U/L Vitamin B12 (180-914) pg/mL TSH (0.34-5.60) uIU/mL Urine Color Urine Clarity (CLEAR) Urine pH (5.0-7.5) PH Ur Specific [place] (1.002-1.030) Urine Protein (NEGATIVE) mg/dL Urine Glucose (UA) (NEGATIVE) mg/dL Urine Ketones (NEGATIVE) mg/dL Urine Occult Blood (NEGATIVE) Urine Nitrite (NEGATIVE) Urine Bilirubin (NEGATIVE) Urine Urobilinogen (NORMAL) E.U./dL Ur Leukocyte Esterase (NEGATIVE) Urine RBC (0-5) /HPF Urine WBC (0-5) /HPF Ur Squamous Epith Cells (<= Few) Urine Bacteria (None Seen) /HPF Ur Microscopic Review Urine Culture Comments Salicylates mg/dL Acetaminophen (10-30) ug/mL Ethyl Alcohol mg/dL Serum Ketones (NEGATIVE) ABX Reporting Has patient been on IV antibiotics over the past 48 hours?: Yes Sepsis Event Note (H) - Evaluation Current Stage of Sepsis: Ruled out Assessment/Plan - Problem List (1) Metabolic encephalopathy Impression: pt is alert and oriented now. continue monitor pt and neuro check (2) UTI (urinary tract infection) Conclusion/Plan: pt has four times of UTI on 2018 and three times of UTI on 2017 UA sensitivity study is pending. UA reveals positive of Ecoli continue treatment with Rocephin now, will follow up sensitivity study (3) Diabetes, type 1.5, uncontrolled, managed as type 1 Conclusion/Plan: A1C is 7.8 but pt is not compliance well. pt had severe hypoglycemia episodes increase pt's caregiver time to 24 hours per day, educate how to prevent hypoglycemia to pt. (4) Joint pain Conclusion/Plan: continue pain control (5) CKD (chronic kidney disease), stage IV Conclusion/Plan: continue Low rate of IV fluids for hydration. Recheck BMP in the morning. (6) Anemia in chronic kidney disease pt's iron is lower as well, start on iron pill (7) At risk for accident in home Conclusion/Plan: per nursing home social worker report, caregiver will have 24 hours care to pt. pt is educated to how to prevent hypoglycemia
[2018-04-10] MEDS: FERROUS SULFATE 325 MG TABLET PO SCH (17:07)
[2018-04-10] MEDS: FAMOTIDINE 20 MG TABLET PO SCH (21:42)
[2018-04-10] MEDS: traMADol 50 MG TABLET PO PRN (22:52)
[2018-04-11] MEDS: ACETAMINOPHEN 325 MG TABLET PO PRN (00:05)
[2018-04-11] MEDS: SODIUM CHLORIDE FLUSH 0.9% 10 ML SYRINGE IVP SCH ×3 (01:47→16:11)
[2018-04-11] MEDS: traMADol 50 MG TABLET PO PRN (03:42)
[2018-04-11] MEDS: SODIUM CHLORIDE FLUSH 0.9% 10 ML SYRINGE IVP PRN (03:42)
[2018-04-11] MEDS: ONDANSETRON 4 MG/2 ML VIAL IVP PRN (03:42)
[2018-04-11 05:43] LABS: BASOPHILS # (AUTO) 0.1 10^3/uL (0.0-0.1); EOSINOPHILS # (AUTO) 0.2 10^3/uL (0.0-0.7); EOSINOPHILS % (AUTO) 3.8 %; HGB - HEMOGLOBIN 8.4 g/dL (12.0-16.0); LYMPHOCYTES % (AUTO) 16.5 %; MEAN CORPUSCULAR HEMOGLOBIN 31.4 pg (27.0-31.0); MEAN CORPUSCULAR HGB CONC 32.3 g/dL (32.0-36.0); MEAN CORPUSCULAR VOLUME 97.3 fL (81.0-99.0); MEAN PLATELET VOLUME 7.8 fL (7.9-10.8); MONOCYTES # (AUTO) 0.8 10^3/uL (0.0-1.0); MONOCYTES % (AUTO) 11.9 %; NEUTROPHILS # (AUTO) 4.2 10^3/uL (1.5-6.6); NEUTROPHILS % (AUTO) 66.8 %; PLT - PLATELET COUNT 221 10^3/uL (130-450); RED BLOOD COUNT 2.66 10^6/uL (4.20-5.40); RED CELL DISTRIBUTION WIDTH 13.5 % (12.0-15.0); WHITE BLOOD COUNT 6.3 x10^3/uL (4.8-10.8)
[2018-04-11 05:57] LABS: ALBUMIN 3.6 g/dL (3.2-5.5); ALBUMIN/GLOBULIN RATIO 1.3 (1.0-2.2); BILIRUBIN,TOTAL 0.5 mg/dL (0.2-1.0); CALCIUM 7.9 mg/dL (8.5-10.3); CREATININE 2.3 mg/dL (0.4-1.0); TOTAL PROTEIN 6.3 g/dL (6.7-8.2)
[2018-04-11] MEDS ORDERED: DEXTROSE 50% ABBOJECT 25 GM/50 ML SYRINGE ONE (06:09)
[2018-04-11] MEDS ORDERED: DEXTROSE 25% ABBOJECT 2.5 GM/10 ML SYRINGE IVP ONE (06:14)
[2018-04-11] MEDS ORDERED: DEXTROSE 50% ABBOJECT 25 GM/50 ML SYRINGE IVP ONE (06:20)
[2018-04-11] MEDS: LEVOTHYROXINE 112 MCG TABLET PO SCH (06:24)
[2018-04-11] MEDS: METOPROLOL TARTRATE 25 MG TABLET PO SCH ×2 (09:11→21:19)
[2018-04-11] MEDS: POLYETHYLENE GLYCOL 3350 17 GM PACKET PO SCH (09:12)
[2018-04-11] MEDS: amLODIPine 5 MG TABLET PO SCH (09:12)
[2018-04-11] MEDS: FERROUS SULFATE 325 MG TABLET PO SCH ×2 (09:12→16:10)
[2018-04-11] MEDS: cefTRIAXone 1 GM in SODIUM CHLORIDE 0.9% MINIBAG 100 ML IV SCH (09:13)
[2018-04-11] MEDS: INSULIN ASPART 300 UNIT/3 ML PEN SUBQ SCH ×4 (09:14→22:06)
[2018-04-11] MEDS: HEPARIN 5,000 UNIT/ML VIAL SUBQ SCH ×2 (09:21→21:16)
--- NOTE | 2018-04-11 15:41 | PROVIDER PROGRESS NOTE ---
Subjective - Prog Note Date Prog Note Date: 04/11/18 - Subjective Pt reports feeling: Improved Subjective: pt had hypoglycemia at glucose 30 in the last night. In morning, pt is alert and oriented, and eating her breakfast comfortably. Will adjust her Lantus to 5 unit from 10 unit, from QPM to QAM, and overnight monitor. pt lost consciousness in the home. Caregiver give pt CPR. It may be caused by hypoglycemia Current Medications - Current Medications Current Medications: Active Medications Acetaminophen (Tylenol) 650 mg PO Q4HR PRN PRN Reason: Pain 1 to 4 Last Admin: 04/11/18 00:05 Dose: 650 mg Amlodipine Besylate (Norvasc) 10 mg PO DAILY [facility] Last Admin: 04/11/18 09:12 Dose: 10 mg Clonidine HCl (Catapres) 0.1 mg PO BID PRN PRN Reason: Hypertensive Emergency Famotidine (Pepcid) 20 mg PO HS [facility] Last Admin: 04/10/18 21:42 Dose: 20 mg Ferrous Sulfate (Feosol) 325 mg PO BIDWM [facility] Last Admin: 04/11/18 09:12 Dose: 325 mg Heparin Sodium (Porcine) () 2,500 unit SUBQ BID [facility] Last Admin: 04/11/18 09:21 Dose: 2,500 unit Ceftriaxone Sodium 1 gm/ (Sodium Chloride) 100 mls @ 200 mls/hr IV DAILY [facility] Last Infusion: 04/11/18 09:43 Dose: Infused Insulin Aspart (Novolog) 1 - 9 unit SUBQ 0800,1200,1700,2100 [facility]; Protocol Last Admin: 04/11/18 11:29 Dose: Not Given Insulin Glargine (Lantus Solostar) 5 unit SUBQ DAILY [facility] Levothyroxine Sodium (Synthroid) 112 mcg PO QDAC [facility] Last Admin: 04/11/18 06:24 Dose: 112 mcg Metoprolol Tartrate (Lopressor) 25 mg PO BID [facility] Last Admin: 04/11/18 09:11 Dose: 25 mg Ondansetron HCl (Zofran Inj) 4 mg IVP Q6HR PRN PRN Reason: Nausea / Vomiting Last Admin: 04/11/18 03:42 Dose: 4 mg Polyethylene Glycol (Miralax) 17 gm PO DAILY [facility] Last Admin: 04/11/18 09:12 Dose: 17 gm Sodium Chloride (Normal Saline Flush 0.9%) 10 ml IVP PRN PRN PRN Reason: NEEDED PER PROVIDER ORDERS Last Admin: 04/11/18 03:42 Dose: 10 ml Sodium Chloride (Normal Saline Flush 0.9%) 10 ml IVP 0100,0900,1700 [facility] Last Admin: 04/11/18 07:35 Dose: Not Given Tramadol HCl (Ultram) 25 mg PO Q4HR PRN PRN Reason: PAIN Last Admin: 04/11/18 03:42 Dose: 25 mg Insulin Glargine [Lantus Solostar] 15 units SUBQ DAILY 12/28/16 Insulin Lispro [Humalog] 1 - 4 units SUBQ TIDWM 12/28/16 Levothyroxine Sodium [Levoxyl] 112 mcg PO QDAC 12/28/16 Metoprolol Tartrate 25 mg PO BID 09/12/17 Cholecalciferol (Vitamin D3) [Vitamin D3] 2,000 unit PO DAILY 09/13/17 Amlodipine Besylate 10 mg PO DAILY 01/04/18 Objective - Vital Signs/Intake & Output Reviewed Vital Signs: Yes Vital Signs: Vital Signs x48h Temp Pulse Resp BP BP Pulse Ox 04/11/18 09:11 181/71 H 04/11/18 08:00 36.3 C L 66 16 181/71 H 94 Intake & Output: Intake & Output 04/08/18 04/09/18 04/10/18 04/11/18 23:59 23:59 23:59 23:59 Intake Total 804.510 2046.352 1817 Balance 966.653 6356.352 1817 - Objective General Appearance: positive: No acute distress, Alert. negative: Lethargic Eyes Bilateral: positive: Normal inspection, PERRL, No lid inflammation, Conjunctivae nml ENT: positive: ENT inspection nml, Pharynx nml, No signs of dehydration. negative: Purulent nasal drainage, Pharyngeal erythema, Oral lesions Neck: positive: Nml inspection, Thyroid nml, No JVD, Trachea midline. negative: Thyromegaly, Lymphadenopathy (R), Lymphadenopathy (L), Stiff neck, Swelling/b ruising, Tracheal deviation Respiratory: positive: Chest non-tender, No respiratory distress, Breath sounds nml. negative: Wheezes, Rales, Rhonchi Cardiovascular: positive: Regular rate & rhythm, No murmur, No gallop. negative: Irregularly irregular, Extrasystoles, Tachycardia, Bradycardia, JVD present, Systolic murmur, Diastolic murmur Peripheral Pulses: 2+ Radial (R), 2+ Radial (L), 2+ Dorsalis pedis (R), 2+ Dorsalis pedis (L) Abdomen: positive: Non-tender, No organomegaly, Nml bowel sounds, No distention. negative: Tenderness, Guarding, Rebound Back: positive: Nml inspection. negative: CVA tenderness (R), CVA tenderness (L) Skin: positive: Color nml, No rash, Warm, Dry. negative: Cyanosis, Diaphoresis, Pallor Extremities: positive: Non-tender, Full ROM, Nml appearance. negative: Calf tenderness, Joint swelling, Jose Manuel's sign/cords Neurologic/Psychiatric: positive: Oriented x3, Motor nml, Sensation nml, Mood/affect nml. negative: Weakness, Sensory loss, Facial droop, Slurred/abnml speech, Depressed mood/affect - Lab Results Fish Bones: 04/12/18 06:21 04/12/18 06:21 Other Labs: Lab Results x24hrs 04/11/18 04/11/18 Range/Units 05:32 05:32 WBC 6.3 (4.8-10.8) x10^3/uL RBC 2.66 L (4.20-5.40) 10^6/uL Hgb 8.4 L (12.0-16.0) g/dL Hct 25.9 L (37.0-47.0) % MCV 97.3 (81.0-99.0) fL MCH 31.4 H (27.0-31.0) pg MCHC 32.3 (32.0-36.0) g/dL RDW 13.5 (12.0-15.0) % Plt Count 221 (130-450) 10^3/uL MPV 7.8 L (7.9-10.8) fL Neut # (Auto) 4.2 (1.5-6.6) 10^3/uL Lymph # (Auto) 1.0 L (1.5-3.5) 10^3/uL [place] # (Auto) 0.8 (0.0-1.0) 10^3/uL Eos # (Auto) 0.2 (0.0-0.7) 10^3/uL Baso # (Auto) 0.1 (0.0-0.1) 10^3/uL Absolute Nucleated RBC 0.00 x10^3/uL Nucleated RBC % 0.0 /100WBC Sodium 136 (135-145) mmol/L Potassium 4.2 (3.5-5.0) mmol/L Chloride 108 (101-111) mmol/L Carbon Dioxide 23 (21-32) mmol/L Anion Gap 5.0 L (6-13) BUN 33 H (6-20) mg/dL Creatinine 2.3 H (0.4-1.0) mg/dL Estimated GFR (MDRD) 21 L (>89) Glucose 30 L* (70-100) mg/dL Calcium 7.9 L (8.5-10.3) mg/dL Total Bilirubin 0.5 (0.2-1.0) mg/dL AST 57 H (10-42) IU/L ALT 54 (10-60) IU/L Alkaline Phosphatase 54 (42-121) IU/L Total Protein 6.3 L (6.7-8.2) g/dL Albumin 3.6 (3.2-5.5) g/dL Globulin 2.7 (2.1-4.2) g/dL Albumin/Globulin Ratio 1.3 (1.0-2.2) ABX Reporting Has patient been on IV antibiotics over the past 48 hours?: Yes Sepsis Event Note (H) - Evaluation Current Stage of Sepsis: Ruled out Assessment/Plan - Problem List (1) Metabolic encephalopathy Impression: (1) Metabolic encephalopathy Impression: pt is alert and oriented now. continue monitor pt and neuro check (2) hypoglycemia 04/11 pt had 30 glucose on last night. Per caregiver reported pt lost consciousness at home and started CPR. Unknown the cause, but be precaution of hypoglycemia change Lantus from 10 unit to 5 unit to the morning continue monitor ACHS, and hypoglycemia protocol (3) UTI (urinary tract infection) Conclusion/Plan: 04/11, sensitivity show Rocephis is sensitive, continue treat with Rocephin pt has four times of UTI on 2018 and three times of UTI on 2017 UA sensitivity study is pending. UA reveals positive of Ecoli continue treatment with Rocephin now, will follow up sensitivity study (4) Diabetes, type 1.5, uncontrolled, managed as type 1 Conclusion/Plan: A1C is 7.8 but pt is not compliance well. pt had severe hypoglycemia episodes increase pt's caregiver time to 24 hours per day, educate how to prevent hypoglycemia to pt. (5) Joint pain Conclusion/Plan: continue pain control (6) CKD (chronic kidney disease), stage IV Conclusion/Plan: 04/11 improved as her baseline, continue mild hydration continue Low rate of IV fluids for hydration. Recheck BMP in the morning. (7) Anemia in chronic kidney disease pt's iron is lower as well, start on iron pill (8) At risk for accident in home
[2018-04-11] MEDS ORDERED: INSULIN GLARGINE 300 UNIT/3 ML PEN SUBQ SCH (21:00)
[2018-04-11] MEDS: FAMOTIDINE 20 MG TABLET PO SCH (21:19)
[2018-04-12] MEDS: SODIUM CHLORIDE FLUSH 0.9% 10 ML SYRINGE IVP SCH ×3 (01:45→08:43)
[2018-04-12] MEDS: ONDANSETRON 4 MG/2 ML VIAL IVP PRN (02:29)
[2018-04-12 06:35] LABS: BASOPHILS # (AUTO) 0.1 10^3/uL (0.0-0.1); BASOPHILS % (AUTO) 0.7 %; EOSINOPHILS # (AUTO) 0.2 10^3/uL (0.0-0.7); EOSINOPHILS % (AUTO) 2.8 %; HGB - HEMOGLOBIN 8.8 g/dL (12.0-16.0); LYMPHOCYTES # (AUTO) 0.9 10^3/uL (1.5-3.5); LYMPHOCYTES % (AUTO) 10.8 %; MEAN CORPUSCULAR HEMOGLOBIN 31.7 pg (27.0-31.0); MEAN CORPUSCULAR HGB CONC 32.4 g/dL (32.0-36.0); MEAN CORPUSCULAR VOLUME 97.9 fL (81.0-99.0); MEAN PLATELET VOLUME 8.1 fL (7.9-10.8); MONOCYTES # (AUTO) 0.6 10^3/uL (0.0-1.0); MONOCYTES % (AUTO) 7.2 %; NEUTROPHILS # (AUTO) 6.2 10^3/uL (1.5-6.6); NEUTROPHILS % (AUTO) 78.5 %; PLT - PLATELET COUNT 234 10^3/uL (130-450); RED BLOOD COUNT 2.79 10^6/uL (4.20-5.40); RED CELL DISTRIBUTION WIDTH 13.4 % (12.0-15.0); WHITE BLOOD COUNT 7.9 x10^3/uL (4.8-10.8)
[2018-04-12] MEDS: LEVOTHYROXINE 112 MCG TABLET PO SCH (06:39)
[2018-04-12 06:50] LABS: ALBUMIN 3.7 g/dL (3.2-5.5); ALBUMIN/GLOBULIN RATIO 1.3 (1.0-2.2); BILIRUBIN,TOTAL 0.8 mg/dL (0.2-1.0); CALCIUM 8.4 mg/dL (8.5-10.3); CREATININE 2.2 mg/dL (0.4-1.0); TOTAL PROTEIN 6.5 g/dL (6.7-8.2)
[2018-04-12] MEDS ORDERED: METOPROLOL SUCCINATE 25 MG TABLET PO SCH (08:00)
[2018-04-12] MEDS: INSULIN ASPART 300 UNIT/3 ML PEN SUBQ SCH (08:08)
[2018-04-12] MEDS: amLODIPine 5 MG TABLET PO SCH (08:29)
[2018-04-12] MEDS: FERROUS SULFATE 325 MG TABLET PO SCH (08:30)
[2018-04-12] MEDS: POLYETHYLENE GLYCOL 3350 17 GM PACKET PO SCH (08:31)
[2018-04-12] MEDS: cefTRIAXone 1 GM in SODIUM CHLORIDE 0.9% MINIBAG 100 ML IV SCH (08:39)
[2018-04-12] MEDS: HEPARIN 5,000 UNIT/ML VIAL SUBQ SCH (08:51)
[2018-04-12] MEDS ORDERED: INSULIN GLARGINE 300 UNIT/3 ML PEN SUBQ SCH (09:00)
--- NOTE | 2018-04-12 09:27 | DISCHARGE SUMMARY ---
Discharge Summary Admit Date: 04/09/18 Discharge Date: 04/12/18 Discharging Provider: SHEKHAR Barr Primary Care Provider: Oleksandr Alcaraz Code Status: Attempt Resuscitation Condition at Discharge: Good Discharge Disposition: 01 Home, Self Care - DIAGNOSES Admission Diagnoses: Metabolic encephalopathy (G93.41) Urinary tract infection, site not specified (N39.0) Type 1 diabetes mellitus with hyperglycemia (E10.65) Pain in unspecified joint (M25.50) Chronic kidney disease, stage 4 (severe) (N18.4) Essential (primary) hypertension (I10) Discharge Diagnoses with Status of Each Condition: Hypoglycemia (E16.2) no further evidence of low sugars prior to discharge. Resolved. 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 Iron deficiency anemia (D50.9) chronic, stable. UTI (urinary tract infection) (N39.0) acute, treatment to continue. Hypertension (I10) chronic, stable. Chronic renal insufficiency, stage IV (severe) (N18.4) chronic, stable Metabolic encephalopathy (G93.41) resolved. Joint pain (M25.50) Stable. She did have right hip pain due to a fall that she states was improved since the time of admission, with no evidence of an acute fracture based on physical exam. Patient refused further imaging as she was anxious to return home. - HPI History of Present Illness: HPI per Dr. Bailey: Paty Gresham is a 77-year old, elderly lady with a tenuous home situation. She lives with a wandering elderly demented . They have a care provider who comes between 10 and 2 almost every day. She is the primary caregiver, her name is Kait. After that, another caregiver it sometimes comes around 4 in the afternoon. She has brittle diabetes and has had several episodes of hypoglycemia with EMS called to the home. Or falls with EMS called to pick she or her up. She is also followed by home health. She is not compliant with her diabetic management. She has cognitive issues, and between that and her having dementia it is a tenuous situation at home with quite a bit of support trying to keep them there. The group consensus within home health nursing and physical therapy is that the 2 of them need 24/7 care giving. T here is concerns that the caregiver may not be able to provide the hourly care that these people need. And the caregiver also has the patient's credit card. She does have a niece, Prachi, who is power of deputy county attorney, who was not able to be reached. There has been a APS referral. Tonight, she was found bent over on the floor and unresponsive. CPR was started but no pulse was checked. She regained consciousness. The patient's only complaint is of terrible hip pain. She does not know why it hurts so badly. She had does have a history of falls, and reports that she always hurts. With her last December 2017 admission she had had a fall requiring sutures. Diabetes was up and down with his control. The patient's impulsiveness and dementia were noted and brought to the forefront as 1 of her main problems. The patient feels that her hip hurts from that admission. In the emergency room she is confused, but cooperative. Hip fracture was not seen on plain film. Head CT was negative other than for ventriculomegaly and a ONCOLOGY TECHNICIAN shunt in position. Chest x-ray did not show pneumonia. And cervical spine CT had multilevel degenerative disc disease without evidence of cervical spine fracture. Her glucose was 62 in the emergency room. Upon transfer from the ED to [facility], the ER nurse noted that her glucose was 20 and I ordered half an amp of D50. Her creatinine is usually about 2 she is 2.5 today. At discharge from her previous hospitalization December she was 2.4. The last time her creatinine was less than 2 consistently was 2015. She also has a urinary tract infection with large amount of occult blood, large leukocyte Estrace, 6-10 red cells, greater than 25 white cells, few squamous cells. Culture is pending. - HOSPITAL COURSE Hospital Course: The patient was found to have a +urine culture with e. coli, sensitive to several agents. She was instructed to continue her oral antibiotic at home. Her home Lantus was reduced from 15 units daily to just 7 units to prevent a recurrence of hypoglycemia. She was given discharge instructions and was medically stable to return home via transport by her home care associate. - ALLERGIES Allergies/Adverse Reactions: Allergies Allergy/AdvReac Type Severity Reaction Status Date / Time lindsay Allergy Unknown Verified 04/14/18 11:54 oxycodone Allergy Unknown Verified 04/14/18 11:54 codeine AdvReac Intermediate Dizziness Verified 04/14/18 11:54 - MEDICATIONS Home Medications: Ambulatory Orders Medication Instructions Recorded Confirmed Insulin Lispro [Humalog] 1 - 4 units SUBQ TIDWM 12/28/16 04/10/18 Levothyroxine Sodium [Levoxyl] 112 mcg PO QDAC 12/28/16 04/10/18 Cholecalciferol (Vitamin D3) 2,000 unit PO DAILY 09/13/17 04/10/18 [Vitamin D3] Amlodipine Besylate 10 mg PO DAILY 01/04/18 04/10/18 Amox/Clav 875/125 [Augmentin] 1 each PO Q12H #10 tablet 04/12/18 Ferrous Gluconate 324 mg PO DAILY #30 tablet 04/12/18 Insulin Glargine [Lantus Solostar] 7 units SUBQ DAILY #1 pen 04/12/18 Metoprolol Succinate [Toprol Xl] 25 mg PO BIDWM #60 tablet 04/12/18 Saccharomyces Boulardii [Florastor] 250 mg PO BID #60 capsule 04/12/18 - PHYSICAL EXAM AT DISCHARGE General Appearance: positive: No acute distress, Alert Eyes Bilateral: positive: Normal inspection ENT: positive: ENT inspection nml, Pharynx nml Neck: positive: Thyroid nml, No JVD, Trachea midline Respiratory: positive: Chest non-tender, No respiratory distress, Other (diminished) Cardiovascular: positive: Regular rate & rhythm, No gallop, Systolic murmur Peripheral Pulses: positive: 1+ Back: positive: Nml inspection Skin: positive: No rash, Warm, Dry, Pallor, Other (skin tone bronze) Extremities: positive: Non-tender, Pedal edema Neurologic/Psychiatric: positive: Oriented x3, CN's nml (2-12), Motor nml, We akness, Depressed mood/affect Reflexes: Bicep (R): 3+, Bicep (L): 3+ - LABS Result Diagrams: 04/12/18 06:21 04/12/18 06:21 - DIAGNOSTIC IMAGING Diagnostic Imaging Results: Final report reviewed Diagnostic Imaging Results Comments: EXAM: CHEST RADIOGRAPHY EXAM DATE: 04/09/2018 05:33 PM. IMPRESSION: No acute intrathoracic plain film abnormality. EXAM: BILATERAL HIP RADIOGRAPHY EXAM DATE: 04/09/2018 05:33 PM. IMPRESSION: 1. No radiographic evidence of fracture or dislocation. Plain film can be insensitive for detection of hip fracture in elderly patients. If there is concern for occult proximal femur fracture, MRI could be used for further evaluation. 2. There is a catheter projecting over the pelvis. EXAM: CT HEAD EXAM DATE: 04/09/2018 05:03 PM. IMPRESSION: 1. No acute intracranial abnormality or significant change. 2. Unchanged ventriculomegaly and ONCOLOGY TECHNICIAN shunt catheter position. EXAM: CT CERVICAL SPINE WITHOUT CONTRAST DATE: 04/09/2018 05:10 PM. IMPRESSION: Multilevel degenerative disk disease without evidence of cervical spine fracture. - SEPSIS Current Stage of Sepsis: Ruled out - FOLLOW UP Follow Up: Disposition: Home, Self Care with care givers. Condition: Good Prescriptions: Amox/Clav 875/125 [Augmentin] 1 each PO Q12H #10 tablet Ferrous Gluconate 324 mg PO DAILY #30 tablet Insulin Glargine [Lantus Solostar] 7 units SUBQ DAILY #1 pen Metoprolol Succinate [Toprol Xl] 25 mg PO BIDWM #60 tablet Saccharomyces Boulardii [Florastor] 250 mg PO BID #60 capsule Diet: Diabetic Additional Instructions or Follow Up instructions: You were admitted for low blood sugars, so your daily Lantus dose was reduced to just 7 units daily. You also had a bladder infection, and a urine sample grew out e.coli, which is the most common pathogen for this infection. Please continue taking an antibiotic for the next 5 days to clear this up. Also, please take a probiotic for the next month to keep your bowels healthy. In order to prevent your heart rates and blood pressure to fluctuate the least, I have changed your metoprolol to a different type. You were also found to have low blood counts, which can be common with kidney disease. Please take an iron supplement for this month, and plan to get a re- check as directed by your PCP. Please see your PCP within one week as a follow up to this stay. - TIME SPENT Time Spent in Discharge (Minutes): 55
[2018-04-12] MEDS ORDERED: INSULIN ASPART 300 UNIT/3 ML PEN SUBQ SCH (12:00)
[2018-04-12 14:24] VITALS: BP 163/63
== END 2018-04-12 14:47 | disposition home or self-care (01) | DRG 637 ==
LOC: EDUNIT# → ED 16:35 → MS2 18:40 → OBSVTOIN 04-10 14:39
PROVIDERS: ADMIT Specialist; ATTEND Nurse Practitioner
DX: E11.641 Type 2 diabetes mellitus with hypoglycemia with coma (principal); G93.41 Metabolic encephalopathy; N30.01 Acute cystitis with hematuria; N39.0 Urinary tract infection, site not specified; N18.4 Chronic kidney disease, stage 4 (severe); M25.511 Pain in right shoulder; M25.552 Pain in left hip; R31.29 Other microscopic hematuria; R51 Headache; E10.42 Type 1 diabetes mellitus with diabetic polyneuropathy; E11.22 Type 2 diabetes mellitus with diabetic chronic kidney disease; I12.9 Hypertensive chronic kidney disease with stage 1 through stage 4 chronic kidney disease, or unspecified chronic kidney disease; E11.65 Type 2 diabetes mellitus with hyperglycemia; B96.20 Unspecified Escherichia coli [E. coli] as the cause of diseases classified elsewhere; D63.1 Anemia in chronic kidney disease; J45.909 Unspecified asthma, uncomplicated; H91.90 Unspecified hearing loss, unspecified ear; I87.8 Other specified disorders of veins; D50.9 Iron deficiency anemia, unspecified; M25.551 Pain in right hip; F03.90 Unspecified dementia, unspecified severity, without behavioral disturbance, psychotic disturbance, mood disturbance, and anxiety; Z87.891 Personal history of nicotine dependence; G93.89 Other specified disorders of brain; M50.30 Other cervical disc degeneration, unspecified cervical region; Z66 Do not resuscitate; Z91.19 Patient's noncompliance with other medical treatment and regimen; Z60.8 Other problems related to social environment; Z91.81 History of falling; Z79.4 Long term (current) use of insulin; Z91.14 Patient's other noncompliance with medication regimen; Z98.2 Presence of cerebrospinal fluid drainage device; Z88.5 Allergy status to narcotic agent; Z79.899 Other long term (current) drug therapy
CPT/HCPCS: 36415; 51701; 70450; 71045; 72125; 73521; 80053; 80306; 80307; 80320; 80329; 81001; 81003; 82009; 82607; 82728; 82803; 83036; 83540; 83605; 83615; 83690; 83735; 84443; 84466; 85025; 85044; 85610; 85730; 87086; 87181; 93005; 93306; 96361; 96365; 96366; 96375; 99284; 99285

== ENCOUNTER 2018-04-13 05:16 | Outpatient (CLI) | payer MEDICARE, OTHER | END 2018-04-13 05:17 | disposition EMS.NT | LOC: EMS 05:16 | PROVIDERS: ATTEND Surgery | DX: Z03.89 Encounter for observation for other suspected diseases and conditions ruled out (principal) ==

== ENCOUNTER 2018-04-14 11:25 | Outpatient (CLI) | payer MEDICARE, OTHER | END 2018-04-14 11:26 | disposition critical access hospital (66) | LOC: EMS 11:25 | PROVIDERS: ATTEND Surgery | DX: M25.551 Pain in right hip (principal); R06.02 Shortness of breath | CPT/HCPCS: A0425; A0427 ==

== ENCOUNTER 2018-04-14 11:41 | Emergency (ER) | payer MEDICARE, OTHER ==
--- NOTE | 2018-04-14 12:21 | ED Physician Documentation ---
History of Present Illness - Stated complaint Stated Complaint: WEAKNESS - Chief complaint Chief Complaint: General - History obtained from History obtained from: Patient - History of Present Illness Timing: Other (Recent admit for syncope/AMS and brittle blood glucoses. Comes in today for R hip pain. Radiates to R thigh. No specific injury- She says she thinks she fell in the hospital but does not remember that specifically. I find no record of that in the chart.. Expecially today, waxing and waning. Was xrayed on last admit without frx.) Review of Systems Ten Systems: 10 systems reviewed and negative Constitutional: denies: Fever, Chills GI: denies: Abdominal Pain, Nausea, Vomiting Skin: reports: Reviewed and negative PD PAST MEDICAL HISTORY - Past Medical History Cardiovascular: Hypertension Respiratory: Asthma Neuro: Dementia, Other (SUBSTATION DESIGNER shunt in place. Unknown why. Does she have normal pressure hydrocephalus) Endocrine/Autoimmune: Type 1 diabetes GI: None SALES REPRESENTATIVES: Other () : Incontinence, Renal insuffiency HEENT: Chronic vision loss Psych: Anxiety Musculoskeletal: Fatigue Derm: Other - Past Surgical History Past Surgical History: Yes General: Appendectomy Neuro: SUBSTATION DESIGNER shunt Derm: Skin grafts - Present Medications Home Medications: Ambulatory Orders Medication Instructions Recorded Confirmed Insulin Lispro [Humalog] 1 - 4 units SUBQ TIDWM 12/28/16 04/10/18 Levothyroxine Sodium [Levoxyl] 112 mcg PO QDAC 12/28/16 04/10/18 Cholecalciferol (Vitamin D3) 2,000 unit PO DAILY 09/13/17 04/10/18 [Vitamin D3] Amlodipine Besylate 10 mg PO DAILY 01/04/18 04/10/18 Amox/Clav 875/125 [Augmentin] 1 each PO Q12H #10 tablet 04/12/18 Ferrous Gluconate 324 mg PO DAILY #30 tablet 04/12/18 Insulin Glargine [Lantus Solostar] 7 units SUBQ DAILY #1 pen 04/12/18 Metoprolol Succinate [Toprol Xl] 25 mg PO BIDWM #60 tablet 04/12/18 Saccharomyces Boulardii [Florastor] 250 mg PO BID #60 capsule 04/12/18 - Allergies Allergies/Adverse Reactions: Allergies Allergy/AdvReac Type Severity Reaction Status Date / Time lindsay Allergy Unknown Verified 04/14/18 11:54 oxycodone Allergy Unknown Verified 04/14/18 11:54 codeine AdvReac Intermediate Dizziness Verified 04/14/18 11:54 - Social History Does the pt smoke?: No Smoking Status: Never smoker Does the pt drink ETOH?: Yes Does the pt have substance abuse?: No - Family History Family history: reports: Non contributory - Immunizations Immunizations are current?: Yes - POLST Patient has POLST: No POLST Status: Other PD ED PE NORMAL - Vitals Vital signs reviewed: Yes (modest hypertension) - General General: Alert and oriented X 3, No acute distress - HEENT HEENT: PERRL, EOMI - Abdomen Abdomen: Soft, Non tender - Extremities Extremities: Other (Mild tenderness the lateral hip and she does seem stiffer today than she did on the previous hospital admission with some pain with external rotation of the right hip. She has warm feet, no obvious pedal pulses but no overt signs of vascular insufficiency.) - Neuro Neuro: Alert and oriented X 3, Normal speech - Psych Psych: Normal mood, Normal affect Results - Vitals Vitals: Vital Signs - 24 hr 04/14/18 04/14/18 11:49 12:32 Temperature 37.0 C Heart Rate 72 72 Respiratory 15 16 Rate Blood Pressure 168/68 H 171/67 H O2 Saturation 96 98 Oxygen O2 Source [Without Activity] Room air O2 Source Nasal cannula - Rads (name of study) CT R hip Radiology: EMP read contemporaneously (Bilateral sacroiliac and hip osteoarthritis without visible fracture) PD MEDICAL DECISION MAKING - ED course ED course: She declines pain medication on initial evaluation. Previous x-rays were negative for fracture but deserves repeat evaluation with more advanced imaging given persistent pain and inability to walk now although she says the inability to walk is due to weakness. She thinks she will be able to go home and has in-h ome caregivers which she is very happy with. Departure - Departure Disposition: 01 Home, Self Care Clinical Impression: Diabetes, type 1.5, uncontrolled, managed as type 1, At risk for accident in home, Right hip pain Condition: Stable Record reviewed to determine appropriate education?: Yes Instructions: ED Contusion Lower Ext Comments: Call your doctor to arrange a follow-up appointment, make the next available appointment. In the interim, return anytime if worse or if new symptoms develop. Your blood pressure was elevated today on check into the emergency department. This does not mean that you have hypertension, it is a common phenomenon to come to the emergency department and have elevated blood pressure. I recommend that you see your primary care physician within the week to have it rechecked when you are feeling better.
--- NOTE | 2018-04-14 13:04 | CT Report ---
Reason: continued hip pain Procedure Date: 04/14/2018 Accession Number: [id number] / [id number] Procedure: CT - Lower Extremity Right W/O CPT Code: FULL RESULT: EXAM: RIGHT HIP CT WITHOUT CONTRAST EXAM DATE: 04/14/2018 12:48 PM. CLINICAL HISTORY: Fall on 04/09/18. Continued right hip pain. COMPARISON: None. TECHNIQUE: Thin-section axial images were acquired of the hip without contrast. Post-processing: Coronal and sagittal reformats. Other: None. In accordance with CT protocol optimization, one or more of the following dose reduction techniques were utilized for this exam: automated exposure control, adjustment of mA and/or KV based on patient size, or use of iterative reconstructive technique. FINDINGS: Bones: Moderate generalized osteopenia. No visible fracture. Joints: Mild bilateral hip osteoarthritis. Moderate right sacroiliac joint osteoarthritis. Musculature: Normal. No fatty atrophy. Other: There is subcutaneous edema. There is a HOSE HANDLER shunt catheter in the pelvis. There are calcified fibroids. IMPRESSION: 1. Moderate generalized osteopenia. 2. No visible fracture. 3. 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 RADIA
[2018-04-14 13:43] VITALS: BP 157/71
[2018-04-14] MEDS ORDERED: HYDROcod/ACETAM 5/325 MG TABLET PO STA (14:15)
== END 2018-04-14 14:32 | disposition home or self-care (01) ==
LOC: EDUNIT# → ED 11:41
DX: E13.65 Other specified diabetes mellitus with hyperglycemia (principal); Z91.81 History of falling; M25.551 Pain in right hip; I10 Essential (primary) hypertension; F03.90 Unspecified dementia, unspecified severity, without behavioral disturbance, psychotic disturbance, mood disturbance, and anxiety; G91.2 (Idiopathic) normal pressure hydrocephalus; Z98.2 Presence of cerebrospinal fluid drainage device; Z79.4 Long term (current) use of insulin
CPT/HCPCS: 73700; 99283; A9270

== ENCOUNTER 2018-05-07 01:57 | Outpatient (CLI) | payer MEDICARE, OTHER | END 2018-05-07 01:58 | disposition EMS.NT | LOC: EMS 01:57 | PROVIDERS: ATTEND Surgery | DX: Z03.89 Encounter for observation for other suspected diseases and conditions ruled out (principal) ==

== ENCOUNTER 2018-05-28 11:00 | Outpatient (CLI) | payer MEDICARE, OTHER | END 2018-05-28 11:01 | disposition EMS.NT | LOC: EMS 11:00 | PROVIDERS: ATTEND Surgery | DX: Z74.1 Need for assistance with personal care (principal); Z74.8 Other problems related to care provider dependency ==

== ENCOUNTER 2018-06-02 08:00 | Outpatient (CLI) | payer MEDICARE, OTHER ==
[2018-06-02 15:28] LABS: ALBUMIN/GLOBULIN RATIO 1.2 (1.0-2.2); BILIRUBIN,TOTAL 0.4 mg/dL (0.2-1.0); CALCIUM 8.9 mg/dL (8.5-10.3); CREATININE 2.5 mg/dL (0.4-1.0); TOTAL PROTEIN 7.4 g/dL (6.7-8.2)
[2018-06-02 16:06] LABS: BASOPHILS # (AUTO) 0.1 10^3/uL (0.0-0.1); BASOPHILS % (AUTO) 1.1 %; EOSINOPHILS # (AUTO) 0.5 10^3/uL (0.0-0.7); EOSINOPHILS % (AUTO) 8.4 %; HGB - HEMOGLOBIN 10.4 g/dL (12.0-16.0); LYMPHOCYTES # (AUTO) 1.1 10^3/uL (1.5-3.5); LYMPHOCYTES % (AUTO) 16.8 %; MEAN CORPUSCULAR HEMOGLOBIN 30.7 pg (27.0-31.0); MEAN CORPUSCULAR HGB CONC 32.2 g/dL (32.0-36.0); MEAN CORPUSCULAR VOLUME 95.5 fL (81.0-99.0); MEAN PLATELET VOLUME 9.2 fL (7.9-10.8); MONOCYTES # (AUTO) 0.8 10^3/uL (0.0-1.0); MONOCYTES % (AUTO) 12.3 %; NEUTROPHILS # (AUTO) 3.8 10^3/uL (1.5-6.6); NEUTROPHILS % (AUTO) 61.4 %; PLT - PLATELET COUNT 244 10^3/uL (130-450); RED BLOOD COUNT 3.39 10^6/uL (4.20-5.40); RED CELL DISTRIBUTION WIDTH 14.6 % (12.0-15.0); WHITE BLOOD COUNT 6.3 x10^3/uL (4.8-10.8)
== END 2018-06-02 23:59 ==
LOC: LAB.R 08:00
PROVIDERS: ATTEND Physician Assistant Medical
DX: R05 Cough (principal); D64.9 Anemia, unspecified; Z79.899 Other long term (current) drug therapy; E03.9 Hypothyroidism, unspecified
CPT/HCPCS: 80053; 84443; 85025

== ENCOUNTER 2018-06-10 02:24 | Outpatient (CLI) | payer MEDICARE, OTHER | END 2018-06-10 02:25 | disposition EMS.NT | LOC: EMS 02:24 | PROVIDERS: ATTEND Surgery | DX: E16.2 Hypoglycemia, unspecified (principal) ==

== ENCOUNTER 2018-06-13 02:43 | Outpatient (CLI) | payer MEDICARE, OTHER | END 2018-06-13 02:44 | disposition EMS.NT | LOC: EMS 02:43 | PROVIDERS: ATTEND Surgery | DX: E16.2 Hypoglycemia, unspecified (principal) ==

== ENCOUNTER 2018-07-14 01:16 | Outpatient (CLI) | payer MEDICARE, OTHER | END 2018-07-14 01:17 | disposition EMS.NT | LOC: EMS 01:16 | PROVIDERS: ATTEND Surgery | DX: E16.2 Hypoglycemia, unspecified (principal) ==

== ENCOUNTER 2018-07-27 02:45 | Outpatient (CLI) | payer MEDICARE, OTHER | END 2018-07-27 02:46 | disposition EMS.NT | LOC: EMS 02:45 | PROVIDERS: ATTEND Surgery | DX: R44.9 Unspecified symptoms and signs involving general sensations and perceptions (principal) ==

== ENCOUNTER 2018-08-10 00:17 | Outpatient (CLI) | payer SELFPAY | END 2018-08-10 00:18 | disposition EMS.NT | LOC: EMS 00:17 | PROVIDERS: ATTEND Surgery | DX: R73.09 Other abnormal glucose (principal) ==

== ENCOUNTER 2018-08-16 11:55 | Outpatient (CLI) | payer MEDICAID, MEDICARE ==
[2018-08-16 12:11] LABS: BASOPHILS # (AUTO) 0.1 10^3/uL (0.0-0.1); BASOPHILS % (AUTO) 1.5 %; EOSINOPHILS # (AUTO) 0.6 10^3/uL (0.0-0.7); EOSINOPHILS % (AUTO) 8.2 %; HGB - HEMOGLOBIN 10.8 g/dL (12.0-16.0); LYMPHOCYTES # (AUTO) 1.1 10^3/uL (1.5-3.5); LYMPHOCYTES % (AUTO) 16.9 %; MEAN CORPUSCULAR HEMOGLOBIN 31.1 pg (27.0-31.0); MEAN CORPUSCULAR HGB CONC 33.1 g/dL (32.0-36.0); MEAN CORPUSCULAR VOLUME 93.9 fL (81.0-99.0); MEAN PLATELET VOLUME 8.2 fL (7.9-10.8); MONOCYTES # (AUTO) 0.7 10^3/uL (0.0-1.0); MONOCYTES % (AUTO) 10.1 %; NEUTROPHILS # (AUTO) 4.3 10^3/uL (1.5-6.6); NEUTROPHILS % (AUTO) 63.3 %; PLT - PLATELET COUNT 226 10^3/uL (130-450); RED BLOOD COUNT 3.48 10^6/uL (4.20-5.40); RED CELL DISTRIBUTION WIDTH 14.7 % (12.0-15.0); WHITE BLOOD COUNT 6.8 x10^3/uL (4.8-10.8)
[2018-08-16 12:29] LABS: ALBUMIN 4.3 g/dL (3.2-5.5); ALBUMIN/GLOBULIN RATIO 1.5 (1.0-2.2); BILIRUBIN,TOTAL 0.8 mg/dL (0.2-1.0); CALCIUM 8.9 mg/dL (8.5-10.3); CREATININE 2.2 mg/dL (0.4-1.0); MAGNESIUM 1.9 mg/dL (1.7-2.8); PHOSPHORUS 3.6 mg/dL (2.5-4.6); TOTAL PROTEIN 7.2 g/dL (6.7-8.2); URIC ACID 4.4 mg/dL (2.6-7.2)
[2018-08-16 12:33] LABS: HB2 TOTAL 11.6 g/dL; HEMOGLOBIN A1C 0.64 g/dL; HEMOGLOBIN A1C % 7.2 % (4.6-6.2)
[2018-08-16 12:46] LABS: THYROID STIMULATING HORMONE 2.21 uIU/mL (0.34-5.60)
[2018-08-16 12:47] LABS: FREE T4 (FREE THYROXINE) 1.37 ng/dL (0.58-1.64)
== END 2018-08-16 11:56 | disposition home or self-care (01) ==
LOC: LAB 11:55
PROVIDERS: ATTEND Family Medicine
DX: E10.9 Type 1 diabetes mellitus without complications (principal); N18.4 Chronic kidney disease, stage 4 (severe); E03.9 Hypothyroidism, unspecified
CPT/HCPCS: 36415; 80053; 83036; 83735; 84100; 84439; 84443; 84481; 84550; 85025

== ENCOUNTER 2018-08-25 18:29 | Outpatient (CLI) | payer MEDICARE | END 2018-08-25 18:30 | disposition critical access hospital (66) | LOC: EMS 18:29 | PROVIDERS: ATTEND Surgery | DX: R55 Syncope and collapse (principal); R53.1 Weakness | CPT/HCPCS: A0425; A0429 ==

== ENCOUNTER 2018-08-25 18:41 | Emergency (ER) | payer MEDICARE ==
--- NOTE | 2018-08-25 19:18 | ED Physician Documentation ---
PD HPI ALTERED MENTAL STATUS - Stated complaint Stated Complaint: AMS - Chief complaint Chief Complaint: Neuro - History obtained from History obtained from: Patient, EMS - History of Present Illness Timing - onset: Today Timing - duration: Minutes (20) Timing - details: Abrupt onset, Now resolved Quality / character: Other (nauseated, pale, weak) Associated symptoms: No: Fever, Headache, Stiff neck, Dyspnea, Cough, NVD, Urinary sx, General weakness, Focal weakness, Seizure activity, Syncope Contributing factors: Diabetic Basline status: Alert and oriented X 3, Ambulatory, Independent, Other (has a caregiver to help around the house.) 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 Today she felt nauseated, pale and dizzy. No chest pain. No palpitations. She had a large bowel movement and symptoms then resolved. Patient currently is asymptomatic and states that she feels normal. Entire episode lasted approximately 15 minutes. She does have a caregiver who lives with her. 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: Other : Incontinence, Renal insuffiency HEENT: Chronic vision loss Psych: Anxiety Musculoskeletal: Fatigue Derm: Other - Past Surgical History Past Surgical History: Yes General: Appendectomy Neuro: DEMONSTRATOR SEWING TECHNIQUES shunt Derm: Skin grafts - Present Medications Home Medications: Ambulatory Orders Medication Instructions Recorded Confirmed Insulin Lispro [Humalog] 1 - 4 units SUBQ TIDWM 12/28/16 08/25/18 Levothyroxine Sodium [Levoxyl] 112 mcg PO QDAC 12/28/16 08/25/18 Cholecalciferol (Vitamin D3) 2,000 unit PO DAILY 09/13/17 08/25/18 [Vitamin D3] Amlodipine Besylate 10 mg PO DAILY 01/04/18 08/25/18 Ferrous Gluconate 324 mg PO DAILY #30 tablet 04/12/18 08/25/18 Metoprolol Succinate [Toprol Xl] 25 mg PO BIDWM #60 tablet 04/12/18 08/25/18 Insulin Glargine [Lantus Solostar] 5 units SUBQ DAILY 08/25/18 08/25/18 - Allergies Allergies/Adverse Reactions: Allergies Allergy/AdvReac Type Severity Reaction Status Date / Time lindsay Allergy Unknown Verified 08/25/18 19:17 oxycodone Allergy Unknown Verified 08/25/18 19:17 codeine AdvReac Intermediate Dizziness Verified 08/25/18 19:17 - Social History Does the pt smoke?: No Smoking Status: Never smoker Does the pt drink ETOH?: Yes ETOH Use: Liquor Does the pt have substance abuse?: No - Immunizations Immunizations are current?: Yes - POLST Patient has POLST: No POLST Status: Other PD ED PE NORMAL - Vitals Vital signs reviewed: Yes - General General: Alert and oriented X 3, No acute distress - HEENT HEENT: PERRL, Moist mucous membranes, Pharynx benign - Neck Neck: Supple, no meningeal sign - Cardiac Cardiac: RRR - Respiratory Respiratory: No respiratory distress, Clear bilaterally - Abdomen Abdomen: Soft, Non tender, Non distended - Back Back: No spinal TTP - Derm Derm: Warm and dry - Extremities Extremities: No calf tenderness / cord - Neuro Neuro: Alert and oriented X 3 - Psych Psych: Normal mood, Normal affect Results - Vitals Vitals: Vital Signs - 24 hr 08/25/18 08/25/18 08/25/18 18:45 21:11 22:12 Temperature 36.5 C Heart Rate 65 78 80 Respiratory 16 16 19 Rate Blood Pressure 191/88 H 187/74 H 177/76 H O2 Saturation 99 99 97 Oxygen O2 Source [Without Activity] Room air O2 Source Room air - EKG (time done) 1928 Rate: Rate (enter#) (64) Rhythm: NSR [place]: Normal Intervals: Normal [place] QRS: Normal Ischemia: Normal ST segments - Labs Labs: Laboratory Tests 08/25/18 08/25/18 08/25/18 19:37 19:53 19:53 WBC RBC Hgb Hct MCV MCH MCHC RDW Plt Count MPV Neut # (Auto) Lymph # (Auto) [place] # (Auto) Eos # (Auto) Baso # (Auto) Absolute Nucleated RBC Nucleated RBC % Sodium 131 L Potassium 5.1 H Chloride 95 L Carbon Dioxide 27 Anion Gap 9.0 BUN 43 H Creatinine 2.6 H Estimated GFR (MDRD) 18 L Glucose 170 H Calcium 8.8 Total Bilirubin 0.7 AST 23 ALT 17 Alkaline Phosphatase 61 Troponin I 0.04 Total Protein 7.0 Albumin 3.9 Globulin 3.1 Albumin/Globulin Ratio 1.3 Lipase 38 TSH Urine Color YELLOW Urine Clarity CLEAR Urine pH 7.5 Ur Specific [place] 1.020 Urine Protein 100 H Urine Glucose (UA) NEGATIVE Urine Ketones NEGATIVE Urine Occult Blood NEGATIVE Urine Nitrite NEGATIVE Urine Bilirubin NEGATIVE Urine Urobilinogen 0.2 (NORMAL) Ur Leukocyte Esterase NEGATIVE Urine RBC None Seen Urine WBC 0-3 Ur Squamous Epith Cells RARE Squamous Urine Bacteria None Seen Urine Mucus Few Strands Ur Microscopic Review INDICATED Urine Culture Comments NOT INDICATED Salicylates < 6.0 Urine Opiates Screen NEGATIVE Ur Oxycodone Screen NEGATIVE Urine Methadone Screen NEGATIVE Ur Propoxyphene Screen NEGATIVE Acetaminophen < 10 L Ur Barbiturates Screen NEGATIVE Ur Tricyclics Screen NEGATIVE Ur Phencyclidine Scrn NEGATIVE Ur Amphetamine Screen NEGATIVE U Methamphetamines Scrn NEGATIVE U Benzodiazepines Scrn NEGATIVE Urine Cocaine Screen NEGATIVE U Cannabinoids Screen NEGATIVE Ethyl Alcohol < 5.0 08/25/18 08/25/18 08/25/18 19:53 19:53 21:39 WBC 7.1 RBC 3.43 L Hgb 10.7 L Hct 32.2 L MCV 93.8 MCH 31.1 H MCHC 33.2 RDW 14.8 Plt Count 271 MPV 8.6 Neut # (Auto) 4.3 Lymph # (Auto) 1.4 L [place] # (Auto) 0.8 Eos # (Auto) 0.6 Baso # (Auto) 0.1 Absolute Nucleated RBC 0.00 Nucleated RBC % 0.0 Sodium Potassium Chloride Carbon Dioxide Anion Gap BUN Creatinine Estimated GFR (MDRD) Glucose Calcium Total Bilirubin AST ALT Alkaline Phosphatase Troponin I 0.04 Total Protein Albumin Globulin Albumin/Globulin Ratio Lipase TSH 6.52 H Urine Color Urine Clarity Urine pH Ur Specific [place] Urine Protein Urine Glucose (UA) Urine Ketones Urine Occult Blood Urine Nitrite Urine Bilirubin Urine Urobilinogen Ur Leukocyte Esterase Urine RBC Urine WBC Ur Squamous Epith Cells Urine Bacteria Urine Mucus Ur Microscopic Review Urine Culture Comments Salicylates Urine Opiates Screen Ur Oxycodone Screen Urine Methadone Screen Ur Propoxyphene Screen Acetaminophen Ur Barbiturates Screen Ur Tricyclics Screen Ur Phencyclidine Scrn Ur Amphetamine Screen U Methamphetamines Scrn U Benzodiazepines Scrn Urine Cocaine Screen U Cannabinoids Screen Ethyl Alcohol - Rads (name of study) cxr Radiology: Prelim report reviewed, EMP read contemporaneously, See rad report (No acute abnormality) PD MEDICAL DECISION MAKING - ED course Complexity details: reviewed results, re-evaluated patient, considered differential, d/w patient ED course: 78-year-old female who presents to the emergency department with what sounds like vasovagal syncope today. Symptoms resolved with bowel movement. She feels normal now. No arrhythmias on telemetry monitoring. Negative troponin x2. Patient is well-appearing, nontoxic. No acute findings on EKG. No significant lab abnormalities. Patient and family counseled regarding signs and symptoms for which I believe and urgent re-evaluation would be necessary. Patient with good understanding of and agreement to plan and is comfortable going home at this time This document was made in part using voice recognition software. While efforts are made to proofread this document, sound alike and grammatical errors may occur. Departure - Departure Disposition: 01 Home, Self Care Clinical Impression: Syncope Qualifiers: Syncope type: unspecified Qualified Code(s): R55 - Syncope and collapse Dementia Qualifiers: Dementia type: unspecified type Dementia behavioral disturbance: without behavioral disturbance Qualified Code(s): F03.90 - Unspecified dementia without behavioral disturbance Condition: Good Instructions: ED Fainting Unkn Cause Follow-Up: Wesley Patel MD [Primary Care Provider] - Within 3 Days Comments: Return if you worsen. Your testing is normal tonight. Drink plenty of fluids. Follow-up with your doctor for further care. Discharge Date/Time: 08/25/18 22:32
[2018-08-25 19:47] LABS: MUDS CUTOFF CONCENTRATIONS CUTOFF CONC BELOW:
[2018-08-25 19:52] LABS: BILIRUBIN,URINE NEGATIVE (NEGATIVE); GLUCOSE, URINE (UA) NEGATIVE (NEGATIVE); KETONES,URINE (UA) NEGATIVE (NEGATIVE); LEUKOCYTE ESTERASE, URINE NEGATIVE (NEGATIVE); NITRITE,URINE NEGATIVE (NEGATIVE); OCCULT BLOOD,URINE NEGATIVE (NEGATIVE); PH,URINE 7.5 PH (5.0-7.5); PROTEIN,URINE 100 mg/dL (NEGATIVE); UROBILINOGEN,URINE 0.2 (NORMAL) E.U./dL (NORMAL)
--- NOTE | 2018-08-25 19:53 | XRAY Report ---
Reason: Chest Pain Procedure Date: 08/25/2018 Accession Number: [id number] / [id number] Procedure: XR - Chest 1 View X-Ray CPT Code: 65745 FULL RESULT: EXAM: CHEST RADIOGRAPHY EXAM DATE: 08/25/2018 06:58 PM. CLINICAL HISTORY: Chest Pain. COMPARISON: CHEST 1 VIEW 04/09/2018 4:59 PM. TECHNIQUE: 1 view. FINDINGS: Lungs/Pleura: No dense consolidation. No large effusion or pneumothorax. No pulmonary edema. Mediastinum: Heart and mediastinal contours are unremarkable. Other: Tubing, likely a shunt catheter courses along the right hemithorax. IMPRESSION: No acute radiographic pulmonary abnormalities. RADIA
[2018-08-25 19:56] LABS: CLARITY,URINE CLEAR (CLEAR)
[2018-08-25 19:59] LABS: BASOPHILS # (AUTO) 0.1 10^3/uL (0.0-0.1); BASOPHILS % (AUTO) 1.4 %; EOSINOPHILS # (AUTO) 0.6 10^3/uL (0.0-0.7); HGB - HEMOGLOBIN 10.7 g/dL (12.0-16.0); LYMPHOCYTES # (AUTO) 1.4 10^3/uL (1.5-3.5); LYMPHOCYTES % (AUTO) 19.6 %; MEAN CORPUSCULAR HEMOGLOBIN 31.1 pg (27.0-31.0); MEAN CORPUSCULAR HGB CONC 33.2 g/dL (32.0-36.0); MEAN CORPUSCULAR VOLUME 93.8 fL (81.0-99.0); MEAN PLATELET VOLUME 8.6 fL (7.9-10.8); MONOCYTES # (AUTO) 0.8 10^3/uL (0.0-1.0); MONOCYTES % (AUTO) 10.8 %; NEUTROPHILS # (AUTO) 4.3 10^3/uL (1.5-6.6); NEUTROPHILS % (AUTO) 60.2 %; PLT - PLATELET COUNT 271 10^3/uL (130-450); RED BLOOD COUNT 3.43 10^6/uL (4.20-5.40); RED CELL DISTRIBUTION WIDTH 14.8 % (12.0-15.0); WHITE BLOOD COUNT 7.1 x10^3/uL (4.8-10.8)
[2018-08-25 20:02] LABS: AMPHETAMINE SCREEN,URINE NEGATIVE (NEGATIVE); BACTERIA,URINE None Seen /HPF (None Seen); BENZODIAZEPINES SCREEN, URINE NEGATIVE (NEGATIVE); COCAINE SCREEN URINE NEGATIVE (NEGATIVE); METHADONE SCREEN, URINE NEGATIVE (NEGATIVE); METHAMPHETAMINES SCREEN, URINE NEGATIVE (NEGATIVE); MUCUS,URINE Few Strands; OPIATE SCREEN, URINE NEGATIVE (NEGATIVE); OXYCODONE SCREEN, URINE NEGATIVE (NEGATIVE); PROPOXYPHENE SCREEN, URINE NEGATIVE (NEGATIVE); RBC,URINE None Seen /HPF (0-5); SQUAMOUS EPITHELIAL CELL,UR RARE Squamous (<= Few); TRICYCLIC ANTIDEPRESSANT,URINE NEGATIVE (NEGATIVE)
[2018-08-25 20:13] LABS: ACETAMINOPHEN < 10 ug/mL (10-30); ALBUMIN 3.9 g/dL (3.2-5.5); ALBUMIN/GLOBULIN RATIO 1.3 (1.0-2.2); ALKALINE PHOSPHATASE 61 IU/L (42-121); ALT ALANINE AMINOTRANSFERASE 17 IU/L (10-60); AST ASPARTATE AMINOTRANSFERASE 23 IU/L (10-42); BILIRUBIN,TOTAL 0.7 mg/dL (0.2-1.0); BUN - BLOOD UREA NITROGEN 43 mg/dL (6-20); CALCIUM 8.8 mg/dL (8.5-10.3); CARBON DIOXIDE - CO2 27 mmol/L (21-32); CHLORIDE 95 mmol/L (101-111); CREATININE 2.6 mg/dL (0.4-1.0); GFR - MDRD 18 (>89); GLUCOSE 170 mg/dL (70-100); LIPASE 38 U/L (22-51); SALICYLATE < 6.0 mg/dL; SODIUM 131 mmol/L (135-145)
[2018-08-25] MEDS ORDERED: SODIUM CHLORIDE 0.9% 500 ML IV ONE (20:23)
[2018-08-25 22:13] VITALS: BP 177/76
== END 2018-08-25 22:32 | disposition home or self-care (01) ==
LOC: ED 18:41
DX: R55 Syncope and collapse (principal); F03.90 Unspecified dementia, unspecified severity, without behavioral disturbance, psychotic disturbance, mood disturbance, and anxiety; E10.9 Type 1 diabetes mellitus without complications; I10 Essential (primary) hypertension; I45.81 Long QT syndrome
CPT/HCPCS: 36415; 71045; 80053; 80306; 80307; 80320; 80329; 81001; 81003; 83690; 84443; 84484; 85025; 87086; 93005; 96360; 99284

== ENCOUNTER 2018-09-20 03:20 | Outpatient (CLI) | payer MEDICARE | END 2018-09-20 03:21 | disposition EMS.NT | LOC: EMS 03:20 | PROVIDERS: ATTEND Surgery | DX: Z03.89 Encounter for observation for other suspected diseases and conditions ruled out (principal) ==

== ENCOUNTER 2018-09-24 18:03 | Outpatient (CLI) | payer MEDICARE | END 2018-09-24 18:04 | disposition critical access hospital (66) | LOC: EMS 18:03 | PROVIDERS: ATTEND Surgery | DX: R53.1 Weakness (principal); R73.09 Other abnormal glucose | CPT/HCPCS: A0425; A0427 ==

== ENCOUNTER 2018-09-24 19:04 | Emergency (ER) | payer MEDICARE ==
--- NOTE | 2018-09-24 19:25 | ED Physician Documentation ---
History of Present Illness - Stated complaint Stated Complaint: WEAKNESS - Chief complaint Chief Complaint: General - History obtained from History obtained from: Patient, EMS, Caregiver - History of Present Illness Timing: Today (78-year-old woman with history of diabetes lives at home alone with visiting caregivers every day. She is had brittle blood sugars lately, mostly high. Today her blood sugars were anywhere from 120- to 400. She had an episode of presyncope while sitting in a chair where she was kind of out of it but not completely unconscious for about 20 minutes. Now she feels normal with the exception of a mild cough. Caregiver says she is been progressively weak lately, her nephew who handles her for her affairs has been looking into physical therapy and perhaps a rehab stay but the patient does not want to leave her house.) Review of Systems Ten Systems: 10 systems reviewed and negative Constitutional: denies: Fever, Chills, Myalgias, Fatigue Nose: denies: Rhinorrhea / runny nose, Congestion Respiratory: reports: Cough. 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 Derm: Skin grafts - Present Medications Home Medications: Ambulatory Orders Medication Instructions Recorded Confirmed RX: Insulin Lispro [Humalog] 1 - 4 units SUBQ TIDWM 12/28/16 08/25/18 RX: Levothyroxine Sodium [Levoxyl] 112 mcg PO QDAC 12/28/16 08/25/18 RX: Cholecalciferol (Vitamin D3) 2,000 unit PO DAILY 09/13/17 08/25/18 [Vitamin D3] RX: Amlodipine Besylate 10 mg PO DAILY 01/04/18 08/25/18 RX: Ferrous Gluconate 324 mg PO DAILY #30 tablet 04/12/18 08/25/18 RX: Metoprolol Succinate [Toprol 25 mg PO BIDWM #60 tablet 04/12/18 08/25/18 Xl] RX: Insulin Glargine [Lantus 5 units SUBQ DAILY 08/25/18 08/25/18 Solostar] - Allergies Allergies/Adverse Reactions: Allergies Allergy/AdvReac Type Severity Reaction Status Date / Time lindsay Allergy Unknown Verified 08/25/18 19:17 oxycodone Allergy Unknown Verified 08/25/18 19:17 codeine AdvReac Intermediate Dizziness Verified 08/25/18 19:17 - Social History Does the pt smoke?: No Smoking Status: Never smoker Does the pt drink ETOH?: Yes Does the pt have substance abuse?: No - Family History Family history: reports: Non contributory - Immunizations Immunizations are current?: Yes - POLST Patient has POLST: No POLST Status: Other PD ED PE NORMAL - Vitals Vital signs reviewed: Yes - General General: Alert and oriented X 3, No acute distress - HEENT HEENT: PERRL, EOMI - Neck Neck: Supple, no meningeal sign, No bony TTP - Cardiac Cardiac: RRR, No murmur - Respiratory Respiratory: No respiratory distress, Clear bilaterally - Abdomen Abdomen: Normal bowel sounds, Soft, Non tender - Back Back: No CVA TTP, No spinal TTP - Derm Derm: Normal color, Warm and dry - Extremities Extremities: No deformity, No tenderness to palpate, No edema, No calf tenderness / cord - Neuro Neuro: Alert and oriented X 3, No motor deficit, No sensory deficit, Normal speech Results - Vitals Vitals: Vital Signs - 24 hr 09/24/18 09/24/18 19:06 20:58 Temperature 36.2 C L Heart Rate 72 65 Respiratory 18 16 Rate Blood Pressure 157/77 H 177/71 H O2 Saturation 100 97 Oxygen O2 Source [] Room air O2 Source Room air - EKG (time done) 1928 Rate: Rate (enter#) (73) Rhythm: NSR [place]: Normal Intervals: Normal [place] QRS: Normal Ischemia: Non specific changes. No: ST elevation c/w ischemia Computer interpretation: Agree with computer - Labs Labs: Laboratory Tests 09/24/18 09/24/18 09/24/18 19:34 19:34 19:34 WBC 6.3 RBC 3.55 L Hgb 11.1 L Hct 33.8 L MCV 95.3 MCH 31.4 H MCHC 32.9 RDW 14.2 Plt Count 223 MPV 9.4 Neut # (Auto) 3.6 Lymph # (Auto) 1.5 [place] # (Auto) 0.7 Eos # (Auto) 0.5 Baso # (Auto) 0.1 Absolute Nucleated RBC 0.00 Nucleated RBC % 0.0 Sodium 133 L Potassium 4.5 Chloride 96 L Carbon Dioxide 26 Anion Gap 11.0 BUN 38 H Creatinine 2.5 H Estimated GFR (MDRD) 19 L Glucose 143 H Calcium 8.9 Total Bilirubin 0.6 AST 21 ALT 15 Alkaline Phosphatase 65 Troponin I 0.04 Total Protein 6.9 Albumin 3.9 Globulin 3.0 Albumin/Globulin Ratio 1.3 Lipase 31 Urine Color Urine Clarity Urine pH Ur Specific [place] Urine Protein Urine Glucose (UA) Urine Ketones Urine Occult Blood Urine Nitrite Urine Bilirubin Urine Urobilinogen Ur Leukocyte Esterase Urine RBC Urine WBC Ur Epithelial Cells Ur Squamous Epith Cells Urine Bacteria Ur Microscopic Review Urine Culture Comments Ethyl Alcohol < 5.0 09/24/18 20:29 WBC RBC Hgb Hct MCV MCH MCHC RDW Plt Count MPV Neut # (Auto) Lymph # (Auto) [place] # (Auto) Eos # (Auto) Baso # (Auto) Absolute Nucleated RBC Nucleated RBC % Sodium Potassium Chloride Carbon Dioxide Anion Gap BUN Creatinine Estimated GFR (MDRD) Glucose Calcium Total Bilirubin AST ALT Alkaline Phosphatase Troponin I Total Protein Albumin Globulin Albumin/Globulin Ratio Lipase Urine Color YELLOW Urine Clarity CLEAR Urine pH 6.5 Ur Specific [place] 1.015 Urine Protein 100 H Urine Glucose (UA) 100 H Urine Ketones TRACE Urine Occult Blood NEGATIVE Urine Nitrite NEGATIVE Urine Bilirubin NEGATIVE Urine Urobilinogen 0.2 (NORMAL) Ur Leukocyte Esterase NEGATIVE Urine RBC 0-5 Urine WBC 0-3 Ur Epithelial Cells RARE Transitional Ur Squamous Epith Cells RARE Squamous Urine Bacteria Rare Ur Microscopic Review INDICATED Urine Culture Comments NOT INDICATED Ethyl Alcohol - Rads (name of study) 2v chest Radiology: EMP read contemporaneously (stable NAD) PD MEDICAL DECISION MAKING - ED course ED course: This is a 78-year-old woman who lives at home alone is who presents with labile blood sugars but never hypoglycemic today associated with an episode of somnolence which is resolved on arrival to the emergency department. There is no evidence of acute emergency Medical condition on evaluation, no UTI, no pne umonia. Her blood sugar is reasonable. She has chronic renal insufficiency and anemia which are stable. Patient is adamant that she wants to stay in her own home, however she has had a decline recently and may approach the point at which that is no longer possible. I had a long discussion by phone with her nephew who is her POA, he is already consulted APS and an eldercare energy attorney. I also wrote email to her primary care physician who she will be seeing in a couple of days. Departure - Departure Disposition: Home, Self Care Clinical Impression: CKD (chronic kidney disease), stage IV, Anemia in chronic kidney disease, At risk for accident in home, Weakness Condition: Stable Record reviewed to determine appropriate education?: Yes Instructions: ED Hyperglycemia Diabetic Comments: Talk with your doctor about in-home rehab and or a rehab stay in a alf facility if you change your mind about that. Return for any new or worsening symptoms. Also talk with your doctor about improving her blood sugar control. Discharge Date/Time: 09/24/18 21:20
[2018-09-24 19:45] LABS: BASOPHILS # (AUTO) 0.1 10^3/uL (0.0-0.1); BASOPHILS % (AUTO) 1.4 %; EOSINOPHILS # (AUTO) 0.5 10^3/uL (0.0-0.7); EOSINOPHILS % (AUTO) 7.6 %; HGB - HEMOGLOBIN 11.1 g/dL (12.0-16.0); LYMPHOCYTES # (AUTO) 1.5 10^3/uL (1.5-3.5); LYMPHOCYTES % (AUTO) 23.2 %; MEAN CORPUSCULAR HEMOGLOBIN 31.4 pg (27.0-31.0); MEAN CORPUSCULAR HGB CONC 32.9 g/dL (32.0-36.0); MEAN CORPUSCULAR VOLUME 95.3 fL (81.0-99.0); MEAN PLATELET VOLUME 9.4 fL (7.9-10.8); MONOCYTES # (AUTO) 0.7 10^3/uL (0.0-1.0); MONOCYTES % (AUTO) 10.7 %; NEUTROPHILS # (AUTO) 3.6 10^3/uL (1.5-6.6); NEUTROPHILS % (AUTO) 57.1 %; PLT - PLATELET COUNT 223 10^3/uL (130-450); RED BLOOD COUNT 3.55 10^6/uL (4.20-5.40); RED CELL DISTRIBUTION WIDTH 14.2 % (12.0-15.0); WHITE BLOOD COUNT 6.3 x10^3/uL (4.8-10.8)
[2018-09-24 19:54] LABS: ALBUMIN 3.9 g/dL (3.2-5.5); ALBUMIN/GLOBULIN RATIO 1.3 (1.0-2.2); ALKALINE PHOSPHATASE 65 IU/L (42-121); ALT ALANINE AMINOTRANSFERASE 15 IU/L (10-60); AST ASPARTATE AMINOTRANSFERASE 21 IU/L (10-42); BILIRUBIN,TOTAL 0.6 mg/dL (0.2-1.0); BUN - BLOOD UREA NITROGEN 38 mg/dL (6-20); CALCIUM 8.9 mg/dL (8.5-10.3); CARBON DIOXIDE - CO2 26 mmol/L (21-32); CHLORIDE 96 mmol/L (101-111); CREATININE 2.5 mg/dL (0.4-1.0); GFR - MDRD 19 (>89); GLUCOSE 143 mg/dL (70-100); LIPASE 31 U/L (22-51); SODIUM 133 mmol/L (135-145); TOTAL PROTEIN 6.9 g/dL (6.7-8.2)
[2018-09-24 20:40] LABS: BILIRUBIN,URINE NEGATIVE (NEGATIVE); GLUCOSE, URINE (UA) 100 mg/dL (NEGATIVE); KETONES,URINE (UA) TRACE mg/dL (NEGATIVE); LEUKOCYTE ESTERASE, URINE NEGATIVE (NEGATIVE); NITRITE,URINE NEGATIVE (NEGATIVE); OCCULT BLOOD,URINE NEGATIVE (NEGATIVE); PH,URINE 6.5 PH (5.0-7.5); PROTEIN,URINE 100 mg/dL (NEGATIVE); UROBILINOGEN,URINE 0.2 (NORMAL) E.U./dL (NORMAL)
--- NOTE | 2018-09-24 20:50 | XRAY Report ---
Reason: cough Procedure Date: 09/24/2018 Accession Number: [id number] / [id number] Procedure: XR - Chest 2 View X-Ray CPT Code: 18138 FULL RESULT: EXAM: CHEST RADIOGRAPHY EXAM DATE: 09/24/2018 07:58 PM. CLINICAL HISTORY: Persistent cough. COMPARISON: CHEST 1 VIEW 08/25/2018 6:58 PM. TECHNIQUE: 2 views. FINDINGS: Lungs/Pleura: No focal opacities evident. No pleural effusion. No pneumothorax. Normal volumes. Mediastinum: Heart and mediastinal contours are unremarkable. 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 No compression fractures. IMPRESSION: Clear lungs. RADIA
[2018-09-24 20:55] LABS: BACTERIA,URINE Rare /HPF (None Seen); CLARITY,URINE CLEAR (CLEAR); EPITHELIAL CELLS,UR RARE Transitional /HPF (<= Few); RBC,URINE 0-5 /HPF (0-5); SQUAMOUS EPITHELIAL CELL,UR RARE Squamous (<= Few)
[2018-09-24 20:59] VITALS: BP 177/71
== END 2018-09-24 21:20 | disposition home or self-care (01) ==
LOC: EDUNIT# → ED 19:04
DX: R55 Syncope and collapse (principal); R53.1 Weakness; E10.22 Type 1 diabetes mellitus with diabetic chronic kidney disease; I12.9 Hypertensive chronic kidney disease with stage 1 through stage 4 chronic kidney disease, or unspecified chronic kidney disease; N18.4 Chronic kidney disease, stage 4 (severe); Z79.4 Long term (current) use of insulin; D63.1 Anemia in chronic kidney disease; F03.90 Unspecified dementia, unspecified severity, without behavioral disturbance, psychotic disturbance, mood disturbance, and anxiety
CPT/HCPCS: 36415; 71046; 80053; 80320; 81001; 81003; 83690; 84484; 85025; 87086; 93005; 99283; 99284

== ENCOUNTER 2018-09-26 01:05 | Outpatient (CLI) | payer SELFPAY | END 2018-09-26 01:06 | disposition EMS.NT | LOC: EMS 01:05 | PROVIDERS: ATTEND Surgery | DX: R41.0 Disorientation, unspecified (principal); R73.09 Other abnormal glucose ==

== ENCOUNTER 2018-10-23 10:13 | Outpatient (CLI) | payer MEDICARE | END 2018-10-23 10:14 | disposition critical access hospital (66) | LOC: EMS 10:13 | PROVIDERS: ATTEND Surgery | DX: R55 Syncope and collapse (principal); R42 Dizziness and giddiness; R11.0 Nausea; R30.9 Painful micturition, unspecified | CPT/HCPCS: A0425; A0427 ==

== ENCOUNTER 2018-10-23 10:36 | Emergency (ER) | payer MEDICARE ==
--- NOTE | 2018-10-23 10:52 | ED Physician Documentation ---
History of Present Illness - Stated complaint Stated Complaint: NEAR SYNCOPE - Chief complaint Chief Complaint: Neuro - History obtained from History obtained from: Patient, EMS - History of Present Illness Timing: Today Pain level max: 0 Pain level now: 0 - Additonal information Additional information: Patient is unsure what happened today. Per EMS, the patient had a near syncopal event. [place] lightheaded and had low BP per shelter staff. Per EMS BP back to normal upon arrival. skilled nursing staff concerned about a UTI. Pt is DNR/Limited interventions. No chest pain. no dyspnea. No headache. No palpitations. Did have some nausea and emesis x1. Normal bowel movements. No abdominal pain. No back pain. Nothing makes it better or worse Review of Systems Ten Systems: 10 systems reviewed and negative Constitutional: denies: Fever, Chills Ears: denies: Ear pain Nose: denies: Rhinorrhea / runny nose, Congestion Throat: denies: Sore throat Cardiac: denies: Chest pain / pressure, Palpitations Respiratory: denies: Dyspnea, Cough Skin: denies: Rash Musculoskeletal: denies: Neck pain, Back pain Neurologic: denies: Focal weakness, Numbness, Headache, Head injury, LOC PD PAST MEDICAL HISTORY - Past Medical History Cardiovascular: Hypertension Respiratory: Asthma Neuro: Dementia, Other Endocrine/Autoimmune: Type 1 diabetes GI: None 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 : Incontinence, Renal insuffiency HEENT: Chronic vision loss Psych: Anxiety Musculoskeletal: Fatigue Derm: Other - Past Surgical History Past Surgical History: Yes General: Appendectomy Neuro: CABLE SPLICER shunt Derm: Skin grafts - Present Medications Home Medications: Ambulatory Orders Medication Instructions Recorded Confirmed Insulin Lispro [Humalog] 1 - 4 units SUBQ TIDWM 12/28/16 08/25/18 Levothyroxine Sodium [Levoxyl] 112 mcg PO QDAC 12/28/16 08/25/18 Cholecalciferol (Vitamin D3) 2,000 unit PO DAILY 09/13/17 08/25/18 [Vitamin D3] Amlodipine Besylate 10 mg PO DAILY 01/04/18 08/25/18 Ferrous Gluconate 324 mg PO DAILY #30 tablet 04/12/18 08/25/18 Metoprolol Succinate [Toprol Xl] 25 mg PO BIDWM #60 tablet 04/12/18 08/25/18 Insulin Glargine [Lantus Solostar] 5 units SUBQ DAILY 08/25/18 08/25/18 Cephalexin [Keflex] 500 mg PO Q6H #20 capsule 10/23/18 - Allergies Allergies/Adverse Reactions: Allergies Allergy/AdvReac Type Severity Reaction Status Date / Time lindsay Allergy Anaphylaxis Verified 10/23/18 10:42 oxycodone Allergy Unknown Verified 10/23/18 10:42 codeine AdvReac Intermediate Dizziness Verified 10/23/18 10:42 - Social History Does the pt smoke?: No Smoking Status: Never smoker Does the pt drink ETOH?: Yes Does the pt have substance abuse?: No - Immunizations Immunizations are current?: Yes - POLST Patient has POLST: No POLST Status: Other PD ED PE NORMAL - Vitals Vital signs reviewed: Yes - General General: No acute distress, Well developed/nourished, Other (alert, oriented to person and place only) - HEENT HEENT: Moist mucous membranes - Neck Neck: Supple, no meningeal sign - Cardiac Cardiac: RRR, Strong equal pulses - Respiratory Respiratory: No respiratory distress, Clear bilaterally - Abdomen Abdomen: Soft, Non tender, Non distended - Derm Derm: Warm and dry - Extremities Extremities: No edema, No calf tenderness / cord - Neuro 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, No motor deficit, No sensory deficit - Psych Psych: Normal mood, Normal affect Results - Vitals Vitals: Vital Signs - 24 hr 10/23/18 10/23/18 10:39 13:28 Temperature 36.1 C L Heart Rate 60 64 Respiratory 14 17 Rate Blood Pressure 157/65 H 185/84 H O2 Saturation 99 98 Oxygen O2 Source [] Room air O2 Source Room air - EKG (time done) 1104 Rate: Rate (enter#) (60) Rhythm: NSR [place]: Normal Intervals: Normal [place] QRS: Normal Ischemia: T wave inversion (V4-6, I, II, III, aVF) Compare to prior EKG: Unchanged from prior EKG - Labs Labs: Laboratory Tests 10/23/18 10/23/18 10/23/18 11:15 11:15 11:15 WBC 7.4 RBC 3.48 L Hgb 10.9 L Hct 33.0 L MCV 94.7 MCH 31.2 H MCHC 33.0 RDW 13.6 Plt Count 241 MPV 8.4 Neut # (Auto) 4.8 Lymph # (Auto) 1.3 L [place] # (Auto) 0.8 Eos # (Auto) 0.4 Baso # (Auto) 0.1 Absolute Nucleated RBC 0.00 Nucleated RBC % 0.0 Sodium 133 L Potassium 4.2 Chloride 98 L Carbon Dioxide 24 Anion Gap 11.0 BUN 43 H Creatinine 2.5 H Estimated GFR (MDRD) 19 L Glucose 102 H Calcium 8.8 Total Bilirubin 0.6 AST 18 ALT 13 Alkaline Phosphatase 49 Troponin I < 0.04 Total Protein 6.7 Albumin 3.7 Globulin 3.0 Albumin/Globulin Ratio 1.2 Lipase 42 Urine Color Urine Clarity Urine pH Ur Specific [place] Urine Protein Urine Glucose (UA) Urine Ketones Urine Occult Blood Urine Nitrite Urine Bilirubin Urine Urobilinogen Ur Leukocyte Esterase Urine RBC Urine WBC Urine WBC Clumps Ur Epithelial Cells Ur Squamous Epith Cells Amorphous Sediment Urine Bacteria Urine Casts Ur Microscopic Review Urine Culture Comments 10/23/18 11:30 WBC RBC Hgb Hct MCV MCH MCHC RDW Plt Count MPV Neut # (Auto) Lymph # (Auto) [place] # (Auto) Eos # (Auto) Baso # (Auto) Absolute Nucleated RBC Nucleated RBC % Sodium Potassium Chloride Carbon Dioxide Anion Gap BUN Creatinine Estimated GFR (MDRD) Glucose Calcium Total Bilirubin AST ALT Alkaline Phosphatase Troponin I Total Protein Albumin Globulin Albumin/Globulin Ratio Lipase Urine Color YELLOW Urine Clarity HAZY Urine pH 6.0 Ur Specific [place] 1.015 Urine Protein 100 H Urine Glucose (UA) NEGATIVE Urine Ketones TRACE Urine Occult Blood NEGATIVE Urine Nitrite NEGATIVE Urine Bilirubin NEGATIVE Urine Urobilinogen 0.2 (NORMAL) Ur Leukocyte Esterase TRACE H Urine RBC 0-5 Urine WBC >25 H Urine WBC Clumps PRESENT Ur Epithelial Cells FEW Renal Tubular Ur Squamous Epith Cells FEW Squamous Amorphous Sediment Moderate Urine Bacteria Many H Urine Casts 0-2 Hyaline Casts Ur Microscopic Review INDICATED Urine Culture Comments INDICATED PD MEDICAL DECISION MAKING - ED course Complexity details: reviewed old records, reviewed results, re-evaluated patient, considered differential, d/w patient, d/w family ED course: 78-year-old female with near syncope today. Has a UTI and mild dehydration. Feels better after IV fluids. No arrhythmias here. Normal blood pressure. Tolerating p.o. without difficulty. We will have her follow-up with her doctor for further evaluation and care. Patient is well-appearing, nontoxic. Patient and family counseled regarding signs and symptoms for which I believe and urgent re-evaluation would be necessary. Patient with good understanding of and agreement to plan and is comfortable going home at this time This document was made in part using voice recognition software. While efforts are made to proofread this document, sound alike and grammatical errors may occur. Departure - Departure Disposition: 01 Home, Self Care Clinical Impression: Near syncope UTI (urinary tract infection) Qualifiers: Urinary tract infection type: acute cystitis Hematuria presence: without hematuria Qualified Code(s): N30.00 - Acute cystitis without hematuria Condition: Good Instructions: ED Near Syncope Unkn, ED UTI Cystitis Female Follow-Up: Wesley Patel MD [Primary Care Provider] - Within 1 week Prescriptions: Cephalexin [Keflex] 500 mg PO Q6H #20 capsule Comments: She was given Rocephin in the emergency department today for her UTI. Start the Keflex tomorrow. Return if she worsens. Drink plenty of water at home. Discharge Date/Time: 10/23/18 13:42
[2018-10-23] MEDS ORDERED: SODIUM CHLORIDE 0.9% 1,000 ML IV ONE (10:59)
[2018-10-23 11:25] LABS: BASOPHILS # (AUTO) 0.1 10^3/uL (0.0-0.1); BASOPHILS % (AUTO) 1.1 %; EOSINOPHILS # (AUTO) 0.4 10^3/uL (0.0-0.7); EOSINOPHILS % (AUTO) 4.9 %; HGB - HEMOGLOBIN 10.9 g/dL (12.0-16.0); LYMPHOCYTES # (AUTO) 1.3 10^3/uL (1.5-3.5); LYMPHOCYTES % (AUTO) 17.5 %; MEAN CORPUSCULAR HEMOGLOBIN 31.2 pg (27.0-31.0); MEAN CORPUSCULAR VOLUME 94.7 fL (81.0-99.0); MEAN PLATELET VOLUME 8.4 fL (7.9-10.8); MONOCYTES # (AUTO) 0.8 10^3/uL (0.0-1.0); NEUTROPHILS # (AUTO) 4.8 10^3/uL (1.5-6.6); NEUTROPHILS % (AUTO) 65.5 %; PLT - PLATELET COUNT 241 10^3/uL (130-450); RED BLOOD COUNT 3.48 10^6/uL (4.20-5.40); RED CELL DISTRIBUTION WIDTH 13.6 % (12.0-15.0); WHITE BLOOD COUNT 7.4 x10^3/uL (4.8-10.8)
--- NOTE | 2018-10-23 11:34 | XRAY Report ---
Reason: near syncope Procedure Date: 10/23/2018 Accession Number: [id number] / [id number] Procedure: XR - Chest 1 View X-Ray CPT Code: 96358 FULL RESULT: EXAM: CHEST RADIOGRAPHY EXAM DATE: 10/23/2018 11:07 AM. CLINICAL HISTORY: Near syncope. COMPARISON: CHEST 2 VIEW 09/24/2018 7:26 PM. TECHNIQUE: 1 view. FINDINGS: Lungs/Pleura: No focal opacities evident. No pleural effusion. No pneumothorax. Mediastinum: Heart size is normal. Aorta is mildly tortuous. Other: Catheter projects over the medial right hemithorax. Surgical rolly overlie the left hemithorax, as before. IMPRESSION: 1. No acute disease in the chest. RADIA
[2018-10-23 11:39] LABS: ALBUMIN 3.7 g/dL (3.2-5.5); ALBUMIN/GLOBULIN RATIO 1.2 (1.0-2.2); BILIRUBIN,TOTAL 0.6 mg/dL (0.2-1.0); CALCIUM 8.8 mg/dL (8.5-10.3); CREATININE 2.5 mg/dL (0.4-1.0); TOTAL PROTEIN 6.7 g/dL (6.7-8.2)
[2018-10-23 11:41] LABS: BILIRUBIN,URINE NEGATIVE (NEGATIVE); GLUCOSE, URINE (UA) NEGATIVE (NEGATIVE); KETONES,URINE (UA) TRACE mg/dL (NEGATIVE); LEUKOCYTE ESTERASE, URINE TRACE (NEGATIVE); NITRITE,URINE NEGATIVE (NEGATIVE); OCCULT BLOOD,URINE NEGATIVE (NEGATIVE); PROTEIN,URINE 100 mg/dL (NEGATIVE); UROBILINOGEN,URINE 0.2 (NORMAL) E.U./dL (NORMAL)
[2018-10-23 11:44] LABS: CLARITY,URINE HAZY (CLEAR)
[2018-10-23 11:50] LABS: WBC CLUMPS,URINE PRESENT
[2018-10-23 11:51] LABS: AMORPHOUS SEDIMENT,UR Moderate /LPF; BACTERIA,URINE Many /HPF (None Seen); CASTS, URINE 0-2 Hyaline Casts /LPF; RBC,URINE 0-5 /HPF (0-5); SQUAMOUS EPITHELIAL CELL,UR FEW Squamous (<= Few)
[2018-10-23] MEDS ORDERED: cefTRIAXone 1 GM VIAL IVP STA (12:11)
[2018-10-23 13:29] VITALS: BP 185/84
== END 2018-10-23 13:42 | disposition home or self-care (01) ==
LOC: EDUNIT# → ED 10:36
DX: R55 Syncope and collapse (principal); N30.00 Acute cystitis without hematuria; E86.0 Dehydration; I10 Essential (primary) hypertension; E10.9 Type 1 diabetes mellitus without complications; Z79.4 Long term (current) use of insulin; F03.90 Unspecified dementia, unspecified severity, without behavioral disturbance, psychotic disturbance, mood disturbance, and anxiety; Z66 Do not resuscitate
CPT/HCPCS: 36415; 71045; 80053; 81001; 81003; 83690; 84484; 85025; 87077; 87086; 87181; 93005; 96361; 96374; 99284

== ENCOUNTER 2018-11-02 14:55 | Outpatient (CLI) | payer MEDICARE, OTHER | END 2018-11-02 14:56 | disposition critical access hospital (66) | LOC: EMS 14:55 | PROVIDERS: ATTEND Surgery | DX: R40.20 Unspecified coma (principal); R73.09 Other abnormal glucose | CPT/HCPCS: A0425; A0427 ==

== ENCOUNTER 2018-11-02 15:15 | Emergency (ER) | payer MEDICARE, OTHER ==
--- NOTE | 2018-11-02 15:18 | ED Physician Documentation ---
PD HPI ALTERED MENTAL STATUS - Stated complaint Stated Complaint: LOW BLOOD SUGAR - History obtained from History obtained from: Patient, EMS, Caregiver - History of Present Illness Timing - onset: How many minutes ago (20), Today Timing - duration: Minutes (The patient lives at a care facility and was found to be unresponsive. Blood sugar was checked and it was low. EMS was called and gave the patient some IV dextrose and she improved alertness. Her blood sugar was 31. There was no reported change in her insulin dosing. She does not remember if she had lunch today. She had not had any recent illness the last couple of days. She had had a possible mild bladder infection 5 to 2 weeks ago and was treated with an antibiotic. She denies any vomiting or diarrhea. She is feeling okay at this time on arrival to the ER.) Timing - details: Abrupt onset Quality / character: Unresponsive Associated symptoms: General weakness. No: Fever, Headache, Dyspnea Contributing factors: Diabetic. No: New medication, Recent med change, Recent illness, Recent injury Basline status: Alert and oriented X 3, Disoriented (due to some dementia), long-term facility Recently seen: Emergency Dept (couple weeks ago due to general weakness and Dx with possible UTI.) Review of Systems Constitutional: denies: Fever Nose: denies: Rhinorrhea / runny nose, Congestion Throat: denies: Sore throat Cardiac: denies: Chest pain / pressure Respiratory: denies: Cough GI: denies: Abdominal Pain, Nausea, Vomiting, Diarrhea : denies: Dysuria Skin: denies: Abrasion (s), Laceration (s) Neurologic: reports: Generalized weakness. 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 Derm: Skin grafts - Present Medications Home Medications: Ambulatory Orders Medication Instructions Recorded Confirmed Insulin Lispro [Humalog] 1 - 4 units SUBQ TIDWM 12/28/16 08/25/18 Levothyroxine Sodium [Levoxyl] 112 mcg PO QDAC 12/28/16 08/25/18 Cholecalciferol (Vitamin D3) 2,000 unit PO DAILY 09/13/17 08/25/18 [Vitamin D3] Amlodipine Besylate 10 mg PO DAILY 01/04/18 08/25/18 Ferrous Gluconate 324 mg PO DAILY #30 tablet 04/12/18 08/25/18 Metoprolol Succinate [Toprol Xl] 25 mg PO BIDWM #60 tablet 04/12/18 08/25/18 Insulin Glargine [Lantus Solostar] 5 units SUBQ DAILY 08/25/18 08/25/18 Cephalexin [Keflex] 500 mg PO Q6H #20 capsule 10/23/18 - Allergies Allergies/Adverse Reactions: Allergies Allergy/AdvReac Type Severity Reaction Status Date / Time lindsay Allergy Anaphylaxis Verified 10/23/18 10:42 oxycodone Allergy Unknown Verified 10/23/18 10:42 codeine AdvReac Intermediate Dizziness Verified 10/23/18 10:42 - Social History Does the pt smoke?: No Smoking Status: Never smoker Does the pt drink ETOH?: Yes Does the pt have substance abuse?: No - Immunizations Immunizations are current?: Yes - POLST Patient has POLST: No POLST Status: Other PD ED PE NORMAL - Vitals Vital signs reviewed: Yes - General General: Alert and oriented X 3, No acute distress, Well developed/nourished - HEENT HEENT: Pharynx benign - Neck Neck: Supple, no meningeal sign, No adenopathy - Cardiac Cardiac: RRR, No murmur - Respiratory Respiratory: No respiratory distress, Clear bilaterally - Abdomen Abdomen: Normal bowel sounds, Soft, Non tender, Non distended - Back Back: No CVA TTP - Derm Derm: Normal color, Warm and dry - Extremities Extremities: No tenderness to palpate, Normal ROM s pain, No edema, No calf tenderness / cord - Neuro Neuro: Alert and oriented X 3, No motor deficit, Normal speech Eye Opening: Spontaneous Motor: Obeys Commands Verbal: Oriented GCS Score: 15 Results - Vitals Vitals: Vital Signs - 24 hr 11/02/18 11/02/18 11/02/18 15:22 16:20 18:01 Temperature 36.2 C L Heart Rate 67 81 72 Respiratory 18 18 17 Rate Blood Pressure 213/87 H 209/79 H 181/62 H O2 Saturation 98 99 99 Oxygen O2 Source [Without Activity] Room air O2 Source Room air - EKG (time done) 15:56 Rate: Rate (enter#) (66) Rhythm: NSR [place]: Normal Intervals: Normal [place] QRS: Normal Ischemia: Normal ST segments. No: ST elevation c/w ischemia, ST depression - Labs Labs: Laboratory Tests 11/02/18 11/02/18 11/02/18 16:08 16:08 16:08 WBC 6.2 RBC 3.38 L Hgb 10.6 L Hct 32.0 L MCV 94.8 MCH 31.4 H MCHC 33.1 RDW 13.6 Plt Count 257 MPV 8.7 Neut # (Auto) 3.9 Lymph # (Auto) 1.1 L [place] # (Auto) 0.7 Eos # (Auto) 0.4 Baso # (Auto) 0.1 Absolute Nucleated RBC 0.00 Nucleated RBC % 0.0 Sodium 137 Potassium 4.7 Chloride 100 L Carbon Dioxide 25 Anion Gap 12.0 BUN 51 H Creatinine 2.6 H Estimated GFR (MDRD) 18 L Glucose 51 L* Lactic Acid Calcium 9.4 Magnesium 2.3 Total Bilirubin 0.5 AST 21 ALT 16 Alkaline Phosphatase 57 Troponin I 0.04 Total Protein 7.3 Albumin 4.0 Globulin 3.3 Albumin/Globulin Ratio 1.2 Lipase 34 Urine Color Urine Clarity Urine pH Ur Specific [place] Urine Protein Urine Glucose (UA) Urine Ketones Urine Occult Blood Urine Nitrite Urine Bilirubin Urine Urobilinogen Ur Leukocyte Esterase Urine RBC Urine WBC Ur Squamous Epith Cells Amorphous Sediment Urine Bacteria Urine Casts Ur Microscopic Review Urine Culture Comments 11/02/18 11/02/18 16:08 17:25 WBC RBC Hgb Hct MCV MCH MCHC RDW Plt Count MPV Neut # (Auto) Lymph # (Auto) [place] # (Auto) Eos # (Auto) Baso # (Auto) Absolute Nucleated RBC Nucleated RBC % Sodium Potassium Chloride Carbon Dioxide Anion Gap BUN Creatinine Estimated GFR (MDRD) Glucose Lactic Acid 1.1 Calcium Magnesium Total Bilirubin AST ALT Alkaline Phosphatase Troponin I Total Protein Albumin Globulin Albumin/Globulin Ratio Lipase Urine Color YELLOW Urine Clarity CLEAR Urine pH 6.0 Ur Specific [place] 1.010 Urine Protein 100 H Urine Glucose (UA) 250 H Urine Ketones NEGATIVE Urine Occult Blood TRACE-LYSE Urine Nitrite NEGATIVE Urine Bilirubin NEGATIVE Urine Urobilinogen 0.2 (NORMAL) Ur Leukocyte Esterase NEGATIVE Urine RBC 0-5 Urine WBC 0-3 Ur Squamous Epith Cells NONE SEEN Amorphous Sediment Moderate Urine Bacteria None Seen Urine Casts 0-2 Hyaline Casts Ur Microscopic Review INDICATED Urine Culture Comments NOT INDICATED PD MEDICAL DECISION MAKING - ED course Complexity details: reviewed results, re-evaluated patient (her blood sugars have held well after she had something to eat here. Seems likely that she did not have lunch, as she does not remember if she did. No signs of illness/infection. ), considered differential (She had a hypoglycemic episode. She is at a nursing facility so the medication dosing is controlled by the nursing staff. No reported change in medications. She is not sure if she ate lunch so it may have been just a lack of calorie intake. She does not have any apparent infections or fevers. Will check blood count and urine test and x-ray. She does not have any chest pain and her EKG does not have any ischemic changes.), d/w patient Departure - Departure Disposition: Home, Self Care Clinical Impression: Hypoglycemia associated with diabetes Condition: Stable Record reviewed to determine appropriate education?: Yes Follow-Up: GORDO FERREIRA [Primary Care Provider] - Comments: Be sure to eat regular meals. There is no sign of obvious infection or electrolyte abnormality to account for the low blood sugar episode. Continue usual medications and regular diet. Be sure to eat dinner this evening. Discharge Date/Time: 11/02/18 18:35
[2018-11-02] MEDS ORDERED: SODIUM CHLORIDE 0.9% 1,000 ML IV ONE ×2 (15:44→15:45)
[2018-11-02] MEDS ORDERED: DEXTROSE 50% ABBOJECT 25 GM/50 ML SYRINGE IVP STA (16:08)
[2018-11-02] MEDS ORDERED: DEXTROSE 50% ABBOJECT 25 GM/50 ML SYRINGE ONE (16:17)
[2018-11-02 16:18] LABS: BASOPHILS # (AUTO) 0.1 10^3/uL (0.0-0.1); BASOPHILS % (AUTO) 1.5 %; EOSINOPHILS # (AUTO) 0.4 10^3/uL (0.0-0.7); EOSINOPHILS % (AUTO) 6.1 %; HGB - HEMOGLOBIN 10.6 g/dL (12.0-16.0); LYMPHOCYTES # (AUTO) 1.1 10^3/uL (1.5-3.5); MEAN CORPUSCULAR HEMOGLOBIN 31.4 pg (27.0-31.0); MEAN CORPUSCULAR HGB CONC 33.1 g/dL (32.0-36.0); MEAN CORPUSCULAR VOLUME 94.8 fL (81.0-99.0); MEAN PLATELET VOLUME 8.7 fL (7.9-10.8); MONOCYTES # (AUTO) 0.7 10^3/uL (0.0-1.0); MONOCYTES % (AUTO) 11.8 %; NEUTROPHILS # (AUTO) 3.9 10^3/uL (1.5-6.6); NEUTROPHILS % (AUTO) 62.6 %; PLT - PLATELET COUNT 257 10^3/uL (130-450); RED BLOOD COUNT 3.38 10^6/uL (4.20-5.40); RED CELL DISTRIBUTION WIDTH 13.6 % (12.0-15.0); WHITE BLOOD COUNT 6.2 x10^3/uL (4.8-10.8)
[2018-11-02 16:38] LABS: ALBUMIN/GLOBULIN RATIO 1.2 (1.0-2.2); BILIRUBIN,TOTAL 0.5 mg/dL (0.2-1.0); CALCIUM 9.4 mg/dL (8.5-10.3); CREATININE 2.6 mg/dL (0.4-1.0); MAGNESIUM 2.3 mg/dL (1.7-2.8); TOTAL PROTEIN 7.3 g/dL (6.7-8.2)
[2018-11-02 17:47] LABS: BILIRUBIN,URINE NEGATIVE (NEGATIVE); GLUCOSE, URINE (UA) 250 mg/dL (NEGATIVE); KETONES,URINE (UA) NEGATIVE (NEGATIVE); LEUKOCYTE ESTERASE, URINE NEGATIVE (NEGATIVE); NITRITE,URINE NEGATIVE (NEGATIVE); OCCULT BLOOD,URINE TRACE-LYSE (NEGATIVE); PROTEIN,URINE 100 mg/dL (NEGATIVE); UROBILINOGEN,URINE 0.2 (NORMAL) E.U./dL (NORMAL)
[2018-11-02 17:51] LABS: CLARITY,URINE CLEAR (CLEAR)
[2018-11-02 17:54] LABS: RBC,URINE 0-5 /HPF (0-5); SQUAMOUS EPITHELIAL CELL,UR NONE SEEN (<= Few)
[2018-11-02 17:55] LABS: AMORPHOUS SEDIMENT,UR Moderate /LPF; BACTERIA,URINE None Seen /HPF (None Seen); CASTS, URINE 0-2 Hyaline Casts /LPF
[2018-11-02 18:01] VITALS: BP 181/62
== END 2018-11-02 18:35 | disposition home or self-care (01) ==
LOC: EDUNIT# → ED 15:15
DX: E10.649 Type 1 diabetes mellitus with hypoglycemia without coma (principal); F03.90 Unspecified dementia, unspecified severity, without behavioral disturbance, psychotic disturbance, mood disturbance, and anxiety; I10 Essential (primary) hypertension; Z79.4 Long term (current) use of insulin; Z79.899 Other long term (current) drug therapy
CPT/HCPCS: 36415; 80053; 81001; 81003; 83605; 83690; 83735; 84484; 85025; 87086; 93005; 96361; 96374; 99284; 99285

== ENCOUNTER 2018-11-03 20:02 | Outpatient (CLI) | payer MEDICARE, OTHER | END 2018-11-03 20:03 | disposition critical access hospital (66) | LOC: EMS 20:02 | PROVIDERS: ATTEND Surgery | DX: R73.09 Other abnormal glucose (principal); R41.82 Altered mental status, unspecified | CPT/HCPCS: A0425; A0427 ==

== ENCOUNTER 2018-11-03 20:19 | Emergency (ER) | payer MEDICARE, OTHER ==
[2018-11-03 20:52] LABS: BASOPHILS # (AUTO) 0.1 10^3/uL (0.0-0.1); EOSINOPHILS # (AUTO) 0.5 10^3/uL (0.0-0.7); EOSINOPHILS % (AUTO) 8.4 %; LYMPHOCYTES # (AUTO) 1.2 10^3/uL (1.5-3.5); LYMPHOCYTES % (AUTO) 21.5 %; MEAN CORPUSCULAR HEMOGLOBIN 31.6 pg (27.0-31.0); MEAN CORPUSCULAR HGB CONC 32.9 g/dL (32.0-36.0); MEAN CORPUSCULAR VOLUME 96.1 fL (81.0-99.0); MEAN PLATELET VOLUME 8.6 fL (7.9-10.8); MONOCYTES # (AUTO) 0.7 10^3/uL (0.0-1.0); MONOCYTES % (AUTO) 13.6 %; NEUTROPHILS % (AUTO) 54.5 %; PLT - PLATELET COUNT 239 10^3/uL (130-450); RED BLOOD COUNT 3.17 10^6/uL (4.20-5.40); RED CELL DISTRIBUTION WIDTH 13.8 % (12.0-15.0); WHITE BLOOD COUNT 5.5 x10^3/uL (4.8-10.8)
[2018-11-03 20:59] LABS: CREATININE 2.5 mg/dL (0.4-1.0)
[2018-11-03] MEDS ORDERED: amLODIPine 5 MG TABLET PO STA (21:17)
--- NOTE | 2018-11-03 21:17 | ED Physician Documentation ---
History of Present Illness - Stated complaint Stated Complaint: LOW BLOOD SUGAR - Chief complaint Chief Complaint: Neuro - History obtained from History obtained from: Patient - History of Present Illness Timing: Prior to arrival Severity Comments: severe hypoglycemia - blood sugar 21 Quality: severe Radiates to: no pain Improved by: EMS gave D50 IV Worsened by: nothing Associated symptoms: patient with decreased responsiveness, no seizure no reported - Treatment prior to arrival Treatment prior to arrival: D50 given by EMS - Additonal information Additional information: On arrival in the ED pt is awake, alert, talking and eating. She has no complaints. 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 She recently had high blood sugars so they increased her standing humalog order from 5 to 10 units. There is no sliding scale or hold order present. Pt has been eating well and drinking normally. No fever. No other symptoms. Review of Systems Ten Systems: 10 systems reviewed and negative Constitutional: denies: Fever, Chills Cardiac: denies: Chest pain / pressure Respiratory: denies: Dyspnea GI: denies: Abdominal Pain, Nausea, Vomiting Neurologic: reports: Altered mental status. 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 Derm: Skin grafts - Present Medications Home Medications: Ambulatory Orders Medication Instructions Recorded Confirmed Insulin Lispro [Humalog] 1 - 4 units SUBQ TIDWM 12/28/16 08/25/18 Levothyroxine Sodium [Levoxyl] 112 mcg PO QDAC 12/28/16 08/25/18 Cholecalciferol (Vitamin D3) 2,000 unit PO DAILY 09/13/17 08/25/18 [Vitamin D3] Amlodipine Besylate 10 mg PO DAILY 01/04/18 08/25/18 Ferrous Gluconate 324 mg PO DAILY #30 tablet 04/12/18 08/25/18 Metoprolol Succinate [Toprol Xl] 25 mg PO BIDWM #60 tablet 04/12/18 08/25/18 Insulin Glargine [Lantus Solostar] 5 units SUBQ DAILY 08/25/18 08/25/18 Cephalexin [Keflex] 500 mg PO Q6H #20 capsule 10/23/18 - Allergies Allergies/Adverse Reactions: Allergies Allergy/AdvReac Type Severity Reaction Status Date / Time lindsay Allergy Anaphylaxis Verified 10/23/18 10:42 oxycodone Allergy Unknown Verified 10/23/18 10:42 codeine AdvReac Intermediate Dizziness Verified 10/23/18 10:42 - Social History Does the pt smoke?: No Smoking Status: Never smoker Does the pt drink ETOH?: Yes Does the pt have substance abuse?: No - Immunizations Immunizations are current?: Yes - POLST Patient has POLST: No POLST Status: Other PD ED PE NORMAL - Vitals Vital signs reviewed: Yes (hypertension, severe) - General General: Alert and oriented X 3, No acute distress, Well developed/nourished - HEENT HEENT: Atraumatic, PERRL, EOMI, Moist mucous membranes, Pharynx benign - Neck Neck: Supple, no meningeal sign, No JVD - Cardiac Cardiac: RRR, No murmur, No gallop, No rub - Respiratory Respiratory: No respiratory distress, Clear bilaterally - Abdomen Abdomen: Soft, Non tender, Non distended - Female Female : Deferred - Rectal Rectal: Deferred Results - Vitals Vitals: Vital Signs - 24 hr 11/03/18 11/03/18 11/03/18 20:20 20:32 21:44 Temperature 36.3 C L 36.4 C L Heart Rate 69 70 70 Respiratory 17 16 20 Rate Blood Pressure 214/100 H 197/96 H 199/96 H O2 Saturation 100 100 99 Oxygen O2 Source [Without Activity] Room air O2 Source Room air - Labs Labs: Laboratory Tests 11/03/18 11/03/18 20:46 20:46 WBC 5.5 RBC 3.17 L Hgb 10.0 L Hct 30.5 L MCV 96.1 MCH 31.6 H MCHC 32.9 RDW 13.8 Plt Count 239 MPV 8.6 Neut # (Auto) 3.0 Lymph # (Auto) 1.2 L [place] # (Auto) 0.7 Eos # (Auto) 0.5 Baso # (Auto) 0.1 Absolute Nucleated RBC 0.00 Nucleated RBC % 0.0 Sodium 138 Potassium 4.6 Chloride 103 Carbon Dioxide 26 Anion Gap 9.0 BUN 49 H Creatinine 2.5 H Estimated GFR (MDRD) 19 L Glucose 106 H Calcium 9.0 stable renal function hypoglycemia resolved with oral glucose and IV D50. Her CBC is also stable PD MEDICAL DECISION MAKING - ED course Complexity details: reviewed results, re-evaluated patient, considered differential, d/w patient ED course: ddx- renal failure, insulin overdose, liver failure 78 y/o F with hypoglycemia today which resolved after treated by EMS w/D50. Pt is stable here, asymptomatic, blood sugar now 106 in the ED. She was given an overdose of insulin for her blood sugar which was 160 at the time. She recently had her insulin dosage increased for control of hyperglycemia but I feel this was too high. The pt's renal function is stable. She is on lantus but her last dose of lantus was over 18 hours ago. I feel the pt is stable for outpt monitoring of her gluocse and discharge. I advised the nursing staff to reduce her insulin dose by half for her regular standing insulin and to place a hold on insulin if blood sugars are under 150. Departure - Departure Disposition: 01 Home, Self Care Clinical Impression: Hypoglycemia, Hypertension Condition: Stable Follow-Up: GORDO FERREIRA [Primary Care Provider] - Within 1 week Comments: Reduce insulin dose to 5 units. Hold if blood sugar less than 150. It is better to err on the side of having high blood sugar than being hypoglycemic which could be deadly. Follow up with your PCP to recheck your blood pressure and blood sugars within a week.
[2018-11-03 21:45] VITALS: BP 199/96
== END 2018-11-03 22:05 | disposition home or self-care (01) ==
LOC: EDUNIT# → ED 20:19
DX: E10.649 Type 1 diabetes mellitus with hypoglycemia without coma (principal); Z79.4 Long term (current) use of insulin; I10 Essential (primary) hypertension; F03.90 Unspecified dementia, unspecified severity, without behavioral disturbance, psychotic disturbance, mood disturbance, and anxiety
CPT/HCPCS: 36415; 80048; 85025; 99283; A9270

== ENCOUNTER 2018-11-03 22:04 | Outpatient (CLI) | payer MEDICARE, OTHER | END 2018-11-03 22:05 | disposition home or self-care (01) | LOC: EMS 22:04 | PROVIDERS: ATTEND Surgery | DX: R73.09 Other abnormal glucose (principal); F03.90 Unspecified dementia, unspecified severity, without behavioral disturbance, psychotic disturbance, mood disturbance, and anxiety | CPT/HCPCS: A0425; A0428 ==

== ENCOUNTER 2019-05-02 02:10 | Outpatient (CLI) | payer MEDICARE, OTHER | END 2019-05-02 02:11 | disposition critical access hospital (66) | LOC: EMS 02:10 | PROVIDERS: ATTEND Surgery | DX: R06.02 Shortness of breath (principal) | CPT/HCPCS: A0425; A0427 ==

== ENCOUNTER 2019-05-02 02:26 | Emergency (ER) | payer MEDICARE, OTHER ==
--- NOTE | 2019-05-02 02:43 | ED Physician Documentation ---
History of Present Illness - Stated complaint Stated Complaint: A-FIB - Chief complaint Chief Complaint: Cardiac - Additonal information Additional information: This is a 78-year-old female with a history of dementia, possible congestive hea rt failure though last echo in our system on 03/2018 showed a ejection fraction of 65%, uncertain diastolic function, CKD with baseline creatinine around 2.5, brittle diabetes, who presents from [facility] and [place] due to shortness of breath and rapid heart rate. Patient denies a known history of cardiac arrhythmia or atrial fibrillation, she states that she has had worsening shortness of breath over several weeks, and she is noted to have more swelling in her legs. Reportedly her leg swelling and kidney function have been worsening over the last 6 weeks. It sounds like she was put on torsemide, but has not had great improvement with this. She states that she has had increasing shortness of breath, she denies chest pain. She does have some pain in her left knee and hip, which sound like they are chronic, she states she always hurts around there. She is a DNR with limited interventions, I clarified with her nephew Lorena, who is her power of attorney lawyer and states that she would like interventions unless they are futile or if they would prolong a poor quality of life. Review of Systems Constitutional: denies: Fever Throat: denies: Dental pain / toothache Cardiac: denies: Chest pain / pressure Respiratory: reports: Dyspnea GI: denies: Abdominal Pain : denies: Dysuria Neurologic: reports: Generalized weakness Immunocompromised: denies: Immunocompromised PD PAST MEDICAL HISTORY - Past Medical History Cardiovascular: Hypertension Respiratory: Asthma Neuro: Dementia, Other Endocrine/Autoimmune: Type 1 diabetes GI: None CLINICAL TECHNICIAN: Other : Incontinence, Renal insuffiency HEENT: Chronic vision loss Psych: Anxiety Musculoskeletal: Fatigue Derm: Other - Past Surgical History Past Surgical History: Yes General: Appendectomy Neuro: [employer] shunt Derm: Skin grafts - Present Medications Home Medications: Ambulatory Orders Medication Instructions Recorded Confirmed Insulin Lispro [Humalog] 1 - 4 units SUBQ TIDWM 12/28/16 08/25/18 Cholecalciferol (Vitamin D3) 2,000 unit PO DAILY 09/13/17 08/25/18 [Vitamin D3] Insulin Glargine [Lantus Solostar] 5 units SUBQ DAILY 08/25/18 08/25/18 Calcium Carbonate/Vitamin D3 1 each PO 05/02/19 [Calcium 600 + Vit D 400 Tablet] Levothyroxine [Synthroid] 1 tab DAILY 05/02/19 05/02/19 Torsemide 1 tab DAILY 05/02/19 05/02/19 - Allergies Allergies/Adverse Reactions: Allergies Allergy/AdvReac Type Severity Reaction Status Date / Time PATIENCE Inhibitors Allergy Unknown Verified 05/02/19 03:25 lindsay Allergy Anaphylaxis Verified 05/02/19 02:33 oxycodone Allergy Unknown Verified 05/02/19 02:33 codeine AdvReac Intermediate Dizziness Verified 05/02/19 02:33 - Social History Does the pt smoke?: No Smoking Status: Never smoker Does the pt drink ETOH?: Yes Does the pt have substance abuse?: No - Immunizations Immunizations are current?: Yes - POLST Patient has POLST: No POLST Status: Other PD ED PE NORMAL - Vitals Vital signs reviewed: Yes - General General: Other (Mildly uncomfortable appearing, but nontoxic) - HEENT HEENT: Atraumatic, PERRL - Neck Neck: Supple, no meningeal sign - Cardiac Cardiac: Other (Irregularly irregular rhythm, tachycardic) - Respiratory Respiratory: Other (Bibasilar crackles) - Abdomen Abdomen: Soft, Non tender, Non distended - Derm Derm: Warm and dry - Extremities Extremities: No deformity, Other (Patient has normal range of motion of her hips and knees on my exam and in, no specific tenderness. She states that she intermittently gets cramps in her legs, but these do not appear to be reproducible. Legs are neurovascularly intact.) - Neuro Neuro: Other (Alert, able to hold a basic conversation, knows some of her medical history and is oriented to self, place, and general event. Moving all extremities without focal deficit, normal speech) Results - Vitals Vitals: Vital Signs - 24 hr 05/02/19 05/02/19 05/02/19 02:26 04:32 04:47 Temperature 36.1 C L 36.3 C L Heart Rate 121 H 148 H 133 H Respiratory 24 13 15 Rate Blood Pressure 135/107 H 132/98 H 126/102 H O2 Saturation 100 100 99 Oxygen O2 Source [] Room air O2 Source Room air - EKG (time done) 2:27 Other comments: Other comments (Rate 129, rhythm atrial fibrillation, there is [address] elevation in V3 which is discordant, and less than 0.[address] elevation in V4, there are T wave inversions in the lateral lead leads, but these are unchanged from a prior ED KG from October of this year. There is new poor R wave progression) - Labs Labs: Laboratory Tests 05/02/19 05/02/19 05/02/19 01:49 02:49 02:49 WBC 5.5 RBC 3.61 L Hgb 10.7 L Hct 35.2 L MCV 97.5 MCH 29.6 MCHC 30.4 L RDW 16.7 H Plt Count 144 MPV 11.2 H Neut # (Auto) 3.5 Lymph # (Auto) 1.2 L [place] # (Auto) 0.7 Eos # (Auto) 0.1 Baso # (Auto) 0.0 Absolute Nucleated RBC 0.02 Nucleated RBC % 0.4 PT INR Sodium 131 L Potassium 5.1 H Chloride 91 L Carbon Dioxide 28 Anion Gap 12.0 BUN 89 H* Creatinine 4.0 H Estimated GFR (MDRD) 11 L Glucose 156 H Calcium 8.6 Total Bilirubin 0.9 AST 35 ALT 71 H Alkaline Phosphatase 105 Troponin I High Sens B-Natriuretic Peptide Total Protein 6.2 L Albumin 3.2 Globulin 3.0 Albumin/Globulin Ratio 1.1 Lipase 26 TSH Free T4 1.46 Urine Color Urine Clarity Urine pH Ur Specific [place] Urine Protein Urine Glucose (UA) Urine Ketones Urine Occult Blood Urine Nitrite Urine Bilirubin Urine Urobilinogen Ur Leukocyte Esterase Urine RBC Urine WBC Ur Squamous Epith Cells Amorphous Sediment Urine Bacteria Ur Microscopic Review Urine Culture Comments 05/02/19 05/02/19 05/02/19 02:49 02:49 02:49 WBC RBC Hgb Hct MCV MCH MCHC RDW Plt Count MPV Neut # (Auto) Lymph # (Auto) [place] # (Auto) Eos # (Auto) Baso # (Auto) Absolute Nucleated RBC Nucleated RBC % PT 15.2 H INR 1.4 H Sodium Potassium Chloride Carbon Dioxide Anion Gap BUN Creatinine Estimated GFR (MDRD) Glucose Calcium Total Bilirubin AST ALT Alkaline Phosphatase Troponin I High Sens 944.6 H* B-Natriuretic Peptide 6355.00 H Total Protein Albumin Globulin Albumin/Globulin Ratio Lipase TSH Free T4 Urine Color Urine Clarity Urine pH Ur Specific [place] Urine Protein Urine Glucose (UA) Urine Ketones Urine Occult Blood Urine Nitrite Urine Bilirubin Urine Urobilinogen Ur Leukocyte Esterase Urine RBC Urine WBC Ur Squamous Epith Cells Amorphous Sediment Urine Bacteria Ur Microscopic Review Urine Culture Comments 05/02/19 05/02/19 02:49 03:05 WBC RBC Hgb Hct MCV MCH MCHC RDW Plt Count MPV Neut # (Auto) Lymph # (Auto) [place] # (Auto) Eos # (Auto) Baso # (Auto) Absolute Nucleated RBC Nucleated RBC % PT INR Sodium Potassium Chloride Carbon Dioxide Anion Gap BUN Creatinine Estimated GFR (MDRD) Glucose Calcium Total Bilirubin AST ALT Alkaline Phosphatase Troponin I High Sens B-Natriuretic Peptide Total Protein Albumin Globulin Albumin/Globulin Ratio Lipase TSH 11.14 H Free T4 Urine Color YELLOW Urine Clarity CLEAR Urine pH 5.0 Ur Specific [place] 1.010 Urine Protein 30 H Urine Glucose (UA) NEGATIVE Urine Ketones NEGATIVE Urine Occult Blood NEGATIVE Urine Nitrite NEGATIVE Urine Bilirubin NEGATIVE Urine Urobilinogen 0.2 (NORMAL) Ur Leukocyte Esterase NEGATIVE Urine RBC None Seen Urine WBC 0-3 Ur Squamous Epith Cells FEW Squamous Amorphous Sediment Few Urine Bacteria Rare Ur Microscopic Review INDICATED Urine Culture Comments NOT INDICATED - Rads (name of study) CXR Radiology: Other (Cardiomegaly with pulmonary vascular congestion effusions and bibasilar airspace disease likely representing congestive heart failure) PD MEDICAL DECISION MAKING - ED course Complexity details: considered differential (Heart failure, pulmonary edema, pleural effusions, pneumothorax, dysrhythmia, ACS, atrial fibrillation, electrolyte abnormality, PHOEBE) ED course: On arrival patient is tachycardic, rhythm is atrial fibrillation with RVR. She was noted to have a glucose of 52 when EMS arrived, so she was given D10 for this in route her blood sugar normalized in the 100s while in the ED. Her blood pressure is normal to hypertensive, her oxygen saturation is normal on room air. Her EKG does show some slight ST elevation in V3 and V4, but no STEMI, and the T wave inversions seen laterally are unchanged from prior EKGs. She is having no chest pain, making ACS less likely. She has had progressive shortness of breath over weeks, she has obvious signs of edema, and her chest x-ray also shows signs of of volume overload. Her labs show an elevated High-sensitivity troponin in the 900s, and a highly elevated BNP, which I think are most consistent with heart failure. Her high-sensitivity troponin is likely also elevated in part due to her PHOEBE, as her creatinine is 4.0, up from her typical baseline of 2.5. She has some mild hyperkalemia of 5.1. Her TSH was elevated however her free T4 was in normal range. Her hemoglobin is 10.7, her baseline is is around 10 Overall she appears to have heart failure, and PHOEBE, and atrial fibrillation with RVR, which may be in response to her heart failure. Her rate is bouncing between 110 and 130s, given her heart failure I do not want to aggressively rate control her, as her tachycardia may be in response to her reduced ejection fraction. I spoke with Dr. Sawyer of [facility] cardiology, who recommended oral beta-blockers and a dose of diuretics, and they will follow patient on admission. I spoke with Dr. Arevalo of the [facility] hospitalist service who accepted patient in transfer. I did start patient on a heparin drip given her elevated troponin and her new onset atrial fibrillation, and she was given 324 mg of aspirin. She was given 25 mg of metoprolol p.o., and 40 mg of Lasix IV. I discussed the plan of care with the patient and her nephew Lorena, who is her power of attorney lawyer, and they are both in agreement with the plan. She was transferred via ALS, she continued to have a normal blood pressure, and heart rate was in the 110-120s at the time of transfer. Pt continued to have excellent oxygen saturation on room air, and no new or worsening symptoms. Departure - Departure Disposition: 02 Transfer Acute Care Hosp Clinical Impression: Elevated troponin Atrial fibrillation Qualifiers: Atrial fibrillation type: unspecified Qualified Code(s): I48.91 - Unspecified atrial fibrillation Heart failure Qualifiers: Heart failure type: unspecified Heart failure chronicity: unspecified Qualified Code(s): I50.9 - Heart failure, unspecified Condition: Stable
[2019-05-02 02:55] LABS: BASOPHILS % (AUTO) 0.5 %; EOSINOPHILS # (AUTO) 0.1 10^3/uL (0.0-0.7); HGB - HEMOGLOBIN 10.7 g/dL (12.0-16.0); LYMPHOCYTES # (AUTO) 1.2 10^3/uL (1.5-3.5); LYMPHOCYTES % (AUTO) 21.5 %; MEAN CORPUSCULAR HEMOGLOBIN 29.6 pg (27.0-31.0); MEAN CORPUSCULAR HGB CONC 30.4 g/dL (32.0-36.0); MEAN CORPUSCULAR VOLUME 97.5 fL (81.0-99.0); MEAN PLATELET VOLUME 11.2 fL (7.9-10.8); MONOCYTES # (AUTO) 0.7 10^3/uL (0.0-1.0); NEUTROPHILS # (AUTO) 3.5 10^3/uL (1.5-6.6); NEUTROPHILS % (AUTO) 63.3 %; PLT - PLATELET COUNT 144 10^3/uL (130-450); RED BLOOD COUNT 3.61 10^6/uL (4.20-5.40); RED CELL DISTRIBUTION WIDTH 16.7 % (12.0-15.0); WHITE BLOOD COUNT 5.5 x10^3/uL (4.8-10.8)
[2019-05-02 03:01] LABS: INR 1.4 (0.8-1.2); PT - PROTHROMBIN TIME 15.2 secs (9.9-12.6)
[2019-05-02 03:11] LABS: ALBUMIN 3.2 g/dL (3.2-5.5); ALBUMIN/GLOBULIN RATIO 1.1 (1.0-2.2); BILIRUBIN,TOTAL 0.9 mg/dL (0.2-1.0); CALCIUM 8.6 mg/dL (8.5-10.3); TOTAL PROTEIN 6.2 g/dL (6.7-8.2)
--- NOTE | 2019-05-02 03:13 | XRAY Report ---
Reason: chest pain Procedure Date: 05/02/2019 Accession Number: [id number] / [id number] Procedure: XR - Chest 1 View X-Ray CPT Code: 19496 Final Report FULL RESULT: EXAM: CHEST RADIOGRAPHY EXAM DATE: 05/02/2019 03:05 AM. CLINICAL HISTORY: Chest pain. COMPARISON: CHEST 1 VIEW 10/23/2018 10:54 AM CHEST 1 VIEW 08/25/2018 6:58 PM. TECHNIQUE: 1 view. FINDINGS: Lungs/Pleura: Bilateral effusions, pulmonary vascular congestion, and basilar airspace disease, new. No pneumothorax. Mediastinum: Cardiomegaly. Other: Stable shunt catheter traversing the right chest. Skin rolly again noted in the soft tissues of the left chest. IMPRESSION: Cardiomegaly, with pulmonary vascular congestion, effusions, and basilar airspace disease, likely representing congestive failure. RADIA
[2019-05-02 03:16] LABS: BILIRUBIN,URINE NEGATIVE (NEGATIVE); GLUCOSE, URINE (UA) NEGATIVE (NEGATIVE); KETONES,URINE (UA) NEGATIVE (NEGATIVE); LEUKOCYTE ESTERASE, URINE NEGATIVE (NEGATIVE); NITRITE,URINE NEGATIVE (NEGATIVE); OCCULT BLOOD,URINE NEGATIVE (NEGATIVE); PROTEIN,URINE 30 mg/dL (NEGATIVE); UROBILINOGEN,URINE 0.2 (NORMAL) E.U./dL (NORMAL)
[2019-05-02 03:19] LABS: CLARITY,URINE CLEAR (CLEAR)
[2019-05-02] MEDS ORDERED: FUROSEMIDE 40 MG/4 ML VIAL IVP STA ×2 (03:23→04:14)
[2019-05-02] MEDS ORDERED: fentaNYL 100 MCG/2 ML VIAL IVP STA (03:25)
[2019-05-02] MEDS ORDERED: HEPARIN 25000UNITS/500ML (D5W) 25,000 UNIT/500 ML BAG IV STA (03:31)
[2019-05-02] MEDS ORDERED: ASPIRIN CHEW 81 MG TABLET PO STA (03:32)
[2019-05-02 03:34] LABS: AMORPHOUS SEDIMENT,UR Few /LPF; BACTERIA,URINE Rare /HPF (None Seen); RBC,URINE None Seen /HPF (0-5); SQUAMOUS EPITHELIAL CELL,UR FEW Squamous (<= Few)
[2019-05-02] MEDS ORDERED: METOPROLOL TARTRATE 50 MG TABLET ONE (04:22)
[2019-05-02] MEDS ORDERED: METOPROLOL TARTRATE 25 MG TABLET PO SCH ×2 (04:37→05:00)
[2019-05-02 04:52] VITALS: BP 126/102
== END 2019-05-02 05:10 | disposition short-term general hospital (02) ==
LOC: EDUNIT# → ED 02:26
DX: I13.0 Hypertensive heart and chronic kidney disease with heart failure and stage 1 through stage 4 chronic kidney disease, or unspecified chronic kidney disease (principal); I50.9 Heart failure, unspecified; N17.9 Acute kidney failure, unspecified; I48.91 Unspecified atrial fibrillation; R74.8 Abnormal levels of other serum enzymes; E87.5 Hyperkalemia; E10.22 Type 1 diabetes mellitus with diabetic chronic kidney disease; N18.9 Chronic kidney disease, unspecified; E10.649 Type 1 diabetes mellitus with hypoglycemia without coma; F03.90 Unspecified dementia, unspecified severity, without behavioral disturbance, psychotic disturbance, mood disturbance, and anxiety; Z66 Do not resuscitate
CPT/HCPCS: 36415; 71045; 80053; 81001; 83690; 83880; 84439; 84443; 84484; 85025; 85610; 93005; 96374; 96375; 99284; 99285; A9270; 81003; 87086

== ENCOUNTER 2019-05-02 05:05 | Outpatient (CLI) | payer MEDICARE, OTHER | END 2019-05-02 05:06 | disposition short-term general hospital (02) | LOC: EMS 05:05 | PROVIDERS: ATTEND Surgery | DX: I48.91 Unspecified atrial fibrillation (principal) | CPT/HCPCS: A0425; A0426 ==